=== PATIENT | female | born 1940 | race Caucasian/White ===

== ENCOUNTER 2017-07-01 11:27 | Inpatient (IN) | payer OTHER ==
[2017-07-01] VITALS (11 sets, daily range): BP systolic 76–108; BP diastolic 44–52; PULSE 82–155; RESP 16–18; TEMP 99.1; Ht 142.2 cm; Wt 43.2 kg
[~2017-07-01] VITALS: Ht 142.2 cm; Wt 43.2 kg
[2017-07-01 12:42] LABS: ABNORMAL IP MESSAGE 1; HEMATOCRIT 34.5 % (37.0-47.0); HEMOGLOBIN 12.3 g/dl (12.0-16.0); MEAN CORPUSCULAR HEMOGLOBIN 30.8 pg (29.0-33.0); MEAN CORPUSCULAR HGB CONC 35.7 g/dl (32.0-37.0); MEAN CORPUSCULAR VOLUME 86.5 fl (82.0-101.0); PLATELET COUNT 118 10^3/UL (140-415); RED BLOOD COUNT 3.99 10^6/ul (4.20-5.40); RED CELL DISTRIBUTION WIDTH 14.6 % (11.5-14.5); WHITE BLOOD COUNT 8.4 10^3/ul (4.8-10.8)
[2017-07-01 12:43] LABS: POSITIVE DIFF @See below
[2017-07-01] MEDS ORDERED: RANI150T9 PO (12:50)
[2017-07-01] MEDS ORDERED: CHOL400T10 PO (12:50)
[2017-07-01] MEDS ORDERED: ATOR40TA68 PO (12:51)
[2017-07-01] MEDS ORDERED: METO-448 PO (12:51)
[2017-07-01] MEDS ORDERED: SITA1TAB5 PO (12:51)
[2017-07-01 12:54] LABS: ADD UMIC YES; UR ASCORBIC ACID NEGATIVE (NEGATIVE); UR BACTERIA FEW /HPF (NONE SEEN); UR BILIRUBIN (Dip) NEGATIVE (NEGATIVE); UR BLOOD (Dip) 1+ mg/dL (NEGATIVE); UR CLARITY SLIGHTLY CLOUDY (CLEAR); UR COLOR YELLOW (YELLOW); UR GLUCOSE (Dip) NEGATIVE (NEGATIVE); UR KETONES (Dip) TRACE mg/dL (NEGATIVE); UR LEUKOCYTE ESTERASE (Dip) TRACE Leu/ul (NEGATIVE); UR NITRITE (Dip) NEGATIVE (NEGATIVE); UR RBC 2 /HPF (0-5); UR SPECIFIC GRAVITY (Dip) 1.016 (1.003-1.030); UR SQUAMOUS EPITHELIAL CELL MODERATE /HPF (FEW); UR TOTAL PROTEIN (Dip) 2+ mg/dl (NEGATIVE); UR UROBILINOGEN (Dip) 2+ mg/dL (NEGATIVE)
[2017-07-01 13:06] LABS: ALBUMIN 3.3 g/dl (3.3-4.9); ALBUMIN/GLOBULIN RATIO 0.66; BILIRUBIN,DIRECT 0.3 mg/dl (0.00-0.20); BILIRUBIN,INDIRECT 0.8 mg/dl (0-1.1); BILIRUBIN,TOTAL 1.1 mg/dl (0.2-1.3); CALCIUM 10.1 mg/dl (8.4-10.2); CREATININE 1.61 mg/dl (0.44-1.00); POTASSIUM 4.8 mmol/L (3.5-5.1); TOTAL PROTEIN 8.3 g/dl (6.1-8.1)
[2017-07-01 13:19] LABS: ANISOCYTOSIS 3+ (0-0); METAMYELOCYTES %M 1 % (0-0); MONOCYTES % (M) 1 % (0-11); PLATELET ESTIMATE DECREASED; POIKILOCYTOSIS 1+ (0-0); REACTIVE LYMPHOCYTES% (M) 2 % (0-0); TARGET CELLS 1+ (0-0); TOXIC GRANULATION 1+ (0-0)
[2017-07-01 13:26] LABS: TROPONIN-I 0.142 ng/ml (0.00-0.12)
[2017-07-01] MEDS ORDERED: CEPHALEXIN 500 MG CAP PO ONE (13:30)
[2017-07-01] MEDS ORDERED: ASPIRIN 81 MG TAB PO ONE (13:30)
[2017-07-01] MEDS ORDERED: SOD CHLORIDE 0.9% 500 ML IV ONE (13:30)
--- NOTE | 2017-07-01 13:36 | ERD ---
ER Documentation Chief Complaint Chief Complaint DIZZINESS AND ABDOMINAL PAIN, VOMITTING, DIARRHEA X 1 WEEK -HX OF DIABETES HPI 77-year-old woman for near syncopal episode occurring this morning, he states she felt very dizzy and almost fainted. Patient states she has not been eating or drinking much over the last few days because she lost her appetite and has had a few episodes of clear nonbloody nonbilious emesis and loose stools. She states she had some chest discomfort this morning as well but denies chest pain here in the emergency department. Patient denies fevers or chills, no dysuria, no blood per rectum or melena, no complaints of headache or blurry vision. ROS All systems reviewed and are negative except as per history of present illness. Medications Home Meds Reported Medications Atorvastatin* (Atorvastatin*) 40 Mg Tablet, 40 MG PO QHS, #30 TAB 07/01/17 Metoprolol Tartrate* (Lopressor*) 25 Mg Tab, 25 MG PO BID, #60 TAB 07/01/17 Sitagliptin Phos/Metformin HCl (Janumet 50-1,000 mg Tablet) 1 Each Tablet, 1 EACH PO BID, TAB 07/01/17 Ranitidine Hcl* (Zantac*) 150 Mg Tablet, 150 MG PO BID, #60 TAB 07/01/17 Cholecalciferol* (Vitamin D*) 400 Unit Tablet, 400 UNIT PO DAILY, TAB 07/01/17 Allergies Allergies: Coded Allergies: No Known Allergy (Unverified , 07/01/17) PMhx/Soc Hypertension, diabetes mellitus, gastritis, dyslipidemia FmHx Family History: No diabetes Physical Exam Vitals Vital Signs Date Time Temp Pulse Resp B/P Pulse Ox O2 Delivery O2 Flow Rate FiO2 07/01/17 11:29 96.0 83 19 136/63 100 Physical Exam GENERAL: Well-developed, well-nourished, appears dehydrated, afebrile HEENT: Dry mucous membranes, pink conjunctiva, no cervical spine tenderness or step-off deformities, no goiter, no jaundice or icterus, extraocular movements intact without pain. No submandibular induration, and no pharyngeal erythema NEURO: Alert and oriented 3, cranial nerves II through XII intact bilaterally, pupils equal round reactive to light, no focal deficits or facial asymmetry, sensation intact distally Strength 5/5 in upper and lower extremities bilaterally CARDIAC: Regular rate and rhythm, no murmurs rubs or gallops LUNGS: Clear bilaterally no wheezing crackles or stridor ABDOMEN: Soft nontender, no guarding, no rigidity, no rebound, no psoas sign no obturator sign. Normoactive bowel sounds SKIN: Warm and dry to touch, no abrasions, contusions, or hematomas, no lacerations, no ecchymosis, no target lesions, and without ulcers EXTREMITIES: No clubbing cyanosis or edema, calves are bilaterally symmetrical, no Homans sign, no popliteal cord sign. Distal pulses equal and bilateral PSYCH: Normal affect without agitation or irritability Result Diagram: 07/01/17 1225 07/01/17 1225 Results 24 hrs Laboratory Tests Test 07/01/17 12:25 White Blood Count 8.410^3/ul Red Blood Count 3.9910^6/ul Hemoglobin 12.3g/dl Hematocrit 34.5% Mean Corpuscular Volume 86.5fl Mean Corpuscular Hemoglobin 30.8pg Mean Corpuscular Hemoglobin Concent 35.7g/dl Red Cell Distribution Width 14.6% Platelet Count 08935^3/UL Mean Platelet Volume 11.0fl Neutrophils % % Segmented Neutrophils % (Manual) 57% Band Neutrophils % (Manual) 35% Lymphocytes % % Lymphocytes % (Manual) 4% Reactive Lymphocytes % (Manual) 2% Monocytes % % Monocytes % (Manual) 1% Eosinophils % % Basophils % % Metamyelocytes % (manual) 1% Nucleated Red Blood Cells % 0.0/100WBC Neutrophils # 10^3/ul Neutrophils # (Manual) 5.010^3/ul Band Neutrophils # 2.910^3/ul Absolute Lymphocytes (Manual) 0.310^3/ul Lymphocytes # 10^3/ul Reactive Lymphocytes # 0.110^3/ul Monocytes # 10^3/ul Absolute Monocytes (Manual) 0.010^3/ul Eosinophils # 10^3/ul Basophils # 10^3/ul Metamyelocytes # 0.010^3/ul Nucleated Red Blood Cells # 10^3/ul Toxic Granulation 1+ Platelet Estimate DECREASED Poikilocytosis 1+ Anisocytosis 3+ Macrocytosis 3+ Target Cells 1+ Urine Color YELLOW Urine Clarity SLIGHTLY CLOUDY Urine pH 6.0 Urine Specific [place] 1.016 Urine Ketones TRACEmg/dL Urine Nitrite NEGATIVEmg/dL Urine Bilirubin NEGATIVEmg/dL Urine Urobilinogen 2+mg/dL Urine Leukocyte Esterase TRACELeu/ul Urine Microscopic RBC 2/HPF Urine Microscopic WBC 5/HPF Urine Squamous Epithelial Cells MODERATE/HPF Urine Bacteria FEW/HPF Urine Hemoglobin 1+mg/dL Urine Glucose NEGATIVEmg/dL Urine Total Protein 2+mg/dl Sodium Level 132mmol/L Potassium Level 4.8mmol/L Chloride Level 94mmol/L Carbon Dioxide Level 25mmol/L Anion Gap 18 Blood Urea Nitrogen 65mg/dl Creatinine 1.61mg/dl Glucose Level 99mg/dl Hemoglobin A1c 6.7% Calcium Level 10.1mg/dl Total Bilirubin 1.1mg/dl Direct Bilirubin 0.30mg/dl Indirect Bilirubin 0.8mg/dl Aspartate Amino Transf (AST/SGOT) 244IU/L Alanine Aminotransferase (ALT/SGPT) 152IU/L Alkaline Phosphatase 472IU/L Troponin I 0.142ng/ml Total Protein 8.3g/dl Albumin 3.3g/dl Globulin 5.00g/dl Albumin/Globulin Ratio 0.66 Lipase 72U/L Alpha Fetoprotein 1.61IU/L Thyroid Stimulating Hormone (TSH) 2.370MIU/L Free Thyroxine 1.81ng/dl Current Medications Medications (Trade) Dose Ordered Sig/Martell Route PRN Reason Start Time Stop Time Status Last Admin Dose Admin Aspirin 324 mg 324 mg ONCE ONCE PO 07/01/17 13:30 07/01/17 13:32 DC 07/01/17 13:30 Sodium Chloride (NS) 500 ml @ 500 mls/hr Q1H ONCE IV 07/01/17 13:30 07/01/17 14:29 DC 07/01/17 13:30 Cephalexin (Keflex) 500 mg ONCE ONCE PO 07/01/17 13:30 07/01/17 13:32 DC 07/01/17 13:30 Procedures/MDM IV line was established patient was placed on hvac installer rhythm strip revealed a sinus rhythm at about 80 bpm with upright P and T waves. Patient was afebrile. I do not suspect sepsis. EKG performed, read by me: 75 bpm, normal sinus rhythm, normal axis, no acute ST segment changes, narrow QRS complex, with good R-wave progression in precordial leads. CT scan of the abdomen and pelvis was ordered given her recent history: IMPRESSION: 1. Large poorly defined infiltrative hypodense lesion within the anterior right lobe of the liver. Further evaluation with MRI with contrast is recommended for more complete assessment. 2. Subtle inflammatory bronchiolitis and/or respiratory bronchiolitis interstitial lung disease scattered throughout the lungs bilaterally. 3. Scattered tiny micronodules throughout the lungs, including a single calcified granuloma within the lungs, all of which is probably benign and inflammatory in nature. 4. Distended gallbladder with layering gallstones. 5. Scattered benign chronic senescent changes. I administered morphine 4 mg IV and Zofran 4 mg IV for her initial generalized abdominal pain, she also received 500 mg IV normal saline. Her urine analysis was equivocal and I treated her here with oral cephalexin 500 mg p.o., although I do not suspect sepsis CBC was unremarkable, electrolytes revealed dehydration with a BUN/creatinine of 65/1.6, liver function tests revealed mild transaminitis, troponin positive at 0.14 I administered aspirin 324 mg p.o. for cardioprotective measures. Patient will be admitted to telemetry setting for non-STEMI and near syncope. Further intervention, imaging deferred to admitting hospitalist team. Departure Diagnosis: Primary Impression: Non-STEMI (non-ST elevated myocardial infarction) Additional Impressions: Dehydration Transaminitis Vomiting and diarrhea Acute kidney injury Condition: MIGEL Louise MD Jul 01, 2017 13:36
--- NOTE | 2017-07-01 13:37 | RADRPT ---
PROCEDURE: CT Chest, Abdomen and Pelvis without contrast. CLINICAL INDICATION: Pain. Dizziness. Weight loss. TECHNIQUE: CT scan of the chest, abdomen, and pelvis without contrast was performed on a multi-det jaziel high-resolution CT scanner. The patient was scanned without intravenous contrast. Coronal an d sagittal reformatted images were obtained from the axial source images. DICOM images are available . CTDI equals 5.16 mGy, DLP equals 390.76 mGy-cm. One or more of the following dose reduction techniques were used: - Automated exposure control. - Adjustment of the mA and/or kV according to patient size. - Use of iterative reconstruction technique. COMPARISON: None available FINDINGS: CT CHEST: Lungs: Diffuse scattered subtle centrilobular ground-glass opacification throughout the lungs. Benig n inflammatory bronchiolitis or respiratory bronchiolitis interstitial lung disease (RBILD) could haley ve this appearance. Benign calcified granuloma in the posterior juxtapleural margin of the left uppe r lung. Additional smaller scattered noncalcified micronodules within the lungs, too small to charac terize. Airways: Normal. Pleura: Normal. Mediastinum: Normal. Cardiovascular: Abundant aortic and coronary artery atherosclerotic vascular calcifications are iden tified. Lymph nodes: No adenopathy. Musculoskeletal: Normal. Lower neck: Normal. CT ABDOMEN/PELVIS: Liver: A large poorly defined approximately 9.5 cm area of significant diminished density is seen wi thin the anterior right liver, of uncertain etiology. Confluent hepatic fibrosis, focal fatty infilt ration, or less likely a neoplastic process could have this appearance. Further evaluation is stephen alaniz. In addition, smaller cystic lesions are seen elsewhere scattered throughout the periphery of th e left and right lobes of the liver. Biliary: Distended gallbladder with small layering gallstones. No significant biliary dilatation. Pancreas: Significant atrophy of the body and tail of the pancreas. Spleen: Normal. Adrenal Glands: Mild asymmetric thickening and hyperplasia of the left adrenal gland. Genitourinary: Normal. Gastrointestinal: Small duodenal diverticulum adjacent to the head of the pancreas. Sigmoid divertic ulosis, without diverticulitis. No bowel distension or bowel obstruction. Lymph nodes: Normal. Vascular: Extensive atherosclerotic vascular calcifications Peritoneum/mesentery: Normal. No free fluid or free air. Reproductive organs: Normal. Musculoskeletal: Severe compression fracture of the T11 vertebral body, likely chronic. Diffuse dege nerative enthesopathy throughout the spine. Mild anterolisthesis of L5 on S1. IMPRESSION: 1. Large poorly defined infiltrative hypodense lesion within the anterior right lobe of the liver. Further evaluation with MRI with contrast is recommended for more complete assessment. 2. Subtle inflammatory bronchiolitis and/or respiratory bronchiolitis interstitial lung disease sca ttered throughout the lungs bilaterally. 3. Scattered tiny micronodules throughout the lungs, including a single calcified granuloma within the lungs, all of which is probably benign and inflammatory in nature. 4. Distended gallbladder with layering gallstones. 5. Scattered benign chronic senescent changes. RPTAT: HMJB .Jozef Wolf MD, MD Date Time Electronically viewed and signed by .Jozef Wolf MD, on 07/01/2017 13:37 .B/
[2017-07-01] MEDS ORDERED: ONDANSETRON 4 MG INJ IV STA (15:13)
[2017-07-01] MEDS ORDERED: morphine 4 MG/ML VIAL IV STA (15:13)
--- NOTE | 2017-07-01 15:18 | HP ---
Date/Time of Note Date/Time of Note DATE: 07/01/17 TIME: 15:16 Assessment/Plan VTE Prophylaxis VTE Prophylaxis Intervention: SCD's Lines/Catheters IV [facility]from [facility] Assessment/Plan Chief Complaint/Hosp Course 1. Sepsis. Meets SIRS criteria: temperature less than 96.8F, heart rate greater than 90, respiratory rate greater than 20 with suspected infection [ urinalysis not that impressive, CT scan showing subtle inflammatory bronchiolitis and/or respiratory bronchiolitis interstitial lung disease scattered throughout the lungs bilaterally (although the patient has underlying transaminitis, the patient's baseline LFTs are unknown at this time)]. The patient was started on empiric antibiotics. Pancultures will be obtained. Lactic acid levels will be obtained. The patient has no evidence of any underlying tic shock 2. NSTEMI. Probably a type II event in the setting of underlying sepsis and acute kidney injury. However, serial troponins will be obtained. A 2D echocardiogram will be obtained. A cardiology consult will be obtained. 3. Acute kidney injury. Unknown baseline creatinine. The patient will be adequately hydrated using IV fluids. Nephrotoxic drugs will be avoided. 4. Transaminitis with hyperbilirubinemia. Etiology unclear. Hepatotoxic drugs will be avoided. Hepatitis panel will be obtained. LFTs will be trended. Will obtain a gastroenterology consult. 5. Type 2 diabetes mellitus. The patient's Metformin will be held at this time because of worsening renal function. The patient will be started on sliding scale insulin along with basal insulin and pre-meal insulin. Hemoglobin A1c will be obtained to evaluate the blood glucose control over the past few weeks. 6. Dyslipidemia. Statins will be held because of underlying transaminitis. A fasting lipid panel will be obtained. 7. Large poorly defined infiltrative hypodense lesion within the anterior right lobe of the liver. Etiology unclear. Obtain gastroenterology evaluation. Obtain alpha-fetoprotein level. Plan: The patient will be admitted to inpatient telemetry floor. The patient will be started on a carbohydrate controlled diet. The patient will be started on DVT prophylaxis. The patient will remain a full code. Activities will be with assist. The rest of the patient's management will be based on the clinical course, inputs from consultants, and the results of diagnostic studies. Based on the patient's clinical presentation, she most probably requires at least 2 midnight's stay for further management and evaluation of her clinical presentation. The case and management of this patient was fully discussed with Dr. Smith. Problems: HPI/ROS Admit Date/Time Admit Date/Time Hx of Present Illness Reason for admission: Dizziness, abdominal pain, vomiting, diarrhea for 1 week. Consultants 1. Ken Dumont MD, Cardiology. 2. Shaka Metz MD, Gastroenterology. This is a 77-year-old female with past medical history essential hypertension, dyslipidemia, and type 2 diabetes mellitus who came to the emergency room with chief complaint of dizziness, abdominal pain, vomiting and diarrhea that has been going on for the past 1 week. The patient verbalized that this has been going on and off for the past 1 week. The patient denied eating anything unusual. She denied any recent travels outside the country. There was no reported chest pain. She did not report any headache, fevers, chills, or dysuria. In the emergency room, the patient was noticed to be in acute kidney injury with a BUN and creatinine of 65 and 1.61 respectively. The patient also had evidence of hyperbilirubinemia with transaminitis. The patient's troponins were 0.142. The patient was treated with a single dose of aspirin along with IV fluids and 1 dose of Keflex in the emergency room. ROS Constitutional: nausea, poor po Eyes: no complaints ENT: no complaints Respiratory: no complaints Cardiovascular: no complaints Gastrointestinal: diarrhea, pain Genitourinary: no complaints Musculoskeletal: no complaints Skin: no complaints Neurologic: dizziness Endocrine: no complaints Lymphatic: no complaints Psychological: no complaints Immunologic: no complaints PMH/Family/Social Past Medical History Medical History: diabetes, high cholesterol, hypertension Past Surgical History Past Surgical Hx: other (LEFT arm orthopedic surgery) Social History Alcohol Use: none Smoking Status: Never smoker Drug Use: none Exam/Review of Systems Vital Signs Vitals Vital Signs Date Time Temp Pulse Resp B/P Pulse Ox O2 Delivery O2 Flow Rate FiO2 07/01/17 11:29 96.0 83 19 136/63 100 Exam Exam General: Adequately build 77 year-old female lying in bed in no apparent distress. HEENT: Normocephalic, atraumatic. Eyes: icteric sclerae, conjunctivae clear. ENT : Nasal septum midline, oral mucosa moist. Neck supple, JVD noticed. Respiratory: Bilaterally diminished breath sounds. No use of accessory muscles of respiration. No adventitious breath sounds. Cardiovascular: S1, S2 heard. Regular rate and rhythm. Abdomen: Soft, nontender, and nondistended. Bowel sounds positive in all 4 quadrants. Genitourinary: No CVA tenderness. Extremities: No cyanosis, no clubbing, no edema. Peripheral pulses palpable. Neurologic: Cranial nerves II through XII grossly intact. The patient is awake, alert, and oriented. Skin: Normal skin turgor. No skin rashes. Labs Result Diagram: 07/01/17 1225 07/01/[address] Chest, Abdomen, & Pelvis IMPRESSION: 1. Large poorly defined infiltrative hypodense lesion within the anterior right lobe of the liver. Further evaluation with MRI with contrast is recommended for more complete assessment. 2. Subtle inflammatory bronchiolitis and/or respiratory bronchiolitis interstitial lung disease scattered throughout the lungs bilaterally. 3. Scattered tiny micronodules throughout the lungs, including a single calcified granuloma within the lungs, all of which is probably benign and inflammatory in nature. 4. Distended gallbladder with layering gallstones. 5. Scattered benign chronic senescent changes. MAK NOVAK NP Jul 01, 2017 15:18
[2017-07-01] MEDS ORDERED: DILTIAZEM 25 MG INJ IV ONE (15:30)
[2017-07-01] MEDS ORDERED: CEFTRIAXONE 1 GM/50 ML (PMX) 50 ML IVPB SCH (15:30)
[2017-07-01] MEDS ORDERED: NACL 0.9% 3 ML SYG IV SCH (15:30)
[2017-07-01] MEDS: INSULIN ASPART [NOVOLOG] 3 ML PEN SC SCH ×3 (17:28→22:47)
[2017-07-01] MEDS: SOD CHLORIDE 0.9% 1,000 ML IV SCH (17:38)
--- NOTE | 2017-07-01 18:06 | QN ---
Documentation Comment Emergency medicine consultation note: Patient was admitted for non-STEMI and syncope and while waiting in the emergency department she developed palpitations and tachycardia. EKG performed, read by me revealed an atrial fibrillation with rapid ventricular rate at 153 ms, normal axis, narrow QRS complex, no concerning ST elevations or depressions noted. I ordered diltiazem 20 mg IV to be given in about 10 minutes if her tachycardia continues, although symptoms resolved on monitoring manager and returned to normal with a rate controlled sinus rhythm. Therefore diltiazem was not administered. Please refer to my earlier dictation for full ER course and medical decision making. MIGEL DELGADO MD Jul 01, 2017 18:06
[2017-07-01 19:31] LABS: HAAIG REFLEX REFLEX FILED
[2017-07-01 20:10] LABS: CK-MB 1.75 ng/ml (0.0-2.4)
[2017-07-01 20:14] LABS: TROPONIN-I 0.166 ng/ml (0.00-0.12)
[2017-07-01 20:48] LABS: HEPATITIS B CORE ANTIBODY REACTIVE (NEGATIVE)
[2017-07-01] MEDS: METOPROLOL 25 MG TAB PO SCH (21:00)
--- NOTE | 2017-07-01 22:25 | RADRPT ---
PROCEDURE: XR Chest. CLINICAL INDICATION: Hypertension and shock. TECHNIQUE: Single frontal view of the chest. COMPARISON: None. FINDINGS: Cardiomegaly and atherosclerotic calcifications in the thoracic aorta. Mild atelectasis at the right lung base. Mild pulmonary vascular congestion. The lungs are otherwise clear. No signs of pleural f luid or pneumothorax are seen. The osseous structures and soft tissues are unremarkable. IMPRESSION: Mild failure. RPTAT: [facility] Physician Heaven Date Time Electronically viewed and signed by Physician Heaven on 07/01/2017 22:25 RS/
[2017-07-01] MEDS ORDERED: SOD CHLORIDE 0.9% 500 ML IV STA (22:40)
[2017-07-01] MEDS: INSULIN GLARGINE [LANtus] 3 ML PEN SC SCH (22:45)
[2017-07-01] MEDS ORDERED: GLUCOSE GEL 15 GRAM TUBE PO PRN ×2 (23:30)
[2017-07-01] MEDS ORDERED: GLUCOSE GEL 15 GRAM TUBE BUCCAL PRN (23:30)
[2017-07-01] MEDS ORDERED: GLUCAGON 1 MG INJ IM PRN (23:30)
[2017-07-01] MEDS ORDERED: DEXTROSE 50% 50 ML SYRINGE IV PRN ×2 (23:30)
[2017-07-02] VITALS (13 sets, daily range): BP systolic 98–140; BP diastolic 44–64; PULSE 48–91; RESP 16–20
[2017-07-02] MEDS ORDERED: metroNIDAZOLE 500 MG/NS (PMX) 100 ML IVPB ONE
[2017-07-02] MEDS ORDERED: LACTULOSE ENEMA 1,000 ML BTL PR SCH
[2017-07-02] MEDS ORDERED: ALBUMIN HUMAN 25% 100 ML IV ONE (01:00)
[2017-07-02] MEDS ORDERED: CIPROFLOXACIN 400MG/D5W 200 ML IVPB ONE (01:00)
[2017-07-02] MEDS: ACCU-CHEK XX SCH (02:00)
[2017-07-02 03:05] LABS: CK-MB 1.54 ng/ml (0.0-2.4); TROPONIN-I 0.117 ng/ml (0.00-0.12)
[2017-07-02 07:45] LABS: ABNORMAL IP MESSAGE 1; HEMATOCRIT 22.7 % (37.0-47.0); HEMOGLOBIN 8.5 g/dl (12.0-16.0); MEAN CORPUSCULAR HGB CONC 37.4 g/dl (32.0-37.0); MEAN CORPUSCULAR VOLUME 85.3 fl (82.0-101.0); MEAN PLATELET VOLUME 11.6 fl (7.4-10.4); RED BLOOD COUNT 2.66 10^6/ul (4.20-5.40); RED CELL DISTRIBUTION WIDTH 14.6 % (11.5-14.5); WHITE BLOOD COUNT 31.4 10^3/ul (4.8-10.8)
[2017-07-02 07:47] LABS: PLATELET COUNT 82 10^3/UL (140-415)
[2017-07-02 07:48] LABS: POSITIVE DIFF @See below
[2017-07-02 08:12] LABS: CHOL/HDL RATIO 8.6 RATIO; MAGNESIUM 1.6 mg/dl (1.7-2.5); PHOSPHORUS 4.3 mg/dl (2.5-4.9)
[2017-07-02 08:20] LABS: INR 1.16; PROTIME 14.9 Sec (12.2-14.2); PT RATIO 1.2
[2017-07-02 08:21] LABS: PARTIAL THROMBOPLASTIN TIME 31.9 Sec (25.0-35.0)
[2017-07-02 08:25] LABS: CK-MB 1.5 ng/ml (0.0-2.4); TROPONIN-I 0.09 ng/ml (0.00-0.12)
[2017-07-02] MEDS: METOPROLOL 25 MG TAB PO SCH ×2 (08:48→21:20)
[2017-07-02] MEDS: SOD CHLORIDE 0.9% 1,000 ML IV SCH ×3 (08:48→21:23)
[2017-07-02] MEDS: INSULIN ASPART [NOVOLOG] 3 ML PEN SC SCH ×7 (08:51→21:00)
[2017-07-02 09:00] LABS: ALBUMIN 2.6 g/dl (3.3-4.9); ALBUMIN/GLOBULIN RATIO 0.7; BILIRUBIN,INDIRECT 0.4 mg/dl (0-1.1); BILIRUBIN,TOTAL 0.4 mg/dl (0.2-1.3); CALCIUM 8.5 mg/dl (8.4-10.2); CREATININE 1.51 mg/dl (0.44-1.00); TOTAL PROTEIN 6.3 g/dl (6.1-8.1)
--- NOTE | 2017-07-02 09:21 | RADRPT ---
PROCEDURE: US Abdomen (right upper quadrant). CLINICAL INDICATION: Liver mass seen on prior CT scan. Elevated liver enzymes. TECHNIQUE: Multiple real-time longitudinal and transverse images of the right upper quadrant of e abdomen were acquired utilizing a curved array transducer. Images were reviewed on a high-resoluti on PACS workstation. COMPARISON: CT scan of the abdomen and pelvis dated 07/01/2017 which demonstrated a 9.5 cm mass in the anterior right liver. FINDINGS: The liver is normal in size. As seen on the CT scan, there is a heterogeneous hyperechoic mass in e anterior right liver measuring 10.1 x 6.1 x 7.4 cm. There is no other focal hepatic lesion. Color Doppler and pulsed Doppler sonography demonstrate normal antegrade flow in the portal vein. There is sludge in the gallbladder. There is no evidence of cholecystitis with no gallbladder wall t hickening or fluid around the gallbladder. There are no gallstones in the gallbladder. The bile ducts are normal with the common bile duct measuring 5.3 mm in diameter. The visualized portions of the pancreas are unremarkable with obscuration of the tail of the pancrea s. No free fluid is present. The right kidney measures 10.2 x 4.2 x 4.8 cm. There is normal echogenicity of the right kidney. There is no perinephric fluid collection. No hydronephrosis, mass, or calculus is seen. IMPRESSION: 1. Liver mass measuring 10.1 cm in maximal dimension consistent with neoplasm. 2. Sludge in the gallbladder. No gallstones or evidence of cholecystitis. 3. Otherwise unremarkable right upper quadrant abdomen ultrasound. RPTAT: QQ .Andrea Salmeron MD, Date Time Electronically viewed and signed by .Andrea Salmeron MD, on 07/02/2017 09:21 .R/
[2017-07-02 09:33] LABS: ANISOCYTOSIS 2+ (0-0); HYPOCHROMASIA 1+ (0-0); MONOCYTES % (M) 3 % (0-11); MYELOCYTES % (M) 1 % (0-0); PLATELET ESTIMATE DECREASED; POLYCHROMASIA 1+ (0-0)
--- NOTE | 2017-07-02 12:18 | PN ---
Date/Time of Note Date/Time of Note DATE: 07/02/17 TIME: 12:14 Assessment/Plan VTE Prophylaxis VTE Prophylaxis Intervention: SCD's Lines/Catheters IV Catheter Type (from [facility]): Peripheral IV Assessment/Plan Chief Complaint/Hosp Course Assessment and plan 1. Sepsis. Patient noted with worsening leukocytosis. Etiology unknown. Will get ID consult to follow. Follow-up cultures. 2. Possible non-ST elevated myocardial infarction. In the setting of sepsis and acute renal insufficiency. Track Moving Machine Operator following. Will follow up with recommendations. 3. Acute kidney injury. Will get foamite mixer to follow. Medications to be renally dosed. 4. Transaminitis. Patient did have positive hepatitis B panel. Follow-up with GI recommendations. 5. Type 2 diabetes. Continue insulin regimen. Adjust as needed for 6. Dyslipidemia. Will place on the fat low cholesterol diet. Statin medication on hold due to transaminitis. 7. Liver mass measuring 10.1 cm as seen by liver ultrasound. Suspect consistent with neoplasm. Will get surgical evaluation. Disposition and plan: Advertising Copy Writer to follow. Will also get ID consult. Will get surgeon to follow for liver mass. Continue in-house monitoring. follow up tumor markers Discussed plan of care with Dr. Sánchez Problems: Subjective 24 Hr Interval Summary Free Text/Dictation Patient resting in bed. Only reports some abdominal discomfort. Family at bedside. She did tell me during visit that she had a 15 pound weight loss in 2 weeks. Exam/Review of Systems Vital Signs Vitals Vital Signs Date Time Temp Pulse Resp B/P Pulse Ox O2 Delivery O2 Flow Rate FiO2 07/02/17 11:58 98.0 66 18 111/44 100 07/02/17 00:00 Nasal Cannula 2.0 Intake and Output 07/01/17 07/01/17 07/02/17 15:00 23:00 07:00 Intake Total 400 ml Balance 400 ml Exam Constitutional: alert, oriented Psych: nl mood/affect Head: normocephalic Eyes: nl conjunctiva Respiratory: clear to auscultation, normal air movement Cardiovascular: regular rate and rhythm Gastrointestinal: non-tender, soft Musculoskeletal: nl extremities to inspection Extremities: normal pulses Neurological: VARIETY SAW OPERATOR II-XII intact, nl mental status, nl speech Skin: nl turgor Results Result Diagram: 07/02/17 0704 07/02/17 0704 Results 24 hrs Laboratory Tests Test 07/01/17 12:25 07/01/17 17:22 07/01/17 19:13 07/01/17 20:31 White Blood Count 8.4 Red Blood Count 3.99 L Hemoglobin 12.3 Hematocrit 34.5 L Mean Corpuscular Volume 86.5 Mean Corpuscular Hemoglobin 30.8 Mean Corpuscular Hemoglobin Concent 35.7 Red Cell Distribution Width 14.6 H Platelet Count 118 L Mean Platelet Volume 11.0 H Neutrophils % Segmented Neutrophils % (Manual) 57 Band Neutrophils % (Manual) 35 H Lymphocytes % Lymphocytes % (Manual) 4 L Reactive Lymphocytes % (Manual) 2 H Monocytes % Monocytes % (Manual) 1 Eosinophils % Basophils % Metamyelocytes % (manual) 1 H Nucleated Red Blood Cells % 0.0 Neutrophils # Neutrophils # (Manual) 5.0 Band Neutrophils # 2.9 H Absolute Lymphocytes (Manual) 0.3 L Lymphocytes # Reactive Lymphocytes # 0.1 H Monocytes # Absolute Monocytes (Manual) 0.0 L Eosinophils # Basophils # Metamyelocytes # 0.0 Nucleated Red Blood Cells # Toxic Granulation 1+ Platelet Estimate DECREASED Poikilocytosis 1+ Anisocytosis 3+ Macrocytosis 3+ Target Cells 1+ Urine Color YELLOW Urine Clarity SLIGHTLY CLOUDY A Urine pH 6.0 Urine Specific [place] 1.016 Urine Ketones TRACE A Urine Nitrite NEGATIVE Urine Bilirubin NEGATIVE Urine Urobilinogen 2+ H Urine Leukocyte Esterase TRACE A Urine Microscopic RBC 2 Urine Microscopic WBC 5 Urine Squamous Epithelial Cells MODERATE Urine Bacteria FEW A Urine Hemoglobin 1+ H Urine Glucose NEGATIVE Urine Total Protein 2+ H Sodium Level 132 L Potassium Level 4.8 Chloride Level 94 L Carbon Dioxide Level 25 Anion Gap 18 H Blood Urea Nitrogen 65 H Creatinine 1.61 H Glucose Level 99 Hemoglobin A1c 6.7 H Calcium Level 10.1 Total Bilirubin 1.1 Direct Bilirubin 0.30 H Indirect Bilirubin 0.8 Aspartate Amino Transf (AST/SGOT) 244 H Alanine Aminotransferase (ALT/SGPT) 152 H Alkaline Phosphatase 472 H Troponin I 0.142 *H 0.166 *H Total Protein 8.3 H Albumin 3.3 Globulin 5.00 H Albumin/Globulin Ratio 0.66 Lipase 72 Alpha Fetoprotein 1.61 Thyroid Stimulating Hormone (TSH) 2.370 Free Thyroxine 1.81 Bedside Glucose 61 L 125 Lactic Acid Level 3.5 *H Creatine Kinase 21 L Creatine Kinase Index 8.3 Creatinine Kinase MB (Mass) 1.75 B-Type Natriuretic Peptide 18070 H Hepatitis B Surface Antigen NEGATIVE Hepatitis B Core Total Antibody REACTIVE H Hepatitis C Antibody NEGATIVE Test 07/01/17 22:18 07/01/17 22:59 07/02/17 02:07 07/02/17 07:03 Bedside Glucose 161 Lactic Acid Level 2.7 *H 2.0 2.3 *H Magnesium Level 1.6 L Creatine Kinase 28 Creatine Kinase Index 5.5 Creatinine Kinase MB (Mass) 1.54 Troponin I 0.117 Prothrombin Time 14.9 H Prothrombin Time Ratio 1.2 INR International Normalized Ratio 1.16 Activated Partial Thromboplast Time 31.9 Test 07/02/17 07:04 07/02/17 08:40 White Blood Count 31.4 #H Red Blood Count 2.66 #L Hemoglobin 8.5 #L Hematocrit 22.7 #L Mean Corpuscular Volume 85.3 Mean Corpuscular Hemoglobin 32.0 Mean Corpuscular Hemoglobin Concent 37.4 H Red Cell Distribution Width 14.6 H Platelet Count 82 #L Mean Platelet Volume 11.6 H Neutrophils % Segmented Neutrophils % (Manual) 67 Band Neutrophils % (Manual) 27 H Lymphocytes % Lymphocytes % (Manual) 2 L Monocytes % Monocytes % (Manual) 3 Eosinophils % Basophils % Myelocytes % (Manual) 1 H Nucleated Red Blood Cells % 0.0 Neutrophils # Neutrophils # (Manual) 23.7 H Band Neutrophils # 8.4 H Absolute Lymphocytes (Manual) 0.6 L Lymphocytes # Monocytes # Absolute Monocytes (Manual) 0.9 Eosinophils # Basophils # Myelocytes # 0.3 H Nucleated Red Blood Cells # Platelet Estimate DECREASED Polychromasia 1+ Hypochromasia 1+ Anisocytosis 2+ Macrocytosis 2+ Sodium Level 130 L Potassium Level 4.0 Chloride Level 99 Carbon Dioxide Level 21 Anion Gap 14 Blood Urea Nitrogen 63 H Creatinine 1.51 H Glucose Level 185 Calcium Level 8.5 Phosphorus Level 4.3 Magnesium Level 1.6 L Total Bilirubin 0.4 Direct Bilirubin 0.00 # Indirect Bilirubin 0.4 Aspartate Amino Transf (AST/SGOT) 161 H Alanine Aminotransferase (ALT/SGPT) 117 H Alkaline Phosphatase 245 H Creatine Kinase 21 L Creatine Kinase Index 7.1 Creatinine Kinase MB (Mass) 1.50 Troponin I 0.090 Total Protein 6.3 # Albumin 2.6 L Globulin 3.70 H Albumin/Globulin Ratio 0.70 Triglycerides Level 376 H Cholesterol Level 173 LDL Cholesterol, Calculated 78 HDL Cholesterol 20 L Cholesterol/HDL Ratio 8.6 Amylase Level 38 Lipase 46 Bedside Glucose 147 Medications Medications Current Medications Sodium Chloride (NS) 1,000 ml @ 100 mls/hr Q10H IV Last administered on 08:48; Admin Dose 100 MLS/HR; Start 07/01/17 at 15:04 Ondansetron HCl (Zofran Inj) 4 mg Q6H PRN IV NAUSEA AND/OR VOMITING; Start at 15:30 Morphine Sulfate (morphine) 2 mg Q4H PRN IV SEVERE PAIN LEVEL 7-10; Start at 15:30 Metoprolol Tartrate 25 mg 25 mg BID PO Last administered on 07/02/17 08:48; Admin Dose 25 MG; Start 07/01/17 at 21:00 Ceftriaxone Sodium (Rocephin) 50 ml @ 100 mls/hr Q24H IVPB Last administered on 07/01/17 16:20; Admin Dose 100 MLS/HR; Start 07/01/17 at 15:30 Diagnostic Test (Pha) (Accu-Chek) 1 ea 02 XX ; Start 07/02/17 at 02:00 Insulin Glargine (Lantus) 6 unit DAILY@20 SC Last administered on 07/01/17 22 :45; Admin Dose 6 UNIT; Start 07/01/17 at 20:00 Miscellaneous Information 1 ea NOTE XX ; Start 07/01/17 at 23:30 Glucose (Glutose) 15 gm Q15M PRN PO DECREASED GLUCOSE; Start 07/01/17 at 23:30 Glucose (Glutose) 22.5 gm Q15M PRN PO DECREASED GLUCOSE; Start 07/01/17 at 23: 30 Dextrose (D50w Syringe) 25 ml Q15M PRN IV DECREASED GLUCOSE; Start 07/01/17 at 23:30 Dextrose (D50w Syringe) 50 ml Q15M PRN IV DECREASED GLUCOSE; Start 07/01/17 at 23:30 Glucagon (Glucagen) 1 mg Q15M PRN IM DECREASED GLUCOSE; Start 07/01/17 at 23: 30 Glucose (Glutose) 15 gm Q15M PRN BUCCAL DECREASED GLUCOSE; Start 07/01/17 at 23:30 SYDNIE EMMANUEL Jul 02, 2017 12:18
[2017-07-02] MEDS: ASPIRIN 81 MG TAB PO SCH (12:30)
--- NOTE | 2017-07-02 12:32 | CONS ---
Date/Time of Note Date/Time of Note DATE: 07/02/17 TIME: 12:17 Assessment/Plan Assessment/Plan Chief Complaint/Hosp Course NSTEMI: Type II in setting of sepsis/ episodes of afib with RVR. Trops downtrended from 0.14. Will treat medically and obtain an echo. COuld consider stress testing once other active GI issues resolve Paroxysmal afib with RVR: Currently in sinus. CHADSVASC is 5 and would benefit from anticoagulation senior living but will defer for now as she is being evaluated for a liver mass. N/V/Abd pain: ?from passed gallstone +/- liver mass Liver mass: being evaluated Transaminitis: improving. Clinically possibly from passed stone but defer to GI ILD: seen on CT. Has crackles on exam but currently JVP is ok CKD vs acute: Cr slightly improved DM HTN -agree with metoprolol 25mg BID -ASA -hold statin with transaminitis -eventually consider for anticoagulation -echo -GI workup. If needs EGD or other procedures, ok from cardiac standpoint Problems: Consultation Date/Type/Reason Admit Date/Time Date of Consultation: Jul 02, 2017 Type of Consultation: Cardiology Reason for Consultation AFib with RVR, NSTEMI Referring Provider: MAK NOVAK NP Hx of Present Illness 77 yo F with a h/o DM, HTN, HL, ?CKD (unknown baseline) who presented due to N/V /abdominal pain for 1 week. Interpretation was used. The daughter notes that she has been having abdominal pain (epigastric radiating to back) for the past one week with nausea, vomiting, and inability to eat. Workup revealed mild trop elevation to 0.14 which has trended down. No chest pain currently or ever. No prior cardiac history or afib. While in ED and again on the floor, the pt had brief episodes of afib with RVR without symptoms which spontaneously converted back to sinus. SHe also had a CT which showed gallstones, dilated gallbladder, and a liver mass which was also confirmed by ultrasound. She had transaminitis which is improving. No further abdominal pain. per HPI Eyes: no complaints ENT: no complaints Respiratory: no complaints Cardiovascular: no complaints Gastrointestinal: diarrhea, pain Genitourinary: no complaints Musculoskeletal: no complaints Skin: no complaints Neurologic: dizziness Lymphatic: no complaints Psychological: no complaints Immunologic: no complaints Past Medical History per HPI Medical History: diabetes, high cholesterol, hypertension Past Surgical History Past Surgical Hx: other (LEFT arm orthopedic surgery) Social History Alcohol Use: none Smoking Status: Never smoker Drug Use: none Exam/Review of Systems Vital Signs Vitals Vital Signs Date Time Temp Pulse Resp B/P Pulse Ox O2 Delivery O2 Flow Rate FiO2 07/02/17 11:58 98.0 66 18 111/44 100 07/02/17 00:00 Nasal Cannula 2.0 Intake and Output 07/01/17 07/01/17 07/02/17 15:00 23:00 07:00 Intake Total 400 ml Balance 400 ml Exam Constitutional: alert, oriented Psych: nl mood/affect, no complaints Head: atraumatic, normocephalic Neck: jvd (8cm) Respiratory: crackles/rales, No clear to auscultation (crackles ) Cardiovascular: regular rate and rhythm, systolic murmur (2/6 DEEPIKA), No edema Gastrointestinal: non-tender, soft, No distended Neurological: nl mental status, nl speech Skin: No rash or lesions Results afib with RVR, no ST changes Result Diagram: 07/02/17 0704 07/02/17 0704 Results 24 hrs Laboratory Tests Test 07/01/17 12:25 07/01/17 17:22 07/01/17 19:13 07/01/17 20:31 White Blood Count 8.4 Red Blood Count 3.99 L Hemoglobin 12.3 Hematocrit 34.5 L Mean Corpuscular Volume 86.5 Mean Corpuscular Hemoglobin 30.8 Mean Corpuscular Hemoglobin Concent 35.7 Red Cell Distribution Width 14.6 H Platelet Count 118 L Mean Platelet Volume 11.0 H Neutrophils % Segmented Neutrophils % (Manual) 57 Band Neutrophils % (Manual) 35 H Lymphocytes % Lymphocytes % (Manual) 4 L Reactive Lymphocytes % (Manual) 2 H Monocytes % Monocytes % (Manual) 1 Eosinophils % Basophils % Metamyelocytes % (manual) 1 H Nucleated Red Blood Cells % 0.0 Neutrophils # Neutrophils # (Manual) 5.0 Band Neutrophils # 2.9 H Absolute Lymphocytes (Manual) 0.3 L Lymphocytes # Reactive Lymphocytes # 0.1 H Monocytes # Absolute Monocytes (Manual) 0.0 L Eosinophils # Basophils # Metamyelocytes # 0.0 Nucleated Red Blood Cells # Toxic Granulation 1+ Platelet Estimate DECREASED Poikilocytosis 1+ Anisocytosis 3+ Macrocytosis 3+ Target Cells 1+ Urine Color YELLOW Urine Clarity SLIGHTLY CLOUDY A Urine pH 6.0 Urine Specific [place] 1.016 Urine Ketones TRACE A Urine Nitrite NEGATIVE Urine Bilirubin NEGATIVE Urine Urobilinogen 2+ H Urine Leukocyte Esterase TRACE A Urine Microscopic RBC 2 Urine Microscopic WBC 5 Urine Squamous Epithelial Cells MODERATE Urine Bacteria FEW A Urine Hemoglobin 1+ H Urine Glucose NEGATIVE Urine Total Protein 2+ H Sodium Level 132 L Potassium Level 4.8 Chloride Level 94 L Carbon Dioxide Level 25 Anion Gap 18 H Blood Urea Nitrogen 65 H Creatinine 1.61 H Glucose Level 99 Hemoglobin A1c 6.7 H Calcium Level 10.1 Total Bilirubin 1.1 Direct Bilirubin 0.30 H Indirect Bilirubin 0.8 Aspartate Amino Transf (AST/SGOT) 244 H Alanine Aminotransferase (ALT/SGPT) 152 H Alkaline Phosphatase 472 H Troponin I 0.142 *H 0.166 *H Total Protein 8.3 H Albumin 3.3 Globulin 5.00 H Albumin/Globulin Ratio 0.66 Lipase 72 Alpha Fetoprotein 1.61 Thyroid Stimulating Hormone (TSH) 2.370 Free Thyroxine 1.81 Bedside Glucose 61 L 125 Lactic Acid Level 3.5 *H Creatine Kinase 21 L Creatine Kinase Index 8.3 Creatinine Kinase MB (Mass) 1.75 B-Type Natriuretic Peptide 38026 H Hepatitis B Surface Antigen NEGATIVE Hepatitis B Core Total Antibody REACTIVE H Hepatitis C Antibody NEGATIVE Test 07/01/17 22:18 07/01/17 22:59 07/02/17 02:07 07/02/17 07:03 Bedside Glucose 161 Lactic Acid Level 2.7 *H 2.0 2.3 *H Magnesium Level 1.6 L Creatine Kinase 28 Creatine Kinase Index 5.5 Creatinine Kinase MB (Mass) 1.54 Troponin I 0.117 Prothrombin Time 14.9 H Prothrombin Time Ratio 1.2 INR International Normalized Ratio 1.16 Activated Partial Thromboplast Time 31.9 Test 07/02/17 07:04 07/02/17 08:40 White Blood Count 31.4 #H Red Blood Count 2.66 #L Hemoglobin 8.5 #L Hematocrit 22.7 #L Mean Corpuscular Volume 85.3 Mean Corpuscular Hemoglobin 32.0 Mean Corpuscular Hemoglobin Concent 37.4 H Red Cell Distribution Width 14.6 H Platelet Count 82 #L Mean Platelet Volume 11.6 H Neutrophils % Segmented Neutrophils % (Manual) 67 Band Neutrophils % (Manual) 27 H Lymphocytes % Lymphocytes % (Manual) 2 L Monocytes % Monocytes % (Manual) 3 Eosinophils % Basophils % Myelocytes % (Manual) 1 H Nucleated Red Blood Cells % 0.0 Neutrophils # Neutrophils # (Manual) 23.7 H Band Neutrophils # 8.4 H Absolute Lymphocytes (Manual) 0.6 L Lymphocytes # Monocytes # Absolute Monocytes (Manual) 0.9 Eosinophils # Basophils # Myelocytes # 0.3 H Nucleated Red Blood Cells # Platelet Estimate DECREASED Polychromasia 1+ Hypochromasia 1+ Anisocytosis 2+ Macrocytosis 2+ Sodium Level 130 L Potassium Level 4.0 Chloride Level 99 Carbon Dioxide Level 21 Anion Gap 14 Blood Urea Nitrogen 63 H Creatinine 1.51 H Glucose Level 185 Calcium Level 8.5 Phosphorus Level 4.3 Magnesium Level 1.6 L Total Bilirubin 0.4 Direct Bilirubin 0.00 # Indirect Bilirubin 0.4 Aspartate Amino Transf (AST/SGOT) 161 H Alanine Aminotransferase (ALT/SGPT) 117 H Alkaline Phosphatase 245 H Creatine Kinase 21 L Creatine Kinase Index 7.1 Creatinine Kinase MB (Mass) 1.50 Troponin I 0.090 Total Protein 6.3 # Albumin 2.6 L Globulin 3.70 H Albumin/Globulin Ratio 0.70 Triglycerides Level 376 H Cholesterol Level 173 LDL Cholesterol, Calculated 78 HDL Cholesterol 20 L Cholesterol/HDL Ratio 8.6 Amylase Level 38 Lipase 46 Bedside Glucose 147 Medications Medications Current Medications Sodium Chloride (NS) 1,000 ml @ 100 mls/hr Q10H IV Last administered on 08:48; Admin Dose 100 MLS/HR; Start 07/01/17 at 15:04 Ondansetron HCl (Zofran Inj) 4 mg Q6H PRN IV NAUSEA AND/OR VOMITING; Start at 15:30 Morphine Sulfate (morphine) 2 mg Q4H PRN IV SEVERE PAIN LEVEL 7-10; Start at 15:30 Metoprolol Tartrate 25 mg 25 mg BID PO Last administered on 07/02/17 08:48; Admin Dose 25 MG; Start 07/01/17 at 21:00 Ceftriaxone Sodium (Rocephin) 50 ml @ 100 mls/hr Q24H IVPB Last administered on 07/01/17 16:20; Admin Dose 100 MLS/HR; Start 07/01/17 at 15:30 Diagnostic Test (Pha) (Accu-Chek) 1 ea 02 XX ; Start 07/02/17 at 02:00 Insulin Glargine (Lantus) 6 unit DAILY@20 SC Last administered on 07/01/17t 22 :45; Admin Dose 6 UNIT; Start 07/01/17 at 20:00 Miscellaneous Information 1 ea NOTE XX ; Start 07/01/17 at 23:30 Glucose (Glutose) 15 gm Q15M PRN PO DECREASED GLUCOSE; Start 07/01/17 at 23:30 Glucose (Glutose) 22.5 gm Q15M PRN PO DECREASED GLUCOSE; Start 07/01/17 at 23: 30 Dextrose (D50w Syringe) 25 ml Q15M PRN IV DECREASED GLUCOSE; Start 07/01/17 at 23:30 Dextrose (D50w Syringe) 50 ml Q15M PRN IV DECREASED GLUCOSE; Start 07/01/17 at 23:30 Glucagon (Glucagen) 1 mg Q15M PRN IM DECREASED GLUCOSE; Start 07/01/17 at 23: 30 Glucose (Glutose) 15 gm Q15M PRN BUCCAL DECREASED GLUCOSE; Start 07/01/17 at 23:30 TONIA CIFUENTES Jul 02, 2017 12:30
[2017-07-02 14:21] LABS: ABNORMAL IP MESSAGE 1; HEMATOCRIT 25.4 % (37.0-47.0); HEMOGLOBIN 9.4 g/dl (12.0-16.0); MEAN CORPUSCULAR HEMOGLOBIN 31.5 pg (29.0-33.0); MEAN CORPUSCULAR VOLUME 85.2 fl (82.0-101.0); MEAN PLATELET VOLUME 11.4 fl (7.4-10.4); PLATELET COUNT 81 10^3/UL (140-415); RED BLOOD COUNT 2.98 10^6/ul (4.20-5.40); RED CELL DISTRIBUTION WIDTH 14.8 % (11.5-14.5); WHITE BLOOD COUNT 31.7 10^3/ul (4.8-10.8)
--- NOTE | 2017-07-02 14:23 | RADRPT ---
Echocardiogram Report Patient Name: EL SUTTON Gender: Female Date: 1940 Study Date: 02-Jul-2017 Comb Winder: [facility] Location: 5559-A Ref. Physician: MAK NOVAK Quality: Adequate Procedures: Transthoracic echocardiogram with complete 2D, M-Mode, and doppler examination. Indications: Evaluate Left Ventricular function. 2D/M Mode Doppler Measurement Value Normal Ranges Measurement Value Normal Ranges LVIDd 2D 4.4 3.5 - 5.6 cm AV Peak Bret 1.2 m/sec LVIDs 2D 3.2 2.1 - 4.1 cm AV Peak PG 5.0 mmHg FS 2D 27.0 % LVOT Peak Bret 0.7 m/sec LVPWd 2D 1.1 0.6 - 1.1 cm LVOT Peak PG 2.0 mmHg IVSd 2D 1.1 0.6 - 1.1 cm MV E Peak Bret 0.8 m/sec IVS/LVPW 2D 1.0 MV A Peak Bret 0.8 m/sec AoR Diam 2D 2.4 2.0 - 3.7 cm MV E/A 1.0 LA/Ao 2D 2 0 - 1 MV Decel Time 201 msec EDV 2D 87.5 cm3 MV E/A 1.0 ESV 2D 34.0 cm3 MR Peak PG 100.0 mmHg LA Dimen 2D 3.6 2.3 - 4.0 cm MR Peak Bret 5.0 m/sec TR Peak Bret 3.5 m/sec TR Peak PG 49.0 mmHg RVSP 52.0 mmHg Findings Left Ventricle: Normal left ventricular systolic function. Normal left ventricular cavity size. Normal left ventricular wall thickness. Mild global left ventricular systolic dysfunction. Ejection fraction is visually estimated at 45 %. Tissue Doppler/Mitral Doppler indices are consistent with impaired relaxation (Stage I diastolic dysfunction). Hypokinesis of the distal septum and apex. Right Ventricle: Normal right ventricular size. Normal right ventricular systolic function. Left Atrium: There is mild enlargement of left atrium. Right Atrium: The right atrium is normal in size. Mitral Valve: Mild mitral leaflet calcification. Mild mitral annular calcification. Moderate mitral valve regurgitation. Aortic Valve: No significant aortic stenosis. Aortic cusps appear mildly calcified. Trace aortic valve regurgitation. Tricuspid Valve: Normal appearance of the tricuspid valve. Estimated peak PA systolic pressure 52 mmHg. There is mild tricuspid regurgitation. Pulmonic Valve: Pulmonic valve not well visualized. There is trace pulmonic regurgitation. Pericardium: Normal pericardium with no significant pericardial effusion. Aorta: Normal aortic root. IVC: Normal size and normal respiratory collapse consistent with normal right atrial pressure. Conclusions 1.Normal left ventricular systolic function. Normal left ventricular cavity size. Normal left ventricular wall thickness. Mild global left ventricular systolic dysfunction. Ejection fraction is visually estimated at 45 %. Tissue Doppler/Mitral Doppler indices are consistent with impaired relaxation (Stage I diastolic dysfunction). Hypokinesis of the distal septum and apex. 2.Moderate mitral valve regurgitation. 3.Estimated peak PA systolic pressure 52 mmHg based on RA pressure of 3 mmHg. Electronically Signed By: Ken Dumont 02-Jul-2017 14:23:11 -0800 Patient Name: EL USTTON Study Date: 02-Jul-2017 [id number]
[2017-07-02 14:27] LABS: POSITIVE DIFF @See below
[2017-07-02 15:15] LABS: CANCER ANTIGEN 125 37.4 U/ml (0.0-35.0); CARCINOEMBRYONIC ANTIGEN 1.1 ng/ml (0.0-5.0)
[2017-07-02 15:19] LABS: CANCER ANTIGEN 19-9 53.5 U/ml (0.0-37.0)
--- NOTE | 2017-07-02 15:37 | CONS ---
DATE OF ADMISSION: 07/01/2017 DATE OF CONSULTATION: REASON FOR CONSULTATION: Renal failure. HISTORY OF PRESENT ILLNESS: This 77-year-old female who is [place]ian speaking only was brought in to the emergency room yesterday by her family because of 1 week of nausea, vomiting, diarrhea and abdom inal pain. The patient, on admission, was found to have an elevated serum creatinine of 1.61 and a BUN of 65. The patient is with her family and she denies a prior history of kidney disease. The elkin arora is able to translate for me. The patient apparently does have diabetes mellitus for at least 2 6 years. MEDICATIONS: Her preadmission medication included: 1. Atorvastatin 40 mg a day. 2. Metoprolol 25 mg a day. 3. Ranitidine 150 mg a day. 4. Janumet one twice a day. PAST MEDICAL HISTORY: The patient does admit to a history of hypertension, although, on admission h ere, her blood pressure was low. The patient did have an episode of near syncope. The patient, acc ording to the family, was on blood pressure medicine before admission. PAST MEDICAL HISTORY: 1. Remarkable for diabetes mellitus type 2 for 26 years. 2. Hypertension. 3. Hyperlipidemia. In the emergency room. The patient apparently had some episode of atrial fibrillation. She is now in sinus rhythm. PHYSICAL EXAMINATION: GENERAL: At this time reveals a frail female in no apparent distress. At this time, she says she f eels well. She denies any pain. VITAL SIGNS: Blood pressure is 105/65, O2 saturation is 100 on room air, pulse is 52, although she had some episodes of higher heart rate. Temperature 98, pulse is 66, respirations 18, blood pressur e 111/44, O2 saturation is 100% on room air. HEAD: Normocephalic. EYES: Extraocular muscles intact. NOSE AND MOUTH: Normal. NECK: Supple. No neck vein distention. LUNGS: There were diminished breath sounds at both bases. HEART: Regular rhythm. No murmurs, gallops or rubs. ABDOMEN: Soft, nontender, no masses or megaly. EXTREMITIES: She has decreased pedal pulses and she has ulcers on both first toes of both feet. LABORATORY DATA: Laboratory tests done today show a hemoglobin of 8.5, hematocrit of 22.7, white bl ood count 31,400, platelet count is low at 82,000, 67% neutrophils, 27% bands. BUN is 63, creatinin e is 1.51, sodium is 130, potassium 4, chloride 99, CO2 21, AST 161, ALT 117, alkaline phosphatase 2 45, albumin 2.6. IMPRESSION: 1. Acute renal failure. This patient presents now with decreased renal function. She has no prior history of renal disease, although she does have a long history of type 2 diabetes mellitus and mendiola s have a history of some diabetic retinopathy. She could have underlying diabetic nephropathy. I s uspect some of her renal failure is now due to dehydration because of nausea, vomiting and diarrhea for a week. 2. Anemia. The patient's hemoglobin has gone from 12.3 yesterday to 8.5 today. She has no evidenc e of active GI bleeding at this time. The patient may well need a blood transfusion if this hemoglo bin and hematocrit is accurate. 3. Right liver mass suspicious for neoplasm. 4. Type 2 diabetes mellitus. 5. Generalized weakness. 6. Leukocytosis and suspected sepsis. PLAN: 1. Stat CBC and possible blood transfusion. 2. Continue IV fluids. 3. Check urine sodium, creatinine, urine protein/creatinine ratio and urine for eosinophils. 4. Iron studies pending. 5. I will follow the patient along with you medically. Dictated By: TOM STEVENS MD, ND/ALEC Conf#: [id number] DID#: [id number]
--- NOTE | 2017-07-02 19:35 | CONS ---
DATE OF ADMISSION: 07/01/2017 DATE OF CONSULTATION: 07/02/2017 TYPE OF CONSULTATION: Infectious Disease. REASON FOR CONSULTATION: Antibiotic management. HISTORY OF PRESENT ILLNESS: Betsy Paul is a 77-year-old female with a number of problems who comes in with sepsis and is being seen for antibiotic management. Her past problems include: 1. Essential hypertension. 2. Dyslipidemia. 3. Adult-onset diabetes mellitus. She came to the emergency room complaining of dizziness, abdominal pain, nausea, vomiting and diarrh ea for the past week. She has no chest pain, headaches, fever, chills or dysuria. BUN and creatini ne, however, was 65/1.61 and she was given a dose of aspirin as well as Keflex. On admission, her w jordon count was 8.4, H and H of 12.3 and 31.5, platelet count 118,000. BUN and creatinine 65/1.61, g lucose of 99. A CT scan of the chest, abdomen and pelvis showed large poorly differentiated infiltr ating hypodense lesion within the anterior right lobe of the liver. Further evaluation with MRI wit h contrast was recommended for more complete assessment. She has subtle inflammatory bronchiolitis and or respiratory bronchiolitis, interstitial lung disease, scattered throughout the lungs bilatera lly. She has scattered tiny micro nodules throughout the lungs, including a single calcified granul zeinab, all of which is probably benign and inflammatory nature, distended gallbladder with layering ga llstones scattered benign chronic senescent changes. HOSPITAL COURSE: Her liver ultrasound showed liver mass measuring 10.1 cm in maximal dimension, con sistent with neoplasm, sludge in the gallbladder, no gallstones or evidence of cholecystitis, otherw ise unremarkable right upper quadrant abdominal ultrasound. A chest x-ray shows mild failure. CT s can of the abdomen and pelvis is as previously outlined. A C. difficile assay was negative. The sayra jaramillo was seen by for a Non STEMI type 2 in the setting of sepsis with atrial fibrillation with rapid ventricular response. She has paroxysmal atrial fibrillation with rapid ventricular res ponse, nausea, vomiting, abdominal pain, possibly from passed gallstone. PAST MEDICAL HISTORY: Operations as outlined. FAMILY HISTORY: Noncontributory. SOCIAL HISTORY: She does not smoke, drink or abuse drugs. PAST SURGICAL HISTORY: She had orthopedic surgery to her left arm. ALLERGIES: NONE TO PENICILLIN, SULFA OR FOODS. MEDICATIONS: Per chart. REVIEW OF SYSTEMS: As per HPI. PHYSICAL EXAMINATION: GENERAL: The patient is a well-developed, well-nourished elderly-appearing female who is awake, res ponsive, in no acute distress. VITAL SIGNS: Stable. She is afebrile. SKIN: Without generalized rash. HEENT: Within normal limits. NECK: Supple. LYMPH NODES: None palpable. CHEST: Decreased breath sounds at the bases. HEART: Without murmur or gallop. She has an irregularly irregular heartbeat. She has a grade II/V I systolic ejection murmur as well. ABDOMEN: Soft, nontender, without organosplenomegaly or masses. RECTAL AND GENITAL: Deferred. NEUROLOGIC: No focal neurological abnormalities. Today, her white count is up to 31.4. BUN and cr eatinine 63/1.5. She was also seen by Dr. Campbell for acute renal failure. She also had hemoglo bin going from 12.3 to 8.5, without evidence of GI bleed. Her right liver mass was suspicious for n eoplasm as noted and leukocytosis and suspected sepsis. IMPRESSION AND PLAN: We have to be concerned about the possibility of cholecystitis. She to be see n by gastroenterology with a white count of 35,000. I do not think cefotaxime or ceftriaxone alone is adequate. Her blood cultures, fecal leukocytes and so on, are pending. I am going to place her on Primaxin 500 mg IV piggyback q.8h. I will dictate my findings to the hospitalist. Dictated By: DALILA MCMANUS MD, JD/ALEC Conf#: [id number] DID#: [id number] CC: DALILA MCMANUS MD;*EndCC*
[2017-07-02 20:18] LABS: ANISOCYTOSIS 1+ (0-0); BASOPHILS % (M) 1 % (0-2); MONOCYTES % (M) 3 % (0-11); PLATELET ESTIMATE DECREASED
[2017-07-02] MEDS: INSULIN GLARGINE [LANtus] 3 ML PEN SC SCH (21:22)
[2017-07-02] MEDS: MEROPENEM 500MG/50 ML (PMX) 50 ML IVPB SCH (22:20)
[2017-07-02] MEDS: morphine 2 MG INJ IV PRN (23:55)
[2017-07-03] VITALS (23 sets, daily range): BP systolic 125–158; BP diastolic 54–73; PULSE 56–74; RESP 11–69
[2017-07-03] MEDS: ACCU-CHEK XX SCH (02:00)
--- NOTE | 2017-07-03 07:45 | RADRPT ---
PROCEDURE: MR Abdomen. CLINICAL INDICATION: Liver lesions seen on CT TECHNIQUE: Multiplanar multi sequence imaging of the abdomen without contrast. COMPARISON: CT from 07/01 and ultrasound from 07/02 FINDINGS: MRI Abdomen: The study is significantly limited by patient breathing motion. There is a large lobulated mass in t he anterior liver which measures approximately 7.4 x 10.1 cm. There is restricted diffusion in the p eriphery of the lesion. The lesion is likely centrally necrotic. Evaluation is limited by lack of in travenous contrast (the patient has abnormal renal function. Although there are 1 or 2 probable hepa tic cysts, largest in the posterior segment of the right lobe measuring 1.2 cm, there are other prob able metastatic lesions seen throughout the liver. Most conspicuous of these is in the left lobe and measures 1.3 cm. The gallbladder is distended. Sludge and tiny stones are seen within the gallbladd er. No definite stones are seen in the cystic duct. No definite common bile duct stones. There is mo derate intrahepatic biliary ductal dilatation. The common bile duct is dilated, measuring up to 1.2 cm in diameter. There is abrupt cutoff of the common bile duct in the region of the head of the pancreas, concerning for underlying pancreatic mass. The distal common bile duct is not well seen. P robable left greater than right adrenal hypertrophy. No gross abnormality of the kidneys. There are enlarged aortocaval and periportal lymph nodes which are best appreciated on the diffusion sequence and measure up to 2 cm in diameter. Evaluation of the bowel is significantly limited. Small bilatera l pleural effusions are seen with bibasilar atelectasis. Edema of the subcutaneous soft tissues is s een. Degenerative change of the spine. IMPRESSION: Significantly limited study due to lack of intravenous contrast and breathing motion artifact. Proba ble hepatic metastatic disease. Adenopathy in the interaortocaval and periportal region with biliary ductal dilatation and abrupt cutoff of the common bile duct. The overall constellation of findings is highly suspicious for pancreatic carcinoma with hepatic metastatic disease and probable oli met astatic disease. Distended gallbladder with sludge and small stones.. Probable bilateral adrenal hy pertrophy. RPTAT: [facility] [place] Efraín, Physician Date Time Electronically viewed and signed by [place] Kenny, Physician on 07/03/2017 07:44 LE/
--- NOTE | 2017-07-03 08:46 | CONS ---
Date/Time of Note Date/Time of Note DATE: 07/03/17 TIME: 08:40 Assessment/Plan Assessment/Plan Chief Complaint/Hosp Course 1. Acute renal failure. This patient's renal function has improved significantly. Her serum creatinine is now in the normal range. She has responded very well to IV fluids. I suspect that most of her renal failure was due to dehydration. She does have some proteinuria and may have some underlying diabetic nephropathy; however, since her renal function is now normal I do not think there is any further workup that will be necessary. I am going to sign off at this point and see her again on request. 2. anemia labs are pending for this morning. 3. Liver mass, workup in progress 4. Diabetes mellitus Problems: Consultation Date/Type/Reason Admit Date/Time Jul 01, 2017 at 14:33 Initial Consult Date 07/02/17 Type of Consultation: Cardiology Referring Provider: MAK NOVAK NP 24 HR Interval Summary Free Text/Dictation she is awake and alert and feels well. She has no complaints. She has not been having any nausea or vomiting. Constitutional: improved, no complaints Exam/Review of Systems Vital Signs Vitals Vital Signs Date Time Temp Pulse Resp B/P Pulse Ox O2 Delivery O2 Flow Rate FiO2 07/03/17 08:20 65 07/03/17 07:38 98.1 17 141/61 99 07/02/17 20:00 Nasal Cannula 2.0 Intake and Output 07/02/17 07/02/17 07/03/17 14:59 22:59 06:59 Intake Total 300 ml 690 ml 1200 ml Balance 300 ml 690 ml 1200 ml Exam She has ulcers on both big toes. With diminished pedal pulses. Constitutional: alert, frail Respiratory: clear to auscultation Cardiovascular: regular rate and rhythm Gastrointestinal: non-tender, soft Results Result Diagram: 07/02/17 1346 07/02/17 0704 Results 24 hrs Laboratory Tests Test 07/02/17 12:38 07/02/17 13:40 07/02/17 13:41 07/02/17 13:46 Bedside Glucose 157 Ferritin 570.0 H Alpha Fetoprotein 1.25 Carcinoembryonic Antigen 1.1 CA 19-9 Antigen 53.5 H CA 125 Antigen 37.4 H Lactic Acid Level 1.7 White Blood Count 31.7 H Red Blood Count 2.98 L Hemoglobin 9.4 L Hematocrit 25.4 L Mean Corpuscular Volume 85.2 Mean Corpuscular Hemoglobin 31.5 Mean Corpuscular Hemoglobin Concent 37.0 Red Cell Distribution Width 14.8 H Platelet Count 81 L Mean Platelet Volume 11.4 H Neutrophils % Segmented Neutrophils % (Manual) 70 Band Neutrophils % (Manual) 25 H Lymphocytes % Lymphocytes % (Manual) 2 L Monocytes % Monocytes % (Manual) 3 Eosinophils % Basophils % Basophils % (Manual) 1 Nucleated Red Blood Cells % 0.0 Neutrophils # Neutrophils # (Manual) 24.7 H Band Neutrophils # 7.9 H Absolute Lymphocytes (Manual) 0.6 L Lymphocytes # Monocytes # Absolute Monocytes (Manual) 0.9 Eosinophils # Basophils # Basophils # (Manual) 0.3 H Nucleated Red Blood Cells # Platelet Estimate DECREASED Anisocytosis 1+ Macrocytosis 1+ Test 07/02/17 17:27 07/02/17 21:18 07/03/17 02:53 Bedside Glucose 144 141 98 Medications Medications Current Medications Sodium Chloride (NS) 1,000 ml @ 100 mls/hr Q10H IV Last administered on 21:23; Admin Dose 100 MLS/HR; Start 07/01/17 at 15:04 Ondansetron HCl (Zofran Inj) 4 mg Q6H PRN IV NAUSEA AND/OR VOMITING; Start at 15:30 Morphine Sulfate (morphine) 2 mg Q4H PRN IV SEVERE PAIN LEVEL 7-10 Last administered on 07/02/17 23:55; Admin Dose 2 MG; Start 07/01/17 at 15:30 Metoprolol Tartrate (Lopressor) 25 mg BID PO Last administered on 07/02/17 21 :20; Admin Dose 25 MG; Start 07/01/17 at 21:00 Diagnostic Test (Pha) (Accu-Chek) 1 ea 02 XX ; Start 07/02/17 at 02:00 Insulin Glargine (Lantus) 6 unit DAILY@20 SC Last administered on 07/02/17 21 :22; Admin Dose 6 UNIT; Start 07/01/17 at 20:00 Miscellaneous Information 1 ea NOTE XX ; Start 07/01/17 at 23:30 Glucose (Glutose) 15 gm Q15M PRN PO DECREASED GLUCOSE; Start 07/01/17 at 23:30 Glucose (Glutose) 22.5 gm Q15M PRN PO DECREASED GLUCOSE; Start 07/01/17 at 23: 30 Dextrose (D50w Syringe) 25 ml Q15M PRN IV DECREASED GLUCOSE; Start 07/01/17 at 23:30 Dextrose (D50w Syringe) 50 ml Q15M PRN IV DECREASED GLUCOSE; Start 07/01/17 at 23:30 Glucagon (Glucagen) 1 mg Q15M PRN IM DECREASED GLUCOSE; Start 07/01/17 at 23: 30 Glucose (Glutose) 15 gm Q15M PRN BUCCAL DECREASED GLUCOSE; Start 07/01/17 at 23:30 Aspirin 81 mg 81 mg DAILY PO ; Start 07/02/17 at 12:30 Meropenem/Sodium Chloride (Merrem 500mg/50 ml(Pmx)) 50 ml @ 100 mls/hr Q12 IVPB Last administered on 07/02/17t 22:20; Admin Dose 100 MLS/HR; Start 07/02 at 22:00 TOM STEVENS MD Jul 03, 2017 08:46
[2017-07-03] MEDS: ASPIRIN 81 MG TAB PO SCH (09:00)
[2017-07-03] MEDS: METOPROLOL 25 MG TAB PO SCH ×2 (09:00→21:00)
[2017-07-03] MEDS: INSULIN ASPART [NOVOLOG] 3 ML PEN SC SCH ×7 (09:04→21:00)
[2017-07-03] MEDS: MEROPENEM 500MG/50 ML (PMX) 50 ML IVPB SCH (09:05)
[2017-07-03] MEDS: SOD CHLORIDE 0.9% 1,000 ML IV SCH ×2 (09:08→17:04)
--- NOTE | 2017-07-03 09:26 | PN ---
Date/Time of Note Date/Time of Note DATE: 07/03/17 TIME: 09:21 Assessment/Plan VTE Prophylaxis VTE Prophylaxis Intervention: SCD's Lines/Catheters IV Catheter Type (from Nrs): Peripheral IV Assessment/Plan Chief Complaint/Hosp Course Assessment and plan 1. Sepsis. still with leukocytosis. labs pending this AM . Etiology unknown. ID consult following. continue on abx per ID 2. Possible non-ST elevated myocardial infarction. In the setting of sepsis and acute renal insufficiency. Business Continuity Analyst following. Will follow up with recommendations. 3. Acute kidney injury. medications to be renally dosed. renal panel pending this morning. will follow up with nephrology recs 4. Transaminitis. Patient did have positive hepatitis B panel. GI following. suspect possibly secondary to liver mass. surgeon to follow 5. Type 2 diabetes. Continue insulin regimen. Adjust as needed 6. Dyslipidemia. Will place on the fat low cholesterol diet. Statin medication on hold due to transaminitis. 7. Liver mass measuring 10.1 cm as seen by liver ultrasound. Suspect consistent with neoplasm. surgeon to follow Disposition and plan: CT-guided biopsy of the liver was ordered. Awaiting result. Surgeon to follow as well. Continue in-house monitoring Discussed plan of care with Dr. Sánchez Problems: Subjective 24 Hr Interval Summary Free Text/Dictation Still reports having some generalized pain in the abdomen. Exam/Review of Systems Vital Signs Vitals Vital Signs Date Time Temp Pulse Resp B/P Pulse Ox O2 Delivery O2 Flow Rate FiO2 07/03/17 08:20 65 07/03/17 07:38 98.1 17 141/61 99 07/02/17 20:00 Nasal Cannula 2.0 Intake and Output 07/02/17 07/02/17 07/03/17 15:00 23:00 07:00 Intake Total 300 ml 690 ml 1200 ml Balance 300 ml 690 ml 1200 ml Exam Constitutional: alert, oriented Head: normocephalic Eyes: icteric (Minimally) Neck: non-tender, supple Respiratory: clear to auscultation, normal air movement Cardiovascular: other (regular rate ) Gastrointestinal: distended (minimally) Musculoskeletal: No swelling Neurological: nl mental status, nl speech Skin: nl turgor Results Result Diagram: 07/02/17 1346 07/02/17 0704 Results 24 hrs Laboratory Tests Test 07/02/17 12:38 07/02/17 13:40 07/02/17 13:41 07/02/17 13:46 Bedside Glucose 157 Ferritin 570.0 H Alpha Fetoprotein 1.25 Carcinoembryonic Antigen 1.1 CA 19-9 Antigen 53.5 H CA 125 Antigen 37.4 H Lactic Acid Level 1.7 White Blood Count 31.7 H Red Blood Count 2.98 L Hemoglobin 9.4 L Hematocrit 25.4 L Mean Corpuscular Volume 85.2 Mean Corpuscular Hemoglobin 31.5 Mean Corpuscular Hemoglobin Concent 37.0 Red Cell Distribution Width 14.8 H Platelet Count 81 L Mean Platelet Volume 11.4 H Neutrophils % Segmented Neutrophils % (Manual) 70 Band Neutrophils % (Manual) 25 H Lymphocytes % Lymphocytes % (Manual) 2 L Monocytes % Monocytes % (Manual) 3 Eosinophils % Basophils % Basophils % (Manual) 1 Nucleated Red Blood Cells % 0.0 Neutrophils # Neutrophils # (Manual) 24.7 H Band Neutrophils # 7.9 H Absolute Lymphocytes (Manual) 0.6 L Lymphocytes # Monocytes # Absolute Monocytes (Manual) 0.9 Eosinophils # Basophils # Basophils # (Manual) 0.3 H Nucleated Red Blood Cells # Platelet Estimate DECREASED Anisocytosis 1+ Macrocytosis 1+ Test 07/02/17 17:27 07/02/17 21:18 07/03/17 02:53 07/03/17 08:16 Bedside Glucose 144 141 98 White Blood Count Pending Red Blood Count Pending Hemoglobin Pending Hematocrit Pending Mean Corpuscular Volume Pending Mean Corpuscular Hemoglobin Pending Mean Corpuscular Hemoglobin Concent Pending Red Cell Distribution Width Pending Platelet Count Pending Mean Platelet Volume Pending Test 07/03/17 09:03 Bedside Glucose 80 Medications Medications Current Medications Sodium Chloride (NS) 1,000 ml @ 100 mls/hr Q10H IV Last administered on 09:08; Admin Dose 100 MLS/HR; Start 07/01/17 at 15:04 Ondansetron HCl (Zofran Inj) 4 mg Q6H PRN IV NAUSEA AND/OR VOMITING; Start at 15:30 Morphine Sulfate (morphine) 2 mg Q4H PRN IV SEVERE PAIN LEVEL 7-10 Last administered on 07/02/17 23:55; Admin Dose 2 MG; Start 07/01/17 at 15:30 Metoprolol Tartrate (Lopressor) 25 mg BID PO Last administered on 07/02/17 21 :20; Admin Dose 25 MG; Start 07/01/17 at 21:00 Diagnostic Test (Pha) (Accu-Chek) 1 ea 02 XX ; Start 07/02/17 at 02:00 Insulin Glargine (Lantus) 6 unit DAILY@20 SC Last administered on 07/02/17 21 :22; Admin Dose 6 UNIT; Start 07/01/17 at 20:00 Miscellaneous Information 1 ea NOTE XX ; Start 07/01/17 at 23:30 Glucose (Glutose) 15 gm Q15M PRN PO DECREASED GLUCOSE; Start 07/01/17 at 23:30 Glucose (Glutose) 22.5 gm Q15M PRN PO DECREASED GLUCOSE; Start 07/01/17 at 23: 30 Dextrose (D50w Syringe) 25 ml Q15M PRN IV DECREASED GLUCOSE; Start 07/01/17 at 23:30 Dextrose (D50w Syringe) 50 ml Q15M PRN IV DECREASED GLUCOSE; Start 07/01/17 at 23:30 Glucagon (Glucagen) 1 mg Q15M PRN IM DECREASED GLUCOSE; Start 07/01/17 at 23: 30 Glucose (Glutose) 15 gm Q15M PRN BUCCAL DECREASED GLUCOSE; Start 07/01/17 at 23:30 Aspirin 81 mg 81 mg DAILY PO ; Start 07/02/17 at 12:30 Meropenem/Sodium Chloride (Merrem 500mg/50 ml(Pmx)) 50 ml @ 100 mls/hr Q12 IVPB Last administered on 07/03/17 09:05; Admin Dose 100 MLS/HR; Start 07/02 at 22:00 SYDNIE EMMANUEL Jul 03, 2017 09:26
[2017-07-03 09:33] LABS: ALBUMIN 2.3 g/dl (3.3-4.9); ALBUMIN/GLOBULIN RATIO 0.6; BILIRUBIN,INDIRECT 0.7 mg/dl (0-1.1); BILIRUBIN,TOTAL 0.7 mg/dl (0.2-1.3); CALCIUM 8.7 mg/dl (8.4-10.2); CREATININE 0.72 mg/dl (0.44-1.00); POTASSIUM 3.8 mmol/L (3.5-5.1); TOTAL PROTEIN 6.1 g/dl (6.1-8.1)
[2017-07-03 10:26] LABS: ABNORMAL IP MESSAGE 1; BASOPHIL # 0.1 10^3/ul (0.0-0.1); BASOPHILS % 0.3 % (0.0-2.0); EOSINOPHILS % 0.2 % (0.0-7.0); HEMATOCRIT 24.4 % (37.0-47.0); HEMOGLOBIN 8.9 g/dl (12.0-16.0); LYMPHOCYTES % 4.9 % (15.0-51.0); MEAN CORPUSCULAR HEMOGLOBIN 30.8 pg (29.0-33.0); MEAN CORPUSCULAR HGB CONC 36.5 g/dl (32.0-37.0); MEAN CORPUSCULAR VOLUME 84.4 fl (82.0-101.0); MEAN PLATELET VOLUME 12.2 fl (7.4-10.4); MONOCYTE # 1.2 10^3/ul (0.3-0.9); MONOCYTES % 6.4 % (0.0-11.0); NEUTROPHILS % 87.2 % (39.0-77.0); PLATELET COUNT 76 10^3/UL (140-415); RED BLOOD COUNT 2.89 10^6/ul (4.20-5.40); RED CELL DISTRIBUTION WIDTH 14.9 % (11.5-14.5); WHITE BLOOD COUNT 19.5 10^3/ul (4.8-10.8)
[2017-07-03] MEDS ORDERED: MIDAZOLAM 1 MG/ML 2 ML INJ ONE (12:17)
[2017-07-03] MEDS ORDERED: PROPOFOL 100 ML ONE (12:17)
[2017-07-03] MEDS ORDERED: KETAMINE 500 MG INJ ONE (12:18)
[2017-07-03] MEDS ORDERED: PHENYLephrine (100 MCG/ML) 5ML SYG ONE (12:18)
[2017-07-03 12:55] LABS: PROTEIN/CREAT RATIO 0.82 RATIO
[2017-07-03] MEDS ORDERED: MAGNESIUM SULFATE 2 GM/50 ML 50 ML IVPB ONE (13:00)
[2017-07-03] MEDS ORDERED: LIDOCAINE 1% (MDV) 20 ML INJ ONE (13:22)
--- NOTE | 2017-07-03 13:26 | CONS ---
Date/Time of Note Date/Time of Note DATE: 07/03/17 TIME: 13:21 Assessment/Plan Assessment/Plan Chief Complaint/Hosp Course NSTEMI: Type II in setting of sepsis/ episodes of afib with RVR. Trops downtrended from 0.14. EF 45% with WMA consistent with CAD. Will treat medically for now with active likely metastatic pancreatic cancer Paroxysmal afib with RVR: Currently in sinus. CHADSVASC is 5 and would benefit from anticoagulation [facility] but will defer for now as she is being evaluated for a liver/pancreatic mass. N/V/Abd pain: ?from passed gallstone +/- liver/pancreatic mass Liver/pancreatic mass: being evaluated Transaminitis: improving. Clinically possibly from passed stone but defer to GI ILD: seen on CT. Has crackles on exam but currently JVP is ok CKD vs acute: Cr slightly improved DM HTN -metoprolol 25mg BID -ASA -hold statin with transaminitis -eventually consider for anticoagulation Problems: Consultation Date/Type/Reason Admit Date/Time Jul 01, 2017 at 14:33 Initial Consult Date 07/02/17 Type of Consultation: Cardiology Referring Provider: MAK NOVAK MERCHANDISING INTERN 24 HR Interval Summary Free Text/Dictation No further afib. Exam/Review of Systems Vital Signs Vitals Vital Signs Date Time Temp Pulse Resp B/P Pulse Ox O2 Delivery O2 Flow Rate FiO2 07/03/17 13:20 74 07/03/17 12:22 97.9 18 134/61 98 07/03/17 08:45 Nasal Cannula 2.0 Intake and Output 07/02/17 07/02/17 07/03/17 15:00 23:00 07:00 Intake Total 300 ml 690 ml 1200 ml Balance 300 ml 690 ml 1200 ml Exam Constitutional: alert, oriented Psych: no complaints Neck: jvd (7-8cm) Respiratory: clear to auscultation, No crackles/rales Cardiovascular: regular rate and rhythm, No edema Gastrointestinal: soft, No non-tender Neurological: nl mental status, nl speech Results Result Diagram: 07/03/17 0816 07/03/17 0816 Results 24 hrs Laboratory Tests Test 07/02/17 13:40 07/02/17 13:41 07/02/17 13:46 07/02/17 17:27 Ferritin 570.0 H Alpha Fetoprotein 1.25 Carcinoembryonic Antigen 1.1 CA 19-9 Antigen 53.5 H CA 125 Antigen 37.4 H Lactic Acid Level 1.7 White Blood Count 31.7 H Red Blood Count 2.98 L Hemoglobin 9.4 L Hematocrit 25.4 L Mean Corpuscular Volume 85.2 Mean Corpuscular Hemoglobin 31.5 Mean Corpuscular Hemoglobin Concent 37.0 Red Cell Distribution Width 14.8 H Platelet Count 81 L Mean Platelet Volume 11.4 H Neutrophils % Segmented Neutrophils % (Manual) 70 Band Neutrophils % (Manual) 25 H Lymphocytes % Lymphocytes % (Manual) 2 L Monocytes % Monocytes % (Manual) 3 Eosinophils % Basophils % Basophils % (Manual) 1 Nucleated Red Blood Cells % 0.0 Neutrophils # Neutrophils # (Manual) 24.7 H Band Neutrophils # 7.9 H Absolute Lymphocytes (Manual) 0.6 L Lymphocytes # Monocytes # Absolute Monocytes (Manual) 0.9 Eosinophils # Basophils # Basophils # (Manual) 0.3 H Nucleated Red Blood Cells # Platelet Estimate DECREASED Anisocytosis 1+ Macrocytosis 1+ Bedside Glucose 144 Test 07/02/17 21:18 07/03/17 02:53 07/03/17 08:14 07/03/17 08:16 Bedside Glucose 141 98 Magnesium Level 1.6 L White Blood Count 19.5 #H Red Blood Count 2.89 L Hemoglobin 8.9 L Hematocrit 24.4 L Mean Corpuscular Volume 84.4 Mean Corpuscular Hemoglobin 30.8 Mean Corpuscular Hemoglobin Concent 36.5 Red Cell Distribution Width 14.9 H Platelet Count 76 L Mean Platelet Volume 12.2 H Neutrophils % 87.2 H Lymphocytes % 4.9 L Monocytes % 6.4 Eosinophils % 0.2 Basophils % 0.3 Nucleated Red Blood Cells % 0.0 Neutrophils # 17.0 H Lymphocytes # 1.0 Monocytes # 1.2 H Eosinophils # 0.0 Basophils # 0.1 Nucleated Red Blood Cells # 0.0 Sodium Level 136 Potassium Level 3.8 Chloride Level 108 Carbon Dioxide Level 21 Anion Gap 11 Blood Urea Nitrogen 40 #H Creatinine 0.72 Glucose Level 80 # Calcium Level 8.7 Total Bilirubin 0.7 Direct Bilirubin 0.00 Indirect Bilirubin 0.7 Aspartate Amino Transf (AST/SGOT) 100 H Alanine Aminotransferase (ALT/SGPT) 98 H Alkaline Phosphatase 215 H Total Protein 6.1 Albumin 2.3 L Globulin 3.80 H Albumin/Globulin Ratio 0.60 Test 07/03/17 09:03 07/03/17 09:50 Bedside Glucose 80 Urine Eosinophils % 0.0 Urine Random Creatinine 42.40 Urine Random Sodium 56 Urine Protein/Creatinine Ratio 0.82 Urine Total Protein 35.0 H Medications Medications Current Medications Sodium Chloride (NS) 1,000 ml @ 100 mls/hr Q10H IV Last administered on 09:08; Admin Dose 100 MLS/HR; Start 07/01/17 at 15:04 Ondansetron HCl (Zofran Inj) 4 mg Q6H PRN IV NAUSEA AND/OR VOMITING; Start at 15:30 Morphine Sulfate (morphine) 2 mg Q4H PRN IV SEVERE PAIN LEVEL 7-10 Last administered on 07/02/17 23:55; Admin Dose 2 MG; Start 07/01/17 at 15:30 Metoprolol Tartrate (Lopressor) 25 mg BID PO Last administered on 07/02/17 21 :20; Admin Dose 25 MG; Start 07/01/17 at 21:00 Diagnostic Test (Pha) (Accu-Chek) 1 ea 02 XX ; Start 07/02/17 at 02:00 Insulin Glargine (Lantus) 6 unit DAILY@20 SC Last administered on 07/02/17 21 :22; Admin Dose 6 UNIT; Start 07/01/17 at 20:00 Miscellaneous Information 1 ea NOTE XX ; Start 07/01/17 at 23:30 Glucose (Glutose) 15 gm Q15M PRN PO DECREASED GLUCOSE; Start 07/01/17 at 23:30 Glucose (Glutose) 22.5 gm Q15M PRN PO DECREASED GLUCOSE; Start 07/01/17 at 23: 30 Dextrose (D50w Syringe) 25 ml Q15M PRN IV DECREASED GLUCOSE; Start 07/01/17 at 23:30 Dextrose (D50w Syringe) 50 ml Q15M PRN IV DECREASED GLUCOSE; Start 07/01/17 at 23:30 Glucagon (Glucagen) 1 mg Q15M PRN IM DECREASED GLUCOSE; Start 07/01/17 at 23: 30 Glucose (Glutose) 15 gm Q15M PRN BUCCAL DECREASED GLUCOSE; Start 07/01/17 at 23:30 Aspirin 81 mg 81 mg DAILY PO ; Start 07/02/17 at 12:30 Meropenem/Sodium Chloride 50 ml @ 100 mls/hr Q12 IVPB ; Start 07/03/17 at 21: 00 Magnesium Sulfate (Magnesium Sulfate 2 Gm/50 ml) 50 ml @ 25 mls/hr ONCE ONCE IVPB ; Start 07/03/17 at 13:00; Stop 07/03/17 at 14:59 TONIA CIFUENTES Jul 03, 2017 13:26
[2017-07-03] MEDS ORDERED: FENTAnyl 50 MCG/ML VIAL ONE (13:40)
[2017-07-03] MEDS ORDERED: FENTAnyl 50 MCG/ML VIAL IV PRN (14:00)
[2017-07-03] MEDS ORDERED: LABETALOL HCL 20MG INJ IV PRN (14:00)
[2017-07-03] MEDS ORDERED: hydrALAzine 20 MG INJ IV PRN (14:00)
[2017-07-03] MEDS ORDERED: ONDANSETRON 4 MG INJ IV PRN (14:00)
--- NOTE | 2017-07-03 14:15 | CONS ---
Date/Time of Note Date/Time of Note DATE: 07/03/17 TIME: 14:15 Assessment/Plan Assessment/Plan Additional Assessment/Plan [facility] INPATIENT CONSULTATION NOTE DATE OF SERVICE: 07/03/2017 PLACE OF SERVICE: [facility], fifth floor telemetry [place] ASSESSMENT AND PLAN: A very-pleasant but unfortunate 77-year-old lady with multiple comorbidities presenting with a picture consistent with either primary liver malignancy (e.g. peripheral cholangiocarcinoma) versus metastatic disease from head of the pancreas. We are awaiting biopsy results as well as contrast studies to further delineate. Further treatment planning will depend on results of the above. Saw the patient in recovery and discussed with her family in her room separately. Answered all questions. Patient and family appear to understand and agreed with plans. With above assessment, I've recommended the followin. Continue current cares 2. Please include biopsy of the normal liver along with the mass 3. Triple phase liver dedicated CT scan of abdomen and pelvis 4. Keep in-house Thank you very much for having me involved in the care of this very pleasant patient and wonderful family. If you have any questions, please feel free to contact me at [phone]. Nature of presenting problem: High severity Please note that, given the extensive number of diagnoses or management options , the extensive amount and/or complexity of data needed to be reviewed, and high risk of complications and/or morbidity or mortality, this qualifies as high complexity type of decision-making. Disclaimers: 1. Inadvertent spelling and grammatical errors are likely due to electronic health record (EHR)/dictation software used and do not reflect on the quality of delivered patient care. 2. The electronic timestamp recorded on this note does not necessarily reflect the actual date and time of the visit or the service. 3. Portions of this note may have been created through electronic templates and computer algorithms that might bring in information either from the system or from other physicians and providers. Please note that such information may or may not contain errors, the occurrence of which are outside of my control. In general (but not always) this happens either in the beginning or at the end of the note. The portion of the note that I have created are generally done in 1 continuous block of text, flanked at the beginning and at the end by " ", and entered into one field in the EHR. 4. There may be other unanticipated errors in the note that are outside of my control. I can only attest to the portions of the note that I have created. Updated clinical summary: A very-pleasant but unfortunate 77-year-old lady with multiple comorbidities presenting with a picture consistent with either primary liver malignancy (e.g. peripheral cholangiocarcinoma) versus metastatic disease from head of the pancreas. Comorbidities: 1. Large poorly defined 9.5 cm infiltrative hypodense lesion within the anterior right lobe of the liver [facility] CT wo 07/01/17. Adenopathy in the interaortocaval and periportal region with biliary ductal dilatation and abrupt cutoff of the common bile duct MRCP 07/03/17. 2. Albumin 2.3 after hydration 3. Elevated CA-19-9 53.5 07/02/17 (alpha-fetoprotein 1.25 and CEA 1.1) 4. CA-19-9 37.411 22,017 5. Hemoglobin A1c 6.7 07/01/2017 6. Cardiomegaly and atherosclerotic calcifications in the thoracic aorta. Mild atelectasis at the right lung base. Mild pulmonary vascular congestion. [facility] CXR 07/01/17 7. Subtle inflammatory bronchiolitis and/or respiratory bronchiolitis interstitial lung disease scattered throughout the lungs bilaterally. [facility] CT abd /pelvis wo 07/01/17 8. Scattered tiny micronodules throughout the lungs, including a single calcified granuloma within the lungs, all of which is probably benign and inflammatory in nature. [facility] CT abd/pelvis wo 07/01/17 9. Distended gallbladder with layering gallstones (sludge noted on RUQ US). [facility] CT abd/pelvis wo 07/01/17 10. Smaller cystic lesions scattered throughout the periphery of the left and right lobes of the liver. [facility] CT abd/pelvis wo 07/01/17 11. Possible thrombocytopenia with admission platelets of 118 12. Diabetes mellitus type 2 13. Hypertension 14. Dyslipidemia next line 15. Left arm orthopedic surgery 15. Hepatitis C antibody negative. Hepatitis B surface antigen negative. Hepatitis B core total antibody reactive. Hepatitis B core IgM antibody pending CONSULTATION REQUESTED BY: Ulysses Tadeo NP and Kedar Mathews MD Dear [employer] KETTY Tadeo and Dr Mathews, Thank you very much for the opportunity to participate in the care of this very pleasant lady and her wonderful family. HISTORY OF PRESENT ILLNESS: The patient is a very pleasant 77-year-old lady with above-mentioned comorbidities whom we were kindly asked to consult regarding management of her newly discovered left-sided hepatic mass. Patient was initially brought in through the emergency department and was admitted to the [facility] with 1 week history of intermittent abdominal pain which was 5 out of 10 associated with dizziness, nausea, vomiting and diarrhea. Pain was epigastric with some radiation to the back. Diagnosis of SIRS was met with concerns for sepsis. Patient also had evidence for possible type II event NSTEMI. No recent travels outside of the country. No chest pain. No headaches, fevers, chills, or dysuria. Patient reported a 15 pound weight loss in the last 2 weeks. Laboratory values indicated leukocytosis after admission to up to 31.7 yesterday and 19.5 today. Platelets were 118 on admission and 76 2 days later. Alkaline phosphatase was elevated at 215. Bilirubin was normal. CO2 was 21. Workup in the ER also demonstrated renal insufficiency with a creatinine of 1.61. Hyperbilirubinemia with transaminitis was noted. Troponin was 0.142. She was found to be anemic. Patient reported feeling improved since admission. No other major complaints during my visit. ALLERGIES: NO KNOWN DRUG ALLERGIES MEDICATIONS Documented in the electronic records and reviewed by me. Please see the electronic records for details, as well as details for inpatient medications which were also reviewed by me. SOCIAL HISTORY: The patient lives with family. - Tob; - ETOH; - IVDU FAMILY HISTORY: There are no significant medical, surgical or oncologic issues in the family as reported by the patient or reflected in the chart. REVIEW OF SYSTEMS: Other than mentioned above, there were no other pertinent positives or pertinent negatives in an otherwise complete 14 point review of systems. PHYSICAL EXAMINATION GENERAL: The patient appears to be a very pleasant lady of descent lying in bed, appearing stated age, and otherwise in no acute distress. BMI: 21.4 VITAL SIGNS: AVSS (please also see auto important data if available as well as the electronic records) HEENT: Normocephalic and atraumatic. Extraocular muscles and hearing are grossly intact bilaterally and symmetrically. Sclerae are nonicteric. Oral cavity is clear; oral mucosa appear to be pink and moist. Dentition: fair to poor. Full dentures above. NECK: Supple. There is no lymphadenopathy or JVD. There is no submental, submandibular or supraclavicular lymphadenopathy. CHEST: Rises symmetrically with each breath; patient is breathing comfortably. There are no audible wheezes, rales or rhonchi on the gross exam. HEART: Pulse is regular and palpable on the right wrist. Capillary refill is normal. Carotid pulses are palpable bilaterally and symmetrically in the neck. EXTREMITIES: Lower extremities contain no pitting edema around the ankles bilaterally and symmetrically. ABDOMEN: Abdomen is soft, nontender and nondistended. No evidence of ascites, organomegaly, caput medusae, engorged subcutaneous veins, or other abnormalities. There are no peritoneal signs or guarding. SKIN: Appears to be pink and feels warm to touch. NEUROLOGIC: Awake, alert, and follows commands appropriately. LABORATORY DATA: See below IMAGING: See electronic chart. Please note that I've personally reviewed all pertinent available images and I agree in general with their overall reported findings. [facility] CT abd/pelvis wo 07/01/17: IMPRESSION: 1. Large poorly defined infiltrative hypodense lesion within the anterior right lobe of the liver. Further evaluation with MRI with contrast is recommended for more complete assessment. 2. Subtle inflammatory bronchiolitis and/or respiratory bronchiolitis interstitial lung disease scattered throughout the lungs bilaterally. 3. Scattered tiny micronodules throughout the lungs, including a single calcified granuloma within the lungs, all of which is probably benign and inflammatory in nature. 4. Distended gallbladder with layering gallstones. 5. Scattered benign chronic senescent changes. [facility] RUQ US 07/02/17: IMPRESSION: 1. Liver mass measuring 10.1 cm in maximal dimension consistent with neoplasm. 2. Sludge in the gallbladder. No gallstones or evidence of cholecystitis. 3. Otherwise unremarkable right upper quadrant abdomen ultrasound. [facility] MRCP 07/03/17: IMPRESSION: Significantly limited study due to lack of intravenous contrast and breathing motion artifact. Probable hepatic metastatic disease. Adenopathy in the interaortocaval and periportal region with biliary ductal dilatation and abrupt cutoff of the common bile duct. The overall constellation of findings is highly suspicious for pancreatic carcinoma with hepatic metastatic disease and probable oli metastatic disease. Distended gallbladder with sludge and small stones.. Probable bilateral adrenal hypertrophy. Consultation Date/Type/Reason Admit Date/Time Jul 01, 2017 at 14:33 Past Medical History Medical History: diabetes, high cholesterol, hypertension Past Surgical History Past Surgical Hx: other (LEFT arm orthopedic surgery) Social History Alcohol Use: none Smoking Status: Never smoker Drug Use: none Exam/Review of Systems Vital Signs Vitals Vital Signs Date Time Temp Pulse Resp B/P Pulse Ox O2 Delivery O2 Flow Rate FiO2 07/03/17 13:20 74 07/03/17 12:22 97.9 18 134/61 98 07/03/17 08:45 Nasal Cannula 2.0 Intake and Output 07/02/17 07/02/17 07/03/17 14:59 22:59 06:59 Intake Total 300 ml 690 ml 1200 ml Balance 300 ml 690 ml 1200 ml Results Result Diagram: 07/03/17 0816 07/03/17 0816 Results 24 hrs Laboratory Tests Test 07/02/17 17:27 07/02/17 21:18 07/03/17 02:53 07/03/17 08:14 Bedside Glucose 144 141 98 Magnesium Level 1.6 L Test 07/03/17 08:16 07/03/17 09:03 07/03/17 09:50 White Blood Count 19.5 #H Red Blood Count 2.89 L Hemoglobin 8.9 L Hematocrit 24.4 L Mean Corpuscular Volume 84.4 Mean Corpuscular Hemoglobin 30.8 Mean Corpuscular Hemoglobin Concent 36.5 Red Cell Distribution Width 14.9 H Platelet Count 76 L Mean Platelet Volume 12.2 H Neutrophils % 87.2 H Lymphocytes % 4.9 L Monocytes % 6.4 Eosinophils % 0.2 Basophils % 0.3 Nucleated Red Blood Cells % 0.0 Neutrophils # 17.0 H Lymphocytes # 1.0 Monocytes # 1.2 H Eosinophils # 0.0 Basophils # 0.1 Nucleated Red Blood Cells # 0.0 Sodium Level 136 Potassium Level 3.8 Chloride Level 108 Carbon Dioxide Level 21 Anion Gap 11 Blood Urea Nitrogen 40 #H Creatinine 0.72 Glucose Level 80 # Calcium Level 8.7 Total Bilirubin 0.7 Direct Bilirubin 0.00 Indirect Bilirubin 0.7 Aspartate Amino Transf (AST/SGOT) 100 H Alanine Aminotransferase (ALT/SGPT) 98 H Alkaline Phosphatase 215 H Total Protein 6.1 Albumin 2.3 L Globulin 3.80 H Albumin/Globulin Ratio 0.60 Bedside Glucose 80 Urine Eosinophils % 0.0 Urine Random Creatinine 42.40 Urine Random Sodium 56 Urine Protein/Creatinine Ratio 0.82 Urine Total Protein 35.0 H Medications Medications Current Medications Sodium Chloride (NS) 1,000 ml @ 100 mls/hr Q10H IV Last administered on 09:08; Admin Dose 100 MLS/HR; Start 07/01/17 at 15:04 Ondansetron HCl (Zofran Inj) 4 mg Q6H PRN IV NAUSEA AND/OR VOMITING; Start at 15:30 Morphine Sulfate (morphine) 2 mg Q4H PRN IV SEVERE PAIN LEVEL 7-10 Last administered on 07/02/17 23:55; Admin Dose 2 MG; Start 07/01/17 at 15:30 Metoprolol Tartrate (Lopressor) 25 mg BID PO Last administered on 07/02/17 21 :20; Admin Dose 25 MG; Start 07/01/17 at 21:00 Diagnostic Test (Pha) (Accu-Chek) 1 ea 02 XX ; Start 07/02/17 at 02:00 Insulin Glargine (Lantus) 6 unit DAILY@20 SC Last administered on 07/02/17 21 :22; Admin Dose 6 UNIT; Start 07/01/17 at 20:00 Miscellaneous Information 1 ea NOTE XX ; Start 07/01/17 at 23:30 Glucose (Glutose) 15 gm Q15M PRN PO DECREASED GLUCOSE; Start 07/01/17 at 23:30 Glucose (Glutose) 22.5 gm Q15M PRN PO DECREASED GLUCOSE; Start 07/01/17 at 23: 30 Dextrose (D50w Syringe) 25 ml Q15M PRN IV DECREASED GLUCOSE; Start 07/01/17 at 23:30 Dextrose (D50w Syringe) 50 ml Q15M PRN IV DECREASED GLUCOSE; Start 07/01/17 at 23:30 Glucagon (Glucagen) 1 mg Q15M PRN IM DECREASED GLUCOSE; Start 07/01/17 at 23: 30 Glucose (Glutose) 15 gm Q15M PRN BUCCAL DECREASED GLUCOSE; Start 07/01/17 at 23:30 Aspirin 81 mg 81 mg DAILY PO ; Start 07/02/17 at 12:30 Meropenem/Sodium Chloride 50 ml @ 100 mls/hr Q12 IVPB ; Start 07/03/17 at 21: 00 Magnesium Sulfate (Magnesium Sulfate 2 Gm/50 ml) 50 ml @ 25 mls/hr ONCE ONCE IVPB ; Start 07/03/17 at 13:00; Stop 07/03/17 at 14:59 RADHA DIGGS M.D. Jul 03, 2017 14:15
--- NOTE | 2017-07-03 14:28 | RADRPT ---
PROCEDURE: CT guided liver biopsy. CLINICAL INDICATION: Liver mass. TECHNIQUE: Informed consent was obtained. The procedure, risks, benefits, complications and alternatives were explained to the patient. Risks including bleeding and infection were explained. The patient unders tood and was willing to proceed. A procedural pause was performed. The patient's name, date of [facility], and procedure to be performed were verified. One or more of the following dose reduction techni ques were used: Automated exposure control, adjustment of the mA and/or kV according to patient size , use of iterative reconstruction technique. DICOM images are available. Using local anesthetic, sterile technique and CT guidance, a 20-gauge automated core biopsy needle w as used to biopsy the mass in the anterior liver. Multiple passes were made. Adequate tissue was o btained according to the pathologist present during the procedure. The needle was then advanced int o normal liver and additional biopsies were performed tomy The needle was removed. A postprocedural scan was performed. A dressing was applied. The patient tolerated procedure well. COMPARISON: None. FINDINGS: Initial images demonstrate the tip of the needle at the edge of the lesion in question. Subsequent i mages demonstrate the needle in normal liver tissue. Post biopsy images demonstrate no immediate complication. IMPRESSION: 1. Successful CT guided liver biopsy. RPTAT: QQ .Andrea Salmeron MD, MD Date Time Electronically viewed and signed by .Andrea Salmeron MD, on 07/03/2017 14:27 .R/
[2017-07-03] MEDS ORDERED: BARIUM SULF 2% 450 ML BTL (BERRY SMOOTHIE) PO ONE (15:00)
--- NOTE | 2017-07-03 15:25 | PN ---
DATE: 07/03/2017 `SUBJECTIVE: No acute changes. The patient is awake, looks comfortable, no fevers overnight. No n ausea, vomiting, diarrhea. LABORATORY DATA: WBC decreased to 19.5, platelets 76, neutrophils 87.2, BUN 40, creatinine 0.72. U rinalysis since admission was positive for trace leukocyte esterase, few bacteria. MICROBIOLOGY: Urine culture pending. Blood culture negative. Stool for C. diff came back negative . ANTIMICROBIALS: 1. Meropenem. 2. Status post Rocephin. DIAGNOSTICS: MRI of the abdomen revealed probable hepatic metastatic disease, adenopathy in the ___ __ and periportal region with biliary ductal dilatation and abrupt cut off of the common bile duct. The overall constellation of findings highly suspicious for pancreatic carcinoma with hepatic metas tatic disease and probable loi metastatic disease. Distended gallbladder with sludge and small st ones. PHYSICAL EXAMINATION: GENERAL: Well-developed, elderly woman who is in no distress. HEENT: Head atraumatic, normocephalic. Sclerae anicteric. Buccal mucosa pink. NECK: Supple. CHEST: Rise symmetrical. Breath sounds diminished to bases. HEART: S1, S2. ABDOMEN: Soft. Bowel tones present. ASSESSMENT: 1. Systemic inflammatory response syndrome with ongoing leukocytosis, likely multifactorial. 2. Positive urinalysis. 3. Evidence of liver metastases as per CT of the abdomen, possible pancreatic cancer. 4. Acute renal failure. 5. Diabetes. 6. Questionable cholecystitis. PLAN: Patient remained stable. She is on appropriate antibiotics. White blood cell count tracing down. She is being seen by multiple consultants, scheduled follow liver biopsy today. Dictated By: RUTHIE HUDSON THERAPIST PHYS for DALILA BURGER/ALEC Conf#: [id number] DID#: [id number]
--- NOTE | 2017-07-03 17:48 | CONS ---
Date/Time of Note Date/Time of Note DATE: 07/03/17 TIME: 17:41 Assessment/Plan Assessment/Plan Chief Complaint/Hosp Course Impression: Large liver mass/probably metastatic disease Abrupt cutoff of the common bile duct and MRI Rule out imminent biliary obstruction Rule out pancreatic CA Diabetes mellitus Hypertension Dyslipidemia Plan: MRCP to noninvasively assess biliary tree and rule out intermittent obstruction that would require ERCP plus stent If MRCP is abnormal the patient may be considered for ERCP possible stent Await pathology report Consider oncology consult . Problems: Consultation Date/Type/Reason Admit Date/Time Jul 01, 2017 at 14:33 Date of Consultation: Jul 03, 2017 Type of Consultation: GI Reason for Consultation Liver mass Hx of Present Illness 77-year-old female who speaks preferentially Lithuanian. Presented to the emergency room with upper abdominal pain, evaluation disclosed suspected mass in the liver. MRI is consistent with mass in the liver and possible abrupt cut off of the common bile duct. The patient underwent guided liver biopsy today. She continues to experience epigastric abdominal pain. She claims a 20 pound weight loss over the last 2 months. There is no jaundice. Liver function tests are abnormal. At this point patient will be evaluated with MRCP to attempt noninvasively to rule out imminent biliary obstruction that would require endoscopic intervention i.e. ERCP plus stent. Constitutional: improved, no complaints, other (Weight loss) Eyes: no complaints ENT: no complaints Respiratory: no complaints Cardiovascular: no complaints Gastrointestinal: other (See HPI) Genitourinary: no complaints Musculoskeletal: no complaints Skin: no complaints Neurologic: no complaints Endocrine: no complaints Lymphatic: no complaints Psychological: nl mood/affect, no complaints Immunologic: no complaints Past Medical History Medical History: diabetes, high cholesterol, hypertension Past Surgical History Past Surgical Hx: no surgical history, other (LEFT arm orthopedic surgery) Family History Significant Family History: no pertinent family hx Social History Alcohol Use: none Smoking Status: Never smoker Drug Use: none Exam/Review of Systems Vital Signs Vitals Vital Signs Date Time Temp Pulse Resp B/P Pulse Ox O2 Delivery O2 Flow Rate FiO2 07/03/17 16:34 70 07/03/17 16:15 98.0 18 133/71 99 07/03/17 15:24 Room Air 07/03/17 14:23 8.0 Intake and Output 11/20/17 11/20/17 11/21/17 14:59 22:59 06:59 Intake Total 300 ml 690 ml 1200 ml Balance 300 ml 690 ml 1200 ml Exam PHYSICAL EXAMINATION: GENERAL: Well developed, well nourished, alert & oriented x 3, in no acute distress SKIN: No lesions, no stigmata chronic liver disease, no evidence of bleeding diathesis LYMPHATIC: No palpable lymphadenopathy. HEAD: Normocephalic, atraumatic, no tenderness. EYES: Pupils equal reactive to light and accommodation, full extraocular movements, sclera clear, non-icteric, no discharge. EARS/NOSE AND THROAT: Ears normal, nose normal, oropharynx normal, oral membranes well hydrated without lesions. NECK: Supple, no masses, thyroid normal, JVP within normal limits, carotids normal without bruits. CHEST: Inspection within normal limits. CARDIOVASCULAR: Heart: Regular rate and rhythm, no murmurs, gallops or rubs. Peripheral pulses present within normal limits, no cyanosis, clubbing or edemas. No pulsatile abdominal mass RESPIRATORY: Lungs clear to auscultation and percussion, no wheezing, no rubs GASTROINTESTINAL AND LIVER: Abdomen: Soft, moderate epigastric tenderness, non- distended, no hernias, no masses, no organomegaly, no ascites, no guarding, no rebound tenderness, normoactive bowel sounds. Rectal: Deferred. GENITOURINARY: [Female genitalia within normal limits.] EXTREMITIES: No cyanosis, clubbing or edema. Results Result Diagram: 07/03/17 0816 07/03/17 0816 Results 24 hrs Laboratory Tests Test 07/02/17 21:18 07/03/17 02:53 07/03/17 08:14 07/03/17 08:16 Bedside Glucose 141 98 Magnesium Level 1.6 L White Blood Count 19.5 #H Red Blood Count 2.89 L Hemoglobin 8.9 L Hematocrit 24.4 L Mean Corpuscular Volume 84.4 Mean Corpuscular Hemoglobin 30.8 Mean Corpuscular Hemoglobin Concent 36.5 Red Cell Distribution Width 14.9 H Platelet Count 76 L Mean Platelet Volume 12.2 H Neutrophils % 87.2 H Lymphocytes % 4.9 L Monocytes % 6.4 Eosinophils % 0.2 Basophils % 0.3 Nucleated Red Blood Cells % 0.0 Neutrophils # 17.0 H Lymphocytes # 1.0 Monocytes # 1.2 H Eosinophils # 0.0 Basophils # 0.1 Nucleated Red Blood Cells # 0.0 Sodium Level 136 Potassium Level 3.8 Chloride Level 108 Carbon Dioxide Level 21 Anion Gap 11 Blood Urea Nitrogen 40 #H Creatinine 0.72 Glucose Level 80 # Calcium Level 8.7 Total Bilirubin 0.7 Direct Bilirubin 0.00 Indirect Bilirubin 0.7 Aspartate Amino Transf (AST/SGOT) 100 H Alanine Aminotransferase (ALT/SGPT) 98 H Alkaline Phosphatase 215 H Total Protein 6.1 Albumin 2.3 L Globulin 3.80 H Albumin/Globulin Ratio 0.60 Test 07/03/17 09:03 07/03/17 09:50 07/03/17 14:23 07/03/17 14:49 Bedside Glucose 80 69 L 66 L Urine Eosinophils % 0.0 Urine Random Creatinine 42.40 Urine Random Sodium 56 Urine Protein/Creatinine Ratio 0.82 Urine Total Protein 35.0 H Test 07/03/17 15:18 07/03/17 15:47 Bedside Glucose 89 121 Medications Medications Current Medications Sodium Chloride (NS) 1,000 ml @ 100 mls/hr Q10H IV Last administered on 09:08; Admin Dose 100 MLS/HR; Start 07/01/17 at 15:04 Ondansetron HCl (Zofran Inj) 4 mg Q6H PRN IV NAUSEA AND/OR VOMITING; Start at 15:30 Morphine Sulfate (morphine) 2 mg Q4H PRN IV SEVERE PAIN LEVEL 7-10 Last administered on 07/02/17 23:55; Admin Dose 2 MG; Start 07/01/17 at 15:30 Metoprolol Tartrate (Lopressor) 25 mg BID PO Last administered on 07/02/17 21 :20; Admin Dose 25 MG; Start 07/01/17 at 21:00 Diagnostic Test (Pha) (Accu-Chek) 1 ea 02 XX ; Start 07/02/17 at 02:00 Insulin Glargine (Lantus) 6 unit DAILY@20 SC Last administered on 07/02/17 21 :22; Admin Dose 6 UNIT; Start 07/01/17 at 20:00 Miscellaneous Information 1 ea NOTE XX ; Start 07/01/17 at 23:30 Glucose (Glutose) 15 gm Q15M PRN PO DECREASED GLUCOSE; Start 07/01/17 at 23:30 Glucose (Glutose) 22.5 gm Q15M PRN PO DECREASED GLUCOSE; Start 07/01/17 at 23: 30 Dextrose (D50w Syringe) 25 ml Q15M PRN IV DECREASED GLUCOSE; Start 07/01/17 at 23:30 Dextrose (D50w Syringe) 50 ml Q15M PRN IV DECREASED GLUCOSE; Start 07/01/17 at 23:30 Glucagon (Glucagen) 1 mg Q15M PRN IM DECREASED GLUCOSE; Start 07/01/17 at 23: 30 Glucose (Glutose) 15 gm Q15M PRN BUCCAL DECREASED GLUCOSE Last administered on 07/03/17t 14:52; Admin Dose 15 GM; Start 07/01/17 at 23:30 Aspirin 81 mg 81 mg DAILY PO ; Start 07/02/17 at 12:30 Meropenem/Sodium Chloride (Merrem 1 Gm/50 ml (Pmx)) 50 ml @ 100 mls/hr Q12 IVPB ; Start 07/03/17 at 21:00 KEVIN JONES MD Jul 03, 2017 17:48
[2017-07-03] MEDS ORDERED: INDOMETHACIN 50 MG SUPP PR SCH (18:00)
[2017-07-03] MEDS ORDERED: SOD CHLORIDE 0.9% 100 ML ONE (21:56)
[2017-07-03] MEDS ORDERED: IOHEXOL 300MG/ML 150 ML BTL ONE (21:56)
[2017-07-03] MEDS: MEROPENEM 1 GM/50ML(PMX) 50 ML IVPB SCH (22:38)
[2017-07-03] MEDS: INSULIN GLARGINE [LANtus] 3 ML PEN SC SCH (22:42)
[2017-07-04] VITALS (11 sets, daily range): BP systolic 131–157; BP diastolic 61–72; PULSE 54–68; RESP 17–20
[2017-07-04] MEDS: ACCU-CHEK XX SCH (02:00)
[2017-07-04] MEDS: SOD CHLORIDE 0.9% 1,000 ML IV SCH ×3 (05:04→23:04)
--- NOTE | 2017-07-04 07:13 | RADRPT ---
PROCEDURE: CT Abdomen and pelvis with and without contrast CLINICAL INDICATION: Hepatic metastatic disease TECHNIQUE: Spiral CT images through the abdomen and pelvis without administration of oral and befo re and after administration of 100 cc of Omnipaque-300 contrast material. Multiplanar reconstructio ns. The total exam CTDI equals 5.29 mGy and the total exam DLP equals 855.97 mGy-cm. One or more of the following dose reduction techniques were used: automated exposure control, adjustment of the mA and/or kV according to patient size, or use of iterative reconstruction technique. DICOM images are available. COMPARISON: Recent noncontrast CT and MRI studies FINDINGS: Lung bases: Right greater than left pleural effusions with associated bibasilar atelectasis. Aortic and coronary artery calcification.. Liver: Again seen is hepatomegaly with extensive hepatic metastatic disease. As described previously , the largest lesion is a lobulated peripherally enhancing and centrally necrotic mass in the medial segment of the left lobe of the liver (segment 4). This measures 11.2 x 7 cm. Multiple other rim en hancing lesions are seen, predominately in the left lobe of the liver. Nonenhancing probable hepatic cyst of the right lobe measuring 1.7 cm is again seen. Biliary: The gallbladder is again noted to be distended.. The cystic duct and the intra and extrahep atic biliary ducts are again noted to be dilated. There is abrupt cutoff of the common bile duct in its midportion as seen previously.. The distal - most common bile duct is visible. Spleen: The spleen is unremarkable in appearance Adrenal glands: Unremarkable in appearance. No focal nodule.. Genitourinary: No hydronephrosis or renal calculi.. The bladder is unremarkable in appearance.. Tiny cortical cysts. Pancreas: There are several low attenuation masses with rim enhancement in the periportal region and surrounding the pancreatic head and uncinate process of the pancreas. The largest of these is in or adjacent to the posterior pancreatic head and measures 1.6 x 3.2 cm. There is likely slight jori dorian of the infrahepatic inferior vena cava by 1 of the masses (rather than invasion or involvement of the IVC). There is narrowing at of the portal vein adjacent to the masses and invasion/involvemen t of the portal vein is possible. The portal vein and branches are patent beyond this, however. An a djacent duodenal diverticulum is seen. There is subtle nodularity about the celiac axis which may re present small nodes. The pancreatic body and tail are atrophic. No ductal dilatation. Gastrointestinal Tract: There is no evidence for bowel obstruction, free air, or abscess. The appen shirley is unremarkable in appearance. Diverticulosis without evidence of diverticulitis. There is no t a clearly visualized colonic mass. Lymph nodes: See pancreatic section above. Peritoneal cavity: Mild upper abdominal free fluid and mild to moderate pelvic free fluid.. Mild mes enteric haziness. Reproductive Organs: No definite mass of the uterus or adnexa.. Vascular structures: Atherosclerotic vascular calcification.. Musculoskeletal: There is mild degenerative change of the spine. Small fat-containing inguinal herni as. Diffuse edema of the subcutaneous soft tissues. Degenerative change of the hips. T11 compression fracture, age indeterminate. IMPRESSION: Multiple hepatic metastases with multiple low-density rim enhancing masses in the periportal region and surrounding and / or arising from the pancreas. Biliary ductal dilatation with cutoff of the com mon bile duct in the area of peripancreatic masses. Gallbladder distension. Pancreatic adenocarcinom a with hepatic metastatic disease and necrotic oli disease remains a likely consideration. The les ion does not have the typical appearance for hepatocellular carcinoma or cholangiocarcinoma although this and disease cannot be completely excluded. Metastatic colon cancer is less likely given lack o f definite colon mass. Colonoscopy may still be considered, however. Other neoplastic etiology is al so possible.. RPTAT: [facility]BE Physician Jimmie Date Time Electronically viewed and signed by Physician Jimmie on 07/04/2017 07:13 GIAN/
[2017-07-04] MEDS: METOPROLOL 25 MG TAB PO SCH ×2 (08:14→21:00)
[2017-07-04] MEDS: ASPIRIN 81 MG TAB PO SCH (08:15)
[2017-07-04] MEDS: MEROPENEM 1 GM/50ML(PMX) 50 ML IVPB SCH ×2 (08:18→20:39)
[2017-07-04] MEDS: INSULIN ASPART [NOVOLOG] 3 ML PEN SC SCH ×7 (08:19→20:36)
[2017-07-04 09:42] LABS: ABNORMAL IP MESSAGE 1; BASOPHILS % 0.2 % (0.0-2.0); EOSINOPHILS % 0.2 % (0.0-7.0); HEMATOCRIT 26.5 % (37.0-47.0); HEMOGLOBIN 9.3 g/dl (12.0-16.0); MEAN CORPUSCULAR HEMOGLOBIN 30.1 pg (29.0-33.0); MEAN CORPUSCULAR HGB CONC 35.1 g/dl (32.0-37.0); MEAN CORPUSCULAR VOLUME 85.8 fl (82.0-101.0); MEAN PLATELET VOLUME 11.8 fl (7.4-10.4); MONOCYTE # 0.9 10^3/ul (0.3-0.9); MONOCYTES % 6.8 % (0.0-11.0); NEUTROPHIL # 10.7 10^3/ul (1.6-7.5); NEUTROPHILS % 83.5 % (39.0-77.0); PLATELET COUNT 88 10^3/UL (140-415); RED BLOOD COUNT 3.09 10^6/ul (4.20-5.40); RED CELL DISTRIBUTION WIDTH 15.2 % (11.5-14.5); WHITE BLOOD COUNT 12.9 10^3/ul (4.8-10.8)
[2017-07-04 09:43] LABS: POSITIVE DIFF @See below
[2017-07-04 10:23] LABS: ALBUMIN 2.4 g/dl (3.3-4.9); ALBUMIN/GLOBULIN RATIO 0.58; BILIRUBIN,INDIRECT 1.2 mg/dl (0-1.1); BILIRUBIN,TOTAL 1.2 mg/dl (0.2-1.3); CALCIUM 8.9 mg/dl (8.4-10.2); CREATININE 0.69 mg/dl (0.44-1.00); TOTAL PROTEIN 6.5 g/dl (6.1-8.1)
--- NOTE | 2017-07-04 10:28 | PN ---
Date/Time of Note Date/Time of Note DATE: 07/04/17 TIME: : Assessment/Plan VTE Prophylaxis VTE Prophylaxis Intervention: SCD's Lines/Catheters IV [facility]atheter Type (from [facility]): Peripheral IV Urinary Cath still in place: No Assessment/Plan Chief Complaint/Hosp Course Assessment and plan 1. sirs. wbc downward trending. . ID consult following. continue on abx per ID 2. Possible non-ST elevated myocardial infarction. In the setting of sepsis and acute renal insufficiency. Maternal Child Nurse following. Will follow up with recommendations. 3. Acute kidney injury. improved. monitor renal panel 4. Transaminitis. Patient did have positive hepatitis B panel. GI following. suspect possibly secondary to liver mass. continue with surgeon recs 5. Type 2 diabetes. Continue insulin regimen. Adjust as needed 6. Dyslipidemia. Will place on the fat low cholesterol diet. Statin medication on hold due to transaminitis. 7. Liver mass measuring 10.1 cm as seen by liver ultrasound. CT of liver did show: Multiple hepatic metastases with multiple low-density rim enhancing masses in the periportal region and surrounding and / or arising from the pancreas. Biliary ductal dilatation with cutoff of the common bile duct in the area of peripancreatic masses. continue with surgeon recs. oncologist to follow Disposition and plan: follow up with liver biopsy result. follow up with surgeon recs. oncologist to follow Discussed plan of care with Dr. Sánchez Problems: Subjective 24 Hr Interval Summary Free Text/Dictation comfortable at present. family at bedside Exam/Review of Systems Vital Signs Vitals Vital Signs Date Time Temp Pulse Resp B/P Pulse Ox O2 Delivery O2 Flow Rate FiO2 07/04/17 08:25 97.9 68 17 140/69 99 07/04/17 07:40 Nasal Cannula 2.0 Intake and Output 07/03/17 07/03/17 07/04/17 14:59 22:59 06:59 Intake Total 1180 ml 700 ml Balance 1180 ml 700 ml Exam Constitutional: alert, oriented Head: normocephalic Eyes: icteric (Minimally) Neck: non-tender, supple Respiratory: clear to auscultation, normal air movement Cardiovascular: other (regular rate ) Gastrointestinal: distended (minimally) little tender Musculoskeletal: No swelling Neurological: nl mental status, nl speech Skin: nl turgor Results Result Diagram: 07/04/17 0850 07/03/17 0816 Results 24 hrs Laboratory Tests Test 07/03/17 14:23 07/03/17 14:49 07/03/17 15:18 07/03/17 15:47 Bedside Glucose 69 L 66 L 89 121 Test 07/03/17 17:25 07/03/17 22:37 07/04/17 08:13 07/04/17 08:50 Bedside Glucose 154 123 169 White Blood Count 12.9 #H Red Blood Count 3.09 L Hemoglobin 9.3 L Hematocrit 26.5 L Mean Corpuscular Volume 85.8 Mean Corpuscular Hemoglobin 30.1 Mean Corpuscular Hemoglobin Concent 35.1 Red Cell Distribution Width 15.2 H Platelet Count 88 L Mean Platelet Volume 11.8 H Neutrophils % 83.5 H Lymphocytes % 8.0 L Monocytes % 6.8 Eosinophils % 0.2 Basophils % 0.2 Nucleated Red Blood Cells % 0.0 Neutrophils # 10.7 H Lymphocytes # 1.0 Monocytes # 0.9 Eosinophils # 0.0 Basophils # 0.0 Nucleated Red Blood Cells # 0.0 Test 07/04/17 08:52 Lab Scanned Report REFERENCE LAB Medications Medications Current Medications Sodium Chloride (NS) 1,000 ml @ 100 mls/hr Q10H IV Last administered on 05:04; Admin Dose 100 MLS/HR; Start 07/01/17 at 15:04 Ondansetron HCl (Zofran Inj) 4 mg Q6H PRN IV NAUSEA AND/OR VOMITING; Start at 15:30 Morphine Sulfate (morphine) 2 mg Q4H PRN IV SEVERE PAIN LEVEL 7-10 Last administered on 07/02/17 23:55; Admin Dose 2 MG; Start 07/01/17 at 15:30 Metoprolol Tartrate (Lopressor) 25 mg BID PO Last administered on 07/04/17 08 :14; Admin Dose 25 MG; Start 07/01/17 at 21:00 Diagnostic Test (Pha) (Accu-Chek) 1 ea 02 XX ; Start 07/02/17 at 02:00 Insulin Glargine (Lantus) 6 unit DAILY@20 SC Last administered on 07/03/17 22 :42; Admin Dose 6 UNIT; Start 07/01/17 at 20:00 Miscellaneous Information 1 ea NOTE XX ; Start 07/01/17 at 23:30 Glucose (Glutose) 15 gm Q15M PRN PO DECREASED GLUCOSE; Start 07/01/17 at 23:30 Glucose (Glutose) 22.5 gm Q15M PRN PO DECREASED GLUCOSE; Start 07/01/17 at 23: 30 Dextrose (D50w Syringe) 25 ml Q15M PRN IV DECREASED GLUCOSE; Start 07/01/17 at 23:30 Dextrose (D50w Syringe) 50 ml Q15M PRN IV DECREASED GLUCOSE; Start 07/01/17 at 23:30 Glucagon (Glucagen) 1 mg Q15M PRN IM DECREASED GLUCOSE; Start 07/01/17 at 23: 30 Glucose (Glutose) 15 gm Q15M PRN BUCCAL DECREASED GLUCOSE Last administered on 07/03/17 14:52; Admin Dose 15 GM; Start 07/01/17 at 23:30 Aspirin 81 mg 81 mg DAILY PO ; Start 07/02/17 at 12:30 Meropenem/Sodium Chloride (Merrem 1 Gm/50 ml (Pmx)) 50 ml @ 100 mls/hr Q12 IVPB Last administered on 07/04/17 08:18; Admin Dose 100 MLS/HR; Start 07/03 at 21:00 Indomethacin (Indocin Supp) 100 mg ONCE [place] ; Start 07/03/17 at 18:00; Stop at 17:59 SYDNIE EMMANUEL Jul 04, 2017 10:28
[2017-07-04] MEDS ORDERED: FLUCONAZOLE 100 MG TAB PO ONE (11:00)
--- NOTE | 2017-07-04 14:18 | CONS ---
Date/Time of Note Date/Time of Note DATE: 07/04/17 TIME: 14:16 Assessment/Plan Assessment/Plan Chief Complaint/Hosp Course SUBJECTIVE: No acute changes. The patient is sleeping, looks comfortable, no fevers overnight. No nausea, vomiting, diarrhea. Family at bedside MICROBIOLOGY: Urine culture grew Maricruz albicans, blood culture negative. Stool for C. diff came back negative. ANTIMICROBIALS: 1. Meropenem. 2. Fluconazole. DIAGNOSTICS: MRI of the abdomen revealed probable hepatic metastatic disease, adenopathy in the and periportal region with biliary ductal dilatation and abrupt cut off of the common bile duct. The overall constellation of findings highly suspicious for pancreatic carcinoma with hepatic metastatic disease and probable oli metastatic disease. Distended gallbladder with sludge and small stones. PHYSICAL EXAMINATION: GENERAL: Well-developed, elderly woman who is in no distress. HEENT: Head atraumatic, normocephalic. Sclerae anicteric. Buccal mucosa pink. NECK: Supple. CHEST: Rise symmetrical. Breath sounds diminished to bases. HEART: S1, S2. ABDOMEN: Soft. Bowel tones present. ASSESSMENT: 1. Systemic inflammatory response syndrome with ongoing leukocytosis, multifactorial. 2. Urinary tract infection. 3. Evidence of liver metastases as per CT of the abdomen, possible pancreatic cancer. 4. Acute renal failure. 5. Diabetes. 6. Questionable cholecystitis. PLAN: Patient remained stable. WBC decreasing, continue present care, await for pathology report, follow recommendations of specialists Discussed with family at bedside Problems: Consultation Date/Type/Reason Admit Date/Time Jul 01, 2017 at 14:33 Initial Consult Date 07/03/17 Type of Consultation: ID Referring Provider: MAK NOVAK [employer] Exam/Review of Systems Vital Signs Vitals Vital Signs Date Time Temp Pulse Resp B/P Pulse Ox O2 Delivery O2 Flow Rate FiO2 07/04/17 12:36 54 07/04/17 12:06 98.8 18 131/63 99 07/04/17 07:40 Nasal Cannula 2.0 Intake and Output 07/03/17 07/03/17 07/04/17 15:00 23:00 07:00 Intake Total 1180 ml 700 ml Balance 1180 ml 700 ml Results Result Diagram: 07/04/17 0850 07/04/17 0858 Results 24 hrs Laboratory Tests Test 07/03/17 14:23 07/03/17 14:49 07/03/17 15:18 07/03/17 15:47 Bedside Glucose 69 L 66 L 89 121 Test 07/03/17 17:25 07/03/17 22:37 07/04/17 08:13 07/04/17 08:50 Bedside Glucose 154 123 169 White Blood Count 12.9 #H Red Blood Count 3.09 L Hemoglobin 9.3 L Hematocrit 26.5 L Mean Corpuscular Volume 85.8 Mean Corpuscular Hemoglobin 30.1 Mean Corpuscular Hemoglobin Concent 35.1 Red Cell Distribution Width 15.2 H Platelet Count 88 L Mean Platelet Volume 11.8 H Neutrophils % 83.5 H Lymphocytes % 8.0 L Monocytes % 6.8 Eosinophils % 0.2 Basophils % 0.2 Nucleated Red Blood Cells % 0.0 Neutrophils # 10.7 H Lymphocytes # 1.0 Monocytes # 0.9 Eosinophils # 0.0 Basophils # 0.0 Nucleated Red Blood Cells # 0.0 Test 07/04/17 08:52 07/04/17 08:58 07/04/17 12:13 Lab Scanned Report REFERENCE LAB Sodium Level 136 Potassium Level 4.0 Chloride Level 106 Carbon Dioxide Level 22 Anion Gap 12 Blood Urea Nitrogen 22 #H Creatinine 0.69 Glucose Level 157 Calcium Level 8.9 Total Bilirubin 1.2 Direct Bilirubin 0.00 Indirect Bilirubin 1.2 H Aspartate Amino Transf (AST/SGOT) 86 H Alanine Aminotransferase (ALT/SGPT) 91 H Alkaline Phosphatase 275 H Total Protein 6.5 Albumin 2.4 L Globulin 4.10 H Albumin/Globulin Ratio 0.58 Bedside Glucose 154 Medications Medications Current Medications Sodium Chloride (NS) 1,000 ml @ 100 mls/hr Q10H IV Last administered on 05:04; Admin Dose 100 MLS/HR; Start 07/01/17 at 15:04 Ondansetron HCl (Zofran Inj) 4 mg Q6H PRN IV NAUSEA AND/OR VOMITING; Start at 15:30 Morphine Sulfate (morphine) 2 mg Q4H PRN IV SEVERE PAIN LEVEL 7-10 Last administered on 07/02/17 23:55; Admin Dose 2 MG; Start 07/01/17 at 15:30 Metoprolol Tartrate (Lopressor) 25 mg BID PO Last administered on 07/04/17 08 :14; Admin Dose 25 MG; Start 07/01/17 at 21:00 Diagnostic Test (Pha) (Accu-Chek) 1 ea 02 XX ; Start 07/02/17 at 02:00 Insulin Glargine (Lantus) 6 unit DAILY@20 SC Last administered on 07/03/17 22 :42; Admin Dose 6 UNIT; Start 07/01/17 at 20:00 Miscellaneous Information 1 ea NOTE XX ; Start 07/01/17 at 23:30 Glucose (Glutose) 15 gm Q15M PRN PO DECREASED GLUCOSE; Start 07/01/17 at 23:30 Glucose (Glutose) 22.5 gm Q15M PRN PO DECREASED GLUCOSE; Start 07/01/17 at 23: 30 Dextrose (D50w Syringe) 25 ml Q15M PRN IV DECREASED GLUCOSE; Start 07/01/17 at 23:30 Dextrose (D50w Syringe) 50 ml Q15M PRN IV DECREASED GLUCOSE; Start 07/01/17 at 23:30 Glucagon (Glucagen) 1 mg Q15M PRN IM DECREASED GLUCOSE; Start 07/01/17 at 23: 30 Glucose (Glutose) 15 gm Q15M PRN BUCCAL DECREASED GLUCOSE Last administered on 07/03/17 14:52; Admin Dose 15 GM; Start 07/01/17 at 23:30 Aspirin 81 mg 81 mg DAILY PO ; Start 07/02/17 at 12:30 Meropenem/Sodium Chloride (Merrem 1 Gm/50 ml (Pmx)) 50 ml @ 100 mls/hr Q12 IVPB Last administered on 07/04/17 08:18; Admin Dose 100 MLS/HR; Start 07/03 at 21:00 Indomethacin (Indocin Supp) 100 mg ONCE [place] ; Start 07/03/17 at 18:00; Stop at 17:59 Fluconazole 100 mg 100 mg DAILY PO ; Start 07/05/17 at 09:00 Fluconazole/ Sodium Chloride (Diflucan 100 Mg/ NS (Pmx)) 50 ml @ 50 mls/hr Q24H IVPB ; Start 07/04/17 at 14:00 RUTHIE HUDSON NP Jul 04, 2017 14:18
[2017-07-04] MEDS: FLUCONAZOLE 100 MG/NS (PMX) 50 ML IVPB SCH (14:58)
--- NOTE | 2017-07-04 15:25 | CONS ---
Date/Time of Note Date/Time of Note DATE: 07/04/17 TIME: 15:23 Assessment/Plan Assessment/Plan Chief Complaint/Hosp Course NSTEMI: Type II in setting of sepsis/ episodes of afib with RVR. Trops downtrended from 0.14. EF 45% with WMA consistent with CAD. Will treat medically for now with active likely metastatic cancer Paroxysmal afib with RVR: Currently in sinus. CHADSVASC is 5 and would benefit from anticoagulation half-way but will defer for now as she is being evaluated for a liver/pancreatic mass. N/V/Abd pain: ?from passed gallstone +/- liver/pancreatic mass Liver/pancreatic mass: being evaluated Transaminitis: improved ILD: seen on CT. Has crackles on exam but currently JVP is ok Acute renal failure: resolved with IVF DM HTN -metoprolol 25mg BID -ASA -hold statin with transaminitis -mass workup/pending path Problems: Consultation Date/Type/Reason Admit Date/Time Jul 01, 2017 at 14:33 Initial Consult Date 07/02/17 Type of Consultation: Cardiology Referring Provider: MAK NOVAK [employer] ANAESTHETIST 24 HR Interval Summary Free Text/Dictation S/p liver biopsy. No further afib No chest pain or SOB Exam/Review of Systems Vital Signs Vitals Vital Signs Date Time Temp Pulse Resp B/P Pulse Ox O2 Delivery O2 Flow Rate FiO2 07/04/17 12:36 54 07/04/17 12:06 98.8 18 131/63 99 07/04/17 07:40 Nasal Cannula 2.0 Intake and Output 07/03/17 07/03/17 07/04/17 15:00 23:00 07:00 Intake Total 1180 ml 700 ml Balance 1180 ml 700 ml Exam Constitutional: alert, oriented Psych: nl mood/affect, no complaints Neck: No jvd Respiratory: clear to auscultation, No crackles/rales, No diminished breath sounds Cardiovascular: regular rate and rhythm, systolic murmur (2/6 HSM), No edema Gastrointestinal: non-tender, soft Neurological: nl mental status, nl speech Results Result Diagram: 07/04/17 0850 07/04/17 0858 Results 24 hrs Laboratory Tests Test 07/03/17 15:47 07/03/17 17:25 07/03/17 22:37 07/04/17 08:13 Bedside Glucose 121 154 123 169 Test 07/04/17 08:50 07/04/17 08:52 07/04/17 08:58 07/04/17 12:13 White Blood Count 12.9 #H Red Blood Count 3.09 L Hemoglobin 9.3 L Hematocrit 26.5 L Mean Corpuscular Volume 85.8 Mean Corpuscular Hemoglobin 30.1 Mean Corpuscular Hemoglobin Concent 35.1 Red Cell Distribution Width 15.2 H Platelet Count 88 L Mean Platelet Volume 11.8 H Neutrophils % 83.5 H Lymphocytes % 8.0 L Monocytes % 6.8 Eosinophils % 0.2 Basophils % 0.2 Nucleated Red Blood Cells % 0.0 Neutrophils # 10.7 H Lymphocytes # 1.0 Monocytes # 0.9 Eosinophils # 0.0 Basophils # 0.0 Nucleated Red Blood Cells # 0.0 Lab Scanned Report REFERENCE LAB Sodium Level 136 Potassium Level 4.0 Chloride Level 106 Carbon Dioxide Level 22 Anion Gap 12 Blood Urea Nitrogen 22 #H Creatinine 0.69 Glucose Level 157 Calcium Level 8.9 Total Bilirubin 1.2 Direct Bilirubin 0.00 Indirect Bilirubin 1.2 H Aspartate Amino Transf (AST/SGOT) 86 H Alanine Aminotransferase (ALT/SGPT) 91 H Alkaline Phosphatase 275 H Total Protein 6.5 Albumin 2.4 L Globulin 4.10 H Albumin/Globulin Ratio 0.58 Bedside Glucose 154 Medications Medications Current Medications Sodium Chloride (NS) 1,000 ml @ 100 mls/hr Q10H IV Last administered on 05:04; Admin Dose 100 MLS/HR; Start 07/01/17 at 15:04 Ondansetron HCl (Zofran Inj) 4 mg Q6H PRN IV NAUSEA AND/OR VOMITING; Start at 15:30 Morphine Sulfate (morphine) 2 mg Q4H PRN IV SEVERE PAIN LEVEL 7-10 Last administered on 07/02/17 23:55; Admin Dose 2 MG; Start 07/01/17 at 15:30 Metoprolol Tartrate (Lopressor) 25 mg BID PO Last administered on 07/04/17 08 :14; Admin Dose 25 MG; Start 07/01/17 at 21:00 Diagnostic Test (Pha) (Accu-Chek) 1 ea 02 XX ; Start 07/02/17 at 02:00 Insulin Glargine (Lantus) 6 unit DAILY@20 SC Last administered on 07/03/17 22 :42; Admin Dose 6 UNIT; Start 07/01/17 at 20:00 Miscellaneous Information 1 ea NOTE XX ; Start 07/01/17 at 23:30 Glucose (Glutose) 15 gm Q15M PRN PO DECREASED GLUCOSE; Start 07/01/17 at 23:30 Glucose (Glutose) 22.5 gm Q15M PRN PO DECREASED GLUCOSE; Start 07/01/17 at 23: 30 Dextrose (D50w Syringe) 25 ml Q15M PRN IV DECREASED GLUCOSE; Start 07/01/17 at 23:30 Dextrose (D50w Syringe) 50 ml Q15M PRN IV DECREASED GLUCOSE; Start 07/01/17 at 23:30 Glucagon (Glucagen) 1 mg Q15M PRN IM DECREASED GLUCOSE; Start 07/01/17 at 23: 30 Glucose (Glutose) 15 gm Q15M PRN BUCCAL DECREASED GLUCOSE Last administered on 07/03/17 14:52; Admin Dose 15 GM; Start 07/01/17 at 23:30 Aspirin 81 mg 81 mg DAILY PO ; Start 07/02/17 at 12:30 Meropenem/Sodium Chloride (Merrem 1 Gm/50 ml (Pmx)) 50 ml @ 100 mls/hr Q12 IVPB Last administered on 07/04/17 08:18; Admin Dose 100 MLS/HR; Start 07/03 at 21:00 Indomethacin (Indocin Supp) 100 mg ONCE [place] ; Start 07/03/17 at 18:00; Stop at 17:59 Fluconazole 100 mg 100 mg DAILY PO ; Start 07/05/17 at 09:00 Fluconazole/ Sodium Chloride (Diflucan 100 Mg/ NS (Pmx)) 50 ml @ 50 mls/hr Q24H IVPB Last administered on 07/04/17 14:58; Admin Dose 50 MLS/HR; Start at 14:00 TONIA CIFUENTES Jul 04, 2017 15:25
--- NOTE | 2017-07-04 17:20 | PN ---
Date/Time of Note Date/Time of Note DATE: 07/04/17 TIME: 17:07 Assessment/Plan VTE Prophylaxis VTE Prophylaxis Intervention: SCD's Lines/Catheters IV Catheter Type (from [facility]): Peripheral IV Urinary Cath still in place: No Assessment/Plan Chief Complaint/Hosp Course Impression: Large liver mass/probably metastatic disease Abrupt cutoff of the common bile duct and MRI Rule out imminent biliary obstruction Rule out pancreatic CA Diabetes mellitus Hypertension Dyslipidemia Plan: Waiting for MRCP to noninvasively assess biliary tree and rule out intermittent obstruction that would require ERCP plus stent If MRCP is abnormal the patient may be considered for ERCP possible stent Await pathology report Consider oncology consult Follow-up visit was done in collaboration with Dr. Metz Subjective: Course reviewed with nursing staff Patient interviewed and examined All labs, imaging and other results reviewed The patient denies any significant pain or discomfort. Sitting in a chair change the position. Exam: General: well developed, well nourished, alert and oriented x3 , in no acute distress Skin: No lesions, no stigmata chronic liver disease, no evidence of bleeding diathesis Lymphatic: No palpable lymphadenopathy HEENT: No lesions Cardiovascular: Heart: Regular rate and rhythm, no murmurs, gallops or rubs. Respiratory: Lungs clear to auscultation and percussion, no wheezing, no rubs Gastrointestinal and Liver: Abdomen: Soft, epigastric tenderness, not distended , no hernias, no masses, no organomegaly, no ascites, no guarding, no rebound tenderness, hypoactive bowel sounds. Extremities: No cyanosis, clubbing, or edema. Diagnostic Studies: Available data and images were reviewed personally. See reports. Significant results and findings are addressed here or in the assessment and plan. Problems: Exam/Review of Systems Vital Signs Vitals Vital Signs Date Time Temp Pulse Resp B/P Pulse Ox O2 Delivery O2 Flow Rate FiO2 07/04/17 16:23 66 07/04/17 16:07 98.2 17 157/69 98 07/04/17 07:40 Nasal Cannula 2.0 Intake and Output 07/03/17 07/03/17 07/04/17 14:59 22:59 06:59 Intake Total 1180 ml 700 ml Balance 1180 ml 700 ml Results Result Diagram: 07/04/17 0850 07/04/17 0858 Results 24 hrs Laboratory Tests Test 07/03/17 17:25 07/03/17 22:37 07/04/17 08:13 07/04/17 08:50 Bedside Glucose 154 123 169 White Blood Count 12.9 #H Red Blood Count 3.09 L Hemoglobin 9.3 L Hematocrit 26.5 L Mean Corpuscular Volume 85.8 Mean Corpuscular Hemoglobin 30.1 Mean Corpuscular Hemoglobin Concent 35.1 Red Cell Distribution Width 15.2 H Platelet Count 88 L Mean Platelet Volume 11.8 H Neutrophils % 83.5 H Lymphocytes % 8.0 L Monocytes % 6.8 Eosinophils % 0.2 Basophils % 0.2 Nucleated Red Blood Cells % 0.0 Neutrophils # 10.7 H Lymphocytes # 1.0 Monocytes # 0.9 Eosinophils # 0.0 Basophils # 0.0 Nucleated Red Blood Cells # 0.0 Test 07/04/17 08:52 07/04/17 08:58 07/04/17 12:13 Lab Scanned Report REFERENCE LAB Sodium Level 136 Potassium Level 4.0 Chloride Level 106 Carbon Dioxide Level 22 Anion Gap 12 Blood Urea Nitrogen 22 #H Creatinine 0.69 Glucose Level 157 Calcium Level 8.9 Total Bilirubin 1.2 Direct Bilirubin 0.00 Indirect Bilirubin 1.2 H Aspartate Amino Transf (AST/SGOT) 86 H Alanine Aminotransferase (ALT/SGPT) 91 H Alkaline Phosphatase 275 H Total Protein 6.5 Albumin 2.4 L Globulin 4.10 H Albumin/Globulin Ratio 0.58 Bedside Glucose 154 Medications Medications Current Medications Sodium Chloride (NS) 1,000 ml @ 100 mls/hr Q10H IV Last administered on 05:04; Admin Dose 100 MLS/HR; Start 07/01/17 at 15:04 Ondansetron HCl (Zofran Inj) 4 mg Q6H PRN IV NAUSEA AND/OR VOMITING; Start at 15:30 Morphine Sulfate (morphine) 2 mg Q4H PRN IV SEVERE PAIN LEVEL 7-10 Last administered on 07/02/17 23:55; Admin Dose 2 MG; Start 07/01/17 at 15:30 Metoprolol Tartrate (Lopressor) 25 mg BID PO Last administered on 07/04/17 08 :14; Admin Dose 25 MG; Start 07/01/17 at 21:00 Diagnostic Test (Pha) (Accu-Chek) 1 ea 02 XX ; Start 07/02/17 at 02:00 Insulin Glargine (Lantus) 6 unit DAILY@20 SC Last administered on 07/03/17 22 :42; Admin Dose 6 UNIT; Start 07/01/17 at 20:00 Miscellaneous Information 1 ea NOTE XX ; Start 07/01/17 at 23:30 Glucose (Glutose) 15 gm Q15M PRN PO DECREASED GLUCOSE; Start 07/01/17 at 23:30 Glucose (Glutose) 22.5 gm Q15M PRN PO DECREASED GLUCOSE; Start 07/01/17 at 23: 30 Dextrose (D50w Syringe) 25 ml Q15M PRN IV DECREASED GLUCOSE; Start 07/01/17 at 23:30 Dextrose (D50w Syringe) 50 ml Q15M PRN IV DECREASED GLUCOSE; Start 07/01/17 at 23:30 Glucagon (Glucagen) 1 mg Q15M PRN IM DECREASED GLUCOSE; Start 07/01/17 at 23: 30 Glucose (Glutose) 15 gm Q15M PRN BUCCAL DECREASED GLUCOSE Last administered on 07/03/17 14:52; Admin Dose 15 GM; Start 07/01/17 at 23:30 Aspirin 81 mg 81 mg DAILY PO ; Start 07/02/17 at 12:30 Meropenem/Sodium Chloride (Merrem 1 Gm/50 ml (Pmx)) 50 ml @ 100 mls/hr Q12 IVPB Last administered on 07/04/17 08:18; Admin Dose 100 MLS/HR; Start 07/03 at 21:00 Indomethacin (Indocin Supp) 100 mg ONCE [place] ; Start 07/03/17 at 18:00; Stop at 17:59 Fluconazole 100 mg 100 mg DAILY PO ; Start 07/05/17 at 09:00 Fluconazole/ Sodium Chloride (Diflucan 100 Mg/ NS (Pmx)) 50 ml @ 50 mls/hr Q24H IVPB Last administered on 07/04/17 14:58; Admin Dose 50 MLS/HR; Start at 14:00 Copies To: CC: KEVIN METZ MD, ANASTASIA NP Jul 04, 2017 17:17
[2017-07-04] MEDS ORDERED: IOHEXOL 300MG/ML 30 ML BTL ONE (17:26)
[2017-07-04 17:27] LABS: IRON 41 ug/dl (35-150)
[2017-07-04] MEDS: morphine 2 MG INJ IV PRN ×2 (17:30→18:26)
[2017-07-04 17:36] LABS: TOTAL IRON BINDING CAPACITY 250 ug/dl (241-421)
--- NOTE | 2017-07-04 17:48 | CONS ---
DATE OF ADMISSION: 07/01/2017 DATE OF CONSULTATION: 07/04/2017 MEDICAL ONCOLOGY CONSULTATION REQUESTING PHYSICIAN: Romain Tadeo NP. REASON FOR CONSULTATION: Hepatic mass. Dear Mr. Tadeo, thank you very much for asking me to see this very interesting and pleasant patien t in oncologic consultation. As you know, Ms. Paul is a 77-year-old female who was admitted to [facility] after presenting to the emergency room with approximately 1-week complaint s of abdominal and back pain. This was associated with some nausea and vomiting as well as diarrhea . The patient is Azeri speaking and her granddaughter who is at the bedside has provided translat ion. As noted, the patient has been experiencing symptom of abdominal and back pain as well as nausea, vo miting and diarrhea for approximately a week. The patient states there has been some weight loss, b ut she cannot provide the quantitation. She states that the abdominal pain is worsened by oral inta ke. The abdominal pain is somewhat generalized but seems to be more prominent in the right upper quadran t. She states that she has back pain, but that it does not appear that the abdominal pain is penetr ating. Symptoms have been accompanied by some weakness. She has not, however, had any shaking chills. She has not noted any fever. Upon presentation, the patient did have a chest x-ray which showed some evidence of cardiomegaly and atherosclerotic changes. A CT scan of the chest, abdomen and pelvis demonstrated a large poorly de fined infiltrative hypodense lesion within the anterior right lobe of the liver. The gallbladder wa s distended with layering gallstones. At the time of admission, the patient's sodium is 132, potass ium 4.8, BUN 65, creatinine 1.61, total bilirubin was 1.1 with a direct of 0.3, AST 244, ALT 152, al kaline phosphatase of 472. Troponin 0.142, total protein 8.3 and albumin of 3.3. Lactic acid on ad mission was 3.5. With hydration, the patient's creatinine has dropped to 0.69 and BUN to 22. Today , the patient's total bilirubin is 1.2, which is all indirect, AST is 86, ALT 91 and alkaline phosph atase 275. On admission, white count was 8400, hemoglobin was 12.3, hematocrit 34.5 and platelet co unt 118,000. The MPV was 11. On 07/02/2017 white count was 31,700 with 70% neutrophils, 25% bands, hemoglobin was 9.4, hematocrit 25.4, platelet count was 81,000, MPV of 11.4. Today, the white coun t is 12,900, hemoglobin 9.3, hematocrit 26.5 and platelet count 88,000, MPV 11.8. On admission, a p rotime was 14.9 seconds with an INR of 1.16 and PTT 31.9 seconds. Hepatitis serologies were negative except for hepatitis B core antibody. Hepatitis C antibody was n egative and hepatitis B antigen was negative. Further imaging has included an ultrasound of the liver which again showed this mass measuring 10.1 cm in dimension. An MRI of the abdomen showed the probable hepatic disease as noted. There was josue nopathy noted in the interaortocaval and periportal region with biliary duct dilatation and abrupt c utoff of the common bile duct. The patient did undergo a CT-guided needle biopsy on 07/03/2017, results are pending at this time. As noted, the patient states symptoms started only 1 week ago. She has not noticed any dark urine o r acholic-colored stools. The patient's past history includes a history of hypertension, as well as hyperlipidemia. She also has type 2 diabetes mellitus. The patient states that she has had no surgeries in the past except for an open reduction and video intern al fixation of a fractured left humerus. This was traumatic in nature. MEDICATIONS: At the time of admission include: 1. Atorvastatin 40 mg daily. 2. Metoprolol 25 mg twice a day. 3. Janumet 1 tablet b.i.d. 4. Ranitidine 150 mg b.i.d. 5. Vitamin D 400 units daily. ALLERGIES: NO KNOWN ALLERGIES. FAMILY HISTORY: Unremarkable. PHYSICAL EXAMINATION GENERAL: At this time reveals a well-developed, but somewhat frail-appearing female who is in no ac inupiat distress. VITAL SIGNS: Temperature 98.2, pulse 65, respirations 17, blood pressure 157/69 and pulse oximetry is 98% on room air. SKIN: Pale. No ecchymosis, no petechiae or rashes. No spider telangiectasias. HEENT: Normocephalic. No evidence of trauma. The pupils are equal, round, react to light and acco mmodation. Sclerae nonicteric. Oral mucosa is moist without lesions. Tongue is well papillated. No gingival hyperplasia. NECK: Supple, no jugular venous distention or thyroid enlargement. No carotid bruits. CHEST: Clear to auscultation and percussion. No rhonchi, wheezes, rales or rubs. HEART: Regular sinus rhythm, no S3, S4, murmurs. No rubs. ABDOMEN: Mildly distended but soft. Minimal tenderness on palpation of the right upper quadrant, b ut there is no rebound tenderness. I cannot palpate any organomegaly or other masses. Bowel sounds are active. EXTREMITIES: Good range of motion, no clubbing, edema or cyanosis. There are some ulcerations note d on the great toes of both feet. DISCUSSION: This patient is admitted with right upper quadrant pain with nausea and vomiting. Imag ing studies have demonstrated a mass in the liver and biopsy was performed on 07/03/2017. Results a re not yet available. The patient has a mild elevation of transaminases and today minimal elevation of indirect bilirubin. Alkaline phosphatase is mildly elevated as well. Imaging studies, however, do show some evidence of biliary dilatation as well as a "cut off" of the distal common bile duct. There is also note of lymphadenopathy in the anterior interaortocaval and periportal area. I feel it is likely that this patient does either have a primary pancreatic carcinoma or a cholangio carcinoma. The patient does have a CA 19-9 that is 53.5, CA-125 of 37.4. CEA is 1.1 and alpha feto protein only 1.25. It is likely that this patient will require placement of a biliary stent to prevent obstructive clifton dice which seems to be impending. The patient also has thrombocytopenia which has worsened during the hospitalization. The drop from 118 to 76 is likely related to rehydration. The patient's platelets, however, are enlarged suggesti ng some peripheral destruction. There is no splenomegaly noted on any of the imaging studies and therefore I do not feel that the th rombocytopenia is due to splenic sequestration. The thrombocytopenia was present at the time of admission and therefore cannot be attributed to medi cations introduced during hospitalization including meropenem or fluconazole. The patient is not re ceiving heparin. I feel there does not appear to be any evidence of a consumptive coagulopathy such as DIC, TTP or he molytic uremic syndrome. Therefore, the peripheral destruction may be considered to be on an autoim mune basis. We will obtain an KIRAN as well as antiplatelet antibody studies. Once again, thank you very much for the opportunity of participating in the medical care of this milana y interesting and pleasant patient. I will be happy to follow this patient with you and assist in h er oncologic evaluation and follow up as necessary. Dictated By: ELI BALES MD SR/NTS Conf#: [id number] DID#: [id number] CC: FLAKITO LOWE MD;*EndCC*
[2017-07-04] MEDS: INSULIN GLARGINE [LANtus] 3 ML PEN SC SCH (20:51)
[2017-07-05] VITALS (25 sets, daily range): BP systolic 119–165; BP diastolic 46–72; PULSE 54–84; RESP 14–19
[2017-07-05] MEDS: ACCU-CHEK XX SCH (02:00)
[2017-07-05] MEDS: hydrALAzine 20 MG INJ IV PRN (02:51)
[2017-07-05] MEDS ORDERED: CEFAZOLIN 1 GM INJ ONE (07:00)
[2017-07-05] MEDS: INSULIN ASPART [NOVOLOG] 3 ML PEN SC SCH ×7 (07:33→20:16)
[2017-07-05] MEDS ORDERED: IOHEXOL 300MG/ML 30 ML BTL ONE (07:34)
[2017-07-05] MEDS ORDERED: INDOMETHACIN 50 MG SUPP PR ONE (07:34)
[2017-07-05] MEDS ORDERED: INDOMETHACIN 50 MG SUPP PR SCH (08:00)
[2017-07-05 08:02] LABS: ABNORMAL IP MESSAGE 1; BASOPHILS % 0.2 % (0.0-2.0); EOSINOPHILS # 0.1 10^3/ul (0.0-0.5); EOSINOPHILS % 0.4 % (0.0-7.0); HEMATOCRIT 25.2 % (37.0-47.0); HEMOGLOBIN 9.1 g/dl (12.0-16.0); LYMPHOCYTES # 1.1 10^3/ul (0.8-2.9); LYMPHOCYTES % 9.3 % (15.0-51.0); MEAN CORPUSCULAR HEMOGLOBIN 30.8 pg (29.0-33.0); MEAN CORPUSCULAR HGB CONC 36.1 g/dl (32.0-37.0); MEAN CORPUSCULAR VOLUME 85.4 fl (82.0-101.0); MEAN PLATELET VOLUME 11.3 fl (7.4-10.4); MONOCYTE # 0.7 10^3/ul (0.3-0.9); MONOCYTES % 5.9 % (0.0-11.0); NEUTROPHILS % 82.8 % (39.0-77.0); PLATELET COUNT 99 10^3/UL (140-415); RED BLOOD COUNT 2.95 10^6/ul (4.20-5.40); RED CELL DISTRIBUTION WIDTH 15.4 % (11.5-14.5); WHITE BLOOD COUNT 12.1 10^3/ul (4.8-10.8)
[2017-07-05 08:05] LABS: POSITIVE DIFF @See below
[2017-07-05 08:39] LABS: ALBUMIN 2.3 g/dl (3.3-4.9); ALBUMIN/GLOBULIN RATIO 0.57; BILIRUBIN,INDIRECT 1.5 mg/dl (0-1.1); BILIRUBIN,TOTAL 1.5 mg/dl (0.2-1.3); CALCIUM 8.4 mg/dl (8.4-10.2); CREATININE 0.55 mg/dl (0.44-1.00); POTASSIUM 3.7 mmol/L (3.5-5.1); TOTAL PROTEIN 6.3 g/dl (6.1-8.1)
[2017-07-05] MEDS ORDERED: ROCURONIUM 50 MG INJ ONE (08:52)
[2017-07-05] MEDS ORDERED: METOCLOPRAMIDE 10 MG INJ ONE (08:52)
[2017-07-05] MEDS ORDERED: PROPOFOL 20 ML ONE (08:52)
[2017-07-05] MEDS ORDERED: SUGAMMADEX SODIUM 200 MG/2 ML VIAL IV ONE (08:52)
[2017-07-05] MEDS ORDERED: ONDANSETRON 4 MG INJ ONE (08:52)
[2017-07-05] MEDS ORDERED: DEXAMETHASONE 4 MG/ML 1 ML INJ ONE (08:52)
[2017-07-05] MEDS ORDERED: hydrALAzine 20 MG INJ IV PRN (09:00)
[2017-07-05] MEDS ORDERED: FENTAnyl 50 MCG/ML VIAL IV PRN ×3 (09:00)
[2017-07-05] MEDS ORDERED: DIPHENHYDRAMINE 50 MG INJ IV PRN (09:00)
[2017-07-05] MEDS ORDERED: LABETALOL HCL 20MG INJ IV PRN (09:00)
[2017-07-05] MEDS ORDERED: MEPERIDINE 25 MG INJ IV PRN (09:00)
[2017-07-05] MEDS ORDERED: ONDANSETRON 4 MG INJ IV PRN (09:00)
[2017-07-05] MEDS ORDERED: EPHEDrine SULFATE 50 MG/5 ML SYG IV PRN (09:00)
[2017-07-05] MEDS ORDERED: morphine (1 MG/ML) 10ML SYRINGE IV PRN ×2 (09:00)
--- NOTE | 2017-07-05 09:00 | OPPN ---
Date/Time of Note Date/Time of Note DATE: 07/05/17 TIME: 08:55 Proc Note GI Procedure Date 07/05/17 Indication: other (Biliary obstruction) Pre-procedure Diagnosis Biliary obstruction Post-procedure Diagnosis Impression: Normal pancreatogram High-grade narrowing 3 cm segment approximately 2 cm from ampulla, smooth most consistent with extrinsic compression i.e. pancreatic mass Post brush cytology of the biliary tree area of narrowing Post standard sphincterotomy Post fully covered 10 x 80 mm Wallstent placement Plan: Review cytology Clear liquid diet advance as tolerated . Procedure Performed: ERCP (Plus sphincterotomy plus cytology brushing plus metal stent placement) Surgeon KEVIN JONES MD See signature line Machine Maintenance Repairer none Anesthesia Type: general Anesthesiologist: GEOVANNY LARSEN MD Tourniquet Time none EBL none Transfusion required none Biopsy 1: Cytology brushings common bile duct Grafts/Implants 10 x 80 mm fully covered Wallstent Tubes/Drains none Complication(s) none Disposition: PACU Procedure Description After informed consent, with the patient/relatives understanding the procedure, its indications, potential risks and complications, including but not limited to : allergic reaction, bleeding, perforation or infection, and after all pertinent questions were answered to the patients satisfaction, the patient/ relatives signed witnessed informed consent. Following this, premedication was administered slowly IV push under careful cardiovascular and respiratory monitoring with pulse oximetry, automatic blood pressure, and monitor and storage bin tender. Once the sedative effect was achieved the patient was place in the prone position in the radiology special procedures suite; the side viewing panendoscope was introduced and advanced under visual control. Careful examination of the upper gastrointestinal tract, both on insertion as well as withdrawal of the instrument disclosed the following findings: Esophagus: The mucosa of the entire appears within normal limits. There is no evidence of esophagitis, varices, neoplasm or stricture. No Hiatal Hernia identified. Stomach: Upon entrance to the stomach air was insufflated, the gastric fernandez distended normally, the mucosa of the fundus, body and antrum of the stomach was carefully examined both head-on and on retroflexion, and shows no abnormalities. There is no evidence of gastritis, ulcers, or neoplasm. Pylorus: The pylorus appears patent and within normal limits, with no evidence of gastric outlet obstruction. Duodenum: The duodenal mucosa was carefully examined in the duodenal bulb as well as the second portion of the duodenum and appears unremarkable with no evidence of duodenitis, ulcer or neoplasm. Ampulla of vater: The ampulla of Vater was identified and carefully examined appearing within normal limits. Cannulation: At this point cannulation was accomplished with the following fluoroscopic findings: Pancreatogram: Unexpectedly normal pancreatogram Cholangiogram: There is a 2 cm area of smooth narrowing in the mid common bile duct, it is more consistent with extrinsic compression as opposed to primary biliary based tumor. The area received cytology brushing. A standard sphincterotomy was then performed and a 10 x 80 mm covered Wallstent was inserted without difficulty and deployed. Adequate drainage is present. The instrument was then withdrawn the patient tolerated the procedure well and was transfer out of the endoscopy suite awake, and in good condition to continue to recover under observation. Copies To: CC: KEVIN JONES MD, MORDO MD Jul 05, 2017 09:00
--- NOTE | 2017-07-05 09:01 | HPN ---
Date/Time of Note Date/Time of Note DATE: 07/05/17 TIME: 08:01 Interval H&P Admission Note Pt. seen H&P reviewed: No system changes KEVIN JONES MD Jul 05, 2017 09:01
[2017-07-05] MEDS ORDERED: PHENYLephrine (100 MCG/ML) 5ML SYG ONE (09:09)
[2017-07-05 10:03] LABS: D-DIMER > 10000.00 ng/ml (<460)
--- NOTE | 2017-07-05 10:05 | RADRPT ---
PROCEDURE: Intraoperative imaging for ERCP with fluoroscopy. CLINICAL INDICATION: Biliary obstruction. Intraoperative. TECHNIQUE: 8 images of the right upper quadrant of the abdomen were obtained in the operating room with an image intensifier. No radiologist was in attendance. Fluoroscopy time is 3.3 minutes. COMPARISON: CT scan of the abdomen and pelvis dated 07/03/2017. FINDINGS: Images demonstrate the endoscope in position and contrast injected into the pancreatic duct and comm on bile duct. A severe stricture is noted in the mid to distal common bile duct. A metallic stent wa s placed across the common bile duct. IMPRESSION: 1. ERCP as described above. RPTAT: QQ .Andrea Salmeron MD, MD Date Time Electronically viewed and signed by .Andrea Salmeron MD, MD on 07/05/2017 10:04 .R/
[2017-07-05] MEDS: MEROPENEM 1 GM/50ML(PMX) 50 ML IVPB SCH (10:18)
[2017-07-05] MEDS: ASPIRIN 81 MG TAB PO SCH (10:18)
[2017-07-05] MEDS: FLUCONAZOLE 100 MG TAB PO SCH (10:19)
[2017-07-05] MEDS: METOPROLOL 25 MG TAB PO SCH ×2 (10:21→20:15)
--- NOTE | 2017-07-05 12:49 | CONS ---
Date/Time of Note Date/Time of Note DATE: 07/05/17 TIME: 12:48 Assessment/Plan Assessment/Plan Chief Complaint/Hosp Course NSTEMI: Type II in setting of sepsis/ episodes of afib with RVR. Trops downtrended from 0.14. EF 45% with WMA consistent with CAD. Will treat medically for now with active likely metastatic cancer Paroxysmal afib with RVR: Currently in sinus. CHADSVASC is 5 and would benefit from anticoagulation alf but will defer for now as she is being evaluated for a liver/pancreatic mass. Liver/pancreatic mass: being evaluated Transaminitis: improved. s/p biliary stent ILD: seen on CT Acute renal failure: resolved with IVF DM HTN -metoprolol 25mg BID -ASA -hold statin with transaminitis -mass workup/pending path Problems: Consultation Date/Type/Reason Admit Date/Time Jul 01, 2017 at 14:33 Initial Consult Date 07/02/17 Type of Consultation: Cardiology Referring Provider: MAK NOVAK CHIROPRACTIC ASSISTANT 24 HR Interval Summary Free Text/Dictation s/p biliary stent yesterday. Remains in sinus Exam/Review of Systems Vital Signs Vitals Vital Signs Date Time Temp Pulse Resp B/P Pulse Ox O2 Delivery O2 Flow Rate FiO2 07/05/17 12:17 58 07/05/17 12:00 16 140/59 96 Room Air 07/05/17 11:26 98.4 07/04/17 07:40 2.0 Intake and Output 07/04/17 07/04/17 07/05/17 15:00 23:00 07:00 Intake Total 50 ml 1100 ml 200 ml Balance 50 ml 1100 ml 200 ml Exam Constitutional: alert Psych: nl mood/affect, no complaints Head: atraumatic, normocephalic Neck: supple, No jvd Respiratory: clear to auscultation, No crackles/rales Cardiovascular: regular rate and rhythm, No edema Gastrointestinal: non-tender, soft Results Result Diagram: 07/05/17 0738 07/05/1738 Results 24 hrs Laboratory Tests Test 07/04/17 17:20 07/04/17 20:32 07/05/17 07:31 07/05/17 07:38 Bedside Glucose 109 103 102 White Blood Count 12.1 H Red Blood Count 2.95 L Hemoglobin 9.1 L Hematocrit 25.2 L Mean Corpuscular Volume 85.4 Mean Corpuscular Hemoglobin 30.8 Mean Corpuscular Hemoglobin Concent 36.1 Red Cell Distribution Width 15.4 H Platelet Count 99 L Mean Platelet Volume 11.3 H Neutrophils % 82.8 H Lymphocytes % 9.3 L Monocytes % 5.9 Eosinophils % 0.4 Basophils % 0.2 Nucleated Red Blood Cells % 0.0 Neutrophils # 10.0 H Lymphocytes # 1.1 Monocytes # 0.7 Eosinophils # 0.1 Basophils # 0.0 Nucleated Red Blood Cells # 0.0 Fibrinogen 544.0 H D-Dimer > 78965.00 H Sodium Level 138 Potassium Level 3.7 Chloride Level 109 Carbon Dioxide Level 21 Anion Gap 12 Blood Urea Nitrogen 15 Creatinine 0.55 Glucose Level 82 # Calcium Level 8.4 Total Bilirubin 1.5 H Direct Bilirubin 0.00 Indirect Bilirubin 1.5 H Aspartate Amino Transf (AST/SGOT) 94 H Alanine Aminotransferase (ALT/SGPT) 91 H Alkaline Phosphatase 373 H Total Protein 6.3 Albumin 2.3 L Globulin 4.00 H Albumin/Globulin Ratio 0.57 Test 07/05/17 09:01 07/05/17 11:45 Bedside Glucose 113 174 Medications Medications Current Medications Ondansetron HCl (Zofran Inj) 4 mg Q6H PRN IV NAUSEA AND/OR VOMITING; Start at 15:30 Morphine Sulfate (morphine) 2 mg Q4H PRN IV SEVERE PAIN LEVEL 7-10 Last administered on 07/04/17 17:30; Admin Dose 2 MG; Start 07/01/17 at 15:30 Metoprolol Tartrate (Lopressor) 25 mg BID PO Last administered on 07/05/17 10 :21; Admin Dose 25 MG; Start 07/01/17 at 21:00 Diagnostic Test (Pha) (Accu-Chek) 1 ea 02 XX ; Start 07/02/17 at 02:00 Insulin Glargine (Lantus) 6 unit DAILY@20 SC Last administered on 07/04/17 20 :51; Admin Dose 6 UNIT; Start 07/01/17 at 20:00 Miscellaneous Information 1 ea NOTE XX ; Start 07/01/17 at 23:30 Glucose (Glutose) 15 gm Q15M PRN PO DECREASED GLUCOSE; Start 07/01/17 at 23:30 Glucose (Glutose) 22.5 gm Q15M PRN PO DECREASED GLUCOSE; Start 07/01/17 at 23: 30 Dextrose (D50w Syringe) 25 ml Q15M PRN IV DECREASED GLUCOSE; Start 07/01/17 at 23:30 Dextrose (D50w Syringe) 50 ml Q15M PRN IV DECREASED GLUCOSE; Start 07/01/17 at 23:30 Glucagon (Glucagen) 1 mg Q15M PRN IM DECREASED GLUCOSE; Start 07/01/17 at 23: 30 Glucose (Glutose) 15 gm Q15M PRN BUCCAL DECREASED GLUCOSE Last administered on 07/03/17 14:52; Admin Dose 15 GM; Start 07/01/17 at 23:30 Aspirin 81 mg 81 mg DAILY PO Last administered on 07/05/17 10:18; Admin Dose 81 MG; Start 07/02/17 at 12:30 Meropenem/Sodium Chloride (Merrem 1 Gm/50 ml (Pmx)) 50 ml @ 100 mls/hr Q12 IVPB Last administered on 07/05/17 10:18; Admin Dose 100 MLS/HR; Start 07/03 at 21:00 Fluconazole 100 mg 100 mg DAILY PO Last administered on 07/05/17 10:19; Admin Dose 100 MG; Start 07/05/17 at 09:00 Fluconazole/ Sodium Chloride (Diflucan 100 Mg/ NS (Pmx)) 50 ml @ 50 mls/hr Q24H IVPB Last administered on 07/04/17 14:58; Admin Dose 50 MLS/HR; Start at 14:00 Hydralazine HCl (Apresoline) 10 mg Q4H PRN IV ELEVATED BLOOD PRESSURE Last administered on 07/05/17 02:51; Admin Dose 10 MG; Start 07/05/17 at 01:00 Indomethacin (Indocin Supp) 100 mg ONCE [place] ; Start 07/05/17 at 08:00; Stop at 13:00 Enoxaparin Sodium (Lovenox) 40 mg DAILY [place] ; Start 07/06/17 at 09:00 TONIA CIFUENTES Jul 05, 2017 12:49
--- NOTE | 2017-07-05 12:54 | CONS ---
Date/Time of Note Date/Time of Note DATE: 07/05/17 TIME: 12:52 Assessment/Plan Assessment/Plan Chief Complaint/Hosp Course SUBJECTIVE: No acute changes. The patient is sleeping, looks comfortable, no fevers. Family at bedside MICROBIOLOGY: Urine culture grew Maricruz albicans, blood culture negative. Stool for C. diff came back negative. ANTIMICROBIALS: 1. Meropenem. 2. Fluconazole. DIAGNOSTICS: MRI of the abdomen revealed probable hepatic metastatic disease, adenopathy in the and periportal region with biliary ductal dilatation and abrupt cut off of the common bile duct. The overall constellation of findings highly suspicious for pancreatic carcinoma with hepatic metastatic disease and probable oli metastatic disease. Distended gallbladder with sludge and small stones. PHYSICAL EXAMINATION: GENERAL: Well-developed, elderly woman who is in no distress. HEENT: Head atraumatic, normocephalic. Sclerae anicteric. Buccal mucosa pink. NECK: Supple. CHEST: Rise symmetrical. Breath sounds diminished to bases. HEART: S1, S2. ABDOMEN: Soft. Bowel tones present. ASSESSMENT: 1. Systemic inflammatory response syndrome with leukocytosis, multifactorial. 2. Urinary tract infection. 3. Evidence of liver metastases as per CT of the abdomen, possible pancreatic cancer, s/p liver biopsy. 4. Acute renal failure. 5. Diabetes. 6. Questionable cholecystitis. PLAN: Patient remained stable. Continue fluconazole, discontinue meropenem, await for pathology report, GI/oncology rec-s Discussed with family at bedside Problems: Consultation Date/Type/Reason Admit Date/Time Jul 01, 2017 at 14:33 Initial Consult Date 07/03/17 Type of Consultation: ID Referring Provider: MAK NOVAK TEST TECH Exam/Review of Systems Vital Signs Vitals Vital Signs Date Time Temp Pulse Resp B/P Pulse Ox O2 Delivery O2 Flow Rate FiO2 07/05/17 12:17 58 07/05/17 12:00 16 140/59 96 Room Air 07/05/17 11:26 98.4 07/04/17 07:40 2.0 Intake and Output 07/04/17 07/04/17 07/05/17 15:00 23:00 07:00 Intake Total 50 ml 1100 ml 200 ml Balance 50 ml 1100 ml 200 ml Results Result Diagram: 07/05/17 0738 07/05/17 0738 Results 24 hrs Laboratory Tests Test 07/04/17 17:20 11/22/17 20:32 07/05/17 07:31 07/05/17 07:38 Bedside Glucose 109 103 102 White Blood Count 12.1 H Red Blood Count 2.95 L Hemoglobin 9.1 L Hematocrit 25.2 L Mean Corpuscular Volume 85.4 Mean Corpuscular Hemoglobin 30.8 Mean Corpuscular Hemoglobin Concent 36.1 Red Cell Distribution Width 15.4 H Platelet Count 99 L Mean Platelet Volume 11.3 H Neutrophils % 82.8 H Lymphocytes % 9.3 L Monocytes % 5.9 Eosinophils % 0.4 Basophils % 0.2 Nucleated Red Blood Cells % 0.0 Neutrophils # 10.0 H Lymphocytes # 1.1 Monocytes # 0.7 Eosinophils # 0.1 Basophils # 0.0 Nucleated Red Blood Cells # 0.0 Fibrinogen 544.0 H D-Dimer > 10812.00 H Sodium Level 138 Potassium Level 3.7 Chloride Level 109 Carbon Dioxide Level 21 Anion Gap 12 Blood Urea Nitrogen 15 Creatinine 0.55 Glucose Level 82 # Calcium Level 8.4 Total Bilirubin 1.5 H Direct Bilirubin 0.00 Indirect Bilirubin 1.5 H Aspartate Amino Transf (AST/SGOT) 94 H Alanine Aminotransferase (ALT/SGPT) 91 H Alkaline Phosphatase 373 H Total Protein 6.3 Albumin 2.3 L Globulin 4.00 H Albumin/Globulin Ratio 0.57 Test 07/05/17 09:01 07/05/17 11:45 Bedside Glucose 113 174 Medications Medications Current Medications Ondansetron HCl (Zofran Inj) 4 mg Q6H PRN IV NAUSEA AND/OR VOMITING; Start at 15:30 Morphine Sulfate (morphine) 2 mg Q4H PRN IV SEVERE PAIN LEVEL 7-10 Last administered on 07/04/17 17:30; Admin Dose 2 MG; Start 07/01/17 at 15:30 Metoprolol Tartrate (Lopressor) 25 mg BID PO Last administered on 07/05/17 10 :21; Admin Dose 25 MG; Start 07/01/17 at 21:00 Diagnostic Test (Pha) (Accu-Chek) 1 ea 02 XX ; Start 07/02/17 at 02:00 Insulin Glargine (Lantus) 6 unit DAILY@20 SC Last administered on 07/04/17 20 :51; Admin Dose 6 UNIT; Start 07/01/17 at 20:00 Miscellaneous Information 1 ea NOTE XX ; Start 07/01/17 at 23:30 Glucose (Glutose) 15 gm Q15M PRN PO DECREASED GLUCOSE; Start 07/01/17 at 23:30 Glucose (Glutose) 22.5 gm Q15M PRN PO DECREASED GLUCOSE; Start 07/01/17 at 23: 30 Dextrose (D50w Syringe) 25 ml Q15M PRN IV DECREASED GLUCOSE; Start 07/01/17 at 23:30 Dextrose (D50w Syringe) 50 ml Q15M PRN IV DECREASED GLUCOSE; Start 07/01/17 at 23:30 Glucagon (Glucagen) 1 mg Q15M PRN IM DECREASED GLUCOSE; Start 07/01/17 at 23: 30 Glucose (Glutose) 15 gm Q15M PRN BUCCAL DECREASED GLUCOSE Last administered on 07/03/17 14:52; Admin Dose 15 GM; Start 07/01/17 at 23:30 Aspirin 81 mg 81 mg DAILY PO Last administered on 07/05/17 10:18; Admin Dose 81 MG; Start 07/02/17 at 12:30 Meropenem/Sodium Chloride (Merrem 1 Gm/50 ml (Pmx)) 50 ml @ 100 mls/hr Q12 IVPB Last administered on 07/05/17 10:18; Admin Dose 100 MLS/HR; Start 07/03 at 21:00 Fluconazole 100 mg 100 mg DAILY PO Last administered on 07/05/17 10:19; Admin Dose 100 MG; Start 07/05/17 at 09:00 Fluconazole/ Sodium Chloride (Diflucan 100 Mg/ NS (Pmx)) 50 ml @ 50 mls/hr Q24H IVPB Last administered on 07/04/17 14:58; Admin Dose 50 MLS/HR; Start at 14:00 Hydralazine HCl (Apresoline) 10 mg Q4H PRN IV ELEVATED BLOOD PRESSURE Last administered on 07/05/17 02:51; Admin Dose 10 MG; Start 07/05/17 at 01:00 Indomethacin (Indocin Supp) 100 mg ONCE UT ; Start 07/05/17 at 08:00; Stop at 13:00 Enoxaparin Sodium (Lovenox) 40 mg DAILY SC ; Start 07/06/17 at 09:00 RUTHIE HUDSON NP Jul 05, 2017 12:54
[2017-07-05] MEDS: FLUCONAZOLE 100 MG/NS (PMX) 50 ML IVPB SCH (13:25)
--- NOTE | 2017-07-05 14:29 | PN ---
Date/Time of Note Date/Time of Note DATE: 07/05/17 TIME: 14:21 Assessment/Plan VTE Prophylaxis VTE Prophylaxis Intervention: SCD's Lines/Catheters IV C[facility] Type [facility]from [facility] Peripheral IV Urinary Cath still in place: No Assessment/Plan Chief Complaint/Hosp Course Assessment and plan 1. sirs. wbc downward trending. . ID consult following. continue on abx per ID 2. Possible non-ST elevated myocardial infarction. In the setting of sepsis and acute renal insufficiency. [employer] following. Will follow up with recommendations. 3. Acute kidney injury. improved. monitor renal panel 4. Transaminitis. Patient did have positive hepatitis B panel. GI following. suspect possibly secondary to liver mass. continue with surgeon recs 5. Type 2 diabetes. Continue insulin regimen. Adjust as needed 6. Dyslipidemia. Will place on the fat low cholesterol diet. Statin medication on hold due to transaminitis. 7. Liver mass measuring 10.1 cm as seen by liver ultrasound. CT of liver did show: Multiple hepatic metastases with multiple low-density rim enhancing masses in the periportal region and surrounding and / or arising from the pancreas. Biliary ductal dilatation with cutoff of the common bile duct in the area of peripancreatic masses. continue with surgeon recs. oncologist to follow 8. Elevated D-dimer/fibrinogen. f/u hematology recs Disposition and plan: follow up with liver biopsy result. continue supportive management and analgesics as needed Discussed plan of care with Dr. Sánchez Problems: Subjective 24 Hr Interval Summary Free Text/Dictation no s/s of distress Exam/Review of Systems Vital Signs Vitals Vital Signs Date Time Temp Pulse Resp B/P Pulse Ox O2 Delivery O2 Flow Rate FiO2 07/05/17 12:17 58 07/05/17 12:00 16 140/59 96 Room Air 07/05/17 11:26 98.4 07/04/17 07:40 2.0 Intake and Output 07/04/17 07/04/17 07/05/17 15:00 23:00 07:00 Intake Total 50 ml 1100 ml 200 ml Balance 50 ml 1100 ml 200 ml Exam Constitutional: alert, oriented Psych: nl mood/affect Head: normocephalic Eyes: nl conjunctiva Neck: non-tender, supple Respiratory: normal air movement Cardiovascular: regular rate and rhythm Gastrointestinal: non-tender, other (minimally distended), soft Musculoskeletal: nl extremities to inspection Neurological: [employer] II-XII intact, nl mental status, nl speech Skin: nl turgor Results Result Diagram: 07/05/17 0738 07/05/17 0738 Results 24 hrs Laboratory Tests Test 07/04/17 17:20 07/04/17 20:32 07/05/17 07:31 07/05/17 07:38 Bedside Glucose 109 103 102 White Blood Count 12.1 H Red Blood Count 2.95 L Hemoglobin 9.1 L Hematocrit 25.2 L Mean Corpuscular Volume 85.4 Mean Corpuscular Hemoglobin 30.8 Mean Corpuscular Hemoglobin Concent 36.1 Red Cell Distribution Width 15.4 H Platelet Count 99 L Mean Platelet Volume 11.3 H Neutrophils % 82.8 H Lymphocytes % 9.3 L Monocytes % 5.9 Eosinophils % 0.4 Basophils % 0.2 Nucleated Red Blood Cells % 0.0 Neutrophils # 10.0 H Lymphocytes # 1.1 Monocytes # 0.7 Eosinophils # 0.1 Basophils # 0.0 Nucleated Red Blood Cells # 0.0 Fibrinogen 544.0 H D-Dimer > 66197.00 H Sodium Level 138 Potassium Level 3.7 Chloride Level 109 Carbon Dioxide Level 21 Anion Gap 12 Blood Urea Nitrogen 15 Creatinine 0.55 Glucose Level 82 # Calcium Level 8.4 Total Bilirubin 1.5 H Direct Bilirubin 0.00 Indirect Bilirubin 1.5 H Aspartate Amino Transf (AST/SGOT) 94 H Alanine Aminotransferase (ALT/SGPT) 91 H Alkaline Phosphatase 373 H Total Protein 6.3 Albumin 2.3 L Globulin 4.00 H Albumin/Globulin Ratio 0.57 Test 07/05/17 09:01 07/05/17 11:45 Bedside Glucose 113 174 Medications Medications Current Medications Ondansetron HCl (Zofran Inj) 4 mg Q6H PRN IV NAUSEA AND/OR VOMITING; Start at 15:30 Morphine Sulfate (morphine) 2 mg Q4H PRN IV SEVERE PAIN LEVEL 7-10 Last administered on 07/04/17 17:30; Admin Dose 2 MG; Start 07/01/17 at 15:30 Metoprolol Tartrate (Lopressor) 25 mg BID PO Last administered on 07/05/17 10 :21; Admin Dose 25 MG; Start 07/01/17 at 21:00 Diagnostic Test (Pha) (Accu-Chek) 1 ea 02 XX ; Start 07/02/17 at 02:00 Insulin Glargine (Lantus) 6 unit DAILY@20 SC Last administered on 07/04/17 20 :51; Admin Dose 6 UNIT; Start 07/01/17 at 20:00 Miscellaneous Information 1 ea NOTE XX ; Start 07/01/17 at 23:30 Glucose (Glutose) 15 gm Q15M PRN PO DECREASED GLUCOSE; Start 07/01/17 at 23:30 Glucose (Glutose) 22.5 gm Q15M PRN PO DECREASED GLUCOSE; Start 07/01/17 at 23: 30 Dextrose (D50w Syringe) 25 ml Q15M PRN IV DECREASED GLUCOSE; Start 07/01/17 at 23:30 Dextrose (D50w Syringe) 50 ml Q15M PRN IV DECREASED GLUCOSE; Start 07/01/17 at 23:30 Glucagon (Glucagen) 1 mg Q15M PRN IM DECREASED GLUCOSE; Start 07/01/17 at 23: 30 Glucose (Glutose) 15 gm Q15M PRN BUCCAL DECREASED GLUCOSE Last administered on 07/03/17 14:52; Admin Dose 15 GM; Start 07/01/17 at 23:30 Aspirin (Aspirin) 81 mg DAILY PO Last administered on 07/05/17 10:18; Admin Dose 81 MG; Start 07/02/17 at 12:30 Fluconazole 100 mg 100 mg DAILY PO Last administered on 07/05/17 10:19; Admin Dose 100 MG; Start 07/05/17 at 09:00 Fluconazole/ Sodium Chloride (Diflucan 100 Mg/ NS (Pmx)) 50 ml @ 50 mls/hr Q24H IVPB Last administered on 07/05/17 13:25; Admin Dose 50 MLS/HR; Start at 14:00 Hydralazine HCl (Apresoline) 10 mg Q4H PRN IV ELEVATED BLOOD PRESSURE Last administered on 07/05/17 02:51; Admin Dose 10 MG; Start 07/05/17 at 01:00 Enoxaparin Sodium (Lovenox) 40 mg DAILY SC ; Start 07/06/17 at 09:00 SYDNIE EMMANUEL Jul 05, 2017 14:29
[2017-07-05] MEDS: morphine 2 MG INJ IV PRN (20:05)
[2017-07-05] MEDS: INSULIN GLARGINE [LANtus] 3 ML PEN SC SCH (20:17)
--- NOTE | 2017-07-05 21:27 | RADRPT ---
PROCEDURE: US bilateral lower extremity venous CLINICAL INDICATION: Bilateral lower extremity pain and swelling TECHNIQUE: Multiple longitudinal and transverse images of the bilateral lower extremity veins were obtained with young scale and color Doppler imaging. 2D grayscale measurements with compression, col or Doppler flow, and augmentation was performed. The calf veins were interrogated as well. COMPARISON: None available FINDINGS: The bilateral common femoral, femoral, and popliteal veins are patent and without evidence of fillin g defects. All these veins have normal spectral wave forms, fill with color signal, are compressibl e, and have augmentation of blood flow with compression. The visualized upper posterior tibial and peroneal veins are patent and without evidence of filling defects; these veins fill with color signal and are compressible. Left popliteal abnormality measuring 3.0 x 0.6 x 1.4 cm most likely is a popliteal cyst. IMPRESSION: 1. No evidence of deep vein thrombosis involving either lower extremity 2. Left popliteal small cyst, as detailed above RPTAT: TT Physician Cj Date Time Electronically viewed and signed by Physician Cj on 07/05/2017 21:26 CHARLEE/
[2017-07-06] VITALS (11 sets, daily range): BP systolic 137–160; BP diastolic 59–72; PULSE 52–63; RESP 17–19
[2017-07-06] MEDS: ACCU-CHEK XX SCH (02:00)
[2017-07-06 07:31] LABS: BASOPHILS % 0.2 % (0.0-2.0); EOSINOPHILS % 0.1 % (0.0-7.0); HEMATOCRIT 25.6 % (37.0-47.0); HEMOGLOBIN 9.2 g/dl (12.0-16.0); LYMPHOCYTES # 1.3 10^3/ul (0.8-2.9); LYMPHOCYTES % 6.2 % (15.0-51.0); MEAN CORPUSCULAR HEMOGLOBIN 31.1 pg (29.0-33.0); MEAN CORPUSCULAR HGB CONC 35.9 g/dl (32.0-37.0); MEAN CORPUSCULAR VOLUME 86.5 fl (82.0-101.0); MEAN PLATELET VOLUME 11.5 fl (7.4-10.4); MONOCYTE # 0.9 10^3/ul (0.3-0.9); MONOCYTES % 4.1 % (0.0-11.0); NEUTROPHIL # 18.9 10^3/ul (1.6-7.5); NEUTROPHILS % 87.9 % (39.0-77.0); RED BLOOD COUNT 2.96 10^6/ul (4.20-5.40); RED CELL DISTRIBUTION WIDTH 15.3 % (11.5-14.5); WHITE BLOOD COUNT 21.5 10^3/ul (4.8-10.8)
[2017-07-06 07:48] LABS: ALBUMIN 2.3 g/dl (3.3-4.9); ALBUMIN/GLOBULIN RATIO 0.57; BILIRUBIN,INDIRECT 1.5 mg/dl (0-1.1); BILIRUBIN,TOTAL 1.5 mg/dl (0.2-1.3); CALCIUM 8.6 mg/dl (8.4-10.2); CREATININE 0.64 mg/dl (0.44-1.00); POTASSIUM 4.4 mmol/L (3.5-5.1); TOTAL PROTEIN 6.3 g/dl (6.1-8.1)
[2017-07-06 07:52] LABS: PLATELET COUNT 140 10^3/UL (140-415)
[2017-07-06 07:53] LABS: POSITIVE DIFF @See below
--- NOTE | 2017-07-06 08:11 | CONS ---
Date/Time of Note Date/Time of Note DATE: 07/06/17 TIME: 08:01 Consult Date/Type/Reason Admit Date/Time Jul 01, 2017 at 14:33 Initial Consult Date 07/03/17 Type of Consultation: ID Ordering Provider: MAK NOVAK STAFFING COORDINATOR Subjective Pt is s/p ERCP yesterday and placement of CBD stent. Pt has some left upper quadrant pain. Denies nausea. Has an appetite. LE u/s of the legs negative for blood clot. Objective Vital Signs Date Time Temp Pulse Resp B/P Pulse Ox O2 Delivery O2 Flow Rate FiO2 07/06/17 07:55 98.4 55 19 150/60 99 07/05/17 12:00 Room Air 07/04/17 07:40 2.0 Intake and Output 07/05/17 07/05/17 07/06/17 15:00 23:00 07:00 Intake Total 100 ml 250 ml 500 ml Balance 100 ml 250 ml 500 ml Exam NAD/A&Ox3 Faroese speaking Frail appearing OP dry Anicteric RRR no m/g/r CTA anteriorly No LAD palpable in the neck or axilla Mild LUQ TTP; no rebound or guarding, no palpable mass or organomegaly No c/c/e Results/Medications Result Diagram: 07/06/17 0646 07/06/17 0646 Results 24 hrs Laboratory Tests Test 07/05/17 09:01 07/05/17 11:45 07/05/17 17:18 07/05/17 20:08 Bedside Glucose 113 174 144 197 Test 07/06/17 02:16 07/06/17 06:46 Bedside Glucose 170 White Blood Count 21.5 #H Red Blood Count 2.96 L Hemoglobin 9.2 L Hematocrit 25.6 L Mean Corpuscular Volume 86.5 Mean Corpuscular Hemoglobin 31.1 Mean Corpuscular Hemoglobin Concent 35.9 Red Cell Distribution Width 15.3 H Platelet Count 140 # Mean Platelet Volume 11.5 H Neutrophils % 87.9 H Lymphocytes % 6.2 L Monocytes % 4.1 Eosinophils % 0.1 Basophils % 0.2 Nucleated Red Blood Cells % 0.0 Neutrophils # 18.9 H Lymphocytes # 1.3 Monocytes # 0.9 Eosinophils # 0.0 Basophils # 0.0 Nucleated Red Blood Cells # 0.0 Sodium Level 137 Potassium Level 4.4 Chloride Level 108 Carbon Dioxide Level 22 Anion Gap 11 Blood Urea Nitrogen 21 H Creatinine 0.64 Glucose Level 144 # Calcium Level 8.6 Total Bilirubin 1.5 H Direct Bilirubin 0.00 Indirect Bilirubin 1.5 H Aspartate Amino Transf (AST/SGOT) 49 H Alanine Aminotransferase (ALT/SGPT) 70 H Alkaline Phosphatase 318 H Total Protein 6.3 Albumin 2.3 L Globulin 4.00 H Albumin/Globulin Ratio 0.57 Medications Current Medications Ondansetron HCl (Zofran Inj) 4 mg Q6H PRN IV NAUSEA AND/OR VOMITING; Start at 15:30 Morphine Sulfate (morphine) 2 mg Q4H PRN IV SEVERE PAIN LEVEL 7-10 Last administered on 07/05/17 20:05; Admin Dose 2 MG; Start 07/01/17 at 15:30 Metoprolol Tartrate (Lopressor) 25 mg BID PO Last administered on 07/05/17 20 :15; Admin Dose 25 MG; Start 07/01/17 at 21:00 Diagnostic Test (Pha) (Accu-Chek) 1 ea 02 XX ; Start 07/02/17 at 02:00 Insulin Glargine (Lantus) 6 unit DAILY@20 SC Last administered on 07/05/17 20 :17; Admin Dose 6 UNIT; Start 07/01/17 at 20:00 Miscellaneous Information 1 ea NOTE XX ; Start 07/01/17 at 23:30 Glucose (Glutose) 15 gm Q15M PRN PO DECREASED GLUCOSE; Start 07/01/17 at 23:30 Glucose (Glutose) 22.5 gm Q15M PRN PO DECREASED GLUCOSE; Start 07/01/17 at 23: 30 Dextrose (D50w Syringe) 25 ml Q15M PRN IV DECREASED GLUCOSE; Start 07/01/17 at 23:30 Dextrose (D50w Syringe) 50 ml Q15M PRN IV DECREASED GLUCOSE; Start 07/01/17 at 23:30 Glucagon (Glucagen) 1 mg Q15M PRN IM DECREASED GLUCOSE; Start 07/01/17 at 23: 30 Glucose (Glutose) 15 gm Q15M PRN BUCCAL DECREASED GLUCOSE Last administered on 07/03/17 14:52; Admin Dose 15 GM; Start 07/01/17 at 23:30 Aspirin (Aspirin) 81 mg DAILY PO Last administered on 07/05/17 10:18; Admin Dose 81 MG; Start 07/02/17 at 12:30 Fluconazole (Diflucan) 100 mg DAILY PO Last administered on 07/05/17 10:19; Admin Dose 100 MG; Start 07/05/17 at 09:00 Hydralazine HCl (Apresoline) 10 mg Q4H PRN IV ELEVATED BLOOD PRESSURE Last administered on 07/05/17 02:51; Admin Dose 10 MG; Start 07/05/17 at 01:00 Enoxaparin Sodium (Lovenox) 40 mg DAILY SC ; Start 07/06/17 at 09:00 Assessment/Plan Chief Complaint/Hosp Course Pt is a 77yo female who presents with abdominal pain and findings of several hypodense lesions to the liver and a mass along the head of the pancreas. CA 19-9 is actually quite low (53) for this to suggest metastatic adenocarcinoma of the pancreas. CEA and CA 125 low as well. AFP normal. Pt is s/p ERCP with CBD stent and brush biopsy performed on 07/05. It is quite possible that the brush biopsy will not be satisfactory to obtain a tissue biopsy. I would recommend at this time for the pt to undergo a percutaneous biopsy of the liver biopsy to obtain further tissue to make a definitive biopsy and offer the pt appropriate treatment. I am concerned this pt may have a neuroendocrine tumor since the above tumor markers are not suggestive of another malignancy. -Cont Lovenox for dvt ppx -Cont current Abx for UTI. Less likely to have cholangitis. -Strongly recommend CT guided biopsy of liver mass -Will f/u with you. Ezequiel Mendez MD Hematology/Medical Oncology Problems: EZEQUIEL MENDEZ Jul 06, 2017 08:11
[2017-07-06] MEDS: INSULIN ASPART [NOVOLOG] 3 ML PEN SC SCH ×7 (08:53→21:00)
[2017-07-06] MEDS: ASPIRIN 81 MG TAB PO SCH (09:39)
[2017-07-06] MEDS: FLUCONAZOLE 100 MG TAB PO SCH (09:40)
[2017-07-06] MEDS: METOPROLOL 25 MG TAB PO SCH ×2 (09:40→21:13)
[2017-07-06] MEDS: ENOXAPARIN 40 MG/0.4 ML SYG SC SCH (09:43)
--- NOTE | 2017-07-06 12:10 | CONS ---
Date/Time of Note Date/Time of Note DATE: 07/06/17 TIME: 12:10 Assessment/Plan Assessment/Plan Chief Complaint/Hosp Course NSTEMI: Type II in setting of sepsis/ episodes of afib with RVR. Trops downtrended from 0.14. EF 45% with WMA consistent with CAD. Will treat medically for now with active likely metastatic cancer Paroxysmal afib with RVR: Currently in sinus. CHADSVASC is 5 and would benefit from anticoagulation senior living but will defer for now as she is being evaluated for a liver/pancreatic mass. Liver/pancreatic mass: being evaluated Transaminitis: improved. s/p biliary stent ILD: seen on CT Acute renal failure: resolved with IVF DM HTN -metoprolol 25mg BID -ASA -hold statin with transaminitis -mass workup/pending path Problems: Consultation Date/Type/Reason Admit Date/Time Jul 01, 2017 at 14:33 Initial Consult Date 07/02/17 Type of Consultation: Cardiology Referring Provider: MAK NOVAK [employer] SCI[employer]ORATORY TECHNICIAN 24 HR Interval Summary Free Text/Dictation Remains in sinus. Left lower quadrant pain. Exam/Review of Systems Vital Signs Vitals Vital Signs Date Time Temp Pulse Resp B/P Pulse Ox O2 Delivery O2 Flow Rate FiO2 07/06/17 11:53 98.1 57 19 154/59 98 07/05/17 12:00 Room Air 07/04/17 07:40 2.0 Intake and Output 07/05/17 07/05/17 07/06/17 14:59 22:59 06:59 Intake Total 100 ml 250 ml Balance 100 ml 250 ml Exam Constitutional: alert, oriented Psych: nl mood/affect, no complaints Head: atraumatic, normocephalic Neck: No jvd Respiratory: clear to auscultation, No crackles/rales Cardiovascular: regular rate and rhythm, No edema Gastrointestinal: soft, No non-tender (mild LLQ) Neurological: nl mental status, nl speech Results Result Diagram: 07/06/17 0646 07/06/17 0646 Results 24 hrs Laboratory Tests Test 07/05/17 17:18 07/05/17 20:08 07/06/17 02:16 07/06/17 06:46 Bedside Glucose 144 197 170 White Blood Count 21.5 #H Red Blood Count 2.96 L Hemoglobin 9.2 L Hematocrit 25.6 L Mean Corpuscular Volume 86.5 Mean Corpuscular Hemoglobin 31.1 Mean Corpuscular Hemoglobin Concent 35.9 Red Cell Distribution Width 15.3 H Platelet Count 140 # Mean Platelet Volume 11.5 H Neutrophils % 87.9 H Lymphocytes % 6.2 L Monocytes % 4.1 Eosinophils % 0.1 Basophils % 0.2 Nucleated Red Blood Cells % 0.0 Neutrophils # 18.9 H Lymphocytes # 1.3 Monocytes # 0.9 Eosinophils # 0.0 Basophils # 0.0 Nucleated Red Blood Cells # 0.0 Sodium Level 137 Potassium Level 4.4 Chloride Level 108 Carbon Dioxide Level 22 Anion Gap 11 Blood Urea Nitrogen 21 H Creatinine 0.64 Glucose Level 144 # Calcium Level 8.6 Total Bilirubin 1.5 H Direct Bilirubin 0.00 Indirect Bilirubin 1.5 H Aspartate Amino Transf (AST/SGOT) 49 H Alanine Aminotransferase (ALT/SGPT) 70 H Alkaline Phosphatase 318 H Total Protein 6.3 Albumin 2.3 L Globulin 4.00 H Albumin/Globulin Ratio 0.57 Test 07/06/17 08:26 Bedside Glucose 159 Medications Medications Current Medications Ondansetron HCl (Zofran Inj) 4 mg Q6H PRN IV NAUSEA AND/OR VOMITING; Start at 15:30 Morphine Sulfate (morphine) 2 mg Q4H PRN IV SEVERE PAIN LEVEL 7-10 Last administered on 07/05/17 20:05; Admin Dose 2 MG; Start 07/01/17 at 15:30 Metoprolol Tartrate (Lopressor) 25 mg BID PO Last administered on 07/06/17 09 :40; Admin Dose 25 MG; Start 07/01/17 at 21:00 Diagnostic Test (Pha) (Accu-Chek) 1 ea 02 XX ; Start 07/02/17 at 02:00 Insulin Glargine (Lantus) 6 unit DAILY@20 SC Last administered on 07/05/17 20 :17; Admin Dose 6 UNIT; Start 07/01/17 at 20:00 Miscellaneous Information 1 ea NOTE XX ; Start 07/01/17 at 23:30 Glucose (Glutose) 15 gm Q15M PRN PO DECREASED GLUCOSE; Start 07/01/17 at 23:30 Glucose (Glutose) 22.5 gm Q15M PRN PO DECREASED GLUCOSE; Start 07/01/17 at 23: 30 Dextrose (D50w Syringe) 25 ml Q15M PRN IV DECREASED GLUCOSE; Start 07/01/17 at 23:30 Dextrose (D50w Syringe) 50 ml Q15M PRN IV DECREASED GLUCOSE; Start 07/01/17 at 23:30 Glucagon (Glucagen) 1 mg Q15M PRN IM DECREASED GLUCOSE; Start 07/01/17 at 23: 30 Glucose (Glutose) 15 gm Q15M PRN BUCCAL DECREASED GLUCOSE Last administered on 07/03/17 14:52; Admin Dose 15 GM; Start 07/01/17 at 23:30 Aspirin (Aspirin) 81 mg DAILY PO Last administered on 07/06/17 09:39; Admin Dose 81 MG; Start 07/02/17 at 12:30 Fluconazole (Diflucan) 100 mg DAILY PO Last administered on 07/06/17 09:40; Admin Dose 100 MG; Start 07/05/17 at 09:00 Hydralazine HCl (Apresoline) 10 mg Q4H PRN IV ELEVATED BLOOD PRESSURE Last administered on 07/05/17 02:51; Admin Dose 10 MG; Start 07/05/17 at 01:00 Enoxaparin Sodium (Lovenox) 40 mg DAILY SC Last administered on 07/06/17 09: 43; Admin Dose 40 MG; Start 07/06/17 at 09:00 TONIA CIFUENTES Jul 06, 2017 12:10
[2017-07-06] MEDS ORDERED: POLYETHYLENE GLYCOL 17 GM PACKET PO PRN (12:30)
--- NOTE | 2017-07-06 12:32 | PN ---
Date/Time of Note Date/Time of Note DATE: 07/06/17 TIME: 12:16 Assessment/Plan VTE Prophylaxis VTE Prophylaxis Intervention: SCD's Lines/Catheters IV [facility] Saline Lock Urinary Cath still in place: No Assessment/Plan Chief Complaint/Hosp Course Impression: Large liver mass/probably metastatic disease Abrupt cutoff of the common bile duct and MRI Rule out imminent biliary obstruction ERCP 07/05/17 Impression: Normal pancreatogram High-grade narrowing 3 cm segment approximately 2 cm from ampulla, smooth most consistent with extrinsic compression i.e. pancreatic mass Post brush cytology of the biliary tree area of narrowing Post standard sphincterotomy Post fully covered 10 x 80 mm Wallstent placement Rule out pancreatic CA Diabetes mellitus Hypertension Dyslipidemia Plan: Review cytology when available Advance as tolerated Pt c/o constipation- will start MiraLax BID PRN Will start simethicone PRN Follow-up visit was done in collaboration with Dr. Metz Subjective: Course reviewed with nursing staff Patient interviewed and examined All labs, imaging and other results reviewed The patient resting in bed c/o LLQ pain, no BM since Sunday will start MiraLax, patient states she feels like she is not passing gas, BS normoactive, will start simethicone PRN. Will continue to monitor, cytology pending. Exam: General: well developed, well nourished, alert and oriented x3 , in no acute distress Skin: No lesions, no stigmata chronic liver disease, no evidence of bleeding diathesis Lymphatic: No palpable lymphadenopathy HEENT: No lesions Cardiovascular: Heart: Regular rate and rhythm, no murmurs, gallops or rubs. Respiratory: Lungs clear to auscultation and percussion, no wheezing, no rubs Gastrointestinal and Liver: Abdomen: Soft, epigastric tenderness, not distended , no hernias, no masses, no organomegaly, no ascites, no guarding, no rebound tenderness, hypoactive bowel sounds. Extremities: No cyanosis, clubbing, or edema. Problems: Exam/Review of Systems Vital Signs Vitals Vital Signs Date Time Temp Pulse Resp B/P Pulse Ox O2 Delivery O2 Flow Rate FiO2 07/06/17 11:53 98.1 57 19 154/59 98 07/05/17 12:00 Room Air 07/04/17 07:40 2.0 Intake and Output 1107/05/17 07/06/17 15:00 23:00 07:00 Intake Total 100 ml 250 ml 500 ml Balance 100 ml 250 ml 500 ml Results Result Diagram: 07/06/17 0646 07/06/17 0646 Results 24 hrs Laboratory Tests Test 07/05/17 17:18 07/05/17 20:08 07/06/17 02:16 07/06/17 06:46 Bedside Glucose 144 197 170 White Blood Count 21.5 #H Red Blood Count 2.96 L Hemoglobin 9.2 L Hematocrit 25.6 L Mean Corpuscular Volume 86.5 Mean Corpuscular Hemoglobin 31.1 Mean Corpuscular Hemoglobin Concent 35.9 Red Cell Distribution Width 15.3 H Platelet Count 140 # Mean Platelet Volume 11.5 H Neutrophils % 87.9 H Lymphocytes % 6.2 L Monocytes % 4.1 Eosinophils % 0.1 Basophils % 0.2 Nucleated Red Blood Cells % 0.0 Neutrophils # 18.9 H Lymphocytes # 1.3 Monocytes # 0.9 Eosinophils # 0.0 Basophils # 0.0 Nucleated Red Blood Cells # 0.0 Sodium Level 137 Potassium Level 4.4 Chloride Level 108 Carbon Dioxide Level 22 Anion Gap 11 Blood Urea Nitrogen 21 H Creatinine 0.64 Glucose Level 144 # Calcium Level 8.6 Total Bilirubin 1.5 H Direct Bilirubin 0.00 Indirect Bilirubin 1.5 H Aspartate Amino Transf (AST/SGOT) 49 H Alanine Aminotransferase (ALT/SGPT) 70 H Alkaline Phosphatase 318 H Total Protein 6.3 Albumin 2.3 L Globulin 4.00 H Albumin/Globulin Ratio 0.57 Test 07/06/17 08:26 Bedside Glucose 159 Medications Medications Current Medications Ondansetron HCl (Zofran Inj) 4 mg Q6H PRN IV NAUSEA AND/OR VOMITING; Start at 15:30 Morphine Sulfate (morphine) 2 mg Q4H PRN IV SEVERE PAIN LEVEL 7-10 Last administered on 07/05/17 20:05; Admin Dose 2 MG; Start 07/01/17 at 15:30 Metoprolol Tartrate (Lopressor) 25 mg BID PO Last administered on 07/06/17 09 :40; Admin Dose 25 MG; Start 07/01/17 at 21:00 Diagnostic Test (Pha) (Accu-Chek) 1 02 XX ; Start 07/02/17 at 02:00 Insulin Glargine (Lantus) 6 unit DAILY@20 SC Last administered on 07/05/17 20 :17; Admin Dose 6 UNIT; Start 07/01/17 at 20:00 Miscellaneous Information 1 ea NOTE XX ; Start 07/01/17 at 23:30 Glucose (Glutose) 15 gm Q15M PRN PO DECREASED GLUCOSE; Start 07/01/17 at 23:30 Glucose (Glutose) 22.5 gm Q15M PRN PO DECREASED GLUCOSE; Start 07/01/17 at 23: 30 Dextrose (D50w Syringe) 25 ml Q15M PRN IV DECREASED GLUCOSE; Start 07/01/17 at 23:30 Dextrose (D50w Syringe) 50 ml Q15M PRN IV DECREASED GLUCOSE; Start 07/01/17 at 23:30 Glucagon (Glucagen) 1 mg Q15M PRN IM DECREASED GLUCOSE; Start 07/01/17 at 23: 30 Glucose (Glutose) 15 gm Q15M PRN BUCCAL DECREASED GLUCOSE Last administered on 07/03/17 14:52; Admin Dose 15 GM; Start 07/01/17 at 23:30 Aspirin (Aspirin) 81 mg DAILY PO Last administered on 07/06/17 09:39; Admin Dose 81 MG; Start 07/02/17 at 12:30 Fluconazole (Diflucan) 100 mg DAILY PO Last administered on 07/06/17 09:40; Admin Dose 100 MG; Start 07/05/17 at 09:00 Hydralazine HCl (Apresoline) 10 mg Q4H PRN IV ELEVATED BLOOD PRESSURE Last administered on 07/05/17 02:51; Admin Dose 10 MG; Start 07/05/17 at 01:00 Enoxaparin Sodium (Lovenox) 40 mg DAILY SC Last administered on 07/06/17 09: 43; Admin Dose 40 MG; Start 07/06/17 at 09:00 CHALO PEREZ Jul 06, 2017 12:26
--- NOTE | 2017-07-06 13:46 | PN ---
Date/Time of Note Date/Time of Note DATE: 07/06/17 TIME: 12:48 Assessment/Plan VTE Prophylaxis VTE Prophylaxis Intervention: SCD's Lines/Catheters [facility] Saline Lock Urinary Cath still in place: No Assessment/Plan Chief Complaint/Hosp Course Assessment and plan 1. sirs. . . ID consult following. continue on abx per ID 2. Possible non-ST elevated myocardial infarction. In the setting of sepsis and acute renal insufficiency. Employee Service Officer following. Will follow up with recommendations. 3. Acute kidney injury. improved. monitor renal panel 4. Transaminitis. Patient did have positive hepatitis B panel. GI following. suspect possibly secondary to liver mass. continue with surgeon recs 5. Type 2 diabetes. Continue insulin regimen. Adjust as needed 6. Dyslipidemia. Will place on the fat low cholesterol diet. Statin medication on hold due to transaminitis. 7. Liver mass measuring 10.1 cm as seen by liver ultrasound. CT of liver did show: Multiple hepatic metastases with multiple low-density rim enhancing masses in the periportal region and surrounding and / or arising from the pancreas. Biliary ductal dilatation with cutoff of the common bile duct in the area of peripancreatic masses. continue with surgeon recs. oncologist to follow 8. Elevated D-dimer/fibrinogen. f/u hematology recs Disposition and plan: follow up with liver biopsy result. will get pain management physician to follow. continue in house monitoring Discussed plan of care with Dr. Sánchez Problems: Subjective 24 Hr Interval Summary Free Text/Dictation no s/s of distress. resting at this time Exam/Review of Systems Vital Signs Vitals Vital Signs Date Time Temp Pulse Resp B/P Pulse Ox O2 Delivery O2 Flow Rate FiO2 07/06/17 12:39 59 07/06/17 11:53 98.1 19 154/59 98 07/05/17 12:00 Room Air 07/04/17 07:40 2.0 Intake and Output 07/05/17 07/05/17 07/06/17 15:00 23:00 07:00 Intake Total 100 ml 250 ml 500 ml Balance 100 ml 250 ml 500 ml Exam Constitutional: alert, oriented Psych: nl mood/affect Head: normocephalic Eyes: nl conjunctiva Neck: non-tender, supple Respiratory: normal air movement Cardiovascular: regular rate and rhythm Gastrointestinal: non-tender, other (minimally distended), soft Musculoskeletal: nl extremities to inspection Neurological: CUSTOM MOTORCYCLE PAINTER II-XII intact, nl mental status, nl speech Skin: nl turgor Results Result Diagram: 07/06/17 0646 07/06/17 0646 Results 24 hrs Laboratory Tests Test 07/05/17 17:18 07/05/17 20:08 07/06/17 02:16 07/06/17 06:46 Bedside Glucose 144 197 170 White Blood Count 21.5 #H Red Blood Count 2.96 L Hemoglobin 9.2 L Hematocrit 25.6 L Mean Corpuscular Volume 86.5 Mean Corpuscular Hemoglobin 31.1 Mean Corpuscular Hemoglobin Concent 35.9 Red Cell Distribution Width 15.3 H Platelet Count 140 # Mean Platelet Volume 11.5 H Neutrophils % 87.9 H Lymphocytes % 6.2 L Monocytes % 4.1 Eosinophils % 0.1 Basophils % 0.2 Nucleated Red Blood Cells % 0.0 Neutrophils # 18.9 H Lymphocytes # 1.3 Monocytes # 0.9 Eosinophils # 0.0 Basophils # 0.0 Nucleated Red Blood Cells # 0.0 Sodium Level 137 Potassium Level 4.4 Chloride Level 108 Carbon Dioxide Level 22 Anion Gap 11 Blood Urea Nitrogen 21 H Creatinine 0.64 Glucose Level 144 # Calcium Level 8.6 Total Bilirubin 1.5 H Direct Bilirubin 0.00 Indirect Bilirubin 1.5 H Aspartate Amino Transf (AST/SGOT) 49 H Alanine Aminotransferase (ALT/SGPT) 70 H Alkaline Phosphatase 318 H Total Protein 6.3 Albumin 2.3 L Globulin 4.00 H Albumin/Globulin Ratio 0.57 Test 07/06/17 08:26 07/06/17 12:13 Bedside Glucose 159 208 Medications Medications Current Medications Ondansetron HCl (Zofran Inj) 4 mg Q6H PRN IV NAUSEA AND/OR VOMITING; Start at 15:30 Morphine Sulfate (morphine) 2 mg Q4H PRN IV SEVERE PAIN LEVEL 7-10 Last administered on 07/05/17 20:05; Admin Dose 2 MG; Start 07/01/17 at 15:30 Metoprolol Tartrate (Lopressor) 25 mg BID PO Last administered on 07/06/17 09 :40; Admin Dose 25 MG; Start 07/01/17 at 21:00 Diagnostic Test (Pha) (Accu-Chek) 1 ea 02 XX ; Start 07/02/17 at 02:00 Insulin Glargine (Lantus) 6 unit DAILY@20 SC Last administered on 07/05/17 20 :17; Admin Dose 6 UNIT; Start 07/01/17 at 20:00 Miscellaneous Information 1 ea NOTE XX ; Start 07/01/17 at 23:30 Glucose (Glutose) 15 gm Q15M PRN PO DECREASED GLUCOSE; Start 07/01/17 at 23:30 Glucose (Glutose) 22.5 gm Q15M PRN PO DECREASED GLUCOSE; Start 07/01/17 at 23: 30 Dextrose (D50w Syringe) 25 ml Q15M PRN IV DECREASED GLUCOSE; Start 07/01/17 at 23:30 Dextrose (D50w Syringe) 50 ml Q15M PRN IV DECREASED GLUCOSE; Start 07/01/17 at 23:30 Glucagon (Glucagen) 1 mg Q15M PRN IM DECREASED GLUCOSE; Start 07/01/17 at 23: 30 Glucose (Glutose) 15 gm Q15M PRN BUCCAL DECREASED GLUCOSE Last administered on 07/03/17 14:52; Admin Dose 15 GM; Start 07/01/17 at 23:30 Aspirin (Aspirin) 81 mg DAILY PO Last administered on 07/06/17 09:39; Admin Dose 81 MG; Start 07/02/17 at 12:30 Fluconazole (Diflucan) 100 mg DAILY PO Last administered on 07/06/17 09:40; Admin Dose 100 MG; Start 07/05/17 at 09:00 Hydralazine HCl (Apresoline) 10 mg Q4H PRN IV ELEVATED BLOOD PRESSURE Last administered on 07/05/17 02:51; Admin Dose 10 MG; Start 07/05/17 at 01:00 Enoxaparin Sodium (Lovenox) 40 mg DAILY SC Last administered on 07/06/17 09: 43; Admin Dose 40 MG; Start 07/06/17 at 09:00 Simethicone (Mylicon) 80 mg TID PRN GTB DISTENSION/GAS/BLOATING; Start at 12:30 Polyethylene Glycol (Miralax) 17 gm BID PRN PO constipation; Start 07/06/17 at 12:30 SYDNIE EMMANUEL Jul 06, 2017 12:58
[2017-07-06] MEDS: ONDANSETRON 4 MG INJ IV PRN (18:14)
--- NOTE | 2017-07-06 19:35 | CONS ---
Date/Time of Note Date/Time of Note DATE: 07/06/17 TIME: 19:25 Assessment/Plan Assessment/Plan Chief Complaint/Hosp Course ID PROGRESS NOTE CURRENT ABX: =>Diflucan PO s/p Merrem -> DC'd 07/05/17 24H INTERVAL SUMMARY * NO fevers, WBC rising today, VSS PHYSICAL EXAMINATION: GENERAL: VSS, afebrile, NAD HEENT: Unremarkable NECK: Supple, trach midline CHEST: Equal chest rise bilaterally, without dyspnea on observation HEART: RRR ABDOMEN: Soft, NT, ND EXT: Warm, no edema SKIN: No rash, no diaphoresis ID ASSESSMENT: 77 yo F admit VPH: 1. Systemic inflammatory response syndrome with leukocytosis, multifactorial. * BCx (-) 2. Urinary tract infection. 3. Hepatocellular carcinoma or cholangiocarcinoma w/ Liver mass measuring 10.1 cm as seen by liver ultrasound. * CT of liver did show:Multiple hepatic metastases with multiple low-density rim enhancing masses in the periportal region and surrounding and / or arising from the pancreas. Biliary ductal dilatation with cutoff of the common bile duct in the area of peripancreatic masses. * Elevated CA-19 & CA 125 4. Transaminitis -> s/p ERCP w/stent placement for biliary stricture 5. Hx of Hepatitis B per (+)[facility] 6. Diabetes. 7. Acute renal failure. ABX ALLERGIES: NKDA INVASIVES: PIV CURRENT ABX: =>Diflucan PO s/p Merrem -> DC'd 07/05/17 ID RECOMMENDATIONS/PLAN: 1. ABX have been de-escalated 2. Await liver Bx . Problems: Consultation Date/Type/Reason Admit Date/Time Jul 01, 2017 at 14:33 Initial Consult Date 07/03/17 Type of Consultation: ID Referring Provider: MAK NOVAK CONNIE SCRATCHER Exam/Review of Systems Vital Signs Vitals Vital Signs Date Time Temp Pulse Resp B/P Pulse Ox O2 Delivery O2 Flow Rate FiO2 07/06/17 16:53 59 07/06/17 16:16 98.3 19 148/67 99 07/05/17 12:00 Room Air 07/04/17 07:40 2.0 Intake and Output 07/05/17 07/05/17 07/06/17 15:00 23:00 07:00 Intake Total 100 ml 250 ml 500 ml Balance 100 ml 250 ml 500 ml Results Result Diagram: 07/06/17 0646 07/06/17 0646 Results 24 hrs Laboratory Tests Test 07/05/17 20:08 07/06/17 02:16 07/06/17 06:46 07/06/17 08:26 Bedside Glucose 197 170 159 White Blood Count 21.5 #H Red Blood Count 2.96 L Hemoglobin 9.2 L Hematocrit 25.6 L Mean Corpuscular Volume 86.5 Mean Corpuscular Hemoglobin 31.1 Mean Corpuscular Hemoglobin Concent 35.9 Red Cell Distribution Width 15.3 H Platelet Count 140 # Mean Platelet Volume 11.5 H Neutrophils % 87.9 H Lymphocytes % 6.2 L Monocytes % 4.1 Eosinophils % 0.1 Basophils % 0.2 Nucleated Red Blood Cells % 0.0 Neutrophils # 18.9 H Lymphocytes # 1.3 Monocytes # 0.9 Eosinophils # 0.0 Basophils # 0.0 Nucleated Red Blood Cells # 0.0 Sodium Level 137 Potassium Level 4.4 Chloride Level 108 Carbon Dioxide Level 22 Anion Gap 11 Blood Urea Nitrogen 21 H Creatinine 0.64 Glucose Level 144 # Calcium Level 8.6 Total Bilirubin 1.5 H Direct Bilirubin 0.00 Indirect Bilirubin 1.5 H Aspartate Amino Transf (AST/SGOT) 49 H Alanine Aminotransferase (ALT/SGPT) 70 H Alkaline Phosphatase 318 H Total Protein 6.3 Albumin 2.3 L Globulin 4.00 H Albumin/Globulin Ratio 0.57 Test 07/06/17 12:13 07/06/17 17:40 Bedside Glucose 208 226 H Medications Medications Current Medications Ondansetron HCl (Zofran Inj) 4 mg Q6H PRN IV NAUSEA AND/OR VOMITING Last administered on 07/06/17 18:14; Admin Dose 4 MG; Start 07/01/17 at 15:30 Morphine Sulfate (morphine) 2 mg Q4H PRN IV SEVERE PAIN LEVEL 7-10 Last administered on 07/05/17 20:05; Admin Dose 2 MG; Start 07/01/17 at 15:30 Metoprolol Tartrate (Lopressor) 25 mg BID PO Last administered on 07/06/17 09 :40; Admin Dose 25 MG; Start 07/01/17 at 21:00 Diagnostic Test (Pha) (Accu-Chek) 1 ea 02 XX ; Start 07/02/17 at 02:00 Insulin Glargine (Lantus) 6 unit DAILY@20 SC Last administered on 07/05/17 20 :17; Admin Dose 6 UNIT; Start 07/01/17 at 20:00 Miscellaneous Information 1 ea NOTE XX ; Start 07/01/17 at 23:30 Glucose (Glutose) 15 gm Q15M PRN PO DECREASED GLUCOSE; Start 07/01/17 at 23:30 Glucose (Glutose) 22.5 gm Q15M PRN PO DECREASED GLUCOSE; Start 07/01/17 at 23: 30 Dextrose (D50w Syringe) 25 ml Q15M PRN IV DECREASED GLUCOSE; Start 07/01/17 at 23:30 Dextrose (D50w Syringe) 50 ml Q15M PRN IV DECREASED GLUCOSE; Start 07/01/17 at 23:30 Glucagon (Glucagen) 1 mg Q15M PRN IM DECREASED GLUCOSE; Start 07/01/17 at 23: 30 Glucose (Glutose) 15 gm Q15M PRN BUCCAL DECREASED GLUCOSE Last administered on 07/03/17 14:52; Admin Dose 15 GM; Start 07/01/17 at 23:30 Aspirin (Aspirin) 81 mg DAILY PO Last administered on 07/06/17 09:39; Admin Dose 81 MG; Start 07/02/17 at 12:30 Fluconazole (Diflucan) 100 mg DAILY PO Last administered on 07/06/17 09:40; Admin Dose 100 MG; Start 07/05/17 at 09:00 Hydralazine HCl (Apresoline) 10 mg Q4H PRN IV ELEVATED BLOOD PRESSURE Last administered on 07/05/17 02:51; Admin Dose 10 MG; Start 07/05/17 at 01:00 Enoxaparin Sodium (Lovenox) 40 mg DAILY SC Last administered on 07/06/17 09: 43; Admin Dose 40 MG; Start 07/06/17 at 09:00 Simethicone (Mylicon) 80 mg TID PRN GTB DISTENSION/GAS/BLOATING Last administered on 07/06/17 17:50; Admin Dose 80 MG; Start 07/06/17 at 12:30 Polyethylene Glycol (Miralax) 17 gm BID PRN PO constipation; Start 07/06/17 at 12:30 ARIELLE CORNELL NP Jul 06, 2017 19:35
[2017-07-06 19:51] LABS: ANA SCREEN POSITIVE (NEGATIVE)
[2017-07-06] MEDS: INSULIN GLARGINE [LANtus] 3 ML PEN SC SCH (21:21)
[2017-07-07] VITALS (12 sets, daily range): BP systolic 128–164; BP diastolic 62–74; PULSE 55–69; RESP 17–20
[2017-07-07] MEDS: ACCU-CHEK XX SCH (02:00)
--- NOTE | 2017-07-07 07:46 | CONS ---
Date/Time of Note Date/Time of Note DATE: 07/07/17 TIME: 07:42 Consult Date/Type/Reason Admit Date/Time Jul 01, 2017 at 14:33 Initial Consult Date 07/03/17 Type of Consultation: ID Ordering Provider: MAK NOVAK LITIGATION SUPPORT ANALYST Subjective No overnight events. Eating small amounts. No nausea reported. No fever or chills. Objective Vital Signs Date Time Temp Pulse Resp B/P Pulse Ox O2 Delivery O2 Flow Rate FiO2 07/07/17 04:46 61 07/07/17 04:00 98.7 20 143/65 100 07/05/17 12:00 Room Air 07/04/17 07:40 2.0 Intake and Output 07/06/17 07/06/17 07/07/17 14:59 22:59 06:59 Intake Total 500 ml 500 ml Balance 500 ml 500 ml Exam Lying in bed, A&Ox 4 OP dry Anicteric CTA B RRR no m/g/r No lymphadenopathy Slight TTP over epigastrum but no organomegaly or mass No c/c/e Results/Medications Result Diagram: 07/06/17 0646 07/06/17 0646 Results 24 hrs Laboratory Tests Test 07/06/17 08:26 07/06/17 12:13 07/06/17 17:40 07/06/17 21:09 Bedside Glucose 159 208 226 H 149 Medications Current Medications Ondansetron HCl (Zofran Inj) 4 mg Q6H PRN IV NAUSEA AND/OR VOMITING Last administered on 07/06/17 18:14; Admin Dose 4 MG; Start 07/01/17 at 15:30 Morphine Sulfate (morphine) 2 mg Q4H PRN IV SEVERE PAIN LEVEL 7-10 Last administered on 07/05/17 20:05; Admin Dose 2 MG; Start 07/01/17 at 15:30 Metoprolol Tartrate (Lopressor) 25 mg BID PO Last administered on 07/06/17 21 :13; Admin Dose 25 MG; Start 07/01/17 at 21:00 Diagnostic Test (Pha) (Accu-Chek) 1 ea 02 XX ; Start 07/02/17 at 02:00 Insulin Glargine (Lantus) 6 unit DAILY@20 SC Last administered on 07/06/17 21 :21; Admin Dose 6 UNIT; Start 07/01/17 at 20:00 Miscellaneous Information 1 ea NOTE XX ; Start 07/01/17 at 23:30 Glucose (Glutose) 15 gm Q15M PRN PO DECREASED GLUCOSE; Start 07/01/17 at 23:30 Glucose (Glutose) 22.5 gm Q15M PRN PO DECREASED GLUCOSE; Start 07/01/17 at 23: 30 Dextrose (D50w Syringe) 25 ml Q15M PRN IV DECREASED GLUCOSE; Start 07/01/17 at 23:30 Dextrose (D50w Syringe) 50 ml Q15M PRN IV DECREASED GLUCOSE; Start 07/01/17 at 23:30 Glucagon (Glucagen) 1 mg Q15M PRN IM DECREASED GLUCOSE; Start 07/01/17 at 23: 30 Glucose (Glutose) 15 gm Q15M PRN BUCCAL DECREASED GLUCOSE Last administered on 07/03/17 14:52; Admin Dose 15 GM; Start 07/01/17 at 23:30 Aspirin (Aspirin) 81 mg DAILY PO Last administered on 07/06/17 09:39; Admin Dose 81 MG; Start 07/02/17 at 12:30 Fluconazole (Diflucan) 100 mg DAILY PO Last administered on 07/06/17 09:40; Admin Dose 100 MG; Start 07/05/17 at 09:00 Hydralazine HCl (Apresoline) 10 mg Q4H PRN IV ELEVATED BLOOD PRESSURE Last administered on 07/05/17 02:51; Admin Dose 10 MG; Start 07/05/17 at 01:00 Enoxaparin Sodium (Lovenox) 40 mg DAILY SC Last administered on 07/06/17 09: 43; Admin Dose 40 MG; Start 07/06/17 at 09:00 Simethicone (Mylicon) 80 mg TID PRN GTB DISTENSION/GAS/BLOATING Last administered on 07/06/17 17:50; Admin Dose 80 MG; Start 07/06/17 at 12:30 Polyethylene Glycol (Miralax) 17 gm BID PRN PO constipation; Start 07/06/17 at 12:30 Assessment/Plan Chief Complaint/Hosp Course Pt is a 77yo female who presents with abdominal pain and findings of several hypodense lesions to the liver and a mass along the head of the pancreas. CA 19-9 is actually quite low (53) for this to suggest metastatic adenocarcinoma of the pancreas. CEA and CA 125 low as well. AFP normal. Pt is s/p ERCP with CBD stent and brush biopsy performed on 07/05. It is quite possible that the brush biopsy will not be satisfactory to obtain a tissue biopsy. I would recommend at this time for the pt to undergo a percutaneous biopsy of the liver biopsy to obtain further tissue to make a definitive biopsy and offer the pt appropriate treatment. I am concerned this pt may have a neuroendocrine tumor since the above tumor markers are not suggestive of another malignancy. -Cont Lovenox for dvt ppx -Cont current Abx for UTI. Less likely to have cholangitis. -Strongly recommend CT guided biopsy of liver mass (already done on 07/03: awaiting Bx results IHC not back). Treatment recommendations to be based on final pathology. -Monitor for infection as WBC rising. No fever. -Will f/u with you. Ezequiel Mendez MD Hematology/Medical Oncology Problems: EZEQUIEL MENDEZ Jul 07, 2017 07:46
[2017-07-07] MEDS: INSULIN ASPART [NOVOLOG] 3 ML PEN SC SCH ×7 (08:00→21:00)
[2017-07-07] MEDS: morphine 2 MG INJ IV PRN ×2 (08:02→19:41)
[2017-07-07 09:16] LABS: BASOPHILS % 0.2 % (0.0-2.0); EOSINOPHILS # 0.1 10^3/ul (0.0-0.5); EOSINOPHILS % 0.3 % (0.0-7.0); HEMATOCRIT 22.9 % (37.0-47.0); HEMOGLOBIN 8.1 g/dl (12.0-16.0); LYMPHOCYTES # 1.2 10^3/ul (0.8-2.9); LYMPHOCYTES % 6.2 % (15.0-51.0); MEAN CORPUSCULAR HEMOGLOBIN 30.6 pg (29.0-33.0); MEAN CORPUSCULAR HGB CONC 35.4 g/dl (32.0-37.0); MEAN CORPUSCULAR VOLUME 86.4 fl (82.0-101.0); MONOCYTE # 0.5 10^3/ul (0.3-0.9); MONOCYTES % 2.6 % (0.0-11.0); NEUTROPHIL # 16.7 10^3/ul (1.6-7.5); NEUTROPHILS % 89.3 % (39.0-77.0); PLATELET COUNT 174 10^3/UL (140-415); RED BLOOD COUNT 2.65 10^6/ul (4.20-5.40); RED CELL DISTRIBUTION WIDTH 15.3 % (11.5-14.5); WHITE BLOOD COUNT 18.6 10^3/ul (4.8-10.8)
[2017-07-07] MEDS: ASPIRIN 81 MG TAB PO SCH (09:21)
[2017-07-07] MEDS: FLUCONAZOLE 100 MG TAB PO SCH (09:21)
[2017-07-07] MEDS: METOPROLOL 25 MG TAB PO SCH ×2 (09:22→22:00)
[2017-07-07] MEDS: ENOXAPARIN 40 MG/0.4 ML SYG SC SCH (09:25)
--- NOTE | 2017-07-07 09:36 | PN ---
Date/Time of Note Date/Time of Note DATE: 07/07/17 TIME: 09:27 Assessment/Plan VTE Prophylaxis VTE Prophylaxis Intervention: SCD's Lines/Catheters IV [facility]ter Type (from [facility] Saline Lock Urinary Cath still in place: No Assessment/Plan Chief Complaint/Hosp Course Assessment and plan 1. SIRS, uti ID consult following. abx per ID recs 2. Possible non-ST elevated myocardial infarction (type 2). In the setting of sepsis and acute renal insufficiency. Product Safety And Standards Engineer following. continue with recs. appears stable 3. Acute kidney injury. improved. monitor renal panel 4. Transaminitis. Patient did have positive hepatitis B panel. GI following. suspect possibly secondary to liver mass. continue with surgeon recs 5. Type 2 diabetes. Continue insulin regimen. Adjust as needed. stable 6. Dyslipidemia. Will place on the fat low cholesterol diet. Statin medication on hold due to transaminitis. 7. 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 Follow-up with oncologist recommendations 8. Elevated D-dimer/fibrinogen. f/u hematology recs disposition and plan: Preliminary biopsy did show findings consistent with malignancy. Follow-up with oncologist.Palliative care physician to follow. Discussed plan of care with Dr. Sánchez Problems: Subjective 24 Hr Interval Summary Free Text/Dictation still reports having some abd pain Exam/Review of Systems Vital Signs Vitals Vital Signs Date Time Temp Pulse Resp B/P Pulse Ox O2 Delivery O2 Flow Rate FiO2 07/07/17 08:00 69 07/07/17 07:45 98.8 18 164/68 97 07/05/17 12:00 Room Air 07/04/17 07:40 2.0 Intake and Output 07/06/17 07/06/17 07/07/17 15:00 23:00 07:00 Intake Total 500 ml Balance 500 ml Exam Constitutional: alert, oriented Psych: nl mood/affect Head: normocephalic Eyes: slightly icteric Neck: non-tender, supple Respiratory: normal air movement Cardiovascular: regular rate and rhythm Gastrointestinal: tender today Musculoskeletal: nl extremities to inspection Neurological: DATA QUALITY CONSULTANT II-XII intact, nl mental status, nl speech Skin: nl turgor Results Result Diagram: 07/07/17 0808 07/06/17 0646 Results 24 hrs Laboratory Tests Test 07/06/17 12:13 07/06/17 17:40 07/06/17 21:09 07/07/17 08:08 Bedside Glucose 208 226 H 149 White Blood Count 18.6 H Red Blood Count 2.65 L Hemoglobin 8.1 L Hematocrit 22.9 L Mean Corpuscular Volume 86.4 Mean Corpuscular Hemoglobin 30.6 Mean Corpuscular Hemoglobin Concent 35.4 Red Cell Distribution Width 15.3 H Platelet Count 174 # Mean Platelet Volume 11.0 H Neutrophils % 89.3 H Lymphocytes % 6.2 L Monocytes % 2.6 Eosinophils % 0.3 Basophils % 0.2 Nucleated Red Blood Cells % 0.0 Neutrophils # 16.7 H Lymphocytes # 1.2 Monocytes # 0.5 Eosinophils # 0.1 Basophils # 0.0 Nucleated Red Blood Cells # 0.0 Medications Medications Current Medications Ondansetron HCl (Zofran Inj) 4 mg Q6H PRN IV NAUSEA AND/OR VOMITING Last administered on 07/06/17 18:14; Admin Dose 4 MG; Start 07/01/17 at 15:30 Morphine Sulfate (morphine) 2 mg Q4H PRN IV SEVERE PAIN LEVEL 7-10 Last administered on 07/07/17 08:02; Admin Dose 2 MG; Start 07/01/17 at 15:30 Metoprolol Tartrate (Lopressor) 25 mg BID PO Last administered on 07/07/17 09 :22; Admin Dose 25 MG; Start 07/01/17 at 21:00 Diagnostic Test (Pha) (Accu-Chek) 1 ea 02 XX ; Start 07/02/17 at 02:00 Insulin Glargine (Lantus) 6 unit DAILY@20 SC Last administered on 07/06/17 21 :21; Admin Dose 6 UNIT; Start 07/01/17 at 20:00 Miscellaneous Information 1 ea NOTE XX ; Start 07/01/17 at 23:30 Glucose (Glutose) 15 gm Q15M PRN PO DECREASED GLUCOSE; Start 07/01/17 at 23:30 Glucose (Glutose) 22.5 gm Q15M PRN PO DECREASED GLUCOSE; Start 07/01/17 at 23: 30 Dextrose (D50w Syringe) 25 ml Q15M PRN IV DECREASED GLUCOSE; Start 07/01/17 at 23:30 Dextrose (D50w Syringe) 50 ml Q15M PRN IV DECREASED GLUCOSE; Start 07/01/17 at 23:30 Glucagon (Glucagen) 1 mg Q15M PRN IM DECREASED GLUCOSE; Start 07/01/17 at 23: 30 Glucose (Glutose) 15 gm Q15M PRN BUCCAL DECREASED GLUCOSE Last administered on 07/03/17 14:52; Admin Dose 15 GM; Start 07/01/17 at 23:30 Aspirin (Aspirin) 81 mg DAILY PO Last administered on 07/07/17 09:21; Admin Dose 81 MG; Start 07/02/17 at 12:30 Fluconazole (Diflucan) 100 mg DAILY PO Last administered on 07/07/17 09:21; Admin Dose 100 MG; Start 07/05/17 at 09:00 Hydralazine HCl (Apresoline) 10 mg Q4H PRN IV ELEVATED BLOOD PRESSURE Last administered on 07/05/17 02:51; Admin Dose 10 MG; Start 07/05/17 at 01:00 Enoxaparin Sodium (Lovenox) 40 mg DAILY SC Last administered on 07/07/17 09: 25; Admin Dose 40 MG; Start 07/06/17 at 09:00 Simethicone (Mylicon) 80 mg TID PRN GTB DISTENSION/GAS/BLOATING Last administered on 07/06/17 17:50; Admin Dose 80 MG; Start 07/06/17 at 12:30 Polyethylene Glycol (Miralax) 17 gm BID PRN PO constipation; Start 07/06/17 at 12:30 SYDNIE EMMANUEL Jul 07, 2017 09:36
[2017-07-07 09:40] LABS: ALBUMIN 2.2 g/dl (3.3-4.9); ALBUMIN/GLOBULIN RATIO 0.57; BILIRUBIN,INDIRECT 1.5 mg/dl (0-1.1); BILIRUBIN,TOTAL 1.5 mg/dl (0.2-1.3); CALCIUM 8.5 mg/dl (8.4-10.2); CREATININE 0.52 mg/dl (0.44-1.00); POTASSIUM 3.4 mmol/L (3.5-5.1)
--- NOTE | 2017-07-07 13:47 | PN ---
Date/Time of Note Date/Time of Note DATE: 07/07/17 TIME: 13:43 Assessment/Plan VTE Prophylaxis VTE Prophylaxis Intervention: SCD's Lines/Catheters IV C[facility]ter Type (from [facility] Saline Lock Urinary Cath still in place: No Assessment/Plan Chief Complaint/Hosp Course Impression: Large liver mass/probably metastatic disease Abrupt cutoff of the common bile duct and MRI Rule out imminent biliary obstruction ERCP 07/05/17 Impression: Normal pancreatogram High-grade narrowing 3 cm segment approximately 2 cm from ampulla, smooth most consistent with extrinsic compression i.e. pancreatic mass Post brush cytology of the biliary tree area of narrowing Post standard sphincterotomy Post fully covered 10 x 80 mm Wallstent placement Rule out pancreatic CA Diabetes mellitus Hypertension Dyslipidemia Plan: Review cytology when available Advance as tolerated Continue MiraLax BID PRN Liver bx reviewed and copied below A-Liver mass, core needle biopsies: -- Poorly differentiated carcinoma with focal acinar formation. -- Uninvolved liver shows moderate sinusoidal dilation and mild portal chronic inflammation and fibrosis. B-Liver core needle biopsies: -- Malignant epithelioid neoplasm, poorly differentiated. -- Uninvolved liver shows mild portal fibrosis, mild chronic inflammation and moderate sinusoidal dilation. Onc and palliative care to consult Follow-up visit was done in collaboration with Dr. Metz Subjective: Course reviewed with nursing staff Patient interviewed and examined All labs, imaging and other results reviewed The patient Hep C core IgM not available will order additional work-up. Patient currently denying nausea, vomiting, or abd pain Exam: General: well developed, well nourished, alert and oriented x3 , in no acute distress Skin: No lesions, no stigmata chronic liver disease, no evidence of bleeding diathesis, jaundice Lymphatic: No palpable lymphadenopathy HEENT: No lesions Cardiovascular: Heart: Regular rate and rhythm, no murmurs, gallops or rubs. Respiratory: Lungs clear to auscultation and percussion, no wheezing, no rubs Gastrointestinal and Liver: Abdomen: Soft, epigastric tenderness, not distended , no hernias, no masses, no organomegaly, no ascites, no guarding, no rebound tenderness, hypoactive bowel sounds. Extremities: No cyanosis, clubbing, or edema. Problems: Exam/Review of Systems Vital Signs Vitals Vital Signs Date Time Temp Pulse Resp B/P Pulse Ox O2 Delivery O2 Flow Rate FiO2 07/07/17 12:00 65 07/07/17 11:50 97.2 17 128/68 98 07/05/17 12:00 Room Air 07/04/17 07:40 2.0 Intake and Output 07/06/17 07/06/17 07/07/17 15:00 23:00 07:00 Intake Total 500 ml Balance 500 ml Results Result Diagram: 07/07/17 0808 07/07/17 0808 Results 24 hrs Laboratory Tests Test 07/06/17 17:40 07/06/17 21:09 07/07/17 08:08 07/07/17 09:44 Bedside Glucose 226 H 149 78 White Blood Count 18.6 H Red Blood Count 2.65 L Hemoglobin 8.1 L Hematocrit 22.9 L Mean Corpuscular Volume 86.4 Mean Corpuscular Hemoglobin 30.6 Mean Corpuscular Hemoglobin Concent 35.4 Red Cell Distribution Width 15.3 H Platelet Count 174 # Mean Platelet Volume 11.0 H Neutrophils % 89.3 H Lymphocytes % 6.2 L Monocytes % 2.6 Eosinophils % 0.3 Basophils % 0.2 Nucleated Red Blood Cells % 0.0 Neutrophils # 16.7 H Lymphocytes # 1.2 Monocytes # 0.5 Eosinophils # 0.1 Basophils # 0.0 Nucleated Red Blood Cells # 0.0 Sodium Level 135 Potassium Level 3.4 L Chloride Level 106 Carbon Dioxide Level 23 Anion Gap 9 Blood Urea Nitrogen 17 Creatinine 0.52 Glucose Level 77 # Calcium Level 8.5 Total Bilirubin 1.5 H Direct Bilirubin 0.00 Indirect Bilirubin 1.5 H Aspartate Amino Transf (AST/SGOT) 46 Alanine Aminotransferase (ALT/SGPT) 60 Alkaline Phosphatase 274 H Total Protein 6.0 L Albumin 2.2 L Globulin 3.80 H Albumin/Globulin Ratio 0.57 Test 07/07/17 12:53 Bedside Glucose 90 Medications Medications Current Medications Ondansetron HCl (Zofran Inj) 4 mg Q6H PRN IV NAUSEA AND/OR VOMITING Last administered on 07/06/17 18:14; Admin Dose 4 MG; Start 07/01/17 at 15:30 Morphine Sulfate (morphine) 2 mg Q4H PRN IV SEVERE PAIN LEVEL 7-10 Last administered on 07/07/17 08:02; Admin Dose 2 MG; Start 07/01/17 at 15:30 Metoprolol Tartrate (Lopressor) 25 mg BID PO Last administered on 07/07/17 09 :22; Admin Dose 25 MG; Start 07/01/17 at 21:00 Diagnostic Test (Pha) (Accu-Chek) 1 ea 02 XX ; Start 07/02/17 at 02:00 Insulin Glargine (Lantus) 6 unit DAILY@20 SC Last administered on 07/06/17 21 :21; Admin Dose 6 UNIT; Start 07/01/17 at 20:00 Miscellaneous Information 1 ea NOTE XX ; Start 07/01/17 at 23:30 Glucose (Glutose) 15 gm Q15M PRN PO DECREASED GLUCOSE; Start 07/01/17 at 23:30 Glucose (Glutose) 22.5 gm Q15M PRN PO DECREASED GLUCOSE; Start 07/01/17 at 23: 30 Dextrose (D50w Syringe) 25 ml Q15M PRN IV DECREASED GLUCOSE; Start 07/01/17 at 23:30 Dextrose (D50w Syringe) 50 ml Q15M PRN IV DECREASED GLUCOSE; Start 07/01/17 at 23:30 Glucagon (Glucagen) 1 mg Q15M PRN IM DECREASED GLUCOSE; Start 07/01/17 at 23: 30 Glucose (Glutose) 15 gm Q15M PRN BUCCAL DECREASED GLUCOSE Last administered on 07/03/17 14:52; Admin Dose 15 GM; Start 07/01/17 at 23:30 Aspirin (Aspirin) 81 mg DAILY PO Last administered on 07/07/17 09:21; Admin Dose 81 MG; Start 07/02/17 at 12:30 Fluconazole (Diflucan) 100 mg DAILY PO Last administered on 07/07/17 09:21; Admin Dose 100 MG; Start 07/05/17 at 09:00 Hydralazine HCl (Apresoline) 10 mg Q4H PRN IV ELEVATED BLOOD PRESSURE Last administered on 07/05/17 02:51; Admin Dose 10 MG; Start 07/05/17 at 01:00 Enoxaparin Sodium (Lovenox) 40 mg DAILY SC Last administered on 07/07/17 09: 25; Admin Dose 40 MG; Start 07/06/17 at 09:00 Simethicone (Mylicon) 80 mg TID PRN GTB DISTENSION/GAS/BLOATING Last administered on 07/06/17 17:50; Admin Dose 80 MG; Start 07/06/17 at 12:30 Polyethylene Glycol (Miralax) 17 gm BID PRN PO constipation; Start 07/06/17 at 12:30 CHALO PEREZ Jul 07, 2017 13:47
--- NOTE | 2017-07-07 20:59 | CONS ---
Date/Time of Note Date/Time of Note DATE: 07/07/17 TIME: 20:57 Assessment/Plan Assessment/Plan Chief Complaint/Hosp Course ID PROGRESS NOTE CURRENT ABX: =>Diflucan PO s/p Merrem -> DC'd 07/05/17 24H INTERVAL SUMMARY * Sleeping, sitter present, NO fevers, WBC down today to 18.6, VSS PHYSICAL EXAMINATION: GENERAL: VSS, afebrile, NAD HEENT: Unremarkable NECK: Supple, trach midline CHEST: Equal chest rise bilaterally, without dyspnea on observation HEART: RRR ABDOMEN: Soft, NT, ND EXT: Warm, no edema SKIN: No rash, no diaphoresis ID ASSESSMENT: 77 yo F admit VPH: 1. Systemic inflammatory response syndrome with leukocytosis, multifactorial. * BCx (-) * Leukocytosis = UTI + reactive inflammatory 2. Urinary tract infection. 3. Hepatocellular carcinoma or cholangiocarcinoma w/ Liver mass measuring 10.1 cm as seen by liver ultrasound. * CT of liver did show:Multiple hepatic metastases with multiple low-density rim enhancing masses in the periportal region and surrounding and / or arising from the pancreas. Biliary ductal dilatation with cutoff of the common bile duct in the area of peripancreatic masses. * Elevated CA-19 & CA 125 4. Transaminitis -> s/p ERCP w/stent placement for biliary stricture 5. Hx of Hepatitis B per (+)HBC[facility]AB 6. Diabetes. 7. Acute renal failure. ABX ALLERGIES: NKDA INVASIVES: PIV CURRENT ABX: =>Diflucan PO s/p Merrem -> DC'd 07/05/17 ID RECOMMENDATIONS/PLAN: 1. ABX have been de-escalated 2. Await liver Bx . Problems: Consultation Date/Type/Reason Admit Date/Time Jul 01, 2017 at 14:33 Initial Consult Date 07/03/17 Type of Consultation: ID Referring Provider: MAK NOVAK COIN TELLER Exam/Review of Systems Vital Signs Vitals Vital Signs Date Time Temp Pulse Resp B/P Pulse Ox O2 Delivery O2 Flow Rate FiO2 07/07/17 20:30 64 07/07/17 20:00 98.2 19 149/65 97 07/05/17 12:00 Room Air 07/04/17 07:40 2.0 Intake and Output 07/06/17 07/06/17 07/07/17 15:00 23:00 07:00 Intake Total 500 ml Balance 500 ml Results Result Diagram: 07/07/17 0808 07/07/17 0808 Results 24 hrs Laboratory Tests Test 07/06/17 21:09 07/07/17 08:08 07/07/17 09:44 07/07/17 12:53 Bedside Glucose 149 78 90 White Blood Count 18.6 H Red Blood Count 2.65 L Hemoglobin 8.1 L Hematocrit 22.9 L Mean Corpuscular Volume 86.4 Mean Corpuscular Hemoglobin 30.6 Mean Corpuscular Hemoglobin Concent 35.4 Red Cell Distribution Width 15.3 H Platelet Count 174 # Mean Platelet Volume 11.0 H Neutrophils % 89.3 H Lymphocytes % 6.2 L Monocytes % 2.6 Eosinophils % 0.3 Basophils % 0.2 Nucleated Red Blood Cells % 0.0 Neutrophils # 16.7 H Lymphocytes # 1.2 Monocytes # 0.5 Eosinophils # 0.1 Basophils # 0.0 Nucleated Red Blood Cells # 0.0 Sodium Level 135 Potassium Level 3.4 L Chloride Level 106 Carbon Dioxide Level 23 Anion Gap 9 Blood Urea Nitrogen 17 Creatinine 0.52 Glucose Level 77 # Calcium Level 8.5 Total Bilirubin 1.5 H Direct Bilirubin 0.00 Indirect Bilirubin 1.5 H Aspartate Amino Transf (AST/SGOT) 46 Alanine Aminotransferase (ALT/SGPT) 60 Alkaline Phosphatase 274 H Total Protein 6.0 L Albumin 2.2 L Globulin 3.80 H Albumin/Globulin Ratio 0.57 Test 07/07/17 17:34 Bedside Glucose 101 Medications Medications Current Medications Ondansetron HCl (Zofran Inj) 4 mg Q6H PRN IV NAUSEA AND/OR VOMITING Last administered on 07/06/17 18:14; Admin Dose 4 MG; Start 07/01/17 at 15:30 Morphine Sulfate (morphine) 2 mg Q4H PRN IV SEVERE PAIN LEVEL 7-10 Last administered on 07/07/17 19:41; Admin Dose 2 MG; Start 07/01/17 at 15:30 Metoprolol Tartrate (Lopressor) 25 mg BID PO Last administered on 07/07/17 09 :22; Admin Dose 25 MG; Start 07/01/17 at 21:00 Diagnostic Test (Pha) (Accu-Chek) 1 ea 02 XX ; Start 07/02/17 at 02:00 Insulin Glargine (Lantus) 6 unit DAILY@20 SC Last administered on 07/06/17 21 :21; Admin Dose 6 UNIT; Start 07/01/17 at 20:00 Miscellaneous Information 1 ea NOTE XX ; Start 07/01/17 at 23:30 Glucose (Glutose) 15 gm Q15M PRN PO DECREASED GLUCOSE; Start 07/01/17 at 23:30 Glucose (Glutose) 22.5 gm Q15M PRN PO DECREASED GLUCOSE; Start 07/01/17 at 23: 30 Dextrose (D50w Syringe) 25 ml Q15M PRN IV DECREASED GLUCOSE; Start 07/01/17 at 23:30 Dextrose (D50w Syringe) 50 ml Q15M PRN IV DECREASED GLUCOSE; Start 07/01/17 at 23:30 Glucagon (Glucagen) 1 mg Q15M PRN IM DECREASED GLUCOSE; Start 07/01/17 at 23: 30 Glucose (Glutose) 15 gm Q15M PRN BUCCAL DECREASED GLUCOSE Last administered on 07/03/17 14:52; Admin Dose 15 GM; Start 07/01/17 at 23:30 Aspirin (Aspirin) 81 mg DAILY PO Last administered on 07/07/17 09:21; Admin Dose 81 MG; Start 07/02/17 at 12:30 Fluconazole (Diflucan) 100 mg DAILY PO Last administered on 07/07/17 09:21; Admin Dose 100 MG; Start 07/05/17 at 09:00 Hydralazine HCl (Apresoline) 10 mg Q4H PRN IV ELEVATED BLOOD PRESSURE Last administered on 07/05/17 02:51; Admin Dose 10 MG; Start 07/05/17 at 01:00 Enoxaparin Sodium (Lovenox) 40 mg DAILY SC Last administered on 07/07/17 09: 25; Admin Dose 40 MG; Start 07/06/17 at 09:00 Simethicone (Mylicon) 80 mg TID PRN GTB DISTENSION/GAS/BLOATING Last administered on 07/06/17 17:50; Admin Dose 80 MG; Start 07/06/17 at 12:30 Polyethylene Glycol (Miralax) 17 gm BID PRN PO constipation; Start 07/06/17 at 12:30 ARIELLE CORNELL NP Jul 07, 2017 20:59
[2017-07-07] MEDS: INSULIN GLARGINE [LANtus] 3 ML PEN SC SCH (22:04)
[2017-07-08] VITALS (12 sets, daily range): BP systolic 120–163; BP diastolic 53–67; PULSE 55–65; RESP 17–20
[2017-07-08] MEDS: ACCU-CHEK XX SCH (02:00)
[2017-07-08] MEDS: hydrALAzine 20 MG INJ IV PRN (03:41)
--- NOTE | 2017-07-08 07:23 | CONS ---
Date/Time of Note Date/Time of Note DATE: 07/08/17 TIME: 07:21 Assessment/Plan Assessment/Plan Additional Assessment/Plan Family conference to address ongoing goals of care and level of care after patient evaluated by oncology consultation. Consultation Date/Type/Reason Admit Date/Time Jul 01, 2017 at 14:33 Type of Consultation: Palliative care Reason for Consultation Chart reviewed 77-year-old female with a history of finding of liver mass measuring 10 cm biopsy-proven poorly differentiated carcinoma. This is a preliminary note postdated for July 07... I reviewed patient's chart I will ask social work service to schedule family conference. Past Medical History Medical History: diabetes, high cholesterol, hypertension Past Surgical History Past Surgical Hx: no surgical history, other (LEFT arm orthopedic surgery) Social History Alcohol Use: none Smoking Status: Never smoker Drug Use: none Exam/Review of Systems Vital Signs Vitals Vital Signs Date Time Temp Pulse Resp B/P Pulse Ox O2 Delivery O2 Flow Rate FiO2 07/08/17 04:36 57 07/08/17 03:59 98.2 19 145/66 96 07/05/17 12:00 Room Air 07/04/17 07:40 2.0 Intake and Output 07/07/17 07/07/17 07/08/17 14:59 22:59 06:59 Intake Total 245 ml 950 ml 450 ml Balance 245 ml 950 ml 450 ml Results Result Diagram: 07/07/17 0808 07/07/17 0808 Results 24 hrs Laboratory Tests Test 07/07/17 08:08 07/07/17 09:44 07/07/17 12:53 07/07/17 17:34 White Blood Count 18.6 H Red Blood Count 2.65 L Hemoglobin 8.1 L Hematocrit 22.9 L Mean Corpuscular Volume 86.4 Mean Corpuscular Hemoglobin 30.6 Mean Corpuscular Hemoglobin Concent 35.4 Red Cell Distribution Width 15.3 H Platelet Count 174 # Mean Platelet Volume 11.0 H Neutrophils % 89.3 H Lymphocytes % 6.2 L Monocytes % 2.6 Eosinophils % 0.3 Basophils % 0.2 Nucleated Red Blood Cells % 0.0 Neutrophils # 16.7 H Lymphocytes # 1.2 Monocytes # 0.5 Eosinophils # 0.1 Basophils # 0.0 Nucleated Red Blood Cells # 0.0 Sodium Level 135 Potassium Level 3.4 L Chloride Level 106 Carbon Dioxide Level 23 Anion Gap 9 Blood Urea Nitrogen 17 Creatinine 0.52 Glucose Level 77 # Calcium Level 8.5 Total Bilirubin 1.5 H Direct Bilirubin 0.00 Indirect Bilirubin 1.5 H Aspartate Amino Transf (AST/SGOT) 46 Alanine Aminotransferase (ALT/SGPT) 60 Alkaline Phosphatase 274 H Total Protein 6.0 L Albumin 2.2 L Globulin 3.80 H Albumin/Globulin Ratio 0.57 Bedside Glucose 78 90 101 Test 07/07/17 21:53 Bedside Glucose 99 Medications Medications Current Medications Ondansetron HCl (Zofran Inj) 4 mg Q6H PRN IV NAUSEA AND/OR VOMITING Last administered on 07/06/17 18:14; Admin Dose 4 MG; Start 07/01/17 at 15:30 Morphine Sulfate (morphine) 2 mg Q4H PRN IV SEVERE PAIN LEVEL 7-10 Last administered on 07/07/17 19:41; Admin Dose 2 MG; Start 07/01/17 at 15:30 Metoprolol Tartrate (Lopressor) 25 mg BID PO Last administered on 07/07/17 22 :00; Admin Dose 25 MG; Start 07/01/17 at 21:00 Diagnostic Test (Pha) (Accu-Chek) 1 ea 02 XX ; Start 07/02/17 at 02:00 Insulin Glargine (Lantus) 6 unit DAILY@20 SC Last administered on 07/07/17 22 :04; Admin Dose 6 UNIT; Start 07/01/17 at 20:00 Miscellaneous Information 1 ea NOTE XX ; Start 07/01/17 at 23:30 Glucose (Glutose) 15 gm Q15M PRN PO DECREASED GLUCOSE; Start 07/01/17 at 23:30 Glucose (Glutose) 22.5 gm Q15M PRN PO DECREASED GLUCOSE; Start 07/01/17 at 23: 30 Dextrose (D50w Syringe) 25 ml Q15M PRN IV DECREASED GLUCOSE; Start 07/01/17 at 23:30 Dextrose (D50w Syringe) 50 ml Q15M PRN IV DECREASED GLUCOSE; Start 07/01/17 at 23:30 Glucagon (Glucagen) 1 mg Q15M PRN IM DECREASED GLUCOSE; Start 07/01/17 at 23: 30 Glucose (Glutose) 15 gm Q15M PRN BUCCAL DECREASED GLUCOSE Last administered on 07/03/17 14:52; Admin Dose 15 GM; Start 07/01/17 at 23:30 Aspirin (Aspirin) 81 mg DAILY PO Last administered on 07/07/17 09:21; Admin Dose 81 MG; Start 07/02/17 at 12:30 Fluconazole (Diflucan) 100 mg DAILY PO Last administered on 07/07/17 09:21; Admin Dose 100 MG; Start 07/05/17 at 09:00 Hydralazine HCl (Apresoline) 10 mg Q4H PRN IV ELEVATED BLOOD PRESSURE Last administered on 07/08/17 03:41; Admin Dose 10 MG; Start 07/05/17 at 01:00 Enoxaparin Sodium (Lovenox) 40 mg DAILY SC Last administered on 07/07/17 09: 25; Admin Dose 40 MG; Start 07/06/17 at 09:00 Simethicone (Mylicon) 80 mg TID PRN GTB DISTENSION/GAS/BLOATING Last administered on 07/06/17 17:50; Admin Dose 80 MG; Start 07/06/17 at 12:30 Polyethylene Glycol (Miralax) 17 gm BID PRN PO constipation; Start 07/06/17 at 12:30 RON BANGURA Jul 08, 2017 07:23
[2017-07-08] MEDS: INSULIN ASPART [NOVOLOG] 3 ML PEN SC SCH ×7 (08:00→20:46)
--- NOTE | 2017-07-08 08:08 | CONS ---
Date/Time of Note Date/Time of Note DATE: 07/08/17 TIME: 08:05 Consult Date/Type/Reason Admit Date/Time Jul 01, 2017 at 14:33 Initial Consult Date 07/03/17 Type of Consultation: Palliative care Ordering Provider: MAK NOVAK TECHNOLOGY ASSISTANT Subjective No overnight events. Eating more. Denies abdominal pain. No itching. No leg pain. Walking with family. No fevers or chills. Objective Vital Signs Date Time Temp Pulse Resp B/P Pulse Ox O2 Delivery O2 Flow Rate FiO2 07/08/17 07:42 98.3 66 17 122/59 98 07/05/17 12:00 Room Air 07/04/17 07:40 2.0 Intake and Output 07/07/17 07/07/17 07/08/17 14:59 22:59 06:59 Intake Total 245 ml 950 ml 450 ml Balance 245 ml 950 ml 450 ml Exam NAD/A&Ox4 OP clear but with white plaque on tongue Anicteric Thin RRR no m/g/r CTA B Distended slightly, no mass or organomegaly No c/c/e Results/Medications Result Diagram: 07/07/17 0808 07/07/17 0808 Results 24 hrs Laboratory Tests Test 07/07/17 08:08 07/07/17 09:44 07/07/17 12:53 07/07/17 17:34 White Blood Count 18.6 H Red Blood Count 2.65 L Hemoglobin 8.1 L Hematocrit 22.9 L Mean Corpuscular Volume 86.4 Mean Corpuscular Hemoglobin 30.6 Mean Corpuscular Hemoglobin Concent 35.4 Red Cell Distribution Width 15.3 H Platelet Count 174 # Mean Platelet Volume 11.0 H Neutrophils % 89.3 H Lymphocytes % 6.2 L Monocytes % 2.6 Eosinophils % 0.3 Basophils % 0.2 Nucleated Red Blood Cells % 0.0 Neutrophils # 16.7 H Lymphocytes # 1.2 Monocytes # 0.5 Eosinophils # 0.1 Basophils # 0.0 Nucleated Red Blood Cells # 0.0 Sodium Level 135 Potassium Level 3.4 L Chloride Level 106 Carbon Dioxide Level 23 Anion Gap 9 Blood Urea Nitrogen 17 Creatinine 0.52 Glucose Level 77 # Calcium Level 8.5 Total Bilirubin 1.5 H Direct Bilirubin 0.00 Indirect Bilirubin 1.5 H Aspartate Amino Transf (AST/SGOT) 46 Alanine Aminotransferase (ALT/SGPT) 60 Alkaline Phosphatase 274 H Total Protein 6.0 L Albumin 2.2 L Globulin 3.80 H Albumin/Globulin Ratio 0.57 Bedside Glucose 78 90 101 Test 07/07/17 21:53 Bedside Glucose 99 Medications Current Medications Ondansetron HCl (Zofran Inj) 4 mg Q6H PRN IV NAUSEA AND/OR VOMITING Last administered on 07/06/17 18:14; Admin Dose 4 MG; Start 07/01/17 at 15:30 Morphine Sulfate (morphine) 2 mg Q4H PRN IV SEVERE PAIN LEVEL 7-10 Last administered on 07/07/17 19:41; Admin Dose 2 MG; Start 07/01/17 at 15:30 Metoprolol Tartrate (Lopressor) 25 mg BID PO Last administered on 07/07/17 22 :00; Admin Dose 25 MG; Start 07/01/17 at 21:00 Diagnostic Test (Pha) (Accu-Chek) 1 ea 02 XX ; Start 07/02/17 at 02:00 Insulin Glargine (Lantus) 6 unit DAILY@20 SC Last administered on 07/07/17 22 :04; Admin Dose 6 UNIT; Start 07/01/17 at 20:00 Miscellaneous Information 1 ea NOTE XX ; Start 07/01/17 at 23:30 Glucose (Glutose) 15 gm Q15M PRN PO DECREASED GLUCOSE; Start 07/01/17 at 23:30 Glucose (Glutose) 22.5 gm Q15M PRN PO DECREASED GLUCOSE; Start 07/01/17 at 23: 30 Dextrose (D50w Syringe) 25 ml Q15M PRN IV DECREASED GLUCOSE; Start 07/01/17 at 23:30 Dextrose (D50w Syringe) 50 ml Q15M PRN IV DECREASED GLUCOSE; Start 07/01/17 at 23:30 Glucagon (Glucagen) 1 mg Q15M PRN IM DECREASED GLUCOSE; Start 07/01/17 at 23: 30 Glucose (Glutose) 15 gm Q15M PRN BUCCAL DECREASED GLUCOSE Last administered on 07/03/17 14:52; Admin Dose 15 GM; Start 07/01/17 at 23:30 Aspirin (Aspirin) 81 mg DAILY PO Last administered on 07/07/17 09:21; Admin Dose 81 MG; Start 07/02/17 at 12:30 Fluconazole (Diflucan) 100 mg DAILY PO Last administered on 07/07/17 09:21; Admin Dose 100 MG; Start 07/05/17 at 09:00 Hydralazine HCl (Apresoline) 10 mg Q4H PRN IV ELEVATED BLOOD PRESSURE Last administered on 07/08/17 03:41; Admin Dose 10 MG; Start 07/05/17 at 01:00 Enoxaparin Sodium (Lovenox) 40 mg DAILY SC Last administered on 07/07/17 09: 25; Admin Dose 40 MG; Start 07/06/17 at 09:00 Simethicone (Mylicon) 80 mg TID PRN GTB DISTENSION/GAS/BLOATING Last administered on 07/06/17 17:50; Admin Dose 80 MG; Start 07/06/17 at 12:30 Polyethylene Glycol (Miralax) 17 gm BID PRN PO constipation; Start 07/06/17 at 12:30 Assessment/Plan Chief Complaint/Hosp Course Pt is a 77yo female who presents with abdominal pain and findings of several hypodense lesions to the liver and a mass along the head of the pancreas. CA 19-9 is actually quite low (53) for this to suggest metastatic adenocarcinoma of the pancreas. CEA and CA 125 low as well. AFP normal. Pt is s/p ERCP with CBD stent and brush biopsy performed on 07/05. It is quite possible that the brush biopsy will not be satisfactory to obtain a tissue biopsy. I would recommend at this time for the pt to undergo a percutaneous biopsy of the liver biopsy to obtain further tissue to make a definitive biopsy and offer the pt appropriate treatment. I am concerned this pt may have a neuroendocrine tumor since the above tumor markers are not suggestive of another malignancy. -Cont Lovenox for dvt ppx -Off of Abx. -Strongly recommend CT guided biopsy of liver mass (already done on 07/03: awaiting Bx results IHC not back). Treatment recommendations to be based on final pathology. -Monitor for infection as WBC rising. No fever. -Family conference scheduled but would wait on this until after pathology confirmed hopefully by tomorrow. -Will order labs today -Dr. Sheehan or Trini will f/u in am. Ezequiel Mendez MD Hematology/Medical Oncology Problems: EZEQUIEL MENDEZ Jul 08, 2017 08:07
[2017-07-08 08:22] LABS: BASOPHILS % 0.1 % (0.0-2.0); EOSINOPHILS % 0.1 % (0.0-7.0); HEMATOCRIT 23.2 % (37.0-47.0); HEMOGLOBIN 8.2 g/dl (12.0-16.0); LYMPHOCYTES # 0.8 10^3/ul (0.8-2.9); LYMPHOCYTES % 4.1 % (15.0-51.0); MEAN CORPUSCULAR HEMOGLOBIN 31.1 pg (29.0-33.0); MEAN CORPUSCULAR HGB CONC 35.3 g/dl (32.0-37.0); MEAN CORPUSCULAR VOLUME 87.9 fl (82.0-101.0); MONOCYTE # 0.4 10^3/ul (0.3-0.9); MONOCYTES % 2.2 % (0.0-11.0); NEUTROPHILS % 92.7 % (39.0-77.0); PLATELET COUNT 230 10^3/UL (140-415); RED BLOOD COUNT 2.64 10^6/ul (4.20-5.40); RED CELL DISTRIBUTION WIDTH 15.3 % (11.5-14.5); WHITE BLOOD COUNT 19.4 10^3/ul (4.8-10.8)
[2017-07-08 08:34] LABS: ALBUMIN 2.2 g/dl (3.3-4.9); ALBUMIN/GLOBULIN RATIO 0.55; BILIRUBIN,INDIRECT 1.3 mg/dl (0-1.1); BILIRUBIN,TOTAL 1.3 mg/dl (0.2-1.3); CALCIUM 8.4 mg/dl (8.4-10.2); CREATININE 0.5 mg/dl (0.44-1.00); POTASSIUM 3.8 mmol/L (3.5-5.1); TOTAL PROTEIN 6.2 g/dl (6.1-8.1)
[2017-07-08] MEDS: FLUCONAZOLE 100 MG TAB PO SCH (09:12)
[2017-07-08] MEDS: METOPROLOL 25 MG TAB PO SCH ×2 (09:12→20:46)
[2017-07-08] MEDS: ASPIRIN 81 MG TAB PO SCH (09:12)
[2017-07-08] MEDS: ENOXAPARIN 40 MG/0.4 ML SYG SC SCH (09:14)
--- NOTE | 2017-07-08 10:01 | PN ---
Date/Time of Note Date/Time of Note DATE: 07/08/17 TIME: 09:59 Assessment/Plan VTE Prophylaxis VTE Prophylaxis Intervention: SCD's Lines/Catheters IV [facility] Saline Lock Urinary Cath still in place: No Assessment/Plan Chief Complaint/Hosp Course Impression: Large liver mass/probably metastatic disease Abrupt cutoff of the common bile duct and MRI Rule out imminent biliary obstruction ERCP 07/05/17 Impression: Normal pancreatogram High-grade narrowing 3 cm segment approximately 2 cm from ampulla, smooth most consistent with extrinsic compression i.e. pancreatic mass Post brush cytology of the biliary tree area of narrowing Post standard sphincterotomy Post fully covered 10 x 80 mm Wallstent placement Rule out pancreatic CA Diabetes mellitus Hypertension Dyslipidemia Plan: Review cytology when available Advance as tolerated Continue MiraLax BID PRN Onc and palliative care to consult Plan to have family meeting today or tomorrow Follow-up visit was done in collaboration with Dr. Metz Subjective: Course reviewed with nursing staff Patient interviewed and examined All labs, imaging and other results reviewed Plan to have a family meeting today or tomorrow to discuss further plan of care. Additional labs still pending. will continue to monitor. Miralax prn for constipation. Exam: General: well developed, well nourished, alert and oriented x3 , in no acute distress Skin: No lesions, no stigmata chronic liver disease, no evidence of bleeding diathesis, jaundice Lymphatic: No palpable lymphadenopathy HEENT: No lesions Cardiovascular: Heart: Regular rate and rhythm, no murmurs, gallops or rubs. Respiratory: Lungs clear to auscultation and percussion, no wheezing, no rubs Gastrointestinal and Liver: Abdomen: Soft, epigastric tenderness, not distended , no hernias, no masses, no organomegaly, no ascites, no guarding, no rebound tenderness, hypoactive bowel sounds. Extremities: No cyanosis, clubbing, or edema. Problems: Exam/Review of Systems Vital Signs Vitals Vital Signs Date Time Temp Pulse Resp B/P Pulse Ox O2 Delivery O2 Flow Rate FiO2 07/08/17 08:00 64 07/08/17 07:42 98.3 17 122/59 98 07/05/17 12:00 Room Air 07/04/17 07:40 2.0 Intake and Output 07/07/17 07/07/17 07/08/17 14:59 22:59 06:59 Intake Total 245 ml 950 ml 450 ml Balance 245 ml 950 ml 450 ml Results Result Diagram: 07/08/17 0644 07/08/17 0644 Results 24 hrs Laboratory Tests Test 07/07/17 12:53 07/07/17 17:34 07/07/17 21:53 07/08/17 06:44 Bedside Glucose 90 101 99 White Blood Count 19.4 H Red Blood Count 2.64 L Hemoglobin 8.2 L Hematocrit 23.2 L Mean Corpuscular Volume 87.9 Mean Corpuscular Hemoglobin 31.1 Mean Corpuscular Hemoglobin Concent 35.3 Red Cell Distribution Width 15.3 H Platelet Count 230 # Mean Platelet Volume 11.0 H Neutrophils % 92.7 H Lymphocytes % 4.1 L Monocytes % 2.2 Eosinophils % 0.1 Basophils % 0.1 Nucleated Red Blood Cells % 0.0 Neutrophils # 18.0 H Lymphocytes # 0.8 Monocytes # 0.4 Eosinophils # 0.0 Basophils # 0.0 Nucleated Red Blood Cells # 0.0 Sodium Level 132 L Potassium Level 3.8 Chloride Level 104 Carbon Dioxide Level 22 Anion Gap 10 Blood Urea Nitrogen 16 Creatinine 0.50 Glucose Level 92 Calcium Level 8.4 Total Bilirubin 1.3 Direct Bilirubin 0.00 Indirect Bilirubin 1.3 H Aspartate Amino Transf (AST/SGOT) 47 H Alanine Aminotransferase (ALT/SGPT) 55 Alkaline Phosphatase 263 H Total Protein 6.2 Albumin 2.2 L Globulin 4.00 H Albumin/Globulin Ratio 0.55 Test 07/08/17 08:01 Bedside Glucose 101 Medications Medications Current Medications Ondansetron HCl (Zofran Inj) 4 mg Q6H PRN IV NAUSEA AND/OR VOMITING Last administered on 07/06/17 18:14; Admin Dose 4 MG; Start 07/01/17 at 15:30 Morphine Sulfate (morphine) 2 mg Q4H PRN IV SEVERE PAIN LEVEL 7-10 Last administered on 07/07/17 19:41; Admin Dose 2 MG; Start 07/01/17 at 15:30 Metoprolol Tartrate (Lopressor) 25 mg BID PO Last administered on 07/08/17 09 :12; Admin Dose 25 MG; Start 07/01/17 at 21:00 Diagnostic Test (Pha) (Accu-Chek) 1 ea 02 XX ; Start 07/02/17 at 02:00 Insulin Glargine (Lantus) 6 unit DAILY@20 SC Last administered on 07/07/17 22 :04; Admin Dose 6 UNIT; Start 07/01/17 at 20:00 Miscellaneous Information 1 ea NOTE XX ; Start 07/01/17 at 23:30 Glucose (Glutose) 15 gm Q15M PRN PO DECREASED GLUCOSE; Start 07/01/17 at 23:30 Glucose (Glutose) 22.5 gm Q15M PRN PO DECREASED GLUCOSE; Start 07/01/17 at 23: 30 Dextrose (D50w Syringe) 25 ml Q15M PRN IV DECREASED GLUCOSE; Start 07/01/17 at 23:30 Dextrose (D50w Syringe) 50 ml Q15M PRN IV DECREASED GLUCOSE; Start 07/01/17 at 23:30 Glucagon (Glucagen) 1 mg Q15M PRN IM DECREASED GLUCOSE; Start 07/01/17 at 23: 30 Glucose (Glutose) 15 gm Q15M PRN BUCCAL DECREASED GLUCOSE Last administered on 07/03/17 14:52; Admin Dose 15 GM; Start 07/01/17 at 23:30 Aspirin (Aspirin) 81 mg DAILY PO Last administered on 07/08/17 09:12; Admin Dose 81 MG; Start 07/02/17 at 12:30 Fluconazole (Diflucan) 100 mg DAILY PO Last administered on 07/08/17 09:12; Admin Dose 100 MG; Start 07/05/17 at 09:00 Hydralazine HCl (Apresoline) 10 mg Q4H PRN IV ELEVATED BLOOD PRESSURE Last administered on 07/08/17 03:41; Admin Dose 10 MG; Start 07/05/17 at 01:00 Enoxaparin Sodium (Lovenox) 40 mg DAILY SC Last administered on 07/08/17 09: 14; Admin Dose 40 MG; Start 07/06/17 at 09:00 Simethicone (Mylicon) 80 mg TID PRN GTB DISTENSION/GAS/BLOATING Last administered on 07/06/17 17:50; Admin Dose 80 MG; Start 07/06/17 at 12:30 Polyethylene Glycol (Miralax) 17 gm BID PRN PO constipation; Start 07/06/17 at 12:30 CHALO PEREZ Jul 08, 2017 10:01
--- NOTE | 2017-07-08 10:36 | PN ---
Date/Time of Note Date/Time of Note DATE: 07/08/17 TIME: 10:35 Assessment/Plan VTE Prophylaxis VTE Prophylaxis Intervention: LMWH Lines/Catheters [facility] Saline Lock Urinary Cath still in place: No Assessment/Plan Chief Complaint/Hosp Course Assessment and plan 1. SIRS, uti ID consult following. abx per ID recs 2. Possible non-ST elevated myocardial infarction (type 2). In the setting of sepsis and acute renal insufficiency. Can Conveyor Feeder following. continue with recs. appears stable 3. Acute kidney injury. improved. monitor renal panel 4. Transaminitis. Patient did have positive hepatitis B panel. GI following. suspect possibly secondary to liver mass. continue with surgeon recs 5. Type 2 diabetes. Continue insulin regimen. Adjust as needed. stable 6. Dyslipidemia. Will place on the fat low cholesterol diet. Statin medication on hold due to transaminitis. 7. 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 Follow-up with oncologist recommendations 8. Elevated D-dimer/fibrinogen. f/u hematology recs disposition and plan: Follow up with oncologist recommendations. awaiting final biopsy pathology. Continue with pain management. Tentative plan for family meeting. Discussed plan of care with Dr. Sánchez Problems: Subjective 24 Hr Interval Summary Free Text/Dictation Less abdominal discomfort reported today. Family remains at bedside. No other specific complaints. Exam/Review of Systems Vital Signs Vitals Vital Signs Date Time Temp Pulse Resp B/P Pulse Ox O2 Delivery O2 Flow Rate FiO2 07/08/17 08:00 64 07/08/17 07:42 98.3 17 122/59 98 07/05/17 12:00 Room Air 07/04/17 07:40 2.0 Intake and Output 07/07/17 07/07/17 07/08/17 15:00 23:00 07:00 Intake Total 245 ml 950 ml 450 ml Balance 245 ml 950 ml 450 ml Exam Constitutional: alert, oriented Psych: nl mood/affect Head: normocephalic Eyes: slightly icteric Neck: non-tender, supple Respiratory: normal air movement Cardiovascular: regular rate and rhythm Gastrointestinal: tender today Musculoskeletal: nl extremities to inspection Neurological: CIRCULATION ANALYST II-XII intact, nl mental status, nl speech Skin: nl turgor Results Result Diagram: 07/08/17 0644 07/08/17 0644 Results 24 hrs Laboratory Tests Test 07/07/17 12:53 07/07/17 17:34 07/07/17 21:53 07/08/17 06:44 Bedside Glucose 90 101 99 White Blood Count 19.4 H Red Blood Count 2.64 L Hemoglobin 8.2 L Hematocrit 23.2 L Mean Corpuscular Volume 87.9 Mean Corpuscular Hemoglobin 31.1 Mean Corpuscular Hemoglobin Concent 35.3 Red Cell Distribution Width 15.3 H Platelet Count 230 # Mean Platelet Volume 11.0 H Neutrophils % 92.7 H Lymphocytes % 4.1 L Monocytes % 2.2 Eosinophils % 0.1 Basophils % 0.1 Nucleated Red Blood Cells % 0.0 Neutrophils # 18.0 H Lymphocytes # 0.8 Monocytes # 0.4 Eosinophils # 0.0 Basophils # 0.0 Nucleated Red Blood Cells # 0.0 Sodium Level 132 L Potassium Level 3.8 Chloride Level 104 Carbon Dioxide Level 22 Anion Gap 10 Blood Urea Nitrogen 16 Creatinine 0.50 Glucose Level 92 Calcium Level 8.4 Total Bilirubin 1.3 Direct Bilirubin 0.00 Indirect Bilirubin 1.3 H Aspartate Amino Transf (AST/SGOT) 47 H Alanine Aminotransferase (ALT/SGPT) 55 Alkaline Phosphatase 263 H Total Protein 6.2 Albumin 2.2 L Globulin 4.00 H Albumin/Globulin Ratio 0.55 Test 07/08/17 08:01 Bedside Glucose 101 Medications Medications Current Medications Ondansetron HCl (Zofran Inj) 4 mg Q6H PRN IV NAUSEA AND/OR VOMITING Last administered on 07/06/17 18:14; Admin Dose 4 MG; Start 07/01/17 at 15:30 Morphine Sulfate (morphine) 2 mg Q4H PRN IV SEVERE PAIN LEVEL 7-10 Last administered on 07/07/17 19:41; Admin Dose 2 MG; Start 07/01/17 at 15:30 Metoprolol Tartrate (Lopressor) 25 mg BID PO Last administered on 07/08/17 09 :12; Admin Dose 25 MG; Start 07/01/17 at 21:00 Diagnostic Test (Pha) (Accu-Chek) 1 ea 02 XX ; Start 07/02/17 at 02:00 Insulin Glargine (Lantus) 6 unit DAILY@20 SC Last administered on 07/07/17 22 :04; Admin Dose 6 UNIT; Start 07/01/17 at 20:00 Miscellaneous Information 1 ea NOTE XX ; Start 07/01/17 at 23:30 Glucose (Glutose) 15 gm Q15M PRN PO DECREASED GLUCOSE; Start 07/01/17 at 23:30 Glucose (Glutose) 22.5 gm Q15M PRN PO DECREASED GLUCOSE; Start 07/01/17 at 23: 30 Dextrose (D50w Syringe) 25 ml Q15M PRN IV DECREASED GLUCOSE; Start 07/01/17 at 23:30 Dextrose (D50w Syringe) 50 ml Q15M PRN IV DECREASED GLUCOSE; Start 07/01/17 at 23:30 Glucagon (Glucagen) 1 mg Q15M PRN IM DECREASED GLUCOSE; Start 07/01/17 at 23: 30 Glucose (Glutose) 15 gm Q15M PRN BUCCAL DECREASED GLUCOSE Last administered on 07/03/17 14:52; Admin Dose 15 GM; Start 07/01/17 at 23:30 Aspirin (Aspirin) 81 mg DAILY PO Last administered on 07/08/17 09:12; Admin Dose 81 MG; Start 07/02/17 at 12:30 Fluconazole (Diflucan) 100 mg DAILY PO Last administered on 07/08/17 09:12; Admin Dose 100 MG; Start 07/05/17 at 09:00 Hydralazine HCl (Apresoline) 10 mg Q4H PRN IV ELEVATED BLOOD PRESSURE Last administered on 07/08/17 03:41; Admin Dose 10 MG; Start 07/05/17 at 01:00 Enoxaparin Sodium (Lovenox) 40 mg DAILY SC Last administered on 07/08/17 09: 14; Admin Dose 40 MG; Start 07/06/17 at 09:00 Simethicone (Mylicon) 80 mg TID PRN GTB DISTENSION/GAS/BLOATING Last administered on 07/06/17 17:50; Admin Dose 80 MG; Start 07/06/17 at 12:30 Polyethylene Glycol (Miralax) 17 gm BID PRN PO constipation; Start 07/06/17 at 12:30 SYDNIE EMMANUEL Jul 08, 2017 10:36
--- NOTE | 2017-07-08 17:05 | CONS ---
Date/Time of Note Date/Time of Note DATE: 07/08/17 TIME: 17:02 Assessment/Plan Assessment/Plan Chief Complaint/Hosp Course ID PROGRESS NOTE CURRENT ABX: =>Diflucan PO s/p Merrem -> DC'd 07/05/17 24H INTERVAL SUMMARY * No new issues, ABD pain ongoing -- lethargic, sitter present, NO fevers, WBC remains elevated, no fevers, VSS PHYSICAL EXAMINATION: GENERAL: VSS, afebrile, NAD HEENT: Unremarkable NECK: Supple, trach midline CHEST: Equal chest rise bilaterally, without dyspnea on observation HEART: RRR ABDOMEN: Soft, NT, ND EXT: Warm, no edema SKIN: No rash, no diaphoresis ID ASSESSMENT: 77 yo F admit VPH: 1. Systemic inflammatory response syndrome with leukocytosis, multifactorial. * BCx (-) * Leukocytosis = UTI + reactive inflammatory 2. Urinary tract infection. 3. Pancreatic vs hepatocellular carcinoma or cholangiocarcinoma w/ Liver mass measuring 10.1 cm as seen by liver ultrasound. * CT of liver did show:Multiple hepatic metastases with multiple low-density rim enhancing masses in the periportal region and surrounding and / or arising from the pancreas. Biliary ductal dilatation with cutoff of the common bile duct in the area of peripancreatic masses. * Elevated CA-19 & CA 125 * ERCP 07/05/17 Impression: Normal pancreatogram High-grade narrowing 3 cm segment approximately 2 cm from ampulla, smooth most consistent with extrinsic compression i.e. pancreatic mass Post brush cytology of the biliary tree area of narrowing Post standard sphincterotomy Post fully covered 10 x 80 mm Wallstent placement 4. Transaminitis -> s/p ERCP w/stent placement for biliary stricture 5. Hx of Hepatitis B per (+)HBCoreAB 6. Diabetes. 7. Acute renal failure. ABX ALLERGIES: NKDA INVASIVES: PIV CURRENT ABX: =>Diflucan PO s/p Merrem -> DC'd 07/05/17 ID RECOMMENDATIONS/PLAN: 1. ABX have been de-escalated 2. Await liver Bx . Problems: Consultation Date/Type/Reason Admit Date/Time Jul 01, 2017 at 14:33 Initial Consult Date 07/03/17 Type of Consultation: ID Referring Provider: MAK NOVAK CONTACT CLERK Exam/Review of Systems Vital Signs Vitals Vital Signs Date Time Temp Pulse Resp B/P Pulse Ox O2 Delivery O2 Flow Rate FiO2 07/08/17 15:50 98.3 63 17 120/67 98 07/05/17 12:00 Room Air 07/04/17 07:40 2.0 Intake and Output 07/07/17 07/07/17 07/08/17 15:00 23:00 07:00 Intake Total 245 ml 950 ml 450 ml Balance 245 ml 950 ml 450 ml Results Result Diagram: 07/08/17 0644 07/08/17 0644 Results 24 hrs Laboratory Tests Test 07/07/17 17:34 07/07/17 21:53 07/08/17 06:44 07/08/17 08:01 Bedside Glucose 101 99 101 White Blood Count 19.4 H Red Blood Count 2.64 L Hemoglobin 8.2 L Hematocrit 23.2 L Mean Corpuscular Volume 87.9 Mean Corpuscular Hemoglobin 31.1 Mean Corpuscular Hemoglobin Concent 35.3 Red Cell Distribution Width 15.3 H Platelet Count 230 # Mean Platelet Volume 11.0 H Neutrophils % 92.7 H Lymphocytes % 4.1 L Monocytes % 2.2 Eosinophils % 0.1 Basophils % 0.1 Nucleated Red Blood Cells % 0.0 Neutrophils # 18.0 H Lymphocytes # 0.8 Monocytes # 0.4 Eosinophils # 0.0 Basophils # 0.0 Nucleated Red Blood Cells # 0.0 Sodium Level 132 L Potassium Level 3.8 Chloride Level 104 Carbon Dioxide Level 22 Anion Gap 10 Blood Urea Nitrogen 16 Creatinine 0.50 Glucose Level 92 Calcium Level 8.4 Total Bilirubin 1.3 Direct Bilirubin 0.00 Indirect Bilirubin 1.3 H Aspartate Amino Transf (AST/SGOT) 47 H Alanine Aminotransferase (ALT/SGPT) 55 Alkaline Phosphatase 263 H Total Protein 6.2 Albumin 2.2 L Globulin 4.00 H Albumin/Globulin Ratio 0.55 Hepatitis B Surface Antibody INDETERMINATE Test 07/08/17 12:51 Bedside Glucose 138 Medications Medications Current Medications Ondansetron HCl (Zofran Inj) 4 mg Q6H PRN IV NAUSEA AND/OR VOMITING Last administered on 07/06/17 18:14; Admin Dose 4 MG; Start 07/01/17 at 15:30 Morphine Sulfate (morphine) 2 mg Q4H PRN IV SEVERE PAIN LEVEL 7-10 Last administered on 07/07/17 19:41; Admin Dose 2 MG; Start 07/01/17 at 15:30 Metoprolol Tartrate (Lopressor) 25 mg BID PO Last administered on 07/08/17 09 :12; Admin Dose 25 MG; Start 07/01/17 at 21:00 Diagnostic Test (Pha) (Accu-Chek) 1 ea 02 XX ; Start 07/02/17 at 02:00 Insulin Glargine (Lantus) 6 unit DAILY@20 SC Last administered on 07/07/17 22 :04; Admin Dose 6 UNIT; Start 07/01/17 at 20:00 Miscellaneous Information 1 ea NOTE XX ; Start 07/01/17 at 23:30 Glucose (Glutose) 15 gm Q15M PRN PO DECREASED GLUCOSE; Start 07/01/17 at 23:30 Glucose (Glutose) 22.5 gm Q15M PRN PO DECREASED GLUCOSE; Start 07/01/17 at 23: 30 Dextrose (D50w Syringe) 25 ml Q15M PRN IV DECREASED GLUCOSE; Start 07/01/17 at 23:30 Dextrose (D50w Syringe) 50 ml Q15M PRN IV DECREASED GLUCOSE; Start 07/01/17 at 23:30 Glucagon (Glucagen) 1 mg Q15M PRN IM DECREASED GLUCOSE; Start 07/01/17 at 23: 30 Glucose (Glutose) 15 gm Q15M PRN BUCCAL DECREASED GLUCOSE Last administered on 07/03/17 14:52; Admin Dose 15 GM; Start 07/01/17 at 23:30 Aspirin (Aspirin) 81 mg DAILY PO Last administered on 07/08/17 09:12; Admin Dose 81 MG; Start 07/02/17 at 12:30 Fluconazole (Diflucan) 100 mg DAILY PO Last administered on 07/08/17 09:12; Admin Dose 100 MG; Start 07/05/17 at 09:00 Hydralazine HCl (Apresoline) 10 mg Q4H PRN IV ELEVATED BLOOD PRESSURE Last administered on 07/08/17 03:41; Admin Dose 10 MG; Start 07/05/17 at 01:00 Enoxaparin Sodium (Lovenox) 40 mg DAILY SC Last administered on 07/08/17 09: 14; Admin Dose 40 MG; Start 07/06/17 at 09:00 Simethicone (Mylicon) 80 mg TID PRN GTB DISTENSION/GAS/BLOATING Last administered on 07/06/17t 17:50; Admin Dose 80 MG; Start 07/06/17 at 12:30 Polyethylene Glycol (Miralax) 17 gm BID PRN PO constipation; Start 07/06/17 at 12:30 ARIELLE CORNELL NP Jul 08, 2017 17:04
[2017-07-08] MEDS: INSULIN GLARGINE [LANtus] 3 ML PEN SC SCH (20:44)
[2017-07-08] MEDS: ONDANSETRON 4 MG INJ IV PRN (23:44)
[2017-07-09] VITALS (13 sets, daily range): BP systolic 131–163; BP diastolic 54–91; PULSE 57–67; RESP 16–20
[2017-07-09] MEDS: ACCU-CHEK XX SCH (02:00)
[2017-07-09] MEDS: INSULIN ASPART [NOVOLOG] 3 ML PEN SC SCH ×7 (08:00→20:06)
[2017-07-09 08:22] LABS: BASOPHILS % 0.2 % (0.0-2.0); EOSINOPHILS % 0.2 % (0.0-7.0); HEMATOCRIT 21.5 % (37.0-47.0); HEMOGLOBIN 7.7 g/dl (12.0-16.0); LYMPHOCYTES % 5.6 % (15.0-51.0); MEAN CORPUSCULAR HEMOGLOBIN 30.9 pg (29.0-33.0); MEAN CORPUSCULAR HGB CONC 35.8 g/dl (32.0-37.0); MEAN CORPUSCULAR VOLUME 86.3 fl (82.0-101.0); MONOCYTE # 0.6 10^3/ul (0.3-0.9); MONOCYTES % 3.3 % (0.0-11.0); NEUTROPHIL # 16.1 10^3/ul (1.6-7.5); NEUTROPHILS % 89.9 % (39.0-77.0); PLATELET COUNT 289 10^3/UL (140-415); RED BLOOD COUNT 2.49 10^6/ul (4.20-5.40); RED CELL DISTRIBUTION WIDTH 15.2 % (11.5-14.5); WHITE BLOOD COUNT 17.9 10^3/ul (4.8-10.8)
[2017-07-09 09:04] LABS: ALBUMIN 2.2 g/dl (3.3-4.9); ALBUMIN/GLOBULIN RATIO 0.59; BILIRUBIN,INDIRECT 0.9 mg/dl (0-1.1); BILIRUBIN,TOTAL 0.9 mg/dl (0.2-1.3); CALCIUM 8.1 mg/dl (8.4-10.2); CREATININE 0.48 mg/dl (0.44-1.00); TOTAL PROTEIN 5.9 g/dl (6.1-8.1)
[2017-07-09] MEDS: ENOXAPARIN 40 MG/0.4 ML SYG SC SCH (09:04)
[2017-07-09] MEDS: ASPIRIN 81 MG TAB PO SCH (09:04)
[2017-07-09] MEDS: METOPROLOL 25 MG TAB PO SCH ×2 (09:05→20:11)
[2017-07-09] MEDS: FLUCONAZOLE 100 MG TAB PO SCH (09:05)
--- NOTE | 2017-07-09 13:08 | CONS ---
Date/Time of Note Date/Time of Note DATE: 07/09/17 TIME: 13:06 Assessment/Plan Assessment/Plan Chief Complaint/Hosp Course SUBJECTIVE: No acute changes. The patient is alert, looks comfortable, no fevers. Family at bedside MICROBIOLOGY: Urine culture grew Maricruz albicans, blood culture negative. Stool for C. diff came back negative. ANTIMICROBIALS: Fluconazole. PHYSICAL EXAMINATION: GENERAL: Well-developed, elderly woman who is in no distress. HEENT: Head atraumatic, normocephalic. Sclerae anicteric. Buccal mucosa pink. NECK: Supple. CHEST: Rise symmetrical. Breath sounds diminished to bases. HEART: S1, S2. ABDOMEN: Soft. Bowel tones present. ASSESSMENT: 1. Systemic inflammatory response syndrome with leukocytosis likely secondary to underlying malignancy. 2. Maricruz albicans urinary tract infection. 3. Evidence of liver metastases as per CT of the abdomen, possible pancreatic cancer, s/p liver biopsy. 4. Acute renal failure. 5. Diabetes. 6. Questionable cholecystitis. PLAN: Patient remained stable. Continue fluconazole for a couple more days, pathology report noted, will follow oncology rec-s Discussed staff Problems: Consultation Date/Type/Reason Admit Date/Time Jul 01, 2017 at 14:33 Initial Consult Date 07/03/17 Type of Consultation: ID Referring Provider: MAK NOVAK BEHAVIOR ANALYST Exam/Review of Systems Vital Signs Vitals Vital Signs Date Time Temp Pulse Resp B/P Pulse Ox O2 Delivery O2 Flow Rate FiO2 07/09/17 12:23 59 07/09/17 11:52 98.9 17 138/59 98 07/05/17 12:00 Room Air Intake and Output 07/08/17 07/08/17 07/09/17 15:00 23:00 07:00 Intake Total 700 ml 500 ml Balance 700 ml 500 ml Results Result Diagram: 07/09/17 0708 07/09/17 0708 Results 24 hrs Laboratory Tests Test 07/08/17 17:29 07/08/17 20:15 07/09/17 07:08 07/09/17 08:23 Bedside Glucose 154 160 124 White Blood Count 17.9 H Red Blood Count 2.49 L Hemoglobin 7.7 L Hematocrit 21.5 L Mean Corpuscular Volume 86.3 Mean Corpuscular Hemoglobin 30.9 Mean Corpuscular Hemoglobin Concent 35.8 Red Cell Distribution Width 15.2 H Platelet Count 289 # Mean Platelet Volume 11.0 H Neutrophils % 89.9 H Lymphocytes % 5.6 L Monocytes % 3.3 Eosinophils % 0.2 Basophils % 0.2 Nucleated Red Blood Cells % 0.0 Neutrophils # 16.1 H Lymphocytes # 1.0 Monocytes # 0.6 Eosinophils # 0.0 Basophils # 0.0 Nucleated Red Blood Cells # 0.0 Sodium Level 130 L Potassium Level 4.0 Chloride Level 101 Carbon Dioxide Level 22 Anion Gap 11 Blood Urea Nitrogen 11 Creatinine 0.48 Glucose Level 102 Calcium Level 8.1 L Total Bilirubin 0.9 Direct Bilirubin 0.00 Indirect Bilirubin 0.9 Aspartate Amino Transf (AST/SGOT) 43 Alanine Aminotransferase (ALT/SGPT) 51 Alkaline Phosphatase 274 H Total Protein 5.9 L Albumin 2.2 L Globulin 3.70 H Albumin/Globulin Ratio 0.59 Medications Medications Current Medications Ondansetron HCl (Zofran Inj) 4 mg Q6H PRN IV NAUSEA AND/OR VOMITING Last administered on 07/08/17 23:44; Admin Dose 4 MG; Start 07/01/17 at 15:30 Morphine Sulfate (morphine) 2 mg Q4H PRN IV SEVERE PAIN LEVEL 7-10 Last administered on 07/07/17 19:41; Admin Dose 2 MG; Start 07/01/17 at 15:30 Metoprolol Tartrate (Lopressor) 25 mg BID PO Last administered on 07/09/17 09 :05; Admin Dose 25 MG; Start 07/01/17 at 21:00 Diagnostic Test (Pha) (Accu-Chek) 1 ea 02 XX ; Start 07/02/17 at 02:00 Insulin Glargine (Lantus) 6 unit DAILY@20 SC Last administered on 07/08/17 20 :44; Admin Dose 6 UNIT; Start 07/01/17 at 20:00 Miscellaneous Information 1 ea NOTE XX ; Start 07/01/17 at 23:30 Glucose (Glutose) 15 gm Q15M PRN PO DECREASED GLUCOSE; Start 07/01/17 at 23:30 Glucose (Glutose) 22.5 gm Q15M PRN PO DECREASED GLUCOSE; Start 07/01/17 at 23: 30 Dextrose (D50w Syringe) 25 ml Q15M PRN IV DECREASED GLUCOSE; Start 07/01/17 at 23:30 Dextrose (D50w Syringe) 50 ml Q15M PRN IV DECREASED GLUCOSE; Start 07/01/17 at 23:30 Glucagon (Glucagen) 1 mg Q15M PRN IM DECREASED GLUCOSE; Start 07/01/17 at 23: 30 Glucose (Glutose) 15 gm Q15M PRN BUCCAL DECREASED GLUCOSE Last administered on 07/03/17 14:52; Admin Dose 15 GM; Start 07/01/17 at 23:30 Aspirin (Aspirin) 81 mg DAILY PO Last administered on 07/09/17 09:04; Admin Dose 81 MG; Start 07/02/17 at 12:30 Fluconazole (Diflucan) 100 mg DAILY PO Last administered on 07/09/17 09:05; Admin Dose 100 MG; Start 07/05/17 at 09:00 Hydralazine HCl (Apresoline) 10 mg Q4H PRN IV ELEVATED BLOOD PRESSURE Last administered on 07/08/17 03:41; Admin Dose 10 MG; Start 07/05/17 at 01:00 Enoxaparin Sodium (Lovenox) 40 mg DAILY SC Last administered on 07/09/17 09: 04; Admin Dose 40 MG; Start 07/06/17 at 09:00 Simethicone (Mylicon) 80 mg TID PRN GTB DISTENSION/GAS/BLOATING Last administered on 07/06/17 17:50; Admin Dose 80 MG; Start 07/06/17 at 12:30 Polyethylene Glycol (Miralax) 17 gm BID PRN PO constipation Last administered on 07/08/17 18:39; Admin Dose 17 GM; Start 07/06/17 at 12:30 RUTHIE HUDSON NP Jul 09, 2017 13:08
--- NOTE | 2017-07-09 15:49 | PN ---
Date/Time of Note Date/Time of Note DATE: 07/09/17 TIME: 15:46 Assessment/Plan VTE Prophylaxis VTE Prophylaxis Intervention: LMWH Lines/Catheters IV C[facility]ter Type (from [facility] Urinary Cath still in place: No Assessment/Plan Chief Complaint/Hosp Course 1. S/P sepsis. Met SIRS criteria on admission: temperature less than 96.8F, heart rate greater than 90, respiratory rate greater than 20 with suspected infection. Pancultures negative so far except for Maricruz albicans in urine. On antimicrobials as per infectious diseases. 2. NSTEMI. A type II event in the setting of underlying sepsis and acute kidney injury. Status post evaluation by cardiology. 3. Atrial fibrillation with rapid ventricular response. Currently in sinus rhythm. Patient needs systemic anticoagulation. However, the patient is not an ideal candidate because of underlying anemia as well as the patient is being worked up for her underlying malignancy. 4. Cardiomyopathy. Ejection fraction of 45%. Continue beta-blockers. No evidence of any CHF exacerbation. 5. Acute kidney injury. Unknown baseline creatinine. Resolved with IV hydration. 6. Several hypodense lesions to the liver and a mass along the head of the pancreas. Status post CT-guided liver biopsy on 07/03/2017. Pathology showing poorly differentiated carcinoma with focal acinar formation and evidence of malignant epithelioid neoplasm. 7. Transaminitis with hyperbilirubinemia. Status post ERCP on 07/05/2017 that showed high-grade narrowing 3 cm segment approximately 2 cm from ampulla, small most consistent with extrinsic compression that is, pancreatic mass. Status post standard sphincterotomy and 1080 mm wall stent placement. 8. Type 2 diabetes mellitus. Hemoglobin A1c 6.7. Continue sliding scale insulin along with basal insulin and pre-meal insulin. 9. Dyslipidemia. Statins will be held because of underlying transaminitis. 10. Fluids, electrolytes, and nutrition. Clear liquids. Advance diet as per gastroenterology. 11. Hyponatremia. Monitor. 12. DVT prophylaxis with subcutaneous Lovenox. 13. Plan. Continue antimicrobials as per infectious diseases. Await further recommendations from oncology. Case discussed with Dr. Butler. Problems: Subjective 24 Hr Interval Summary Free Text/Dictation Denies any abdominal pain. Remains afebrile. Exam/Review of Systems Vital Signs Vitals Vital Signs Date Time Temp Pulse Resp B/P Pulse Ox O2 Delivery O2 Flow Rate FiO2 07/09/17 12:23 59 07/09/17 11:52 98.9 17 138/59 98 07/05/17 12:00 Room Air Intake and Output 07/08/17 07/08/17 07/09/17 14:59 22:59 06:59 Intake Total 700 ml 500 ml Balance 700 ml 500 ml Exam General: Adequately build 77 year-old female lying in bed in no apparent distress. HEENT: Normocephalic, atraumatic. Eyes: icteric sclerae, conjunctivae clear. ENT : Nasal septum midline, oral mucosa moist. Neck supple, JVD noticed. Respiratory: Bilaterally diminished breath sounds. No use of accessory muscles of respiration. No adventitious breath sounds. Cardiovascular: S1, S2 heard. Regular rate and rhythm. Abdomen: Soft, nontender, and nondistended. Bowel sounds positive in all 4 quadrants. Genitourinary: No CVA tenderness. Extremities: No cyanosis, no clubbing, no edema. Peripheral pulses palpable. Neurologic: Cranial nerves II through XII grossly intact. The patient is awake, alert, and oriented. Skin: Normal skin turgor. No skin rashes. Results Result Diagram: 07/09/17 0708 07/09/17 0708 Results 24 hrs Laboratory Tests Test 07/08/17 17:29 07/08/17 20:15 07/09/17 07:08 07/09/17 08:23 Bedside Glucose 154 160 124 White Blood Count 17.9 H Red Blood Count 2.49 L Hemoglobin 7.7 L Hematocrit 21.5 L Mean Corpuscular Volume 86.3 Mean Corpuscular Hemoglobin 30.9 Mean Corpuscular Hemoglobin Concent 35.8 Red Cell Distribution Width 15.2 H Platelet Count 289 # Mean Platelet Volume 11.0 H Neutrophils % 89.9 H Lymphocytes % 5.6 L Monocytes % 3.3 Eosinophils % 0.2 Basophils % 0.2 Nucleated Red Blood Cells % 0.0 Neutrophils # 16.1 H Lymphocytes # 1.0 Monocytes # 0.6 Eosinophils # 0.0 Basophils # 0.0 Nucleated Red Blood Cells # 0.0 Sodium Level 130 L Potassium Level 4.0 Chloride Level 101 Carbon Dioxide Level 22 Anion Gap 11 Blood Urea Nitrogen 11 Creatinine 0.48 Glucose Level 102 Calcium Level 8.1 L Total Bilirubin 0.9 Direct Bilirubin 0.00 Indirect Bilirubin 0.9 Aspartate Amino Transf (AST/SGOT) 43 Alanine Aminotransferase (ALT/SGPT) 51 Alkaline Phosphatase 274 H Total Protein 5.9 L Albumin 2.2 L Globulin 3.70 H Albumin/Globulin Ratio 0.59 Test 07/09/17 13:19 Bedside Glucose 146 Medications Medications Current Medications Ondansetron HCl (Zofran Inj) 4 mg Q6H PRN IV NAUSEA AND/OR VOMITING Last administered on 07/08/17 23:44; Admin Dose 4 MG; Start 07/01/17 at 15:30 Morphine Sulfate (morphine) 2 mg Q4H PRN IV SEVERE PAIN LEVEL 7-10 Last administered on 07/07/17 19:41; Admin Dose 2 MG; Start 07/01/17 at 15:30 Metoprolol Tartrate (Lopressor) 25 mg BID PO Last administered on 07/09/17 09 :05; Admin Dose 25 MG; Start 07/01/17 at 21:00 Diagnostic Test (Pha) (Accu-Chek) 1 ea 02 XX ; Start 07/02/17 at 02:00 Insulin Glargine (Lantus) 6 unit DAILY@20 SC Last administered on 07/08/17 20 :44; Admin Dose 6 UNIT; Start 07/01/17 at 20:00 Miscellaneous Information 1 ea NOTE XX ; Start 07/01/17 at 23:30 Glucose (Glutose) 15 gm Q15M PRN PO DECREASED GLUCOSE; Start 07/01/17 at 23:30 Glucose (Glutose) 22.5 gm Q15M PRN PO DECREASED GLUCOSE; Start 07/01/17 at 23: 30 Dextrose (D50w Syringe) 25 ml Q15M PRN IV DECREASED GLUCOSE; Start 07/01/17 at 23:30 Dextrose (D50w Syringe) 50 ml Q15M PRN IV DECREASED GLUCOSE; Start 07/01/17 at 23:30 Glucagon (Glucagen) 1 mg Q15M PRN IM DECREASED GLUCOSE; Start 07/01/17 at 23: 30 Glucose (Glutose) 15 gm Q15M PRN BUCCAL DECREASED GLUCOSE Last administered on 07/03/17 14:52; Admin Dose 15 GM; Start 07/01/17 at 23:30 Aspirin (Aspirin) 81 mg DAILY PO Last administered on 07/09/17 09:04; Admin Dose 81 MG; Start 07/02/17 at 12:30 Fluconazole (Diflucan) 100 mg DAILY PO Last administered on 07/09/17 09:05; Admin Dose 100 MG; Start 07/05/17 at 09:00 Hydralazine HCl (Apresoline) 10 mg Q4H PRN IV ELEVATED BLOOD PRESSURE Last administered on 07/08/17 03:41; Admin Dose 10 MG; Start 07/05/17 at 01:00 Enoxaparin Sodium (Lovenox) 40 mg DAILY SC Last administered on 07/09/17 09: 04; Admin Dose 40 MG; Start 07/06/17 at 09:00 Simethicone (Mylicon) 80 mg TID PRN GTB DISTENSION/GAS/BLOATING Last administered on 07/06/17 17:50; Admin Dose 80 MG; Start 07/06/17 at 12:30 Polyethylene Glycol (Miralax) 17 gm BID PRN PO constipation Last administered on 07/08/17 18:39; Admin Dose 17 GM; Start 07/06/17 at 12:30 MAK NOVAK EQUINE BREEDER Jul 09, 2017 15:48
--- NOTE | 2017-07-09 16:54 | CONS ---
Date/Time of Note Date/Time of Note DATE: 07/09/17 TIME: 16:53 Assessment/Plan Assessment/Plan Chief Complaint/Hosp Course NSTEMI: Type II in setting of sepsis/ episodes of afib with RVR. Trops downtrended from 0.14. EF 45% with WMA consistent with CAD. Will treat medically for now with active likely metastatic cancer Paroxysmal afib with RVR: Currently in sinus. CHADSVASC is 5 and would benefit from anticoagulation chcf but will defer for now as she is being evaluated for a liver/pancreatic mass. Liver/pancreatic mass: path confirmed malignancy Transaminitis: resolved. s/p biliary stent ILD: seen on CT Acute renal failure: resolved with IVF DM HTN -metoprolol 25mg BID -ASA -hold statin with transaminitis -further management per primary/onc/GI Problems: Consultation Date/Type/Reason Admit Date/Time Jul 01, 2017 at 14:33 Initial Consult Date 07/02/17 Type of Consultation: Cardiology Referring Provider: MAK NOVAK DISASTER RECOVERY MANAGER 24 HR Interval Summary Free Text/Dictation No o/n events. Remains in sinus. Still with abd pain. No chest pain or SOB, Exam/Review of Systems Vital Signs Vitals Vital Signs Date Time Temp Pulse Resp B/P Pulse Ox O2 Delivery O2 Flow Rate FiO2 07/09/17 16:24 57 07/09/17 15:51 98.2 16 144/65 99 07/05/17 12:00 Room Air Intake and Output 07/08/17 07/08/17 07/09/17 15:00 23:00 07:00 Intake Total 700 ml 500 ml Balance 700 ml 500 ml Exam Constitutional: alert Psych: nl mood/affect, no complaints Head: atraumatic, normocephalic Neck: No jvd Respiratory: clear to auscultation, No crackles/rales Cardiovascular: regular rate and rhythm, No edema, No systolic murmur Gastrointestinal: soft, No non-tender (mild diffuse) Neurological: nl mental status, nl speech Results Result Diagram: 07/09/17 0708 07/09/17 0708 Results 24 hrs Laboratory Tests Test 07/08/17 17:29 07/08/17 20:15 07/09/17 07:08 07/09/17 08:23 Bedside Glucose 154 160 124 White Blood Count 17.9 H Red Blood Count 2.49 L Hemoglobin 7.7 L Hematocrit 21.5 L Mean Corpuscular Volume 86.3 Mean Corpuscular Hemoglobin 30.9 Mean Corpuscular Hemoglobin Concent 35.8 Red Cell Distribution Width 15.2 H Platelet Count 289 # Mean Platelet Volume 11.0 H Neutrophils % 89.9 H Lymphocytes % 5.6 L Monocytes % 3.3 Eosinophils % 0.2 Basophils % 0.2 Nucleated Red Blood Cells % 0.0 Neutrophils # 16.1 H Lymphocytes # 1.0 Monocytes # 0.6 Eosinophils # 0.0 Basophils # 0.0 Nucleated Red Blood Cells # 0.0 Sodium Level 130 L Potassium Level 4.0 Chloride Level 101 Carbon Dioxide Level 22 Anion Gap 11 Blood Urea Nitrogen 11 Creatinine 0.48 Glucose Level 102 Calcium Level 8.1 L Total Bilirubin 0.9 Direct Bilirubin 0.00 Indirect Bilirubin 0.9 Aspartate Amino Transf (AST/SGOT) 43 Alanine Aminotransferase (ALT/SGPT) 51 Alkaline Phosphatase 274 H Total Protein 5.9 L Albumin 2.2 L Globulin 3.70 H Albumin/Globulin Ratio 0.59 Test 07/09/17 13:19 Bedside Glucose 146 Medications Medications Current Medications Ondansetron HCl (Zofran Inj) 4 mg Q6H PRN IV NAUSEA AND/OR VOMITING Last administered on 07/08/17 23:44; Admin Dose 4 MG; Start 07/01/17 at 15:30 Morphine Sulfate (morphine) 2 mg Q4H PRN IV SEVERE PAIN LEVEL 7-10 Last administered on 07/07/17 19:41; Admin Dose 2 MG; Start 07/01/17 at 15:30 Metoprolol Tartrate (Lopressor) 25 mg BID PO Last administered on 07/09/17 09 :05; Admin Dose 25 MG; Start 07/01/17 at 21:00 Diagnostic Test (Pha) (Accu-Chek) 1 ea 02 XX ; Start 07/02/17 at 02:00 Insulin Glargine (Lantus) 6 unit DAILY@20 SC Last administered on 07/08/17 20 :44; Admin Dose 6 UNIT; Start 07/01/17 at 20:00 Miscellaneous Information 1 ea NOTE XX ; Start 07/01/17 at 23:30 Glucose (Glutose) 15 gm Q15M PRN PO DECREASED GLUCOSE; Start 07/01/17 at 23:30 Glucose (Glutose) 22.5 gm Q15M PRN PO DECREASED GLUCOSE; Start 07/01/17 at 23: 30 Dextrose (D50w Syringe) 25 ml Q15M PRN IV DECREASED GLUCOSE; Start 07/01/17 at 23:30 Dextrose (D50w Syringe) 50 ml Q15M PRN IV DECREASED GLUCOSE; Start 07/01/17 at 23:30 Glucagon (Glucagen) 1 mg Q15M PRN IM DECREASED GLUCOSE; Start 07/01/17 at 23: 30 Glucose (Glutose) 15 gm Q15M PRN BUCCAL DECREASED GLUCOSE Last administered on 07/03/17 14:52; Admin Dose 15 GM; Start 07/01/17 at 23:30 Aspirin (Aspirin) 81 mg DAILY PO Last administered on 07/09/17 09:04; Admin Dose 81 MG; Start 07/02/17 at 12:30 Fluconazole (Diflucan) 100 mg DAILY PO Last administered on 07/09/17 09:05; Admin Dose 100 MG; Start 07/05/17 at 09:00 Hydralazine HCl (Apresoline) 10 mg Q4H PRN IV ELEVATED BLOOD PRESSURE Last administered on 07/08/17 03:41; Admin Dose 10 MG; Start 07/05/17 at 01:00 Enoxaparin Sodium (Lovenox) 40 mg DAILY SC Last administered on 07/09/17 09: 04; Admin Dose 40 MG; Start 07/06/17 at 09:00 Simethicone (Mylicon) 80 mg TID PRN GTB DISTENSION/GAS/BLOATING Last administered on 07/06/17 17:50; Admin Dose 80 MG; Start 07/06/17 at 12:30 Polyethylene Glycol (Miralax) 17 gm BID PRN PO constipation Last administered on 07/08/17 18:39; Admin Dose 17 GM; Start 07/06/17 at 12:30 TONIA CIFUENTES Jul 09, 2017 16:54
--- NOTE | 2017-07-09 17:08 | PN ---
Date/Time of Note Date/Time of Note DATE: 07/09/17 TIME: 16:59 Assessment/Plan VTE Prophylaxis VTE Prophylaxis Intervention: ambulation Lines/Catheters IV Catheter Type (from [facility]): [facility] Urinary Cath still in place: No Assessment/Plan Chief Complaint/Hosp Course Impression: Large liver mass/probably metastatic disease Abrupt cutoff of the common bile duct and MRI Rule out imminent biliary obstruction ERCP 07/05/17 Impression: Normal pancreatogram High-grade narrowing 3 cm segment approximately 2 cm from ampulla, smooth most consistent with extrinsic compression i.e. pancreatic mass Post brush cytology of the biliary tree area of narrowing Post standard sphincterotomy Post fully covered 10 x 80 mm Wallstent placement Ascites Rule out pancreatic CA Diabetes mellitus Hypertension Dyslipidemia Plan: Monitor Weight and I&O's Review cytology when available Continue MiraLax BID PRN Onc and palliative care to consult Follow-up visit was done in collaboration with Dr. Metz Subjective: Course reviewed with nursing staff Patient interviewed and examined All labs, imaging and other results reviewed Plan to continue monitoring I&O's. Additional labs still pending. Miralax prn for constipation. Exam: General: well developed, well nourished, alert and oriented x3 , in no acute distress Skin: No lesions, no stigmata chronic liver disease, no evidence of bleeding diathesis, jaundice Lymphatic: No palpable lymphadenopathy HEENT: No lesions Cardiovascular: Heart: Regular rate and rhythm, no murmurs, gallops or rubs. Respiratory: Lungs clear to auscultation and percussion, no wheezing, no rubs Gastrointestinal and Liver: Abdomen: Soft, epigastric tenderness, not distended , no hernias, no masses, no organomegaly, no ascites, no guarding, no rebound tenderness, hypoactive bowel sounds. Extremities: No cyanosis, clubbing, or edema. Problems: Exam/Review of Systems Vital Signs Vitals Vital Signs Date Time Temp Pulse Resp B/P Pulse Ox O2 Delivery O2 Flow Rate FiO2 07/09/17 16:24 57 07/09/17 15:51 98.2 16 144/65 99 07/05/17 12:00 Room Air Intake and Output 07/08/17 07/08/17 07/09/17 15:00 23:00 07:00 Intake Total 700 ml 500 ml Balance 700 ml 500 ml Results Result Diagram: 07/09/17 0708 07/09/17 0708 Results 24 hrs Laboratory Tests Test 07/08/17 17:29 07/08/17 20:15 07/09/17 07:08 07/09/17 08:23 Bedside Glucose 154 160 124 White Blood Count 17.9 H Red Blood Count 2.49 L Hemoglobin 7.7 L Hematocrit 21.5 L Mean Corpuscular Volume 86.3 Mean Corpuscular Hemoglobin 30.9 Mean Corpuscular Hemoglobin Concent 35.8 Red Cell Distribution Width 15.2 H Platelet Count 289 # Mean Platelet Volume 11.0 H Neutrophils % 89.9 H Lymphocytes % 5.6 L Monocytes % 3.3 Eosinophils % 0.2 Basophils % 0.2 Nucleated Red Blood Cells % 0.0 Neutrophils # 16.1 H Lymphocytes # 1.0 Monocytes # 0.6 Eosinophils # 0.0 Basophils # 0.0 Nucleated Red Blood Cells # 0.0 Sodium Level 130 L Potassium Level 4.0 Chloride Level 101 Carbon Dioxide Level 22 Anion Gap 11 Blood Urea Nitrogen 11 Creatinine 0.48 Glucose Level 102 Calcium Level 8.1 L Total Bilirubin 0.9 Direct Bilirubin 0.00 Indirect Bilirubin 0.9 Aspartate Amino Transf (AST/SGOT) 43 Alanine Aminotransferase (ALT/SGPT) 51 Alkaline Phosphatase 274 H Total Protein 5.9 L Albumin 2.2 L Globulin 3.70 H Albumin/Globulin Ratio 0.59 Test 07/09/17 13:19 Bedside Glucose 146 Medications Medications Current Medications Ondansetron HCl (Zofran Inj) 4 mg Q6H PRN IV NAUSEA AND/OR VOMITING Last administered on 07/08/17 23:44; Admin Dose 4 MG; Start 07/01/17 at 15:30 Morphine Sulfate (morphine) 2 mg Q4H PRN IV SEVERE PAIN LEVEL 7-10 Last administered on 07/07/17 19:41; Admin Dose 2 MG; Start 07/01/17 at 15:30 Metoprolol Tartrate (Lopressor) 25 mg BID PO Last administered on 07/09/17 09 :05; Admin Dose 25 MG; Start 07/01/17 at 21:00 Diagnostic Test (Pha) (Accu-Chek) 1 ea 02 XX ; Start 07/02/17 at 02:00 Insulin Glargine (Lantus) 6 unit DAILY@20 SC Last administered on 07/08/17 20 :44; Admin Dose 6 UNIT; Start 07/01/17 at 20:00 Miscellaneous Information 1 ea NOTE XX ; Start 07/01/17 at 23:30 Glucose (Glutose) 15 gm Q15M PRN PO DECREASED GLUCOSE; Start 07/01/17 at 23:30 Glucose (Glutose) 22.5 gm Q15M PRN PO DECREASED GLUCOSE; Start 07/01/17 at 23: 30 Dextrose (D50w Syringe) 25 ml Q15M PRN IV DECREASED GLUCOSE; Start 07/01/17 at 23:30 Dextrose (D50w Syringe) 50 ml Q15M PRN IV DECREASED GLUCOSE; Start 07/01/17 at 23:30 Glucagon (Glucagen) 1 mg Q15M PRN IM DECREASED GLUCOSE; Start 07/01/17 at 23: 30 Glucose (Glutose) 15 gm Q15M PRN BUCCAL DECREASED GLUCOSE Last administered on 07/03/17 14:52; Admin Dose 15 GM; Start 07/01/17 at 23:30 Aspirin (Aspirin) 81 mg DAILY PO Last administered on 07/09/17 09:04; Admin Dose 81 MG; Start 07/02/17 at 12:30 Fluconazole (Diflucan) 100 mg DAILY PO Last administered on 07/09/17 09:05; Admin Dose 100 MG; Start 07/05/17 at 09:00 Hydralazine HCl (Apresoline) 10 mg Q4H PRN IV ELEVATED BLOOD PRESSURE Last administered on 07/08/17 03:41; Admin Dose 10 MG; Start 07/05/17 at 01:00 Enoxaparin Sodium (Lovenox) 40 mg DAILY SC Last administered on 07/09/17 09: 04; Admin Dose 40 MG; Start 07/06/17 at 09:00 Simethicone (Mylicon) 80 mg TID PRN GTB DISTENSION/GAS/BLOATING Last administered on 07/06/17 17:50; Admin Dose 80 MG; Start 07/06/17 at 12:30 Polyethylene Glycol (Miralax) 17 gm BID PRN PO constipation Last administered on 07/08/17 18:39; Admin Dose 17 GM; Start 07/06/17 at 12:30 ROMA HICKS NP Jul 09, 2017 17:08
[2017-07-09] MEDS: ONDANSETRON 4 MG INJ IV PRN (18:04)
--- NOTE | 2017-07-09 18:30 | PN ---
DATE: 07/09/2017 SUBJECTIVE: The patient is experiencing some abdominal pain. No nausea or vomiting. No fevers or chills. No night sweats. OBJECTIVE: GENERAL: The patient is a well-developed, well-nourished, frail-appearing female who is in no acute distress. VITAL SIGNS: Temperature 98.2, pulse 60 per minute and regular, respirations 16, blood pressure 144 /65 and pulse oximetry is 99% on room air. SKIN: No ecchymosis, no petechiae or rashes but pale. HEENT: No mucosal lesions. No scleral icterus. NECK: Supple, no jugular venous distention or thyroid enlargement. CHEST: Clear to auscultation and percussion. No rhonchi, wheezes, rales or rubs. HEART: Regular sinus rhythm, no S3, S4 or murmurs. No rubs. ABDOMEN: Mildly distended but soft. There is some mild right-sided tenderness. There are no palpa ble masses or organomegaly. Bowel sounds are active. EXTREMITIES: Good range of motion. No clubbing, no edema or cyanosis. Ulcerations are noted on th e great toes bilaterally. NEUROLOGIC: Normal. LABORATORY: White count is 17,900, hemoglobin 7.7, hematocrit 21.5 and platelet count 289,000. Sod ium is 130, potassium 4, creatinine 0.48, BUN 11. Alkaline phosphatase 274, total bilirubin 0.9, T 43, ALT 41. ASSESSMENT: Hepatic mass, primary source unknown. DISCUSSION PLAN: I have discussed the findings with Dr. Hart in pathology. 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 Initially, it has been felt that this would be a primary cholangiocarcinoma or possibly a pancreatic lesion. When the patient did have a wall stent placed, the pancreatogram was negative. The narrowing of the common duct apparently was being caused by external compression. Immunohistochemical studies have been performed and, in fact, it is felt that this lesion has immuno histochemical findings which are not consistent with hepatobiliary or pancreatic lesions but rather most consistent with a malignancy of the lower GI tract. Possibilities include an appendiceal lesio n versus a colonic carcinoma. Have discussed this finding with Murali Hdz. I feel that a colonoscopy would be the next appropr iate procedure. Dictated By: ELI BALES MD SR/NTS Conf#: [id number] DID#: [id number] CC: FLAKITO LOWE MD;*End*
[2017-07-09] MEDS: INSULIN GLARGINE [LANtus] 3 ML PEN SC SCH (20:13)
[2017-07-09 23:11] LABS: PLATELET ANTIBODY - IGA POSITIVE (NEGATIVE); PLATELET ANTIBODY - IGG NEGATIVE (NEGATIVE); PLATELET ANTIBODY - IGM NEGATIVE (NEGATIVE)
[2017-07-10] VITALS (11 sets, daily range): BP systolic 130–153; BP diastolic 50–80; PULSE 56–63; RESP 16–60
[2017-07-10] MEDS: ACCU-CHEK XX SCH (01:02)
[2017-07-10 07:14] LABS: BASOPHILS % 0.2 % (0.0-2.0); EOSINOPHILS % 0.2 % (0.0-7.0); HEMOGLOBIN 7.5 g/dl (12.0-16.0); LYMPHOCYTES % 5.8 % (15.0-51.0); MEAN CORPUSCULAR HGB CONC 35.7 g/dl (32.0-37.0); MEAN CORPUSCULAR VOLUME 86.8 fl (82.0-101.0); MEAN PLATELET VOLUME 10.7 fl (7.4-10.4); MONOCYTE # 0.7 10^3/ul (0.3-0.9); MONOCYTES % 3.8 % (0.0-11.0); NEUTROPHIL # 15.6 10^3/ul (1.6-7.5); NEUTROPHILS % 89.5 % (39.0-77.0); PLATELET COUNT 332 10^3/UL (140-415); RED BLOOD COUNT 2.42 10^6/ul (4.20-5.40); WHITE BLOOD COUNT 17.5 10^3/ul (4.8-10.8)
[2017-07-10 07:35] LABS: MAGNESIUM 1.6 mg/dl (1.7-2.5); PHOSPHORUS 2.9 mg/dl (2.5-4.9)
[2017-07-10 07:46] LABS: ALBUMIN/GLOBULIN RATIO 0.58; BILIRUBIN,INDIRECT 0.6 mg/dl (0-1.1); BILIRUBIN,TOTAL 0.6 mg/dl (0.2-1.3); CALCIUM 8.1 mg/dl (8.4-10.2); CREATININE 0.47 mg/dl (0.44-1.00); POTASSIUM 3.8 mmol/L (3.5-5.1); TOTAL PROTEIN 5.4 g/dl (6.1-8.1)
--- NOTE | 2017-07-10 07:57 | PN ---
Date/Time of Note Date/Time of Note DATE: 07/10/17 TIME: 07:57 Assessment/Plan VTE Prophylaxis VTE Prophylaxis Intervention: LMWH Lines/Catheters IV Catheter Type (from [facility]): [facility] Urinary Cath still in place: No Assessment/Plan Chief Complaint/Hosp Course 1. S/P sepsis. Met SIRS criteria on admission: temperature less than 96.8F, heart rate greater than 90, respiratory rate greater than 20 with suspected infection. Pancultures negative so far except for Maricruz albicans in urine. On antimicrobials as per infectious diseases. 2. NSTEMI. A type II event in the setting of underlying sepsis and acute kidney injury. Status post evaluation by cardiology. 3. Atrial fibrillation with rapid ventricular response. Currently in sinus rhythm. Patient needs systemic anticoagulation. However, the patient is not an ideal candidate because of underlying anemia as well as the patient is being worked up for her underlying malignancy. 4. Cardiomyopathy. Ejection fraction of 45%. Continue beta-blockers. No evidence of any CHF exacerbation. 5. Acute kidney injury. Unknown baseline creatinine. Resolved with IV hydration. 6. Several hypodense lesions to the liver and a mass along the head of the pancreas. Status post CT-guided liver biopsy on 07/03/2017. Pathology showing poorly differentiated carcinoma with focal acinar formation and evidence of malignant epithelioid neoplasm. 7. Transaminitis with hyperbilirubinemia. Status post ERCP on 07/05/2017 that showed high-grade narrowing 3 cm segment approximately 2 cm from ampulla, small to most consistent with extrinsic compression that is, pancreatic mass. Status post standard sphincterotomy and 1080 mm wall stent placement. 8. Type 2 diabetes mellitus. Hemoglobin A1c 6.7. Continue sliding scale insulin along with basal insulin and pre-meal insulin. 9. Dyslipidemia. Statins will be held because of underlying transaminitis. 10. Fluids, electrolytes, and nutrition. Full liquids. Advance diet as per gastroenterology. 11. Hyponatremia. Monitor. 12. DVT prophylaxis with subcutaneous Lovenox. 13. Plan. Continue antimicrobials as per infectious diseases. Had a conversation with the the patient's oncologist on 07/09/2017. As per the oncologist, the patient probably has a primary neoplasm in the lower GI tract. The oncologist is recommending a colonoscopy. This was conveyed to the bunker worker who is already in the patient's case. Replete magnesium. Case discussed with Dr. Butler. Problems: Subjective 24 Hr Interval Summary Free Text/Dictation Denies any abdominal pain. Tolerating oral intake. Exam/Review of Systems Vital Signs Vitals Vital Signs Date Time Temp Pulse Resp B/P Pulse Ox O2 Delivery O2 Flow Rate FiO2 07/10/17 07:50 98.3 59 17 153/64 99 Intake and Output 07/09/17 07/09/17 07/10/17 14:59 22:59 06:59 Intake Total 700 ml 700 ml Balance 700 ml 700 ml Exam General: Adequately build 77 year-old female lying in bed in no apparent distress. HEENT: Normocephalic, atraumatic. Eyes: icteric sclerae, conjunctivae clear. ENT : Nasal septum midline, oral mucosa moist. Neck supple, JVD noticed. Respiratory: Bilaterally diminished breath sounds. No use of accessory muscles of respiration. No adventitious breath sounds. Cardiovascular: S1, S2 heard. Regular rate and rhythm. Abdomen: Soft, nontender, and nondistended. Bowel sounds positive in all 4 quadrants. Genitourinary: No CVA tenderness. Extremities: No cyanosis, no clubbing, no edema. Peripheral pulses palpable. Neurologic: Cranial nerves II through XII grossly intact. The patient is awake, alert, and oriented. Skin: Normal skin turgor. No skin rashes. Results Result Diagram: 07/10/17 0630 07/10/17 0630 Results 24 hrs Laboratory Tests Test 07/09/17 08:23 07/09/17 13:19 07/09/17 17:51 07/09/17 20:03 Bedside Glucose 124 146 158 146 Test 07/10/17 06:30 White Blood Count 17.5 H Red Blood Count 2.42 L Hemoglobin 7.5 L Hematocrit 21.0 L Mean Corpuscular Volume 86.8 Mean Corpuscular Hemoglobin 31.0 Mean Corpuscular Hemoglobin Concent 35.7 Red Cell Distribution Width 15.0 H Platelet Count 332 Mean Platelet Volume 10.7 H Neutrophils % 89.5 H Lymphocytes % 5.8 L Monocytes % 3.8 Eosinophils % 0.2 Basophils % 0.2 Nucleated Red Blood Cells % 0.0 Neutrophils # 15.6 H Lymphocytes # 1.0 Monocytes # 0.7 Eosinophils # 0.0 Basophils # 0.0 Nucleated Red Blood Cells # 0.0 Sodium Level 130 L Potassium Level 3.8 Chloride Level 101 Carbon Dioxide Level 23 Anion Gap 10 Blood Urea Nitrogen 9 Creatinine 0.47 Glucose Level 72 Calcium Level 8.1 L Phosphorus Level 2.9 Magnesium Level 1.6 L Total Bilirubin 0.6 Direct Bilirubin 0.00 Indirect Bilirubin 0.6 Aspartate Amino Transf (AST/SGOT) 37 Alanine Aminotransferase (ALT/SGPT) 51 Alkaline Phosphatase 254 H Total Protein 5.4 L Albumin 2.0 L Globulin 3.40 H Albumin/Globulin Ratio 0.58 Medications Medications Current Medications Ondansetron HCl (Zofran Inj) 4 mg Q6H PRN IV NAUSEA AND/OR VOMITING Last administered on 07/09/17 18:04; Admin Dose 4 MG; Start 07/01/17 at 15:30 Morphine Sulfate (morphine) 2 mg Q4H PRN IV SEVERE PAIN LEVEL 7-10 Last administered on 07/07/17 19:41; Admin Dose 2 MG; Start 07/01/17 at 15:30 Metoprolol Tartrate (Lopressor) 25 mg BID PO Last administered on 07/09/17 20 :11; Admin Dose 25 MG; Start 07/01/17 at 21:00 Diagnostic Test (Pha) (Accu-Chek) 1 ea 02 XX ; Start 07/02/17 at 02:00 Insulin Glargine (Lantus) 6 unit DAILY@20 SC Last administered on 07/09/17 20 :13; Admin Dose 6 UNIT; Start 07/01/17 at 20:00 Miscellaneous Information 1 ea NOTE XX ; Start 07/01/17 at 23:30 Glucose (Glutose) 15 gm Q15M PRN PO DECREASED GLUCOSE; Start 07/01/17 at 23:30 Glucose (Glutose) 22.5 gm Q15M PRN PO DECREASED GLUCOSE; Start 07/01/17 at 23: 30 Dextrose (D50w Syringe) 25 ml Q15M PRN IV DECREASED GLUCOSE; Start 07/01/17 at 23:30 Dextrose (D50w Syringe) 50 ml Q15M PRN IV DECREASED GLUCOSE; Start 07/01/17 at 23:30 Glucagon (Glucagen) 1 mg Q15M PRN IM DECREASED GLUCOSE; Start 07/01/17 at 23: 30 Glucose (Glutose) 15 gm Q15M PRN BUCCAL DECREASED GLUCOSE Last administered on 07/03/17 14:52; Admin Dose 15 GM; Start 07/01/17 at 23:30 Aspirin (Aspirin) 81 mg DAILY PO Last administered on 07/09/17 09:04; Admin Dose 81 MG; Start 07/02/17 at 12:30 Fluconazole (Diflucan) 100 mg DAILY PO Last administered on 07/09/17 09:05; Admin Dose 100 MG; Start 07/05/17 at 09:00 Hydralazine HCl (Apresoline) 10 mg Q4H PRN IV ELEVATED BLOOD PRESSURE Last administered on 07/08/17 03:41; Admin Dose 10 MG; Start 07/05/17 at 01:00 Enoxaparin Sodium (Lovenox) 40 mg DAILY SC Last administered on 07/09/17 09: 04; Admin Dose 40 MG; Start 07/06/17 at 09:00 Simethicone (Mylicon) 80 mg TID PRN GTB DISTENSION/GAS/BLOATING Last administered on 07/10/17 03:11; Admin Dose 80 MG; Start 07/06/17 at 12:30 Polyethylene Glycol (Miralax) 17 gm BID PRN PO constipation Last administered on 07/08/17 18:39; Admin Dose 17 GM; Start 07/06/17 at 12:30 MAK NOVAK NP Jul 10, 2017 07:57
[2017-07-10] MEDS ORDERED: MAGNESIUM SULFATE 2 GM/50 ML 50 ML IVPB ONE (08:00)
[2017-07-10] MEDS: INSULIN ASPART [NOVOLOG] 3 ML PEN SC SCH ×7 (08:00→21:00)
[2017-07-10] MEDS: FLUCONAZOLE 100 MG TAB PO SCH (08:55)
[2017-07-10] MEDS: ASPIRIN 81 MG TAB PO SCH (08:57)
[2017-07-10] MEDS: METOPROLOL 25 MG TAB PO SCH ×2 (08:57→21:00)
[2017-07-10] MEDS: ENOXAPARIN 40 MG/0.4 ML SYG SC SCH (09:00)
--- NOTE | 2017-07-10 14:51 | CONS ---
Date/Time of Note Date/Time of Note DATE: 07/10/17 TIME: 14:49 Assessment/Plan Assessment/Plan Chief Complaint/Hosp Course SUBJECTIVE: No acute changes. The patient is sleeping, looks comfortable, no fevers. MICROBIOLOGY: Urine culture grew Maricruz albicans, blood culture negative. Stool for C. diff came back negative. ANTIMICROBIALS: Fluconazole. PHYSICAL EXAMINATION: GENERAL: Well-developed, elderly woman who is in no distress. HEENT: Head atraumatic, normocephalic. Sclerae anicteric. Buccal mucosa pink. NECK: Supple. CHEST: Rise symmetrical. Breath sounds diminished to bases. HEART: S1, S2. ABDOMEN: Soft. Bowel tones present. ASSESSMENT: 1. Systemic inflammatory response syndrome with leukocytosis likely secondary to underlying malignancy. 2. Maricruz albicans urinary tract infection. 3. Evidence of liver metastases as per CT of the abdomen, liver biopsy demonstrated poorly differentiated carcinoma. 4. Acute renal failure. 5. Diabetes. PLAN: Patient remained stable. Continue present care, follow oncology rec-s, will require colonoscopy. CRISTÓBAL barcenas [email or web address] Discussed staff Problems: Consultation Date/Type/Reason Admit Date/Time Jul 01, 2017 at 14:33 Initial Consult Date 07/03/17 Type of Consultation: id Referring Provider: MAK NOVAK SENIOR SPEECH PATHOLOGIST Exam/Review of Systems Vital Signs Vitals Vital Signs Date Time Temp Pulse Resp B/P Pulse Ox O2 Delivery O2 Flow Rate FiO2 07/10/17 12:06 56 07/10/17 11:53 97.3 16 142/50 100 Intake and Output 07/09/17 07/09/17 07/10/17 15:00 23:00 07:00 Intake Total 700 ml 700 ml Balance 700 ml 700 ml Results Result Diagram: 07/10/17 0630 07/10/17 0630 Results 24 hrs Laboratory Tests Test 07/09/17 17:51 07/09/17 20:03 07/10/17 06:30 07/10/17 08:18 Bedside Glucose 158 146 102 White Blood Count 17.5 H Red Blood Count 2.42 L Hemoglobin 7.5 L Hematocrit 21.0 L Mean Corpuscular Volume 86.8 Mean Corpuscular Hemoglobin 31.0 Mean Corpuscular Hemoglobin Concent 35.7 Red Cell Distribution Width 15.0 H Platelet Count 332 Mean Platelet Volume 10.7 H Neutrophils % 89.5 H Lymphocytes % 5.8 L Monocytes % 3.8 Eosinophils % 0.2 Basophils % 0.2 Nucleated Red Blood Cells % 0.0 Neutrophils # 15.6 H Lymphocytes # 1.0 Monocytes # 0.7 Eosinophils # 0.0 Basophils # 0.0 Nucleated Red Blood Cells # 0.0 Sodium Level 130 L Potassium Level 3.8 Chloride Level 101 Carbon Dioxide Level 23 Anion Gap 10 Blood Urea Nitrogen 9 Creatinine 0.47 Glucose Level 72 Calcium Level 8.1 L Phosphorus Level 2.9 Magnesium Level 1.6 L Total Bilirubin 0.6 Direct Bilirubin 0.00 Indirect Bilirubin 0.6 Aspartate Amino Transf (AST/SGOT) 37 Alanine Aminotransferase (ALT/SGPT) 51 Alkaline Phosphatase 254 H Total Protein 5.4 L Albumin 2.0 L Globulin 3.40 H Albumin/Globulin Ratio 0.58 Test 07/10/17 12:06 Bedside Glucose 93 Medications Medications Current Medications Ondansetron HCl (Zofran Inj) 4 mg Q6H PRN IV NAUSEA AND/OR VOMITING Last administered on 07/09/17 18:04; Admin Dose 4 MG; Start 07/01/17 at 15:30 Morphine Sulfate (morphine) 2 mg Q4H PRN IV SEVERE PAIN LEVEL 7-10 Last administered on 07/07/17 19:41; Admin Dose 2 MG; Start 07/01/17 at 15:30 Metoprolol Tartrate (Lopressor) 25 mg BID PO Last administered on 07/10/17 08 :57; Admin Dose 25 MG; Start 07/01/17 at 21:00 Diagnostic Test (Pha) (Accu-Chek) 1 ea 02 XX ; Start 07/02/17 at 02:00 Insulin Glargine (Lantus) 6 unit DAILY@20 SC Last administered on 07/09/17 20 :13; Admin Dose 6 UNIT; Start 07/01/17 at 20:00 Miscellaneous Information 1 ea NOTE XX ; Start 07/01/17 at 23:30 Glucose (Glutose) 15 gm Q15M PRN PO DECREASED GLUCOSE; Start 07/01/17 at 23:30 Glucose (Glutose) 22.5 gm Q15M PRN PO DECREASED GLUCOSE; Start 07/01/17 at 23: 30 Dextrose (D50w Syringe) 25 ml Q15M PRN IV DECREASED GLUCOSE; Start 07/01/17 at 23:30 Dextrose (D50w Syringe) 50 ml Q15M PRN IV DECREASED GLUCOSE; Start 07/01/17 at 23:30 Glucagon (Glucagen) 1 mg Q15M PRN IM DECREASED GLUCOSE; Start 07/01/17 at 23: 30 Glucose (Glutose) 15 gm Q15M PRN BUCCAL DECREASED GLUCOSE Last administered on 07/03/17 14:52; Admin Dose 15 GM; Start 07/01/17 at 23:30 Aspirin (Aspirin) 81 mg DAILY PO Last administered on 07/10/17 08:57; Admin Dose 81 MG; Start 07/02/17 at 12:30 Fluconazole (Diflucan) 100 mg DAILY PO Last administered on 07/10/17 08:55; Admin Dose 100 MG; Start 07/05/17 at 09:00 Hydralazine HCl (Apresoline) 10 mg Q4H PRN IV ELEVATED BLOOD PRESSURE Last administered on 07/08/17 03:41; Admin Dose 10 MG; Start 07/05/17 at 01:00 Enoxaparin Sodium (Lovenox) 40 mg DAILY SC Last administered on 07/10/17 09: 00; Admin Dose 40 MG; Start 07/06/17 at 09:00 Simethicone (Mylicon) 80 mg TID PRN GTB DISTENSION/GAS/BLOATING Last administered on 07/10/17 08:55; Admin Dose 80 MG; Start 07/06/17 at 12:30 Polyethylene Glycol (Miralax) 17 gm BID PRN PO constipation Last administered on 07/08/17 18:39; Admin Dose 17 GM; Start 07/06/17 at 12:30 RUTHIE HUDSON NP Jul 10, 2017 14:50
--- NOTE | 2017-07-10 16:35 | CONS ---
Date/Time of Note Date/Time of Note DATE: 07/10/17 TIME: 16:33 Assessment/Plan Assessment/Plan Chief Complaint/Hosp Course NSTEMI: Type II in setting of sepsis/ episodes of afib with RVR. Trops downtrended from 0.14. EF 45% with WMA consistent with CAD. Will treat medically for now with active likely metastatic cancer Paroxysmal afib with RVR: Currently in sinus. CHADSVASC is 5 and would benefit from anticoagulation prison but will defer for now as she is being evaluated for a liver/pancreatic mass. Liver/pancreatic mass: path confirmed malignancy. Colonoscopy planned to eval for primary tumor Transaminitis: resolved. s/p biliary stent ILD: seen on CT Acute renal failure: resolved with IVF DM HTN -metoprolol 25mg BID -ASA -hold statin for now -ok to proceed with colonoscopy Problems: Consultation Date/Type/Reason Admit Date/Time Jul 01, 2017 at 14:33 Initial Consult Date 07/02/17 Type of Consultation: Cardiology Referring Provider: MAK NOVAK NP 24 HR Interval Summary Free Text/Dictation No o/n events. Plan for colonoscopy for evaluation of possible primary tumor Exam/Review of Systems Vital Signs Vitals Vital Signs Date Time Temp Pulse Resp B/P Pulse Ox O2 Delivery O2 Flow Rate FiO2 07/10/17 15:47 98.5 56 17 145/54 100 Intake and Output 07/09/17 07/09/17 07/10/17 15:00 23:00 07:00 Intake Total 700 ml 700 ml Balance 700 ml 700 ml Exam Constitutional: alert, oriented Psych: nl mood/affect, no complaints Head: atraumatic, normocephalic Eyes: nl conjunctiva Neck: No jvd Respiratory: clear to auscultation, No crackles/rales Cardiovascular: regular rate and rhythm, No edema, No systolic murmur Gastrointestinal: non-tender, soft, No distended Neurological: nl mental status, nl speech Results Result Diagram: 07/10/17 0630 07/10/17 0630 Results 24 hrs Laboratory Tests Test 07/09/17 17:51 07/09/17 20:03 07/10/17 06:30 07/10/17 08:18 Bedside Glucose 158 146 102 White Blood Count 17.5 H Red Blood Count 2.42 L Hemoglobin 7.5 L Hematocrit 21.0 L Mean Corpuscular Volume 86.8 Mean Corpuscular Hemoglobin 31.0 Mean Corpuscular Hemoglobin Concent 35.7 Red Cell Distribution Width 15.0 H Platelet Count 332 Mean Platelet Volume 10.7 H Neutrophils % 89.5 H Lymphocytes % 5.8 L Monocytes % 3.8 Eosinophils % 0.2 Basophils % 0.2 Nucleated Red Blood Cells % 0.0 Neutrophils # 15.6 H Lymphocytes # 1.0 Monocytes # 0.7 Eosinophils # 0.0 Basophils # 0.0 Nucleated Red Blood Cells # 0.0 Sodium Level 130 L Potassium Level 3.8 Chloride Level 101 Carbon Dioxide Level 23 Anion Gap 10 Blood Urea Nitrogen 9 Creatinine 0.47 Glucose Level 72 Calcium Level 8.1 L Phosphorus Level 2.9 Magnesium Level 1.6 L Total Bilirubin 0.6 Direct Bilirubin 0.00 Indirect Bilirubin 0.6 Aspartate Amino Transf (AST/SGOT) 37 Alanine Aminotransferase (ALT/SGPT) 51 Alkaline Phosphatase 254 H Total Protein 5.4 L Albumin 2.0 L Globulin 3.40 H Albumin/Globulin Ratio 0.58 Test 07/10/17 12:06 Bedside Glucose 93 Medications Medications Current Medications Ondansetron HCl (Zofran Inj) 4 mg Q6H PRN IV NAUSEA AND/OR VOMITING Last administered on 07/09/17 18:04; Admin Dose 4 MG; Start 07/01/17 at 15:30 Morphine Sulfate (morphine) 2 mg Q4H PRN IV SEVERE PAIN LEVEL 7-10 Last administered on 07/07/17 19:41; Admin Dose 2 MG; Start 07/01/17 at 15:30 Metoprolol Tartrate (Lopressor) 25 mg BID PO Last administered on 07/10/17 08 :57; Admin Dose 25 MG; Start 07/01/17 at 21:00 Diagnostic Test (Pha) (Accu-Chek) 1 ea 02 XX ; Start 07/02/17 at 02:00 Insulin Glargine (Lantus) 6 unit DAILY@20 SC Last administered on 07/09/17 20 :13; Admin Dose 6 UNIT; Start 07/01/17 at 20:00 Miscellaneous Information 1 ea NOTE XX ; Start 07/01/17 at 23:30 Glucose (Glutose) 15 gm Q15M PRN PO DECREASED GLUCOSE; Start 07/01/17 at 23:30 Glucose (Glutose) 22.5 gm Q15M PRN PO DECREASED GLUCOSE; Start 07/01/17 at 23: 30 Dextrose (D50w Syringe) 25 ml Q15M PRN IV DECREASED GLUCOSE; Start 07/01/17 at 23:30 Dextrose (D50w Syringe) 50 ml Q15M PRN IV DECREASED GLUCOSE; Start 07/01/17 at 23:30 Glucagon (Glucagen) 1 mg Q15M PRN IM DECREASED GLUCOSE; Start 07/01/17 at 23: 30 Glucose (Glutose) 15 gm Q15M PRN BUCCAL DECREASED GLUCOSE Last administered on 07/03/17 14:52; Admin Dose 15 GM; Start 07/01/17 at 23:30 Aspirin (Aspirin) 81 mg DAILY PO Last administered on 07/10/17 08:57; Admin Dose 81 MG; Start 07/02/17 at 12:30 Fluconazole (Diflucan) 100 mg DAILY PO Last administered on 07/10/17 08:55; Admin Dose 100 MG; Start 07/05/17 at 09:00 Hydralazine HCl (Apresoline) 10 mg Q4H PRN IV ELEVATED BLOOD PRESSURE Last administered on 07/08/17 03:41; Admin Dose 10 MG; Start 07/05/17 at 01:00 Enoxaparin Sodium (Lovenox) 40 mg DAILY SC Last administered on 07/10/17 09: 00; Admin Dose 40 MG; Start 07/06/17 at 09:00 Simethicone (Mylicon) 80 mg TID PRN GTB DISTENSION/GAS/BLOATING Last administered on 07/10/17 08:55; Admin Dose 80 MG; Start 07/06/17 at 12:30 Polyethylene Glycol (Miralax) 17 gm BID PRN PO constipation Last administered on 07/08/17 18:39; Admin Dose 17 GM; Start 07/06/17 at 12:30 TONIA CIFUENTES Jul 10, 2017 16:35
--- NOTE | 2017-07-10 17:10 | PN ---
Date/Time of Note Date/Time of Note DATE: 07/10/17 TIME: 17:02 Assessment/Plan VTE Prophylaxis VTE Prophylaxis Intervention: SCD's Lines/Catheters IV [facility] Saline Lock Urinary Cath still in place: No Assessment/Plan Chief Complaint/Hosp Course Assessment: Rule out colon cancer Anemia Large liver mass/probably metastatic disease Abrupt cutoff of the common bile duct and MRI Rule out imminent biliary obstruction ERCP 07/05/17 Impression: Normal pancreatogram High-grade narrowing 3 cm segment approximately 2 cm from ampulla, smooth most consistent with extrinsic compression i.e. pancreatic mass Post brush cytology of the biliary tree area of narrowing Post standard sphincterotomy Post fully covered 10 x 80 mm Wallstent placement Ascites Rule out pancreatic CA Diabetes mellitus Hypertension Dyslipidemia Plan: Transfuse 1 unit of PRBCs Colonoscopy tomorrow afternoon Initiate bowel prep Subjective: Course reviewed with nursing staff Patient interviewed and examined All labs, imaging and other results reviewed Plan to do colonoscopy tomorrow afternoon. Transfuse 1 unit of PRBCs. Recheck H&H in the morning. Initiate bowel prep. Exam performed in collaboration with Dr. Metz Exam: General: well developed, well nourished, alert and oriented x3 , in no acute distress Skin: No lesions, no stigmata chronic liver disease, no evidence of bleeding diathesis, jaundice Lymphatic: No palpable lymphadenopathy HEENT: No lesions Cardiovascular: Heart: Regular rate and rhythm, no murmurs, gallops or rubs. Respiratory: Lungs clear to auscultation and percussion, no wheezing, no rubs Gastrointestinal and Liver: Abdomen: Soft, epigastric tenderness, not distended , no hernias, no masses, no organomegaly, no ascites, no guarding, no rebound tenderness, hypoactive bowel sounds. Extremities: No cyanosis, clubbing, or edema. Problems: Exam/Review of Systems Vital Signs Vitals Vital Signs Date Time Temp Pulse Resp B/P Pulse Ox O2 Delivery O2 Flow Rate FiO2 07/10/17 15:47 98.5 56 17 145/54 100 Intake and Output 07/09/17 07/09/17 07/10/17 15:00 23:00 07:00 Intake Total 700 ml 700 ml Balance 700 ml 700 ml Results Result Diagram: 07/10/17 0630 07/10/17 0630 Results 24 hrs Laboratory Tests Test 07/09/17 17:51 07/09/17 20:03 07/10/17 06:30 07/10/17 08:18 Bedside Glucose 158 146 102 White Blood Count 17.5 H Red Blood Count 2.42 L Hemoglobin 7.5 L Hematocrit 21.0 L Mean Corpuscular Volume 86.8 Mean Corpuscular Hemoglobin 31.0 Mean Corpuscular Hemoglobin Concent 35.7 Red Cell Distribution Width 15.0 H Platelet Count 332 Mean Platelet Volume 10.7 H Neutrophils % 89.5 H Lymphocytes % 5.8 L Monocytes % 3.8 Eosinophils % 0.2 Basophils % 0.2 Nucleated Red Blood Cells % 0.0 Neutrophils # 15.6 H Lymphocytes # 1.0 Monocytes # 0.7 Eosinophils # 0.0 Basophils # 0.0 Nucleated Red Blood Cells # 0.0 Sodium Level 130 L Potassium Level 3.8 Chloride Level 101 Carbon Dioxide Level 23 Anion Gap 10 Blood Urea Nitrogen 9 Creatinine 0.47 Glucose Level 72 Calcium Level 8.1 L Phosphorus Level 2.9 Magnesium Level 1.6 L Total Bilirubin 0.6 Direct Bilirubin 0.00 Indirect Bilirubin 0.6 Aspartate Amino Transf (AST/SGOT) 37 Alanine Aminotransferase (ALT/SGPT) 51 Alkaline Phosphatase 254 H Total Protein 5.4 L Albumin 2.0 L Globulin 3.40 H Albumin/Globulin Ratio 0.58 Test 07/10/17 12:06 Bedside Glucose 93 Medications Medications Current Medications Ondansetron HCl (Zofran Inj) 4 mg Q6H PRN IV NAUSEA AND/OR VOMITING Last administered on 07/09/17 18:04; Admin Dose 4 MG; Start 07/01/17 at 15:30 Morphine Sulfate (morphine) 2 mg Q4H PRN IV SEVERE PAIN LEVEL 7-10 Last administered on 07/07/17 19:41; Admin Dose 2 MG; Start 07/01/17 at 15:30 Metoprolol Tartrate (Lopressor) 25 mg BID PO Last administered on 07/10/17 08 :57; Admin Dose 25 MG; Start 07/01/17 at 21:00 Diagnostic Test (Pha) (Accu-Chek) 1 ea 02 XX ; Start 07/02/17 at 02:00 Insulin Glargine (Lantus) 6 unit DAILY@20 SC Last administered on 07/09/17 20 :13; Admin Dose 6 UNIT; Start 07/01/17 at 20:00 Miscellaneous Information 1 ea NOTE XX ; Start 07/01/17 at 23:30 Glucose (Glutose) 15 gm Q15M PRN PO DECREASED GLUCOSE; Start 07/01/17 at 23:30 Glucose (Glutose) 22.5 gm Q15M PRN PO DECREASED GLUCOSE; Start 07/01/17 at 23: 30 Dextrose (D50w Syringe) 25 ml Q15M PRN IV DECREASED GLUCOSE; Start 07/01/17 at 23:30 Dextrose (D50w Syringe) 50 ml Q15M PRN IV DECREASED GLUCOSE; Start 07/01/17 at 23:30 Glucagon (Glucagen) 1 mg Q15M PRN IM DECREASED GLUCOSE; Start 07/01/17 at 23: 30 Glucose (Glutose) 15 gm Q15M PRN BUCCAL DECREASED GLUCOSE Last administered on 07/03/17 14:52; Admin Dose 15 GM; Start 07/01/17 at 23:30 Aspirin (Aspirin) 81 mg DAILY PO Last administered on 07/10/17 08:57; Admin Dose 81 MG; Start 07/02/17 at 12:30 Fluconazole (Diflucan) 100 mg DAILY PO Last administered on 07/10/17 08:55; Admin Dose 100 MG; Start 07/05/17 at 09:00 Hydralazine HCl (Apresoline) 10 mg Q4H PRN IV ELEVATED BLOOD PRESSURE Last administered on 07/08/17 03:41; Admin Dose 10 MG; Start 07/05/17 at 01:00 Enoxaparin Sodium (Lovenox) 40 mg DAILY SC Last administered on 07/10/17 09: 00; Admin Dose 40 MG; Start 07/06/17 at 09:00 Simethicone (Mylicon) 80 mg TID PRN GTB DISTENSION/GAS/BLOATING Last administered on 07/10/17 08:55; Admin Dose 80 MG; Start 07/06/17 at 12:30 Polyethylene Glycol (Miralax) 17 gm BID PRN PO constipation Last administered on 07/08/17 18:39; Admin Dose 17 GM; Start 07/06/17 at 12:30 ROMA HICKS NP Jul 10, 2017 17:10
[2017-07-10] MEDS ORDERED: BISACODYL (EC) 5 MG TAB PO ONE (17:30)
[2017-07-10] MEDS ORDERED: MAGNESIUM CITRATE 300 ML BTL PO ONE (17:30)
[2017-07-10] MEDS ORDERED: POLYETHYLENE GLYCOL 3350 119 GM POWDER PO ONE (18:30)
[2017-07-10] MEDS: INSULIN GLARGINE [LANtus] 3 ML PEN SC SCH (20:00)
--- NOTE | 2017-07-10 20:32 | PN ---
DATE: 07/10/2017 SUBJECTIVE: The patient has no new complaints. She is not complaining of abdominal pain. Does not have nausea or vomiting. OBJECTIVE: GENERAL: The patient is a well-developed, frail-appearing female who is resting quietly in bed. VITAL SIGNS: Temperature 98.5, pulse 58 per minute and regular, blood pressure 145/54, pulse oximet ry 100% on room air. SKIN: Pale. No ecchymosis, no petechiae or rashes. HEENT: Normocephalic. No evidence of trauma. Pupils equal, round and reactive to light and accomm odation. Sclerae are nonicteric. Oral mucosa is pale, but there are no mucosal lesions. NECK: Supple, no jugular venous distention or thyroid enlargement. No carotid bruits. CHEST: Clear to auscultation and percussion. No rhonchi, wheezes, rales or rubs. No pain on percu ssion of the spine, sternum, clavicles or ribs. HEART: Regular sinus rhythm, no S3, S4 or murmurs. No rubs. ABDOMEN: Some mild right-sided tenderness, but no masses or organomegaly noted. EXTREMITIES: No clubbing. No edema or cyanosis. There are the ulcerations noted bilaterally on th e great toes. NEUROLOGIC: No focal neurologic abnormalities. LABORATORY: White count 17,500 with an absolute neutrophil count of 15,600, hemoglobin of 7.5, mauri tocrit 21, MCV is 86.8, MCH 31, MCHC 33.7 and platelet count is 332,000. Sodium 130, potassium 3.8, BUN is 9, creatinine 0.7. ASSESSMENT: 1. Hepatic mass, primary source unknown. 2. Anemia, possibly due to gastrointestinal blood loss. DISCUSSION: As noted previously, the final path report does not confirm the suspicion of a pancreat icobiliary lesion but rather suggests that the lesion is from the lower GI tract including appendix or colonic. The patient did have some symptoms initially of diarrhea, pointing perhaps for a colonic lesion. vashti does not have overt iron deficiency, but hemoglobin has dropped almost 2 grams in the past 4 days, suggesting GI blood loss. Unfortunately, there are no stools for occult blood recorded. I do feel that the patient will require a colonoscopic examination in order to determine if there is a lesion either in the appendix or the colon. Will also request stools for occult blood. Dictated By: ELI BALES MD SR/NTS Conf#: [id number] DID#: [id number] CC: FLAKITO LOWE MD;*End*
[2017-07-11] VITALS (19 sets, daily range): BP systolic 128–179; BP diastolic 60–88; PULSE 54–72; RESP 10–20
[2017-07-11] MEDS: hydrALAzine 20 MG INJ IV PRN (01:36)
[2017-07-11] MEDS: ACCU-CHEK XX SCH (02:00)
[2017-07-11] MEDS ORDERED: POLYETHYLENE GLYCOL 3350 119 GM POWDER PO ONE (06:00)
[2017-07-11] MEDS ORDERED: BISACODYL (EC) 5 MG TAB PO ONE (08:00)
[2017-07-11] MEDS: METOPROLOL 25 MG TAB PO SCH ×2 (09:00→21:01)
[2017-07-11] MEDS: ASPIRIN 81 MG TAB PO SCH (09:00)
[2017-07-11] MEDS: ENOXAPARIN 40 MG/0.4 ML SYG SC SCH (09:00)
[2017-07-11] MEDS: FLUCONAZOLE 100 MG TAB PO SCH (09:00)
[2017-07-11] MEDS: INSULIN ASPART [NOVOLOG] 3 ML PEN SC SCH ×7 (09:17→20:45)
[2017-07-11 12:11] LABS: BASOPHILS % 0.3 % (0.0-2.0); EOSINOPHILS % 0.1 % (0.0-7.0); HEMATOCRIT 28.7 % (37.0-47.0); HEMOGLOBIN 10.1 g/dl (12.0-16.0); LYMPHOCYTES # 0.9 10^3/ul (0.8-2.9); LYMPHOCYTES % 6.5 % (15.0-51.0); MEAN CORPUSCULAR HEMOGLOBIN 30.9 pg (29.0-33.0); MEAN CORPUSCULAR HGB CONC 35.2 g/dl (32.0-37.0); MEAN CORPUSCULAR VOLUME 87.8 fl (82.0-101.0); MEAN PLATELET VOLUME 10.4 fl (7.4-10.4); MONOCYTE # 0.8 10^3/ul (0.3-0.9); MONOCYTES % 5.4 % (0.0-11.0); NEUTROPHIL # 12.2 10^3/ul (1.6-7.5); PLATELET COUNT 377 10^3/UL (140-415); RED BLOOD COUNT 3.27 10^6/ul (4.20-5.40)
[2017-07-11 12:33] LABS: PHOSPHORUS 3.2 mg/dl (2.5-4.9)
[2017-07-11 12:34] LABS: ALBUMIN 2.6 g/dl (3.3-4.9); ALBUMIN/GLOBULIN RATIO 0.65; BILIRUBIN,INDIRECT 1.9 mg/dl (0-1.1); BILIRUBIN,TOTAL 1.9 mg/dl (0.2-1.3); CALCIUM 8.2 mg/dl (8.4-10.2); CREATININE 0.48 mg/dl (0.44-1.00); POTASSIUM 4.3 mmol/L (3.5-5.1); TOTAL PROTEIN 6.6 g/dl (6.1-8.1)
[2017-07-11] MEDS ORDERED: SOD CHLORIDE 0.9% 1,000 ML IV SCH (13:30)
--- NOTE | 2017-07-11 14:24 | PN ---
Date/Time of Note Date/Time of Note DATE: 07/11/17 TIME: 14:20 Assessment/Plan VTE Prophylaxis VTE Prophylaxis Intervention: LMWH Lines/Catheters IV [facility] Type (from [facility]): Saline Lock Urinary Cath still in place: No Assessment/Plan Chief Complaint/Hosp Course 1. S/P sepsis. Met SIRS criteria on admission: temperature less than 96.8F, heart rate greater than 90, respiratory rate greater than 20 with suspected infection. Pancultures negative so far except for Maricruz albicans in urine. On antimicrobials as per infectious diseases. 2. NSTEMI. A type II event in the setting of underlying sepsis and acute kidney injury. Status post evaluation by cardiology. 3. Atrial fibrillation with rapid ventricular response. Currently in sinus rhythm. Patient needs systemic anticoagulation. However, the patient is not an ideal candidate because of underlying anemia as well as the patient is being worked up for her underlying malignancy. 4. Cardiomyopathy. Ejection fraction of 45%. Continue beta-blockers. No evidence of any CHF exacerbation. 5. Acute kidney injury. Unknown baseline creatinine. Resolved with IV hydration. 6. Several hypodense lesions to the liver and a mass along the head of the pancreas. Status post CT-guided liver biopsy on 07/03/2017. Pathology showing poorly differentiated carcinoma with focal acinar formation and evidence of malignant epithelioid neoplasm. 7. Transaminitis with hyperbilirubinemia. Status post ERCP on 07/05/2017 that showed high-grade narrowing 3 cm segment approximately 2 cm from ampulla, small to most consistent with extrinsic compression that is, pancreatic mass. Status post standard sphincterotomy and 1080 mm wall stent placement. 8. Type 2 diabetes mellitus. Hemoglobin A1c 6.7. Continue sliding scale insulin along with basal insulin and pre-meal insulin. 9. Dyslipidemia. Statins will be held because of underlying transaminitis. 10. Fluids, electrolytes, and nutrition. Full liquids. Advance diet as per gastroenterology. 11. Hyponatremia. Worsening. Will have nephrology evaluate the patient. 12. DVT prophylaxis with subcutaneous Lovenox. 13. Plan. Continue antimicrobials as per infectious diseases. Had a conversation with the the patient's oncologist on 07/09/2017. As per the oncologist, the patient probably has a primary neoplasm in the lower GI tract. The oncologist is recommending a colonoscopy. This was conveyed to the egg buyer who is already in the patient's case. The patient is scheduled for a colonoscopy today. Case discussed with Dr. Butler. Problems: Subjective 24 Hr Interval Summary Free Text/Dictation The patient awaiting colonoscopy. Exam/Review of Systems Vital Signs Vitals Vital Signs Date Time Temp Pulse Resp B/P Pulse Ox O2 Delivery O2 Flow Rate FiO2 07/11/17 12:21 56 07/11/17 11:36 98.1 18 160/68 99 Intake and Output 07/10/17 07/10/17 07/11/17 15:00 23:00 07:00 Intake Total 1300 ml 300 ml Balance 1300 ml 300 ml Exam General: Adequately build 77 year-old female lying in bed in no apparent distress. HEENT: Normocephalic, atraumatic. Eyes: icteric sclerae, conjunctivae clear. ENT : Nasal septum midline, oral mucosa moist. Neck supple, JVD noticed. Respiratory: Bilaterally diminished breath sounds. No use of accessory muscles of respiration. No adventitious breath sounds. Cardiovascular: S1, S2 heard. Regular rate and rhythm. Abdomen: Soft, nontender, and nondistended. Bowel sounds positive in all 4 quadrants. Genitourinary: No CVA tenderness. Extremities: No cyanosis, no clubbing, no edema. Peripheral pulses palpable. Neurologic: Cranial nerves II through XII grossly intact. The patient is awake, alert, and oriented. Skin: Normal skin turgor. No skin rashes. Results Result Diagram: 07/11/17 1130 07/11/17 1130 Results 24 hrs Laboratory Tests Test 07/10/17 17:25 07/10/17 21:23 07/11/17 08:10 07/11/17 11:30 Bedside Glucose 101 87 147 White Blood Count 14.0 H Red Blood Count 3.27 #L Hemoglobin 10.1 #L Hematocrit 28.7 #L Mean Corpuscular Volume 87.8 Mean Corpuscular Hemoglobin 30.9 Mean Corpuscular Hemoglobin Concent 35.2 Red Cell Distribution Width 15.0 H Platelet Count 377 Mean Platelet Volume 10.4 Neutrophils % 87.0 H Lymphocytes % 6.5 L Monocytes % 5.4 Eosinophils % 0.1 Basophils % 0.3 Nucleated Red Blood Cells % 0.0 Neutrophils # 12.2 H Lymphocytes # 0.9 Monocytes # 0.8 Eosinophils # 0.0 Basophils # 0.0 Nucleated Red Blood Cells # 0.0 Sodium Level 129 L Potassium Level 4.3 Chloride Level 98 Carbon Dioxide Level 24 Anion Gap 11 Blood Urea Nitrogen 10 Creatinine 0.48 Glucose Level 86 Calcium Level 8.2 L Phosphorus Level 3.2 Magnesium Level 2.0 Total Bilirubin 1.9 H Direct Bilirubin 0.00 Indirect Bilirubin 1.9 H Aspartate Amino Transf (AST/SGOT) 70 H Alanine Aminotransferase (ALT/SGPT) 53 Alkaline Phosphatase 274 H Total Protein 6.6 # Albumin 2.6 L Globulin 4.00 H Albumin/Globulin Ratio 0.65 Test 07/11/17 12:14 Bedside Glucose 112 Medications Medications Current Medications Ondansetron HCl (Zofran Inj) 4 mg Q6H PRN IV NAUSEA AND/OR VOMITING Last administered on 07/09/17 18:04; Admin Dose 4 MG; Start 07/01/17 at 15:30 Morphine Sulfate (morphine) 2 mg Q4H PRN IV SEVERE PAIN LEVEL 7-10 Last administered on 07/07/17 19:41; Admin Dose 2 MG; Start 07/01/17 at 15:30 Metoprolol Tartrate (Lopressor) 25 mg BID PO Last administered on 07/10/17 08 :57; Admin Dose 25 MG; Start 07/01/17 at 21:00 Diagnostic Test (Pha) (Accu-Chek) 1 ea 02 XX ; Start 07/02/17 at 02:00 Insulin Glargine (Lantus) 6 unit DAILY@20 SC Last administered on 07/09/17 20 :13; Admin Dose 6 UNIT; Start 07/01/17 at 20:00 Miscellaneous Information 1 ea NOTE XX ; Start 07/01/17 at 23:30 Glucose (Glutose) 15 gm Q15M PRN PO DECREASED GLUCOSE; Start 07/01/17 at 23:30 Glucose (Glutose) 22.5 gm Q15M PRN PO DECREASED GLUCOSE; Start 07/01/17 at 23: 30 Dextrose (D50w Syringe) 25 ml Q15M PRN IV DECREASED GLUCOSE; Start 07/01/17 at 23:30 Dextrose (D50w Syringe) 50 ml Q15M PRN IV DECREASED GLUCOSE; Start 07/01/17 at 23:30 Glucagon (Glucagen) 1 mg Q15M PRN IM DECREASED GLUCOSE; Start 07/01/17 at 23: 30 Glucose (Glutose) 15 gm Q15M PRN BUCCAL DECREASED GLUCOSE Last administered on 07/03/17 14:52; Admin Dose 15 GM; Start 07/01/17 at 23:30 Aspirin (Aspirin) 81 mg DAILY PO Last administered on 07/10/17 08:57; Admin Dose 81 MG; Start 07/02/17 at 12:30 Hydralazine HCl (Apresoline) 10 mg Q4H PRN IV ELEVATED BLOOD PRESSURE Last administered on 07/11/17 01:36; Admin Dose 10 MG; Start 07/05/17 at 01:00 Enoxaparin Sodium (Lovenox) 40 mg DAILY SC Last administered on 07/10/17 09: 00; Admin Dose 40 MG; Start 07/06/17 at 09:00 Simethicone (Mylicon) 80 mg TID PRN GTB DISTENSION/GAS/BLOATING Last administered on 07/10/17 08:55; Admin Dose 80 MG; Start 07/06/17 at 12:30 Polyethylene Glycol 17 gm 17 gm BID PRN PO constipation Last administered on 18:39; Admin Dose 17 GM; Start 07/06/17 at 12:30 Sodium Chloride (NS) 1,000 ml @ 40 mls/hr Q24H IV Last administered on 13:08; Admin Dose 40 MLS/HR; Start 07/11/17 at 13:30; Stop 07/12/17 at 14 :29 MAK NOVAK NP Jul 11, 2017 14:24
--- NOTE | 2017-07-11 14:35 | CONS ---
Date/Time of Note Date/Time of Note DATE: 07/11/17 TIME: 14:32 Assessment/Plan Assessment/Plan Additional Assessment/Plan 1. 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 S/p Acute kidney injury 3. SIRS due to UTI 4. UTI with south 5. Metastatic Liver CA- unknown primary at this point, Bx showed poorly different carcinoma 6. HTN 6. H/o DM II with diabetic Foot neuropathy Plan : continue NS at 40 cc/hr x 1 liter I will order Urine Na, urine osmolarity, Serum Osmolariryt, Urine Uric acid and Uric acid level No evidence of IZZY at this point, no need for renal US Work up of Metastatic liver CA as per oncology IV abx as per ID, pt is on Fluconazole for fungal UTI BP stable Continue current care Thanks for ocnsultation, we will continue to follow up on patient Consultation Date/Type/Reason Admit Date/Time Jul 01, 2017 at 14:33 Date of Consultation: Jul 11, 2017 Type of Consultation: NEPHROLOGY Reason for Consultation Hyponatremia, Referring Provider: MAK NOVAK [employer]ER Hx of Present Illness 77-year-old female with past medical history essential hypertension, dyslipidemia, and type 2 diabetes mellitus who came to the emergency room with chief complaint of dizziness, abdominal pain, vomiting and diarrhea that has been going on for the past 1 week. pt was admitted for sepsis, NSTEMI, also has acute kidney injury with Cr bumped to 1.6 on admission which is now improved to normal, pt had a very highly elevated D dimer . pt is noted to have Liver US now s/p CT guided bx of mass. His Na on admission 132-130 which improved to 138 but again it dropped down to 129 and persistently remained low with pt c/o dizziness, Renal has been consulted for Hyponatremia.pt has KIRAN positive with speckled pattern. Constitutional: other (dizziness ), requiring O2 ENT: no complaints Respiratory: other, pleuritic pain, shortness of breath Cardiovascular: no complaints Gastrointestinal: no complaints Genitourinary: no complaints Musculoskeletal: no complaints Skin: no complaints Neurologic: no complaints Endocrine: no complaints Lymphatic: no complaints Psychological: no complaints Immunologic: no complaints Past Medical History Medical History: diabetes, high cholesterol, hypertension Past Surgical History Past Surgical Hx: no surgical history, other (LEFT arm orthopedic surgery) Family History Significant Family History: no pertinent family hx Social History Alcohol Use: none Smoking Status: Never smoker Drug Use: none Exam/Review of Systems Vital Signs Vitals Vital Signs Date Time Temp Pulse Resp B/P Pulse Ox O2 Delivery O2 Flow Rate FiO2 07/11/17 12:21 56 07/11/17 11:36 98.1 18 160/68 99 Intake and Output 07/10/17 07/10/17 07/11/17 15:00 23:00 07:00 Intake Total 1300 ml 300 ml Balance 1300 ml 300 ml Exam Constitutional: alert Psych: no complaints ENMT: nl external ears & nose Neck: non-tender, supple Respiratory: clear to auscultation, crackles/rales, diminished breath sounds, wheezing Cardiovascular: nl pulses, regular rate and rhythm Gastrointestinal: non-tender, soft Musculoskeletal: nl extremities to inspection Extremities: normal pulses Neurological: MANDOLIN REPAIR PERSON II-XII intact, nl mental status, nl speech, nl strength Results Result Diagram: 07/11/17 1130 07/11/17 1130 Results 24 hrs Laboratory Tests Test 07/10/17 17:25 07/10/17 21:23 07/11/17 08:10 07/11/17 11:30 Bedside Glucose 101 87 147 White Blood Count 14.0 H Red Blood Count 3.27 #L Hemoglobin 10.1 #L Hematocrit 28.7 #L Mean Corpuscular Volume 87.8 Mean Corpuscular Hemoglobin 30.9 Mean Corpuscular Hemoglobin Concent 35.2 Red Cell Distribution Width 15.0 H Platelet Count 377 Mean Platelet Volume 10.4 Neutrophils % 87.0 H Lymphocytes % 6.5 L Monocytes % 5.4 Eosinophils % 0.1 Basophils % 0.3 Nucleated Red Blood Cells % 0.0 Neutrophils # 12.2 H Lymphocytes # 0.9 Monocytes # 0.8 Eosinophils # 0.0 Basophils # 0.0 Nucleated Red Blood Cells # 0.0 Sodium Level 129 L Potassium Level 4.3 Chloride Level 98 Carbon Dioxide Level 24 Anion Gap 11 Blood Urea Nitrogen 10 Creatinine 0.48 Glucose Level 86 Calcium Level 8.2 L Phosphorus Level 3.2 Magnesium Level 2.0 Total Bilirubin 1.9 H Direct Bilirubin 0.00 Indirect Bilirubin 1.9 H Aspartate Amino Transf (AST/SGOT) 70 H Alanine Aminotransferase (ALT/SGPT) 53 Alkaline Phosphatase 274 H Total Protein 6.6 # Albumin 2.6 L Globulin 4.00 H Albumin/Globulin Ratio 0.65 Test 07/11/17 12:14 Bedside Glucose 112 Medications Medications Current Medications Ondansetron HCl (Zofran Inj) 4 mg Q6H PRN IV NAUSEA AND/OR VOMITING Last administered on 07/09/17 18:04; Admin Dose 4 MG; Start 07/01/17 at 15:30 Morphine Sulfate (morphine) 2 mg Q4H PRN IV SEVERE PAIN LEVEL 7-10 Last administered on 07/07/17 19:41; Admin Dose 2 MG; Start 07/01/17 at 15:30 Metoprolol Tartrate (Lopressor) 25 mg BID PO Last administered on 07/10/17 08 :57; Admin Dose 25 MG; Start 07/01/17 at 21:00 Diagnostic Test (Pha) (Accu-Chek) 1 ea 02 XX ; Start 07/02/17 at 02:00 Insulin Glargine (Lantus) 6 unit DAILY@20 SC Last administered on 07/09/17 20 :13; Admin Dose 6 UNIT; Start 07/01/17 at 20:00 Miscellaneous Information 1 ea NOTE XX ; Start 07/01/17 at 23:30 Glucose (Glutose) 15 gm Q15M PRN PO DECREASED GLUCOSE; Start 07/01/17 at 23:30 Glucose (Glutose) 22.5 gm Q15M PRN PO DECREASED GLUCOSE; Start 07/01/17 at 23: 30 Dextrose (D50w Syringe) 25 ml Q15M PRN IV DECREASED GLUCOSE; Start 07/01/17 at 23:30 Dextrose (D50w Syringe) 50 ml Q15M PRN IV DECREASED GLUCOSE; Start 07/01/17 at 23:30 Glucagon (Glucagen) 1 mg Q15M PRN IM DECREASED GLUCOSE; Start 07/01/17 at 23: 30 Glucose (Glutose) 15 gm Q15M PRN BUCCAL DECREASED GLUCOSE Last administered on 07/03/17 14:52; Admin Dose 15 GM; Start 07/01/17 at 23:30 Aspirin (Aspirin) 81 mg DAILY PO Last administered on 07/10/17 08:57; Admin Dose 81 MG; Start 07/02/17 at 12:30 Hydralazine HCl (Apresoline) 10 mg Q4H PRN IV ELEVATED BLOOD PRESSURE Last administered on 07/11/17 01:36; Admin Dose 10 MG; Start 07/05/17 at 01:00 Enoxaparin Sodium (Lovenox) 40 mg DAILY SC Last administered on 07/10/17 09: 00; Admin Dose 40 MG; Start 07/06/17 at 09:00 Simethicone (Mylicon) 80 mg TID PRN GTB DISTENSION/GAS/BLOATING Last administered on 07/10/17 08:55; Admin Dose 80 MG; Start 07/06/17 at 12:30 Polyethylene Glycol 17 gm 17 gm BID PRN PO constipation Last administered on 18:39; Admin Dose 17 GM; Start 07/06/17 at 12:30 Sodium Chloride (NS) 1,000 ml @ 40 mls/hr Q24H IV Last administered on 13:08; Admin Dose 40 MLS/HR; Start 07/11/17 at 13:30; Stop 07/12/17 at 14 :29 LUANA GODFREY MD Jul 11, 2017 14:35
--- NOTE | 2017-07-11 15:05 | CONS ---
Date/Time of Note Date/Time of Note DATE: 07/11/17 TIME: 15:04 Assessment/Plan Assessment/Plan Chief Complaint/Hosp Course SUBJECTIVE: No acute changes. The patient is awake, looks comfortable, no fevers. MICROBIOLOGY: Urine culture grew Maricruz albicans, blood culture negative. Stool for C. diff came back negative. PHYSICAL EXAMINATION: GENERAL: Well-developed, elderly woman who is in no distress. HEENT: Head atraumatic, normocephalic. Sclerae anicteric. Buccal mucosa pink. NECK: Supple. CHEST: Rise symmetrical. Breath sounds diminished to bases. HEART: S1, S2. ABDOMEN: Soft. Bowel tones present. ASSESSMENT: 1. Systemic inflammatory response syndrome with ongoing leukocytosis likely secondary to underlying malignancy. 2. Maricruz albicans urinary tract infection==> treated. 3. Evidence of liver metastases as per CT of the abdomen, liver biopsy demonstrated poorly differentiated carcinoma. 4. Acute renal failure. 5. Diabetes. PLAN: Patient remained stable. Continue present care, follow oncology rec-s, pending colonoscopy. Discussed staff/family at bedside Problems: Consultation Date/Type/Reason Admit Date/Time Jul 01, 2017 at 14:33 Initial Consult Date 07/03/17 Type of Consultation: id Referring Provider: MAK NOVAK DRY PLASTERER Exam/Review of Systems Vital Signs Vitals Vital Signs Date Time Temp Pulse Resp B/P Pulse Ox O2 Delivery O2 Flow Rate FiO2 07/11/17 12:21 56 07/11/17 11:36 98.1 18 160/68 99 Intake and Output 07/10/17 07/10/17 07/11/17 15:00 23:00 07:00 Intake Total 1300 ml 300 ml Balance 1300 ml 300 ml Results Result Diagram: 07/11/17 1130 07/11/17 1130 Results 24 hrs Laboratory Tests Test 07/10/17 17:25 07/10/17 21:23 07/11/17 08:10 07/11/17 11:30 Bedside Glucose 101 87 147 White Blood Count 14.0 H Red Blood Count 3.27 #L Hemoglobin 10.1 #L Hematocrit 28.7 #L Mean Corpuscular Volume 87.8 Mean Corpuscular Hemoglobin 30.9 Mean Corpuscular Hemoglobin Concent 35.2 Red Cell Distribution Width 15.0 H Platelet Count 377 Mean Platelet Volume 10.4 Neutrophils % 87.0 H Lymphocytes % 6.5 L Monocytes % 5.4 Eosinophils % 0.1 Basophils % 0.3 Nucleated Red Blood Cells % 0.0 Neutrophils # 12.2 H Lymphocytes # 0.9 Monocytes # 0.8 Eosinophils # 0.0 Basophils # 0.0 Nucleated Red Blood Cells # 0.0 Sodium Level 129 L Potassium Level 4.3 Chloride Level 98 Carbon Dioxide Level 24 Anion Gap 11 Blood Urea Nitrogen 10 Creatinine 0.48 Glucose Level 86 Calcium Level 8.2 L Phosphorus Level 3.2 Magnesium Level 2.0 Total Bilirubin 1.9 H Direct Bilirubin 0.00 Indirect Bilirubin 1.9 H Aspartate Amino Transf (AST/SGOT) 70 H Alanine Aminotransferase (ALT/SGPT) 53 Alkaline Phosphatase 274 H Total Protein 6.6 # Albumin 2.6 L Globulin 4.00 H Albumin/Globulin Ratio 0.65 Test 07/11/17 12:14 Bedside Glucose 112 Medications Medications Current Medications Ondansetron HCl (Zofran Inj) 4 mg Q6H PRN IV NAUSEA AND/OR VOMITING Last administered on 07/09/17 18:04; Admin Dose 4 MG; Start 07/01/17 at 15:30 Morphine Sulfate (morphine) 2 mg Q4H PRN IV SEVERE PAIN LEVEL 7-10 Last administered on 07/07/17 19:41; Admin Dose 2 MG; Start 07/01/17 at 15:30 Metoprolol Tartrate (Lopressor) 25 mg BID PO Last administered on 07/10/17 08 :57; Admin Dose 25 MG; Start 07/01/17 at 21:00 Diagnostic Test (Pha) (Accu-Chek) 1 ea 02 XX ; Start 07/02/17 at 02:00 Insulin Glargine (Lantus) 6 unit DAILY@20 SC Last administered on 07/09/17 20 :13; Admin Dose 6 UNIT; Start 07/01/17 at 20:00 Miscellaneous Information 1 ea NOTE XX ; Start 07/01/17 at 23:30 Glucose (Glutose) 15 gm Q15M PRN PO DECREASED GLUCOSE; Start 07/01/17 at 23:30 Glucose (Glutose) 22.5 gm Q15M PRN PO DECREASED GLUCOSE; Start 07/01/17 at 23: 30 Dextrose (D50w Syringe) 25 ml Q15M PRN IV DECREASED GLUCOSE; Start 07/01/17 at 23:30 Dextrose (D50w Syringe) 50 ml Q15M PRN IV DECREASED GLUCOSE; Start 07/01/17 at 23:30 Glucagon (Glucagen) 1 mg Q15M PRN IM DECREASED GLUCOSE; Start 07/01/17 at 23: 30 Glucose (Glutose) 15 gm Q15M PRN BUCCAL DECREASED GLUCOSE Last administered on 07/03/17 14:52; Admin Dose 15 GM; Start 07/01/17 at 23:30 Aspirin (Aspirin) 81 mg DAILY PO Last administered on 07/10/17 08:57; Admin Dose 81 MG; Start 07/02/17 at 12:30 Hydralazine HCl (Apresoline) 10 mg Q4H PRN IV ELEVATED BLOOD PRESSURE Last administered on 07/11/17 01:36; Admin Dose 10 MG; Start 07/05/17 at 01:00 Enoxaparin Sodium (Lovenox) 40 mg DAILY SC Last administered on 07/10/17 09: 00; Admin Dose 40 MG; Start 07/06/17 at 09:00 Simethicone (Mylicon) 80 mg TID PRN GTB DISTENSION/GAS/BLOATING Last administered on 07/10/17 08:55; Admin Dose 80 MG; Start 07/06/17 at 12:30 Polyethylene Glycol 17 gm 17 gm BID PRN PO constipation Last administered on 18:39; Admin Dose 17 GM; Start 07/06/17 at 12:30 Sodium Chloride (NS) 1,000 ml @ 40 mls/hr Q24H IV Last administered on 13:08; Admin Dose 40 MLS/HR; Start 07/11/17 at 13:30; Stop 07/12/17 at 14 :29 RUTHIE HUDSON NP Jul 11, 2017 15:05
[2017-07-11] MEDS ORDERED: LIDOCAINE 2% (SDV) 5 ML INJ ONE (18:37)
[2017-07-11] MEDS ORDERED: PROPOFOL 40 ML ONE (18:37)
--- NOTE | 2017-07-11 19:38 | OPPN ---
Date/Time of Note Date/Time of Note DATE: 07/11/17 TIME: 19:34 Proc Note GI Procedure Date 07/11/17 Indication: other (Rule out colon cancer) Pre-procedure Diagnosis Rule out colon cancer Post-procedure Diagnosis Impression: 1 cm pedunculated polyp rectosigmoid area. Snared and retrieved (fragments) Severe diverticulosis with angulation in the sigmoid colon Required use of upper endoscope to negotiate Small internal hemorrhoids Otherwise normal colonoscopy to cecum No evidence of colon cancer Plan: Continue present regimen Review pathology although irrelevant to the patient's main problem Oncology management . Procedure Performed: Colonoscopy (With snare polypectomy) Surgeon KEVIN JONES MD See signature line Alumni Coordinator none Anesthesia Type: general, MAC Anesthesiologist: KATHLEEN AVENDAÑO MD Tourniquet Time none EBL none Transfusion required none Biopsy 1: None Polyp 1: Sigmoid polyp Grafts/Implants none Tubes/Drains none Complication(s) none Disposition: PACU Procedure Description After informed consent, with the patient/relatives understanding the procedure, its indications and potential risks and complications, including but not limited to: Allergic reaction, bleeding, perforation, infection, and after all pertinent questions were answered to the patient's satisfaction, the patient/ relatives signed the witnessed informed consent. Following this, premedication was administered slowly IV push under careful cardiovascular and respiratory monitoring with pulse OXIMETRY, automatic blood pressure, and insole lip turner. Once the sedative effect was achieved, the patient was placed in the left lateral decubitus position, digital rectal examination was performed. The colonoscope was then introduced and advanced under visual control throughout all segments of the colon including: the rectum, sigmoid, descending colon, splenic flexure, transverse colon, hepatic flexure, ascending colon and finally reaching the cecum which was clearly identified by transillumination, finger indentation and the ileocecal valve. Careful examination of the mucosa of the lower gastrointestinal tract both on insertion as well as withdrawal of the instrument disclosed the following findings: PREPARATION QUALITY: , [fair, procedure completed] RECTAL EXAM: The anorectal area was visualized examined and digital rectal examination performed with the following findings: No evidence of perirectal disease, no masses. COLONIC MUCOSA: The mucosa of all segments of the colon was carefully examined and showed the following findings: There is a 1 cm pedunculated polyp in the rectosigmoid area. It was snared and retrieved. There is severe diverticulosis with angulation and tortuosity of the sigmoid colon which precluded advancement of the pediatric colonoscope. We had to resort to a upper endoscope to negotiate this area locally were able to reach the cecum. Otherwise the examined mucosa appears within normal limits. There is no evidence of inflammatory changes, polyps or neoplasms, vascular malformation, or any other abnormality. The instrument was then withdrawn, the patient tolerated the procedure well and was transferred out of the Endoscopy Suite awake and in good condition to continue recovery under observation. Copies To: CC: KEVIN JONES MD, MORDO MD Jul 11, 2017 19:38
[2017-07-11] MEDS: INSULIN GLARGINE [LANtus] 3 ML PEN SC SCH (21:04)
[2017-07-12] VITALS (9 sets, daily range): BP systolic 135–156; BP diastolic 58–65; PULSE 49–67; RESP 16–18
[2017-07-12] MEDS: ACCU-CHEK XX SCH (02:00)
[2017-07-12] MEDS: INSULIN ASPART [NOVOLOG] 3 ML PEN SC SCH ×6 (08:00→17:18)
[2017-07-12 08:29] LABS: BASOPHILS % 0.3 % (0.0-2.0); EOSINOPHILS % 0.3 % (0.0-7.0); HEMATOCRIT 26.4 % (37.0-47.0); HEMOGLOBIN 9.2 g/dl (12.0-16.0); LYMPHOCYTES # 0.9 10^3/ul (0.8-2.9); LYMPHOCYTES % 7.7 % (15.0-51.0); MEAN CORPUSCULAR HEMOGLOBIN 30.4 pg (29.0-33.0); MEAN CORPUSCULAR HGB CONC 34.8 g/dl (32.0-37.0); MEAN CORPUSCULAR VOLUME 87.1 fl (82.0-101.0); MEAN PLATELET VOLUME 10.5 fl (7.4-10.4); MONOCYTE # 0.7 10^3/ul (0.3-0.9); MONOCYTES % 6.4 % (0.0-11.0); NEUTROPHIL # 9.8 10^3/ul (1.6-7.5); NEUTROPHILS % 84.9 % (39.0-77.0); PLATELET COUNT 387 10^3/UL (140-415); RED BLOOD COUNT 3.03 10^6/ul (4.20-5.40); WHITE BLOOD COUNT 11.5 10^3/ul (4.8-10.8)
[2017-07-12 08:53] LABS: MAGNESIUM 1.7 mg/dl (1.7-2.5); PHOSPHORUS 3.6 mg/dl (2.5-4.9)
[2017-07-12] MEDS: ASPIRIN 81 MG TAB PO SCH (08:56)
[2017-07-12] MEDS: METOPROLOL 25 MG TAB PO SCH (08:57)
[2017-07-12 08:58] LABS: ALBUMIN 2.3 g/dl (3.3-4.9); ALBUMIN/GLOBULIN RATIO 0.62; BILIRUBIN,INDIRECT 0.8 mg/dl (0-1.1); BILIRUBIN,TOTAL 0.8 mg/dl (0.2-1.3); CALCIUM 8.2 mg/dl (8.4-10.2); CREATININE 0.49 mg/dl (0.44-1.00); POTASSIUM 3.7 mmol/L (3.5-5.1)
[2017-07-12] MEDS: ENOXAPARIN 40 MG/0.4 ML SYG SC SCH (08:59)
--- NOTE | 2017-07-12 09:34 | PN ---
Date/Time of Note Date/Time of Note DATE: 07/12/17 TIME: 09:31 Assessment/Plan VTE Prophylaxis VTE Prophylaxis Intervention: SCD's Lines/Catheters IV [facility] [place] Urinary Cath still in place: No Assessment/Plan Chief Complaint/Hosp Course Impression: Large liver mass/probably metastatic disease Abrupt cutoff of the common bile duct and MRI Rule out imminent biliary obstruction ERCP 07/05/17 Impression: Normal pancreatogram High-grade narrowing 3 cm segment approximately 2 cm from ampulla, smooth most consistent with extrinsic compression i.e. pancreatic mass Post brush cytology of the biliary tree area of narrowing Negative for malignant cells. The specimen is limited due to marked hypocellularity. Post standard sphincterotomy Post fully covered 10 x 80 mm Wallstent placement Rule out Colon CA Colonoscopy 07/11/17 Impression: 1 cm pedunculated polyp rectosigmoid area. Snared and retrieved (fragments) Severe diverticulosis with angulation in the sigmoid colon Required use of upper endoscope to negotiate Small internal hemorrhoids Otherwise normal colonoscopy to cecum No evidence of colon cancer Rule out pancreatic CA S/P sepsis NSTEMI Atrial fibrillation with RVR Diabetes mellitus Hypertension Dyslipidemia Plan: Continue present regimen Review pathology although irrelevant to the patient's main problem Oncology management Liver Bx: Metastatic poorly-differentiated adenocarcinoma. Patient seen in collaboration with Dr. Metz Subjective: Course reviewed with nursing staff Patient interviewed and examined All labs, imaging and other results reviewed The patient is currently feels well, discussed results of colonoscopy with patient and family. polyp removed- results pending. Currently denies n/v or abd pain. Hgb stable will continue monitor. Exam: General: well developed, well nourished, alert and oriented x3 , in no acute distress Skin: No lesions, no stigmata chronic liver disease, no evidence of bleeding diathesis, jaundice Lymphatic: No palpable lymphadenopathy HEENT: No lesions Cardiovascular: Heart: Regular rate and rhythm, no murmurs, gallops or rubs. Respiratory: Lungs clear to auscultation and percussion, no wheezing, no rubs Gastrointestinal and Liver: Abdomen: Soft, epigastric tenderness, not distended , no hernias, no masses, no organomegaly, no ascites, no guarding, no rebound tenderness, hypoactive bowel sounds. Extremities: No cyanosis, clubbing, or edema. Problems: Exam/Review of Systems Vital Signs Vitals Vital Signs Date Time Temp Pulse Resp B/P Pulse Ox O2 Delivery O2 Flow Rate FiO2 07/12/17 08:17 57 07/12/17 07:59 98.6 16 135/61 99 07/11/17 20:02 Room Air Results Result Diagram: 07/12/17 0738 07/12/17 0738 Results 24 hrs Laboratory Tests Test 07/11/17 11:30 07/11/17 12:14 07/11/17 17:45 07/11/17 20:45 White Blood Count 14.0 H Red Blood Count 3.27 #L Hemoglobin 10.1 #L Hematocrit 28.7 #L Mean Corpuscular Volume 87.8 Mean Corpuscular Hemoglobin 30.9 Mean Corpuscular Hemoglobin Concent 35.2 Red Cell Distribution Width 15.0 H Platelet Count 377 Mean Platelet Volume 10.4 Neutrophils % 87.0 H Lymphocytes % 6.5 L Monocytes % 5.4 Eosinophils % 0.1 Basophils % 0.3 Nucleated Red Blood Cells % 0.0 Neutrophils # 12.2 H Lymphocytes # 0.9 Monocytes # 0.8 Eosinophils # 0.0 Basophils # 0.0 Nucleated Red Blood Cells # 0.0 Sodium Level 129 L Potassium Level 4.3 Chloride Level 98 Carbon Dioxide Level 24 Anion Gap 11 Blood Urea Nitrogen 10 Creatinine 0.48 Glucose Level 86 Calcium Level 8.2 L Phosphorus Level 3.2 Magnesium Level 2.0 Total Bilirubin 1.9 H Direct Bilirubin 0.00 Indirect Bilirubin 1.9 H Aspartate Amino Transf (AST/SGOT) 70 H Alanine Aminotransferase (ALT/SGPT) 53 Alkaline Phosphatase 274 H Total Protein 6.6 # Albumin 2.6 L Globulin 4.00 H Albumin/Globulin Ratio 0.65 Bedside Glucose 112 71 133 Test 07/12/17 02:35 07/12/17 06:22 07/12/17 07:38 07/12/17 08:54 Bedside Glucose 113 118 Lab Scanned Report BLOOD TRANSFUSION White Blood Count 11.5 H Red Blood Count 3.03 L Hemoglobin 9.2 L Hematocrit 26.4 L Mean Corpuscular Volume 87.1 Mean Corpuscular Hemoglobin 30.4 Mean Corpuscular Hemoglobin Concent 34.8 Red Cell Distribution Width 15.0 H Platelet Count 387 Mean Platelet Volume 10.5 H Neutrophils % 84.9 H Lymphocytes % 7.7 L Monocytes % 6.4 Eosinophils % 0.3 Basophils % 0.3 Nucleated Red Blood Cells % 0.0 Neutrophils # 9.8 H Lymphocytes # 0.9 Monocytes # 0.7 Eosinophils # 0.0 Basophils # 0.0 Nucleated Red Blood Cells # 0.0 Sodium Level 130 L Potassium Level 3.7 Chloride Level 102 Carbon Dioxide Level 23 Anion Gap 9 Blood Urea Nitrogen 9 Creatinine 0.49 Glucose Level 96 Uric Acid 2.4 L Calcium Level 8.2 L Phosphorus Level 3.6 Magnesium Level 1.7 Total Bilirubin 0.8 Direct Bilirubin 0.00 Indirect Bilirubin 0.8 Aspartate Amino Transf (AST/SGOT) 40 Alanine Aminotransferase (ALT/SGPT) 47 Alkaline Phosphatase 230 H Total Protein 6.0 L Albumin 2.3 L Globulin 3.70 H Albumin/Globulin Ratio 0.62 Medications Medications Current Medications Ondansetron HCl (Zofran Inj) 4 mg Q6H PRN IV NAUSEA AND/OR VOMITING Last administered on 07/09/17 18:04; Admin Dose 4 MG; Start 07/01/17 at 15:30 Morphine Sulfate (morphine) 2 mg Q4H PRN IV SEVERE PAIN LEVEL 7-10 Last administered on 07/07/17 19:41; Admin Dose 2 MG; Start 07/01/17 at 15:30 Metoprolol Tartrate (Lopressor) 25 mg BID PO Last administered on 07/12/17 08 :57; Admin Dose 25 MG; Start 07/01/17 at 21:00 Diagnostic Test (Pha) (Accu-Chek) 1 ea 02 XX Last administered on 07/12/17 02 :00; Admin Dose 1 EA; Start 07/02/17 at 02:00 Insulin Glargine (Lantus) 6 unit DAILY@20 SC Last administered on 07/11/17 21 :04; Admin Dose 6 UNIT; Start 07/01/17 at 20:00 Miscellaneous Information 1 ea NOTE XX ; Start 07/01/17 at 23:30 Glucose (Glutose) 15 gm Q15M PRN PO DECREASED GLUCOSE; Start 07/01/17 at 23:30 Glucose (Glutose) 22.5 gm Q15M PRN PO DECREASED GLUCOSE; Start 07/01/17 at 23: 30 Dextrose (D50w Syringe) 25 ml Q15M PRN IV DECREASED GLUCOSE; Start 07/01/17 at 23:30 Dextrose (D50w Syringe) 50 ml Q15M PRN IV DECREASED GLUCOSE; Start 07/01/17 at 23:30 Glucagon (Glucagen) 1 mg Q15M PRN IM DECREASED GLUCOSE; Start 07/01/17 at 23: 30 Glucose (Glutose) 15 gm Q15M PRN BUCCAL DECREASED GLUCOSE Last administered on 07/03/17 14:52; Admin Dose 15 GM; Start 07/01/17 at 23:30 Aspirin (Aspirin) 81 mg DAILY PO Last administered on 07/12/17 08:56; Admin Dose 81 MG; Start 07/02/17 at 12:30 Hydralazine HCl (Apresoline) 10 mg Q4H PRN IV ELEVATED BLOOD PRESSURE Last administered on 07/11/17 01:36; Admin Dose 10 MG; Start 07/05/17 at 01:00 Enoxaparin Sodium (Lovenox) 40 mg DAILY SC Last administered on 07/12/17 08: 59; Admin Dose 40 MG; Start 07/06/17 at 09:00 Simethicone (Mylicon) 80 mg TID PRN GTB DISTENSION/GAS/BLOATING Last administered on 07/10/17 08:55; Admin Dose 80 MG; Start 07/06/17 at 12:30 Polyethylene Glycol 17 gm 17 gm BID PRN PO constipation Last administered on 18:39; Admin Dose 17 GM; Start 07/06/17 at 12:30 Sodium Chloride (NS) 1,000 ml @ 40 mls/hr Q24H IV Last administered on 13:08; Admin Dose 40 MLS/HR; Start 07/11/17 at 13:30; Stop 07/12/17 at 14 :29 CHALO PEREZ Jul 12, 2017 09:34
--- NOTE | 2017-07-12 09:56 | CONS ---
Date/Time of Note Date/Time of Note DATE: 07/12/17 TIME: 09:55 Assessment/Plan Assessment/Plan Chief Complaint/Hosp Course NSTEMI: Type II in setting of sepsis/ episodes of afib with RVR. Trops downtrended from 0.14. EF 45% with WMA consistent with CAD. Will treat medically for now with active likely metastatic cancer Paroxysmal afib with RVR: Currently in sinus. CHADSVASC is 5 and would benefit from anticoagulation retirement but will defer for now as she is being evaluated for a liver/pancreatic mass. Liver/pancreatic mass: path confirmed malignancy. Colonoscopy did not reveal a primary tumor Transaminitis: resolved. s/p biliary stent ILD: seen on CT Acute renal failure: resolved with IVF DM HTN -add lisinopril 5mg -metoprolol 25mg BID -ASA -hold statin for now Problems: Consultation Date/Type/Reason Admit Date/Time Jul 01, 2017 at 14:33 Initial Consult Date 07/02/17 Type of Consultation: Cardiology Referring Provider: MAK NOVAK PROCEDURAL NURSE 24 HR Interval Summary Free Text/Dictation [place] showed a small polyp but no mass. Otherwise no events. No further abdominal pain. Exam/Review of Systems Vital Signs Vitals Vital Signs Date Time Temp Pulse Resp B/P Pulse Ox O2 Delivery O2 Flow Rate FiO2 07/12/17 08:17 57 07/12/17 07:59 98.6 16 135/61 99 07/11/17 20:02 Room Air Exam Constitutional: alert, oriented Psych: nl mood/affect, no complaints Head: atraumatic, normocephalic Neck: supple, No jvd Respiratory: clear to auscultation, No crackles/rales Cardiovascular: regular rate and rhythm, No edema Gastrointestinal: non-tender, soft Neurological: nl mental status, nl speech Results Result Diagram: 07/12/17 0738 07/12/17 0738 Results 24 hrs Laboratory Tests Test 07/11/17 11:30 07/11/17 12:14 07/11/17 17:45 07/11/17 20:45 White Blood Count 14.0 H Red Blood Count 3.27 #L Hemoglobin 10.1 #L Hematocrit 28.7 #L Mean Corpuscular Volume 87.8 Mean Corpuscular Hemoglobin 30.9 Mean Corpuscular Hemoglobin Concent 35.2 Red Cell Distribution Width 15.0 H Platelet Count 377 Mean Platelet Volume 10.4 Neutrophils % 87.0 H Lymphocytes % 6.5 L Monocytes % 5.4 Eosinophils % 0.1 Basophils % 0.3 Nucleated Red Blood Cells % 0.0 Neutrophils # 12.2 H Lymphocytes # 0.9 Monocytes # 0.8 Eosinophils # 0.0 Basophils # 0.0 Nucleated Red Blood Cells # 0.0 Sodium Level 129 L Potassium Level 4.3 Chloride Level 98 Carbon Dioxide Level 24 Anion Gap 11 Blood Urea Nitrogen 10 Creatinine 0.48 Glucose Level 86 Calcium Level 8.2 L Phosphorus Level 3.2 Magnesium Level 2.0 Total Bilirubin 1.9 H Direct Bilirubin 0.00 Indirect Bilirubin 1.9 H Aspartate Amino Transf (AST/SGOT) 70 H Alanine Aminotransferase (ALT/SGPT) 53 Alkaline Phosphatase 274 H Total Protein 6.6 # Albumin 2.6 L Globulin 4.00 H Albumin/Globulin Ratio 0.65 Bedside Glucose 112 71 133 Test 07/12/17 02:35 07/12/17 06:22 07/12/17 07:38 07/12/17 08:54 Bedside Glucose 113 118 Lab Scanned Report BLOOD TRANSFUSION White Blood Count 11.5 H Red Blood Count 3.03 L Hemoglobin 9.2 L Hematocrit 26.4 L Mean Corpuscular Volume 87.1 Mean Corpuscular Hemoglobin 30.4 Mean Corpuscular Hemoglobin Concent 34.8 Red Cell Distribution Width 15.0 H Platelet Count 387 Mean Platelet Volume 10.5 H Neutrophils % 84.9 H Lymphocytes % 7.7 L Monocytes % 6.4 Eosinophils % 0.3 Basophils % 0.3 Nucleated Red Blood Cells % 0.0 Neutrophils # 9.8 H Lymphocytes # 0.9 Monocytes # 0.7 Eosinophils # 0.0 Basophils # 0.0 Nucleated Red Blood Cells # 0.0 Sodium Level 130 L Potassium Level 3.7 Chloride Level 102 Carbon Dioxide Level 23 Anion Gap 9 Blood Urea Nitrogen 9 Creatinine 0.49 Glucose Level 96 Osmolality 269 L Uric Acid 2.4 L Calcium Level 8.2 L Phosphorus Level 3.6 Magnesium Level 1.7 Total Bilirubin 0.8 Direct Bilirubin 0.00 Indirect Bilirubin 0.8 Aspartate Amino Transf (AST/SGOT) 40 Alanine Aminotransferase (ALT/SGPT) 47 Alkaline Phosphatase 230 H Total Protein 6.0 L Albumin 2.3 L Globulin 3.70 H Albumin/Globulin Ratio 0.62 Medications Medications Current Medications Ondansetron HCl (Zofran Inj) 4 mg Q6H PRN IV NAUSEA AND/OR VOMITING Last administered on 07/09/17 18:04; Admin Dose 4 MG; Start 07/01/17 at 15:30 Morphine Sulfate (morphine) 2 mg Q4H PRN IV SEVERE PAIN LEVEL 7-10 Last administered on 07/07/17 19:41; Admin Dose 2 MG; Start 07/01/17 at 15:30 Metoprolol Tartrate (Lopressor) 25 mg BID PO Last administered on 07/12/17 08 :57; Admin Dose 25 MG; Start 07/01/17 at 21:00 Diagnostic Test (Pha) (Accu-Chek) 1 ea 02 XX Last administered on 07/12/17 02 :00; Admin Dose 1 EA; Start 07/02/17 at 02:00 Insulin Glargine (Lantus) 6 unit DAILY@20 SC Last administered on 07/11/17 21 :04; Admin Dose 6 UNIT; Start 07/01/17 at 20:00 Miscellaneous Information 1 ea NOTE XX ; Start 07/01/17 at 23:30 Glucose (Glutose) 15 gm Q15M PRN PO DECREASED GLUCOSE; Start 07/01/17 at 23:30 Glucose (Glutose) 22.5 gm Q15M PRN PO DECREASED GLUCOSE; Start 07/01/17 at 23: 30 Dextrose (D50w Syringe) 25 ml Q15M PRN IV DECREASED GLUCOSE; Start 07/01/17 at 23:30 Dextrose (D50w Syringe) 50 ml Q15M PRN IV DECREASED GLUCOSE; Start 07/01/17 at 23:30 Glucagon (Glucagen) 1 mg Q15M PRN IM DECREASED GLUCOSE; Start 07/01/17 at 23: 30 Glucose (Glutose) 15 gm Q15M PRN BUCCAL DECREASED GLUCOSE Last administered on 07/03/17 14:52; Admin Dose 15 GM; Start 07/01/17 at 23:30 Aspirin (Aspirin) 81 mg DAILY PO Last administered on 07/12/17 08:56; Admin Dose 81 MG; Start 07/02/17 at 12:30 Hydralazine HCl (Apresoline) 10 mg Q4H PRN IV ELEVATED BLOOD PRESSURE Last administered on 11/29/17at 01:36; Admin Dose 10 MG; Start 07/05/17 at 01:00 Enoxaparin Sodium (Lovenox) 40 mg DAILY SC Last administered on 07/12/17 08: 59; Admin Dose 40 MG; Start 07/06/17 at 09:00 Simethicone (Mylicon) 80 mg TID PRN GTB DISTENSION/GAS/BLOATING Last administered on 07/10/17 08:55; Admin Dose 80 MG; Start 07/06/17 at 12:30 Polyethylene Glycol 17 gm 17 gm BID PRN PO constipation Last administered on 18:39; Admin Dose 17 GM; Start 07/06/17 at 12:30 Sodium Chloride (NS) 1,000 ml @ 40 mls/hr Q24H IV Last administered on 13:08; Admin Dose 40 MLS/HR; Start 07/11/17 at 13:30; Stop 07/12/17 at 14 :29 TONIA CIFUENTES Jul 12, 2017 09:56
[2017-07-12] MEDS ORDERED: LISINOPRIL 5 MG TAB PO SCH (10:00)
--- NOTE | 2017-07-12 13:50 | PDOCDIS ---
Discharge Instructions DIAGNOSIS Discharge Diagnosis Pancreatic mass. CONDITION Patient Condition: Stable HOME CARE INSTRUCTIONS: Special Diet: 1800 AUGIE 2 GRAM SODIUM DIET FOLLOW UP/APPOINTMENTS Follow-up Plan 1. Giovani Sheehan MD Specialty Oncology, Hematology Office Address [address] [facility] [place] [address] Office 2. Shaka Metz MD Specialty Gastroenterology Office Address [address] [facility] [place] [address] Office OTHER ORDERS: Other Orders: 1. Take a low-cholesterol, carbohydrate controlled diet. 2. Activities as tolerated. 3. Please follow-up with Dr. Sheehan (oncology) at the earliest. 4. Please follow-up with Dr. Metz (gastroenterology) in the next 4 weeks regarding the stent placed in the abdomen. 5. Take medications as per medication list. Avoid taking atorvastatin (because of abnormal liver function). Avoid taking metformin with Januvia because of abnormal liver function. Continue taking Januvia only. Start taking Eliquis for stroke prophylaxis. Caution with bleeding because of the blood thinning effect of Eliquis. 6. Please go to the nearest emergency room if you have significant abdominal pain, persistent nausea and vomiting, worsening of jaundice, persistent fevers, or any other unusual signs/symptoms. 1. [place] rhina dieta baja en colesterol y controlada con carbohidratos. 2. Actividades segn la tolerancia. 3. Por favor, bartolo un seguimiento con el Dr. Sheehan (oncologa) lo antes posible. 4. Bartolo un seguimiento con el Dr. Metz (gastroenterologa) en las prximas 4 semanas sobre el stent colocado en el abdomen. 5. [place] los medicamentos segn la lista de medicamentos. Evite slime atorvastatin (debido a la funcin anormal del hgado). Evite slime metformina con Januvia debido a rhina funcin heptica anormal. Contina tomando Januvia solamente. Comience a slime Eliquis para la profilaxis del accidente cerebrovascular. [place] con sangrado debido al efecto adelgazador de tere de Eliquis. 6. Vaya a la rehana de emergencias ms cercana si tiene dolor abdominal significativo, nuseas y vmitos persistentes, empeoramiento de la ictericia, fiebres persistentes o cualquier otro signo / sntoma inusual. MAK NOVAK NP Jul 12, 2017 13:50
--- NOTE | 2017-07-12 13:52 | PN ---
Date/Time of Note Date/Time of Note DATE: 07/12/17 TIME: 13:48 Assessment/Plan VTE Prophylaxis VTE Prophylaxis Intervention: LMWH Lines/Catheters IV [facility]ter [facility]from [facility] Saline Lock Urinary Cath still in place: No Assessment/Plan Assessment/Plan Pt did not have tumor found at colonoscopy. One polyp was removed. She appears stable and can likely be discharged soon. I would plan PET scan as outpatient to try to find the primary site or origin of the cancer. If nothing is found, it can be treated as presumed pancreatic tumor. Single agent gemcitabine may be a good starting point since her performance status is suboptimal. Subjective 24 Hr Interval Summary Free Text/Dictation Pt is comfortable. No new complaints. Exam/Review of Systems Vital Signs Vitals Vital Signs Date Time Temp Pulse Resp B/P Pulse Ox O2 Delivery O2 Flow Rate FiO2 07/12/17 12:21 56 07/12/17 11:26 97.5 18 138/62 98 07/11/17 20:02 Room Air Exam Constitutional: alert Psych: no complaints Head: normocephalic Eyes: nl conjunctiva, other (pallor) ENMT: nl external ears & nose Neck: supple Respiratory: clear to auscultation Cardiovascular: irregular rhythm (controlled rate) Gastrointestinal: non-tender, soft Musculoskeletal: nl extremities to inspection Results Result Diagram: 07/12/17 0738 07/12/17 0738 Results 24 hrs Laboratory Tests Test 07/11/17 17:45 07/11/17 20:45 07/12/17 02:35 07/12/17 06:22 Bedside Glucose 71 133 113 Lab Scanned Report BLOOD TRANSFUSION Test 07/12/17 07:38 07/12/17 08:54 07/12/17 12:24 White Blood Count 11.5 H Red Blood Count 3.03 L Hemoglobin 9.2 L Hematocrit 26.4 L Mean Corpuscular Volume 87.1 Mean Corpuscular Hemoglobin 30.4 Mean Corpuscular Hemoglobin Concent 34.8 Red Cell Distribution Width 15.0 H Platelet Count 387 Mean Platelet Volume 10.5 H Neutrophils % 84.9 H Lymphocytes % 7.7 L Monocytes % 6.4 Eosinophils % 0.3 Basophils % 0.3 Nucleated Red Blood Cells % 0.0 Neutrophils # 9.8 H Lymphocytes # 0.9 Monocytes # 0.7 Eosinophils # 0.0 Basophils # 0.0 Nucleated Red Blood Cells # 0.0 Sodium Level 130 L Potassium Level 3.7 Chloride Level 102 Carbon Dioxide Level 23 Anion Gap 9 Blood Urea Nitrogen 9 Creatinine 0.49 Glucose Level 96 Osmolality 269 L Uric Acid 2.4 L Calcium Level 8.2 L Phosphorus Level 3.6 Magnesium Level 1.7 Total Bilirubin 0.8 Direct Bilirubin 0.00 Indirect Bilirubin 0.8 Aspartate Amino Transf (AST/SGOT) 40 Alanine Aminotransferase (ALT/SGPT) 47 Alkaline Phosphatase 230 H Total Protein 6.0 L Albumin 2.3 L Globulin 3.70 H Albumin/Globulin Ratio 0.62 Bedside Glucose 118 90 Medications Medications Current Medications Ondansetron HCl (Zofran Inj) 4 mg Q6H PRN IV NAUSEA AND/OR VOMITING Last administered on 07/09/17 18:04; Admin Dose 4 MG; Start 07/01/17 at 15:30 Morphine Sulfate (morphine) 2 mg Q4H PRN IV SEVERE PAIN LEVEL 7-10 Last administered on 07/07/17 19:41; Admin Dose 2 MG; Start 07/01/17 at 15:30 Metoprolol Tartrate (Lopressor) 25 mg BID PO Last administered on 07/12/17 08 :57; Admin Dose 25 MG; Start 07/01/17 at 21:00 Diagnostic Test (Pha) (Accu-Chek) 1 ea 02 XX Last administered on 07/12/17 02 :00; Admin Dose 1 EA; Start 07/02/17 at 02:00 Insulin Glargine (Lantus) 6 unit DAILY@20 SC Last administered on 07/11/17 21 :04; Admin Dose 6 UNIT; Start 07/01/17 at 20:00 Miscellaneous Information 1 ea NOTE XX ; Start 07/01/17 at 23:30 Glucose (Glutose) 15 gm Q15M PRN PO DECREASED GLUCOSE; Start 07/01/17 at 23:30 Glucose (Glutose) 22.5 gm Q15M PRN PO DECREASED GLUCOSE; Start 07/01/17 at 23: 30 Dextrose (D50w Syringe) 25 ml Q15M PRN IV DECREASED GLUCOSE; Start 07/01/17 at 23:30 Dextrose (D50w Syringe) 50 ml Q15M PRN IV DECREASED GLUCOSE; Start 07/01/17 at 23:30 Glucagon (Glucagen) 1 mg Q15M PRN IM DECREASED GLUCOSE; Start 07/01/17 at 23: 30 Glucose (Glutose) 15 gm Q15M PRN BUCCAL DECREASED GLUCOSE Last administered on 07/03/17 14:52; Admin Dose 15 GM; Start 07/01/17 at 23:30 Aspirin (Aspirin) 81 mg DAILY PO Last administered on 07/12/17 08:56; Admin Dose 81 MG; Start 07/02/17 at 12:30 Hydralazine HCl (Apresoline) 10 mg Q4H PRN IV ELEVATED BLOOD PRESSURE Last administered on 07/11/17 01:36; Admin Dose 10 MG; Start 07/05/17 at 01:00 Enoxaparin Sodium (Lovenox) 40 mg DAILY SC Last administered on 07/12/17 08: 59; Admin Dose 40 MG; Start 07/06/17 at 09:00 Simethicone (Mylicon) 80 mg TID PRN GTB DISTENSION/GAS/BLOATING Last administered on 07/10/17 08:55; Admin Dose 80 MG; Start 07/06/17 at 12:30 Polyethylene Glycol 17 gm 17 gm BID PRN PO constipation Last administered on 18:39; Admin Dose 17 GM; Start 07/06/17 at 12:30 Sodium Chloride (NS) 1,000 ml @ 40 mls/hr Q24H IV Last administered on 13:08; Admin Dose 40 MLS/HR; Start 07/11/17 at 13:30; Stop 07/12/17 at 14 :29 Lisinopril (Zestril) 5 mg DAILY PO Last administered on 07/12/17 12:27; Admin Dose 5 MG; Start 07/12/17 at 10:00 DIEGO BHATT MD Jul 12, 2017 13:52
[2017-07-12] MEDS ORDERED: SITA100T8 PO (14:07)
[2017-07-12] MEDS ORDERED: APIX2.5T PO (14:07)
[2017-07-12] MEDS ORDERED: LISI-313 PO (14:07)
--- NOTE | 2017-07-12 16:12 | DS ---
Date/Time of Note Date/Time of Note DATE: 07/12/17 TIME: 16:03 Discharge Summary Admission/Discharge Info Admit Date/Time Jul 01, 2017 at 14:33 Discharge Date/Time Discharge Diagnosis 1. Malignant liver mass. Unknown primary. 2. Status post sepsis. 3. Atrial fibrillation. 4. Cardiomyopathy. 5. Acute kidney injury. 6. Transaminitis with hyperbilirubinemia. 7. Type 2 diabetes mellitus. 8. Dyslipidemia. 9. NSTEMI. 10. Essential hypertension. 11. Pulmonary hypertension. 12. Normocytic, normochromic anemia. 13. Hyponatremia. Patient Condition: Stable Consults 1. Ken Dumont MD, Cardiology. 2. Shaka Metz MD, Gastroenterology. 3. Angel Bryant MD, Infectious Diseases. 4. Neil Dockery MD, Nephrology. 5. Ke Henry MD, Palliative Care. 6. Jeremy Campbell MD, Nephrology. 7. Enmaneul Alanis MD, Hepatobiliary Surgery. Procedures Procedure Date 07/05/17 Procedure Performed: ERCP (Plus sphincterotomy plus cytology brushing plus metal stent placement) Indication: other (Biliary obstruction) Pre-procedure Diagnosis Biliary obstruction Post-procedure Diagnosis Impression: Normal pancreatogram High-grade narrowing 3 cm segment approximately 2 cm from ampulla, smooth most consistent with extrinsic compression i.e. pancreatic mass Post brush cytology of the biliary tree area of narrowing Post standard sphincterotomy Post fully covered 10 x 80 mm Wallstent placement MICROSCOPIC DIAGNOSIS: Tip of cytology brush, brushings from biliary tract for cytology: -- Negative for malignant cells. -- The specimen is limited due to marked hypocellularity. Procedure Date 07/11/17 Procedure Performed: Colonoscopy (With snare polypectomy) Indication: other (Rule out colon cancer) Pre-procedure Diagnosis Rule out colon cancer Post-procedure Diagnosis Impression: 1 cm pedunculated polyp rectosigmoid area. Snared and retrieved (fragments) Severe diverticulosis with angulation in the sigmoid colon Required use of upper endoscope to negotiate Small internal hemorrhoids Otherwise normal colonoscopy to cecum No evidence of colon cancer CT Abdomen and Pelvis IMPRESSION: Multiple hepatic metastases with multiple low-density rim enhancing masses in the periportal region and surrounding and / or arising from the pancreas. Biliary ductal dilatation with cutoff of the common bile duct in the area of peripancreatic masses. Gallbladder distension. Pancreatic adenocarcinoma with hepatic metastatic disease and necrotic oli disease remains a likely consideration. The lesion does not have the typical appearance for hepatocellular carcinoma or cholangiocarcinoma although this and disease cannot be completely excluded. Metastatic colon cancer is less likely given lack of definite colon mass. Colonoscopy may still be considered, however. Other neoplastic etiology is also possible. CT-Guided Liver Biopsy IMPRESSION: 1. Successful CT guided liver biopsy. MICROSCOPIC DIAGNOSIS: A-Liver mass, core needle biopsies: -- Metastatic poorly-differentiated adenocarcinoma. -- Uninvolved liver shows moderate sinusoidal dilation and mild portal chronic inflammation and fibrosis. B-Liver core needle biopsies: -- Metastatic poorly-differentiated adenocarcinoma. -- Uninvolved liver shows mild portal fibrosis, mild chronic inflammation and moderate sinusoidal dilation. -- There is no evidence of hepatitis or cirrhosis. B/L LE Venous Doppler Study IMPRESSION: 1. No evidence of deep vein thrombosis involving either lower extremity 2. Left popliteal small cyst. 2D Echocardiogram Conclusions 1. Normal left ventricular systolic function. Normal left ventricular cavity size. Normal left ventricular wall thickness. Mild global left ventricular systolic dysfunction. Ejection fraction is visually estimated at 45 %. Tissue Doppler/Mitral Doppler indices are consistent with impaired relaxation (Stage I diastolic dysfunction). Hypokinesis of the distal septum and apex. 2. Moderate mitral valve regurgitation. 3. Estimated peak PA systolic pressure 52 mmHg based on RA pressure of 3 mmHg. Hx of Present Illness Reason for admission: Dizziness, abdominal pain, vomiting, diarrhea for 1 week. This is a 77-year-old female with past medical history essential hypertension, dyslipidemia, and type 2 diabetes mellitus who came to the emergency room with chief complaint of dizziness, abdominal pain, vomiting and diarrhea that has been going on for the past 1 week. The patient verbalized that this has been going on and off for the past 1 week. The patient denied eating anything unusual. She denied any recent travels outside the country. There was no reported chest pain. She did not report any headache, fevers, chills, or dysuria. In the emergency room, the patient was noticed to be in acute kidney injury with a BUN and creatinine of 65 and 1.61 respectively. The patient also had evidence of hyperbilirubinemia with transaminitis. The patient's troponins were 0.142. The patient was treated with a single dose of aspirin along with IV fluids and 1 dose of Keflex in the emergency room. Hospital Course The patient had evidence of underlying sepsis. The patient had no evidence of any septic shock. The patient's source of sepsis was probably her underlying urinary tract infection. The patient was maintained on antimicrobials as per infectious diseases. The patient's other cultures remained negative. The patient was evaluated by cardiology because of her elevated cardiac enzymes. Cardiology concluded that this could be most probably a type II event in the setting of underlying sepsis and acute kidney injury that the patient had during the day of admission. The patient was maintained on aspirin. The patient's 2D echocardiogram showed an ejection fraction of 45%. The patient was continued on beta-blockers. Once the patient's renal function stabilized, she was started on jerod inhibitors. The patient had underlying transaminitis with hyperbilirubinemia upon presentation. Hence gastroenterology was following the patient. The patient underwent a CT scan of the abdomen and pelvis that showed a large poorly defined infiltrating hypodense lesion within the anterior lobe of the liver. The patient's liver ultrasound showed a liver mass measuring 10.1 cm with maximal dimension consistent with a neoplasm. The patient underwent an MRCP that showed biliary ductal dilatation and an abrupt cutoff of the common bile duct. The patient underwent an ERCP that showed high-grade narrowing 3 cm segment approximately 2 cm from ampulla, consistent with extrinsic compression. The patient underwent a standard sphincterotomy and placement of a Wallstent. The patient's transaminitis and hyperbilirubinemia improved with placement of a biliary stent. The patient's ERCP brushings were nondiagnostic. Hence the patient underwent a CT-guided liver biopsy. Liver biopsy showed metastatic poorly differentiated adenocarcinoma. However, the patient's primary lesion was clear. Oncology recommended a colonoscopy since the pathologist revealed that the primary lesion could be in the lower GI tract versus appendix. The patient underwent a colonoscopy on 07/11/2017 that did not reveal any colonic mass. Hence a decision was to discharge the patient home to be followed up with outpatient oncology for a PET CT scan to find the primary lesion. The patient was also evaluated by hepatobiliary surgery during this hospitalization. The patient did not have any significant abdominal pain and did not need any strong opioids for during the hospital course. The patient had acute kidney injury upon admission. This was resolved with IV hydration. Nephrology was following the patient. Towards the end of the patient's hospital stay , the patient had some hyponatremia that remained stable. The patient had atrial fibrillation with rapid ventricular response during this hospitalization. The patient was being followed by cardiology. The patient's heart rate was controlled with beta-yael therapy. The patient had a CHADSVASC score of 5 and the patient would benefit from long-term anticoagulation. However anticoagulation was withheld because of evaluation for underlying malignancy including multiple procedures. On the day of discharge, the need for anticoagulation was confirmed with the oncologist and the oncologist cleared the patient for anticoagulation. Therefore, the patient was started on Eliquis and the patient's aspirin that was started earlier was discontinued. The patient was taking statins at home. This was put on hold because of underlying transaminitis and hyperbilirubinemia. The patient's statins will be held as of now as per cardiology because of underlying liver mass. The patient's 2D echo showed cardiomyopathy. The patient was maintained on beta -blockers and the patient was later started on jerod inhibitors once the patient' s renal function improved. The patient also had evidence of pulmonary hypertension with a PA systolic pressure 52 mmHg. The patient had underlying moderate mitral valve regurgitation. She has underlying type 2 diabetes mellitus. Hemoglobin A1c was found to be 6.7. She was maintained on sliding scale insulin with well-controlled blood sugars throughout the hospital course. The patient had a prolonged, but stable hospital course because of the new finding of a liver mass that required multiple procedures for confirmation of the diagnosis as well as inputs from multiple consultants. The patient is stable to be discharged home to be followed up by outpatient oncology and gastroenterology. Discharge Disposition/Plan 1. Take a low-cholesterol, carbohydrate controlled diet. 2. Activities as tolerated. 3. Please follow-up with Dr. Sheehan (oncology) at the earliest. 4. Please follow-up with Dr. Metz (gastroenterology) in the next 4 weeks regarding the stent placed in the abdomen. 5. Take medications as per medication list. Avoid taking atorvastatin (because of abnormal liver function). Avoid taking metformin with Januvia because of abnormal liver function. Continue taking Januvia only. Start taking Eliquis for stroke prophylaxis. Caution with bleeding because of the blood thinning effect of Eliquis. 6. Please go to the nearest emergency room if you have significant abdominal pain, persistent nausea and vomiting, worsening of jaundice, persistent fevers, or any other unusual signs/symptoms. Patient's son Julius was called at [phone] and was provided with all the discharge instructions. The patient's son verbalized understanding of the discharge instructions. All questions answered. Case discussed with Dr. Butler. Home Meds Active Scripts Apixaban* (Eliquis*) 2.5 Mg Tablet, 2.5 MG PO BID, #60 TAB Prov:MAK NOVAK [employer] 07/12/17 Lisinopril* (Lisinopril*) 5 Mg Tablet, 5 MG PO DAILY, #30 TAB Prov:MAK NOVAK [employer] 07/12/17 Sitagliptin* (Januvia*) 100 Mg Tablet, 100 MG PO DAILY, #30 TAB Prov:MAK NOVAK [employer] 07/12/17 Reported Medications Metoprolol Tartrate* (Lopressor*) 25 Mg Tab, 25 MG PO BID, #60 TAB 07/01/17 Ranitidine Hcl* (Zantac*) 150 Mg Tablet, 150 MG PO BID, #60 TAB 07/01/17 Cholecalciferol* (Vitamin D*) 400 Unit Tablet, 400 UNIT PO DAILY, TAB 07/01/17 Discontinued Reported Medications Atorvastatin* (Atorvastatin*) 40 Mg Tablet, 40 MG PO QHS, #30 TAB 07/01/17 Sitagliptin Phos/Metformin HCl (Janumet 50-1,000 mg Tablet) 1 Each Tablet, 1 EACH PO BID, TAB 07/01/17 Follow-up Plan 1. Giovani Sheehan MD Specialty Oncology, Hematology Office Address [address] [facility], [address] [place] [address] Office 2. Shaka Metz MD Specialty Gastroenterology Office Address [address] [address] Office Primary Care Provider Larisa Ellison, Time spent on discharge: 45 mins Pending Labs Name: EL SUTTON Age/Sex: 77/F Attend Dr: FLAKITO LOWE MD Acct: [id number] MR# : [id number] : 1940 Location: [facility] 5559-A Admit: 07/01/17 Specimen: [id number] Status: Complete Daniel: 07/01/17 Rcvd: 07/01 Source: CLEAN CATC Sp Descrip: Procedure Result Microbiology URINE CULTURE Final Organism 1 GABO ALBICANS COLONY COUNT 50,000 - 60,000 CFU/ml Organism 2 MIXED GRAM NEG & POS ORGANISMS COLONY COUNT >100,000 CFU/ml ................................................................................ ............ Flags: Critical Hi = *H Critical Lo = *L Microbiology Abnormal = * Abnormal Hi = H Abnormal Lo = L Blood Bank Abnormal = * Susceptability Flags: S = Sensitive R = Resistant I = Intermediate END OF REPORT Name: EL SUTTON Age/Sex: 77/F Attend Dr: FLAKITO LOWE MD Acct: [id number] MR# : [id number] : 1940 Location: [facility] 5[facility]-A Admit: 07/01/17 Specimen: [id number] Status: Complete Daniel: 07/01/17 Rcvd: 07/02 Source: BE Sp Descrip: Procedure Result Microbiology FECES CULTURE Final Organism 1 COLIFORM QUANTITY 1+ No Salmonella, Shigella, Staph aureus, Aeromonas, Vibrio species and other enteric pathogen isolated. No Campylobacter species isolated ................................................................................ ............ Flags: Critical Hi = *H Critical Lo = *L Microbiology Abnormal = * Abnormal Hi = H Abnormal Lo = L Blood Bank Abnormal = * Susceptability Flags: S = Sensitive R = Resistant I = Intermediate END OF REPORT Laboratory Tests Test 07/11/17 17:45 07/11/17 20:45 07/12/17 02:35 07/12/17 06:22 Bedside Glucose 71mg/dL (70-220) 133mg/dL (70-220) 113mg/dL (70-220) Lab Scanned Report BLOOD [id number] Test 07/12/17 07:38 07/12/17 08:54 07/12/17 12:24 White Blood Count 11.510^3/ul (4.8-10.8) Red Blood Count 3.0310^6/ul (4.20-5.40) Hemoglobin 9.2g/dl (12.0-16.0) Hematocrit 26.4% (37.0-47.0) Mean Corpuscular Volume 87.1fl (82.0-101.0) Mean Corpuscular Hemoglobin 30.4pg (29.0-33.0) Mean Corpuscular Hemoglobin Concent 34.8g/dl (32.0-37.0) Red Cell Distribution Width 15.0% (11.5-14.5) Platelet Count 46683^3/UL (140-415) Mean Platelet Volume 10.5fl (7.4-10.4) Neutrophils % 84.9% (39.0-77.0) Lymphocytes % 7.7% (15.0-51.0) Monocytes % 6.4% (0.0-11.0) Eosinophils % 0.3% (0.0-7.0) Basophils % 0.3% (0.0-2.0) Nucleated Red Blood Cells % 0.0/100WBC (0.0-0.0) Neutrophils # 9.810^3/ul (1.6-7.5) Lymphocytes # 0.910^3/ul (0.8-2.9) Monocytes # 0.710^3/ul (0.3-0.9) Eosinophils # 0.010^3/ul (0.0-0.5) Basophils # 0.010^3/ul (0.0-0.1) Nucleated Red Blood Cells # 0.010^3/ul (0.0-0.0) Sodium Level 130mmol/L (135-144) Potassium Level 3.7mmol/L (3.5-5.1) Chloride Level 102mmol/L (97-110) Carbon Dioxide Level 23mmol/L (21-31) Anion Gap 9 (8-16) Blood Urea Nitrogen 9mg/dl (7-20) Creatinine 0.49mg/dl (0.44-1.00) Glucose Level 96mg/dl (70-220) Osmolality 269mOsm/kg (280-295) Uric Acid 2.4mg/dl (3.1-7.9) Calcium Level 8.2mg/dl (8.4-10.2) Phosphorus Level 3.6mg/dl (2.5-4.9) Magnesium Level 1.7mg/dl (1.7-2.5) Total Bilirubin 0.8mg/dl (0.2-1.3) Direct Bilirubin 0.00mg/dl (0.00-0.20) Indirect Bilirubin 0.8mg/dl (0-1.1) Aspartate Amino Transf (AST/SGOT) 40IU/L (15-46) Alanine Aminotransferase (ALT/SGPT) 47IU/L (13-69) Alkaline Phosphatase 230IU/L (42-121) Total Protein 6.0g/dl (6.1-8.1) Albumin 2.3g/dl (3.3-4.9) Globulin 3.70g/dl (1.3-3.2) Albumin/Globulin Ratio 0.62 Bedside Glucose 118mg/dL (70-220) 90mg/dL (70-220) MAK NOVAK NP Jul 12, 2017 16:12 MAK NOVAK NP Jul 12, 2017 16:12
--- NOTE | 2017-07-12 16:13 | CONS ---
Date/Time of Note Date/Time of Note DATE: 07/12/17 TIME: 16:11 Assessment/Plan Assessment/Plan Chief Complaint/Hosp Course 77-year-old female with past medical history essential hypertension, dyslipidemia, and type 2 diabetes mellitus who came to the emergency room with chief complaint of dizziness, abdominal pain, vomiting and diarrhea that has been going on for the past 1 week. pt was admitted for sepsis, NSTEMI, also has acute kidney injury with Cr bumped to 1.6 on admission which is now improved to normal, pt had a very highly elevated D dimer . pt is noted to have Liver US now s/p CT guided bx of mass. His Na on admission 132-130 which improved to 138 but again it dropped down to 129 and persistently remained low with pt c/o dizziness, Renal has been consulted for Hyponatremia.pt has KIRAN positive with speckled pattern. Problems: Additional Assessment/Plan 1. 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 S/p Acute kidney injury 3. SIRS due to UTI 4. UTI with south 5. Metastatic Liver CA- unknown primary at this point, Bx showed poorly different carcinoma 6. HTN 6. H/o DM II with diabetic Foot neuropathy Plan : continue NS at 40 cc/hr x 1 liter- Na 130 today, expecting Na to improve No evidence of IZZY at this point, no need for renal US Work up of Metastatic liver CA as per oncology IV abx as per ID, pt is on Fluconazole for fungal UTI BP stable Continue current care will follow up Consultation Date/Type/Reason Admit Date/Time Jul 01, 2017 at 14:33 Initial Consult Date 07/11/17 Type of Consultation: NEPHROLOGY Referring Provider: MAK NOVAK GEM TECHNICIAN 24 HR Interval Summary Free Text/Dictation Na 130 today pt c/o leg cramps, back pain and Nausea, Exam/Review of Systems Vital Signs Vitals Vital Signs Date Time Temp Pulse Resp B/P Pulse Ox O2 Delivery O2 Flow Rate FiO2 07/12/17 12:21 56 07/12/17 11:26 97.5 18 138/62 98 07/11/17 20:02 Room Air Exam Constitutional: alert Respiratory: clear to auscultation, crackles/rales, diminished breath sounds, wheezing Cardiovascular: nl pulses, regular rate and rhythm Gastrointestinal: non-tender, soft Musculoskeletal: nl extremities to inspection Extremities: normal pulses Neurological: MANAGER BEVERAGE II-XII intact, nl mental status, nl speech, nl strength Results Result Diagram: 07/12/17 0738 07/12/17 0738 Results 24 hrs Laboratory Tests Test 07/11/17 17:45 07/11/17 20:45 07/12/17 02:35 07/12/17 06:22 Bedside Glucose 71 133 113 Lab Scanned Report BLOOD TRANSFUSION Test 07/12/17 07:38 07/12/17 08:54 07/12/17 12:24 White Blood Count 11.5 H Red Blood Count 3.03 L Hemoglobin 9.2 L Hematocrit 26.4 L Mean Corpuscular Volume 87.1 Mean Corpuscular Hemoglobin 30.4 Mean Corpuscular Hemoglobin Concent 34.8 Red Cell Distribution Width 15.0 H Platelet Count 387 Mean Platelet Volume 10.5 H Neutrophils % 84.9 H Lymphocytes % 7.7 L Monocytes % 6.4 Eosinophils % 0.3 Basophils % 0.3 Nucleated Red Blood Cells % 0.0 Neutrophils # 9.8 H Lymphocytes # 0.9 Monocytes # 0.7 Eosinophils # 0.0 Basophils # 0.0 Nucleated Red Blood Cells # 0.0 Sodium Level 130 L Potassium Level 3.7 Chloride Level 102 Carbon Dioxide Level 23 Anion Gap 9 Blood Urea Nitrogen 9 Creatinine 0.49 Glucose Level 96 Osmolality 269 L Uric Acid 2.4 L Calcium Level 8.2 L Phosphorus Level 3.6 Magnesium Level 1.7 Total Bilirubin 0.8 Direct Bilirubin 0.00 Indirect Bilirubin 0.8 Aspartate Amino Transf (AST/SGOT) 40 Alanine Aminotransferase (ALT/SGPT) 47 Alkaline Phosphatase 230 H Total Protein 6.0 L Albumin 2.3 L Globulin 3.70 H Albumin/Globulin Ratio 0.62 Bedside Glucose 118 90 Medications Medications Current Medications Ondansetron HCl (Zofran Inj) 4 mg Q6H PRN IV NAUSEA AND/OR VOMITING Last administered on 07/09/17 18:04; Admin Dose 4 MG; Start 07/01/17 at 15:30 Morphine Sulfate (morphine) 2 mg Q4H PRN IV SEVERE PAIN LEVEL 7-10 Last administered on 07/07/17 19:41; Admin Dose 2 MG; Start 07/01/17 at 15:30 Metoprolol Tartrate (Lopressor) 25 mg BID PO Last administered on 07/12/17 08 :57; Admin Dose 25 MG; Start 07/01/17 at 21:00 Diagnostic Test (Pha) (Accu-Chek) 1 ea 02 XX Last administered on 07/12/17 02 :00; Admin Dose 1 EA; Start 07/02/17 at 02:00 Insulin Glargine (Lantus) 6 unit DAILY@20 SC Last administered on 07/11/17 21 :04; Admin Dose 6 UNIT; Start 07/01/17 at 20:00 Miscellaneous Information 1 ea NOTE XX ; Start 07/01/17 at 23:30 Glucose (Glutose) 15 gm Q15M PRN PO DECREASED GLUCOSE; Start 07/01/17 at 23:30 Glucose (Glutose) 22.5 gm Q15M PRN PO DECREASED GLUCOSE; Start 07/01/17 at 23: 30 Dextrose (D50w Syringe) 25 ml Q15M PRN IV DECREASED GLUCOSE; Start 07/01/17 at 23:30 Dextrose (D50w Syringe) 50 ml Q15M PRN IV DECREASED GLUCOSE; Start 07/01/17 at 23:30 Glucagon (Glucagen) 1 mg Q15M PRN IM DECREASED GLUCOSE; Start 07/01/17 at 23: 30 Glucose (Glutose) 15 gm Q15M PRN BUCCAL DECREASED GLUCOSE Last administered on 07/03/17 14:52; Admin Dose 15 GM; Start 07/01/17 at 23:30 Aspirin (Aspirin) 81 mg DAILY PO Last administered on 07/12/17 08:56; Admin Dose 81 MG; Start 07/02/17 at 12:30 Hydralazine HCl (Apresoline) 10 mg Q4H PRN IV ELEVATED BLOOD PRESSURE Last administered on 07/11/17 01:36; Admin Dose 10 MG; Start 07/05/17 at 01:00 Enoxaparin Sodium (Lovenox) 40 mg DAILY SC Last administered on 07/12/17 08: 59; Admin Dose 40 MG; Start 07/06/17 at 09:00 Simethicone (Mylicon) 80 mg TID PRN GTB DISTENSION/GAS/BLOATING Last administered on 07/10/17 08:55; Admin Dose 80 MG; Start 07/06/17 at 12:30 Polyethylene Glycol (Miralax) 17 gm BID PRN PO constipation Last administered on 07/08/17 18:39; Admin Dose 17 GM; Start 07/06/17 at 12:30 Lisinopril (Zestril) 5 mg DAILY PO Last administered on 07/12/17 12:27; Admin Dose 5 MG; Start 07/12/17 at 10:00 LUANA GODFREY MD Jul 12, 2017 16:13
--- NOTE | 2017-07-13 06:46 | CONS ---
Date/Time of Note Date/Time of Note DATE: 07/13/17 TIME: 06:44 Consultation Date/Type/Reason Admit Date/Time Jul 01, 2017 at 14:33 Initial Consult Date 07/11/17 Type of Consultation: Palliative care Referring Provider: MAK NOVAK NP 24 HR Interval Summary Free Text/Dictation Colonoscopy shows no evidence of mass. I have attempted to speak to son on 2 occasions and have been unsuccessful. Hopefully will schedule a follow-up with oncology have a PET scan per Dr. Sheehan's recommendation. I will be available in the event that patient requires readmission at any later date Exam/Review of Systems Vital Signs Vitals Vital Signs Date Time Temp Pulse Resp B/P Pulse Ox O2 Delivery O2 Flow Rate FiO2 07/12/17 16:19 67 07/12/17 16:16 98.1 16 149/58 98 07/11/17 20:02 Room Air Intake and Output 07/12/17 07/12/17 07/13/17 14:59 22:59 06:59 Intake Total 720 ml Balance 720 ml Results Result Diagram: 07/12/17 0738 07/12/17 0738 Results 24 hrs Laboratory Tests Test 07/12/17 07:38 07/12/17 08:54 07/12/17 12:24 White Blood Count 11.5 H Red Blood Count 3.03 L Hemoglobin 9.2 L Hematocrit 26.4 L Mean Corpuscular Volume 87.1 Mean Corpuscular Hemoglobin 30.4 Mean Corpuscular Hemoglobin Concent 34.8 Red Cell Distribution Width 15.0 H Platelet Count 387 Mean Platelet Volume 10.5 H Neutrophils % 84.9 H Lymphocytes % 7.7 L Monocytes % 6.4 Eosinophils % 0.3 Basophils % 0.3 Nucleated Red Blood Cells % 0.0 Neutrophils # 9.8 H Lymphocytes # 0.9 Monocytes # 0.7 Eosinophils # 0.0 Basophils # 0.0 Nucleated Red Blood Cells # 0.0 Sodium Level 130 L Potassium Level 3.7 Chloride Level 102 Carbon Dioxide Level 23 Anion Gap 9 Blood Urea Nitrogen 9 Creatinine 0.49 Glucose Level 96 Osmolality 269 L Uric Acid 2.4 L Calcium Level 8.2 L Phosphorus Level 3.6 Magnesium Level 1.7 Total Bilirubin 0.8 Direct Bilirubin 0.00 Indirect Bilirubin 0.8 Aspartate Amino Transf (AST/SGOT) 40 Alanine Aminotransferase (ALT/SGPT) 47 Alkaline Phosphatase 230 H Total Protein 6.0 L Albumin 2.3 L Globulin 3.70 H Albumin/Globulin Ratio 0.62 Bedside Glucose 118 90 RON BANGURA Jul 13, 2017 06:46
== END 2017-07-12 18:00 | disposition home or self-care (01) | DRG 871 ==
LOC: E/R 11:27 → MS4 14:33
PROVIDERS: ADMIT Internal Medicine; ATTEND Internal Medicine
PROC: 0FB03ZX Excision of Liver, Percutaneous Approach, Diagnostic (ICD-10-PCS; 2017-07-03)
PROC: 0FB98ZX Excision of Common Bile Duct, Via Natural or Artificial Opening Endoscopic, Diagnostic (ICD-10-PCS; 2017-07-05)
PROC: BF11YZZ Fluoroscopy of Biliary and Pancreatic Ducts using Other Contrast (ICD-10-PCS; 2017-07-05)
PROC: 0F798DZ Dilation of Common Bile Duct with Intraluminal Device, Via Natural or Artificial Opening Endoscopic (ICD-10-PCS; principal; 2017-07-05 08:00)
PROC: 30233N1 Transfusion of Nonautologous Red Blood Cells into Peripheral Vein, Percutaneous Approach (ICD-10-PCS; 2017-07-10)
PROC: 0DBN8ZX Excision of Sigmoid Colon, Via Natural or Artificial Opening Endoscopic, Diagnostic (ICD-10-PCS; 2017-07-11)
DX: A41.9 Sepsis, unspecified organism (principal); K83.1 Obstruction of bile duct; I21.A1 Myocardial infarction type 2; N17.9 Acute kidney failure, unspecified; C78.7 Secondary malignant neoplasm of liver and intrahepatic bile duct; I42.9 Cardiomyopathy, unspecified; D69.6 Thrombocytopenia, unspecified; C25.9 Malignant neoplasm of pancreas, unspecified; E22.2 Syndrome of inappropriate secretion of antidiuretic hormone; E11.21 Type 2 diabetes mellitus with diabetic nephropathy; J21.9 Acute bronchiolitis, unspecified; B37.49 Other urogenital candidiasis; I48.0 Paroxysmal atrial fibrillation; D64.9 Anemia, unspecified; K57.30 Diverticulosis of large intestine without perforation or abscess without bleeding; E11.22 Type 2 diabetes mellitus with diabetic chronic kidney disease; E78.5 Hyperlipidemia, unspecified; I12.9 Hypertensive chronic kidney disease with stage 1 through stage 4 chronic kidney disease, or unspecified chronic kidney disease; N18.9 Chronic kidney disease, unspecified; E11.319 Type 2 diabetes mellitus with unspecified diabetic retinopathy without macular edema; E11.42 Type 2 diabetes mellitus with diabetic polyneuropathy; K63.5 Polyp of colon; K64.8 Other hemorrhoids; D12.7 Benign neoplasm of rectosigmoid junction; E80.6 Other disorders of bilirubin metabolism; Z79.84 Long term (current) use of oral hypoglycemic drugs
CPT/HCPCS: 36415; 36430; 71010; 71250; 74176; 74177; 74181; 74330; 76705; 77012; 80053; 80061; 81001; 81003; 82105; 82150; 82378; 82550; 82553; 82570; 82728; 82962; 83036; 83540; 83605; 83615; 83690; 83735; 83880; 83930; 84100; 84300; 84439; 84443; 84484; 84560; 85025; 85378; 85384; 85610; 85730; 86022; 86038; 86301; 86304; 86704; 86706; 86709; 86803; 86850; 86900; 86901; 86920; 87040; 87045; 87075; 87086; 87177; 87205; 87340; 88104; 88305; 88307; 88313; 89190; 93005; 93306; 93970; 96374; C2617; J0360; J0690; J0696; J0744; J1100; J1450; J1650; J1815; J2185; J2250; J2270; J2370; J2405; J2765; J3010; J3475; J7030; J7040; P9016; P9047; Q9967

== ENCOUNTER 2017-07-23 11:55 | Inpatient (IN) | payer OTHER, MEDICAID ==
[~2017-07-23] VITALS: Ht 149.9 cm; Wt 44.9 kg
[~2017-07-23 11:55] MED LIST: APIX2.5T PO; CHOL400T10 PO; LISI-313 PO; METO-448 PO; RANI150T9 PO; SITA100T8 PO
--- NOTE | 2017-07-23 14:50 | ERD ---
ER Documentation Chief Complaint Chief Complaint right foot diabetic wound sent by pmd for iv antibiotics HPI 77-year-old woman referred by PMD for worsening right big toe ulceration and surrounding right foot erythema concerning for cellulitis. Patient does have a history of diabetes mellitus as well as liver mass. Family member states she has had redness over the foot for about a week and worsening black discoloration to the tip of the right big toe. She was also recently had bilateral lower extremity edema which is new for her. Patient denies chest pain or shortness of breath, no fevers or chills, no headache or blurry vision, no vomiting or diarrhea. ROS All systems reviewed and are negative except as per history of present illness. Medications Home Meds Active Scripts Apixaban* (Eliquis*) 2.5 Mg Tablet, 2.5 MG PO BID, #60 TAB Prov:MAK NOVAK IT HELP DESK ASSOCIATE 07/12/17 Lisinopril* (Lisinopril*) 5 Mg Tablet, 5 MG PO DAILY, #30 TAB Prov:MAK NOVAK IT HELP DESK ASSOCIATE 07/12/17 Sitagliptin* (Januvia*) 100 Mg Tablet, 100 MG PO DAILY, #30 TAB Prov:MAK NOVAK IT HELP DESK ASSOCIATE 07/12/17 Reported Medications Metoprolol Tartrate* (Lopressor*) 25 Mg Tab, 25 MG PO BID, #60 TAB 07/01/17 Ranitidine Hcl* (Zantac*) 150 Mg Tablet, 150 MG PO BID, #60 TAB 07/01/17 Cholecalciferol* (Vitamin D*) 400 Unit Tablet, 400 UNIT PO DAILY, TAB 07/01/17 Allergies Allergies: Coded Allergies: No Known Allergy (Unverified , 07/01/17) PMhx/Soc Malignant liver mass, atrial fibrillation, cardiomyopathy, kidney injury, dyslipidemia, previous non-STEMI, pulmonary hypertension, anemia History of Surgery: Yes Anesthesia Reaction: No Hx Neurological Disorder: No Hx Respiratory Disorders: No Hx Cardiac Disorders: Yes (HTN) Hx Psychiatric Problems: No Hx Miscellaneous Medical Probl: No Hx Alcohol Use: No Hx Substance Use: No Hx Tobacco Use: No FmHx Family History: No diabetes Physical Exam Vitals Vital Signs Date Time Temp Pulse Resp B/P Pulse Ox O2 Delivery O2 Flow Rate FiO2 07/23/17 16:22 98.2 69 18 129/58 99 Room Air 07/23/17 12:04 98.0 72 18 155/67 100 Physical Exam GENERAL: Well-developed, well-nourished, well-hydrated, in no apparent distress , looks nontoxic in appearance HEENT: Moist mucous membranes, pink conjunctiva, no cervical spine tenderness or step-off deformities, no goiter, no jaundice or icterus, extraocular movements intact without pain. No submandibular induration, and no pharyngeal erythema NEURO: Alert and oriented 3, cranial nerves II through XII intact bilaterally, pupils equal round reactive to light, no focal deficits or facial asymmetry, sensation intact distally Strength 5/5 in upper and lower extremities bilaterally CARDIAC: Regular rate and rhythm, no murmurs rubs or gallops LUNGS: Clear bilaterally no wheezing crackles or stridor ABDOMEN: Soft nontender, no guarding, no rigidity, no rebound, no psoas sign no obturator sign. Normoactive bowel sounds SKIN: Warm and dry to touch, skin erythema to the right foot and surrounding toes. Gangrenous tip of the right big toe EXTREMITIES: Necrotic eschar/ulceration to the distal aspect of the right big toe with surrounding forefoot cellulitis and erythema of the skin. There is 3+ pitting edema in the lower extremities bilaterally as well. Calves bilaterally symmetrical PSYCH: Normal affect without agitation or irritability Result Diagram: 07/23/17 1525 07/23/17 1525 Results 24 hrs Laboratory Tests Test 07/23/17 15:25 07/23/17 15:35 White Blood Count 10.210^3/ul Red Blood Count 3.2810^6/ul Hemoglobin 10.2g/dl Hematocrit 29.8% Mean Corpuscular Volume 90.9fl Mean Corpuscular Hemoglobin 31.1pg Mean Corpuscular Hemoglobin Concent 34.2g/dl Red Cell Distribution Width 14.4% Platelet Count 92705^3/UL Mean Platelet Volume 9.5fl Neutrophils % 77.9% Lymphocytes % 13.2% Monocytes % 6.7% Eosinophils % 1.0% Basophils % 0.8% Nucleated Red Blood Cells % 0.0/100WBC Neutrophils # 8.010^3/ul Lymphocytes # 1.410^3/ul Monocytes # 0.710^3/ul Eosinophils # 0.110^3/ul Basophils # 0.110^3/ul Nucleated Red Blood Cells # 0.010^3/ul Prothrombin Time 12.5Sec Prothrombin Time Ratio 1.0 INR International Normalized Ratio 0.93 Sodium Level 135mmol/L Potassium Level 4.5mmol/L Chloride Level 99mmol/L Carbon Dioxide Level 26mmol/L Anion Gap 15 Blood Urea Nitrogen 12mg/dl Creatinine 0.54mg/dl Glucose Level 167mg/dl Calcium Level 9.4mg/dl Total Bilirubin 0.2mg/dl Direct Bilirubin 0.00mg/dl Indirect Bilirubin 0.2mg/dl Aspartate Amino Transf (AST/SGOT) 31IU/L Alanine Aminotransferase (ALT/SGPT) 33IU/L Alkaline Phosphatase 166IU/L Troponin I 0.016ng/ml B-Type Natriuretic Peptide 1980PG/ML Total Protein 6.7g/dl Albumin 2.9g/dl Globulin 3.80g/dl Albumin/Globulin Ratio 0.76 Lipase 243U/L Urine Color YELLOW Urine Clarity SLIGHTLY CLOUDY Urine pH 6.0 Urine Specific [place] 1.016 Urine Ketones NEGATIVEmg/dL Urine Nitrite NEGATIVEmg/dL Urine Bilirubin NEGATIVEmg/dL Urine Urobilinogen 2+mg/dL Urine Leukocyte Esterase TRACELeu/ul Urine Microscopic RBC 2/HPF Urine Microscopic WBC 5/HPF Urine Squamous Epithelial Cells FEW/HPF Urine Mucus FEW/HPF Urine Hemoglobin NEGATIVEmg/dL Urine Glucose NEGATIVEmg/dL Urine Total Protein 1+mg/dl Current Medications Medications (Trade) Dose Ordered Sig/Martell Route PRN Reason Start Time Stop Time Status Last Admin Dose Admin Morphine Sulfate 2 mg 2 mg ONCE STAT IV 07/23/17 14:51 07/23/17 14:55 DC 07/23/17 15:41 Cefepime HCl 50 ml @ 100 mls/hr ONCE ONCE IVPB 07/23/17 15:00 07/23/17 15:29 DC 07/23/17 15:41 Vancomycin HCl (Vancocin) 250 ml @ 125 mls/hr ONCE IVPB 07/23/17 15:00 07/23/17 16:59 DC 07/23/17 16:15 Clotrimazole (Clotrimazole) 1 applic BID TOP 07/23/17 21:00 Acetaminophen/ Hydrocodone Bitart ([place] (5/325)) 1 tab Q6H PRN PO MODERATE PAIN LEVEL 4-6 07/23/17 16:30 UNV Enoxaparin Sodium (Lovenox) 40 mg DAILY SC 07/24/17 09:00 UNV Miscellaneous Information (* Miscellaneous Pharmacy Order) Discontinue current oral sulfonylur... ONCE ONCE XX 07/23/17 17:00 07/23/17 17:01 UNV Diagnostic Test (Pha) (Accu-Chek) 1 ea 02 XX 07/24/17 02:00 UNV Insulin Glargine (Lantus) 10 unit DAILY@08 SC 07/24/17 08:00 UNV Insulin Aspart (Novolog Insulin Pen) 3 unit WITH MEALS SC 07/23/17 18:00 UNV Insulin Aspart (Novolog Insulin Pen) 5 unit WITH MEALS SC 07/23/17 18:00 UNV Miscellaneous Information (* Miscellaneous Pharmacy Order) HYPOGLYCEMIA PROTOCOL w... ONCE ONCE XX 07/23/17 17:00 07/23/17 17:01 UNV Insulin Aspart (Novolog Insulin Pen) NOVOLOG *MILD* ALGORITHM WITH MEALS BEDTIME SC 07/23/17 18:00 UNV Metoprolol Tartrate (Lopressor) 25 mg BID PO 07/23/17 21:00 UNV Vancomycin HCl VANCOMYCIN PER PHARMACY PER PROTOCOL XX 07/23/17 17:00 UNV Piperacillin Sod/ Tazobactam Sod (Zosyn 3.375gm/ 50 ml (Pmx)) 50 ml @ 12.5 mls/hr TID@02,10,18 IVPB 07/23/17 18:00 UNV Procedures/MDM IV line was established patient was placed on monitoring manager rhythm strip revealed a sinus rhythm at about 80 bpm with upright P and T waves. Patient was afebrile EKG performed, read by me: 76 bpm, normal sinus rhythm, normal axis, no acute ST segment changes, narrow QRS complex, with good R-wave progression in precordial leads. X-ray right foot 3V Interpreted by me: Bones: No fracture Joints: No dislocation Foreign body: None One AP view of the chest performed, read by me reveals no acute infiltrates, normal mediastinum, sharp costophrenic and cardiac borders, no air under the diaphragm. Otherwise unremarkable chest x-ray. CBC was normal, electrolytes normal, liver function tests normal, BNP elevated, troponin negative. Urine analysis was equivocal. Patient will be admitted to [facility] for IV antibiotics and further workup of her right foot ulcer and cellulitis. Departure Diagnosis: Primary Impression: Cellulitis of foot Additional Impressions: Diabetic ulcer of toe Diabetes mellitus type: type 2 Laterality: right Non-pressure ulcer stage: unspecified non-pressure ulcer stage Qualified Code: E11.621 - Diabetic ulcer of toe of right foot associated with type 2 diabetes mellitus, unspecified ulcer stage Gangrene Liver mass Peripheral edema Condition: MIGEL Louise MD Jul 23, 2017 14:50
[2017-07-23] MEDS ORDERED: morphine 2 MG INJ IV STA (14:51)
[2017-07-23] MEDS ORDERED: CEFEPIME 1GM/50 ML (PMX) 50 ML IVPB ONE (15:00)
[2017-07-23] MEDS ORDERED: VANCOMYCIN 1 GM (PMX) 250 ML IVPB SCH (15:00)
[2017-07-23 15:31] LABS: BASOPHIL # 0.1 10^3/ul (0.0-0.1); BASOPHILS % 0.8 % (0.0-2.0); EOSINOPHILS # 0.1 10^3/ul (0.0-0.5); HEMATOCRIT 29.8 % (37.0-47.0); HEMOGLOBIN 10.2 g/dl (12.0-16.0); LYMPHOCYTES # 1.4 10^3/ul (0.8-2.9); LYMPHOCYTES % 13.2 % (15.0-51.0); MEAN CORPUSCULAR HEMOGLOBIN 31.1 pg (29.0-33.0); MEAN CORPUSCULAR HGB CONC 34.2 g/dl (32.0-37.0); MEAN CORPUSCULAR VOLUME 90.9 fl (82.0-101.0); MEAN PLATELET VOLUME 9.5 fl (7.4-10.4); MONOCYTE # 0.7 10^3/ul (0.3-0.9); MONOCYTES % 6.7 % (0.0-11.0); NEUTROPHILS % 77.9 % (39.0-77.0); PLATELET COUNT 228 10^3/UL (140-415); RED BLOOD COUNT 3.28 10^6/ul (4.20-5.40); RED CELL DISTRIBUTION WIDTH 14.4 % (11.5-14.5); WHITE BLOOD COUNT 10.2 10^3/ul (4.8-10.8)
--- NOTE | 2017-07-23 15:41 | RADRPT ---
PROCEDURE: XR Chest. CLINICAL INDICATION: Abdominal pain. TECHNIQUE: Single frontal view of the chest was obtained. COMPARISON: None FINDINGS: The cardiomediastinal silhouette is normal in size. There are aortic calcifications. No focal consolidation is seen. There is a calcified right upper lobe pulmonary nodule. No pleural effusion is seen. No definite pneumothorax. No acute osseous abnormality. There is osteopenia. Advanced degenerative changes of the left glenohu meral joint. CBD stent is noted. IMPRESSION: 1. No radiographic evidence of an acute cardiopulmonary process. 2. Aortic atherosclerotic disease. RPTAT: AAEE Sarah Correa Physician Date Time Electronically viewed and signed by Sarah Correa Physician on 07/23/2017 15:41 PH/
--- NOTE | 2017-07-23 15:45 | RADRPT ---
PROCEDURE: XR Foot. CLINICAL INDICATION: Osteomyelitis of the great toe. The TECHNIQUE: AP, lateral and oblique views of the right foot was obtained. COMPARISON: None. FINDINGS: Moderate osteopenia. Plantar soft tissue prominence of the anterior medial foot and bunion formation at the first metatarsal phalangeal joint. No evidence of cortical destruction or periosteal elevati on to suggest osteomyelitis. MRI may be considered for further evaluation. No fracture or dislocatio n. IMPRESSION: 1. No fracture or dislocation. No periosteal elevation to suggest osteomyelitis. MRI may be conside red for further evaluation. 2. Moderate osteopenia. RPTAT:AAJJ Physician Maria M Date Time Electronically viewed and signed by Physician Maria M on 07/23/2017 15:45 ADELE/
[2017-07-23 15:50] LABS: INR 0.93; PROTIME 12.5 Sec (11.9-14.9)
[2017-07-23 15:56] LABS: ALBUMIN 2.9 g/dl (3.3-4.9); ALBUMIN/GLOBULIN RATIO 0.76; BILIRUBIN,INDIRECT 0.2 mg/dl (0-1.1); BILIRUBIN,TOTAL 0.2 mg/dl (0.2-1.3); CALCIUM 9.4 mg/dl (8.4-10.2); CREATININE 0.54 mg/dl (0.44-1.00); POTASSIUM 4.5 mmol/L (3.5-5.1); TOTAL PROTEIN 6.7 g/dl (6.1-8.1)
[2017-07-23 15:59] LABS: ADD UMIC YES; UR ASCORBIC ACID NEGATIVE (NEGATIVE); UR BILIRUBIN (Dip) NEGATIVE (NEGATIVE); UR BLOOD (Dip) NEGATIVE (NEGATIVE); UR CLARITY SLIGHTLY CLOUDY (CLEAR); UR COLOR YELLOW (YELLOW); UR GLUCOSE (Dip) NEGATIVE (NEGATIVE); UR KETONES (Dip) NEGATIVE (NEGATIVE); UR LEUKOCYTE ESTERASE (Dip) TRACE Leu/ul (NEGATIVE); UR MUCUS FEW /HPF (NONE SEEN); UR NITRITE (Dip) NEGATIVE (NEGATIVE); UR RBC 2 /HPF (0-5); UR SPECIFIC GRAVITY (Dip) 1.016 (1.003-1.030); UR SQUAMOUS EPITHELIAL CELL FEW /HPF (FEW); UR TOTAL PROTEIN (Dip) 1+ mg/dl (NEGATIVE); UR UROBILINOGEN (Dip) 2+ mg/dL (NEGATIVE)
[2017-07-23 16:07] LABS: TROPONIN-I 0.016 ng/ml (0.00-0.12)
[2017-07-23 16:22] VITALS: TEMP 98.2
--- NOTE | 2017-07-23 16:38 | HP ---
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 It is not clear to me that there is infection of the wound itself, though there does appear to be some cellulitis of the forefoot/toes related to skin breakdown of tinea pedis as port of entry. Will thus give abx for cellulitis that is seemingly unrelated to the ulceration - Clotrimin for tinea pedis - MRI foot to asssess for osteomyelitis - Duplex venous U/S to assess for DVT - Artrerial duplex to assess for PAD - Dr Alanis consulted Liver metastases of undifferentiated adenocarcinoma: - Patient was unaware of biopsy results - Will consult Dr Sheehan who she was due to see in clinic DMII: - Continue basal/bolus insulin A Fib: - Cont home meds Discharge plan pending management of ulcer Problems: HPI/ROS Admit Date/Time Admit Date/Time Hx of Present Illness 77 yo female with recent history of metastatic cancer to the liver (patient was unaware of this), atrial fibrillation, DMII who was referred from clinic by PMD for evaluation of toe ulcer The patient has a ~ 2 cm necrotic ulcer on the lateral side of her big toe. She says it has been there for probably about a month. Denies any drainage/ pus. No systemic symptoms of fever etc. Has noted b/l mild edema to calves. She has never had a toe ulceration before or any diabetic foot disease. She was recently admitted here and found to have malignant liver mets which were biopseid and now resulted as undifferentiated adenocarcinoma. She was to follow up in clinic apparently for results. I broke the news to her in the ED. PMH/Family/Social Past Medical History Medical History: cancer, diabetes Past Surgical History Past Surgical Hx: no surgical history, other Social History Alcohol Use: none Smoking Status: Never smoker Drug Use: none Exam/Review of Systems Vital Signs Vitals Vital Signs Date Time Temp Pulse Resp B/P Pulse Ox O2 Delivery O2 Flow Rate FiO2 07/23/17 16:22 98.2 69 18 129/58 99 Room Air Exam Exam Resting comfortably, no distress Irreg, irreg, no m/r/g, neck veins flat Clear lungs Abdomen soft nt nd Ext with pitting edema to shins b/l R great toe with necrotic eschar, closed. No drainage Tinea of intertriginous areas of toes with soem erythema of toes, some swellign of foot Unable to palpate DP/AT pulses Foot is warm and well perfused Labs Result Diagram: 07/23/17 1525 07/23/17 1525 Medications Medications Current Medications Vancomycin HCl (Vancocin) 250 ml @ 125 mls/hr ONCE IVPB Last administered on 07/23/17t 16:15; Admin Dose 125 MLS/HR; Start 07/23/17 at 15:00; Stop at 16:59 Clotrimazole (Clotrimazole) 1 applic BID TOP ; Start 07/23/17 at 21:00 FLAKITO LOWE MD Jul 23, 2017 16:38
[2017-07-23] MEDS ORDERED: VANCOMYCIN IV PER PHARMACY XX SCH (17:00)
[2017-07-23] MEDS: INSULIN ASPART [NOVOLOG] 3 ML PEN SC SCH ×3 (17:42→21:00)
[2017-07-23] MEDS ORDERED: INSULIN ASPART [NOVOLOG] 3 ML PEN SC SCH (17:42)
--- NOTE | 2017-07-23 17:58 | RADRPT ---
PROCEDURE: Ultrasound lower extremity arterial duplex CLINICAL INDICATION: Peripheral vascular disease TECHNIQUE: Multiple sonographic images of the lower extremity arterial system was obtained utilizi ng young scale, duplex, and color flow imaging. Images reviewed on PACS workstation COMPARISON: FINDINGS: Evaluation of the right lower extremity reveals moderate calcified atherosclerotic disease. Evaluation of the left lower extremity reveals moderate calcified atherosclerotic disease. Right lower extremity measurements (cm/s): Common femoral bsteyk04.6 triphasic Superficial femoral artery - quqltces87.1 biphasic Superficial femoral artery - mid36.7 biphasic Superficial femoral artery - zvwejt75.7 triphasic Popliteal alroyp18.6 monophasic Anterior tibial artery8.7 monophasic Posterior tibial qkerew01.7 monophasic Ankle/brachial indexnot obtained Left lower extremity measurements (cm/s): Common femoral dcypel56.3 biphasic Superficial femoral artery - quncnpve73.3 biphasic Superficial femoral artery - mid44.7 biphasic Superficial femoral artery - mpoehs562.3 biphasic Popliteal xpxewy32.2 monophasic Anterior tibial emdrmj22.4 monophasic Posterior tibial aaklgw74.3 monophasic Ankle/brachial indexnot obtained IMPRESSION: 1. Right leg: Calcified plaque with significant dampening of the wave form at the level of the pop liteal artery suggest a hemodynamically significant distal SFA disease. Diffuse disease is noted thr ough the calf vessels with monophasic wave form 2. Left leg: Calcified plaque with mild to moderate dampening of the wave form at the level of the popliteal artery suggesting a hemodynamically significant distal SFA stenosis. Dampened monophasic wave form of the calf vessels. 3. Given the above findings, CTA is recommended for further evaluation RPTAT: HH .Bubba Rodriguez MD, Date Time Electronically viewed and signed by .Bubba Rodriguez MD, MD on 07/23/2017 17:58 .W/
--- NOTE | 2017-07-23 17:59 | RADRPT ---
PROCEDURE: US Lower extremity Venous. CLINICAL INDICATION: Pain and swelling TECHNIQUE: Multiple sonographic images of the bilateral lower extremity deep venous system was obt ained utilizing grayscale, color-flow, compressive sonography and doppler imaging with augmentation. The images were reviewed on a PACS workstation. COMPARISON: None. FINDINGS: There is normal compressibility and flow within the bilateral common femoral, deep femoral, superfic ial femoral and popliteal veins. Normal respiratory variation and augmentation is seen. There is normal color flow and compressibility of bilateral posterior tibial and peroneal veins IMPRESSION: No sonographic evidence for bilateral lower extremity deep venous thrombosis. RPTAT: HH .Bubba Rodriguez MD, MD Date Time Electronically viewed and signed by .Bubba Rodriguez MD, on 07/23/2017 17:59 .W/
[2017-07-23] MEDS ORDERED: GLUCOSE GEL 15 GRAM TUBE PO PRN ×2 (18:00)
[2017-07-23] MEDS ORDERED: DEXTROSE 50% 50 ML SYRINGE IV PRN ×2 (18:00)
[2017-07-23] MEDS ORDERED: GLUCOSE GEL 15 GRAM TUBE BUCCAL PRN (18:00)
[2017-07-23] MEDS ORDERED: GLUCAGON 1 MG INJ IM PRN (18:00)
[2017-07-23] MEDS: HYDROCODONE/APAP (5/325) TAB PO PRN (18:25)
[2017-07-23 18:30] VITALS: BP 160/77; PULSE 71; RESP 16
[2017-07-23 20:12] VITALS: BP 136/63; RESP 18
[2017-07-23] MEDS ORDERED: CLOTRIMAZOLE 1% 30 ML TOPICAL SOLN TOP SCH (21:00)
[2017-07-23] MEDS: METOPROLOL 25 MG TAB PO SCH (21:03)
[2017-07-23] MEDS: PIPER-TAZO 3.375 GM IV (PMX) 50 ML IVPB SCH (21:38)
[2017-07-23 22:13] VITALS: Ht 149.9 cm; Wt 44.9 kg
[2017-07-24] MEDS: CLOTRIMAZOLE 1% 30 GM CR TOP SCH ×3 (00:32→21:00)
[2017-07-24] MEDS: ACCU-CHEK XX SCH (02:00)
[2017-07-24 02:11] VITALS: BP 147/63; RESP 18
[2017-07-24] MEDS: PIPER-TAZO 3.375 GM IV (PMX) 50 ML IVPB SCH ×3 (06:08→22:14)
[2017-07-24 07:01] LABS: BASOPHIL # 0.1 10^3/ul (0.0-0.1); BASOPHILS % 0.6 % (0.0-2.0); EOSINOPHILS # 0.2 10^3/ul (0.0-0.5); EOSINOPHILS % 1.7 % (0.0-7.0); HEMATOCRIT 29.1 % (37.0-47.0); HEMOGLOBIN 9.6 g/dl (12.0-16.0); LYMPHOCYTES # 1.4 10^3/ul (0.8-2.9); LYMPHOCYTES % 12.1 % (15.0-51.0); MEAN CORPUSCULAR HEMOGLOBIN 30.2 pg (29.0-33.0); MEAN CORPUSCULAR VOLUME 91.5 fl (82.0-101.0); MEAN PLATELET VOLUME 9.8 fl (7.4-10.4); MONOCYTE # 0.9 10^3/ul (0.3-0.9); MONOCYTES % 8.1 % (0.0-11.0); NEUTROPHIL # 8.6 10^3/ul (1.6-7.5); NEUTROPHILS % 77.1 % (39.0-77.0); PLATELET COUNT 239 10^3/UL (140-415); RED BLOOD COUNT 3.18 10^6/ul (4.20-5.40); RED CELL DISTRIBUTION WIDTH 14.5 % (11.5-14.5); WHITE BLOOD COUNT 11.2 10^3/ul (4.8-10.8)
[2017-07-24 07:39] LABS: ALBUMIN 2.7 g/dl (3.3-4.9); ALBUMIN/GLOBULIN RATIO 0.65; BILIRUBIN,INDIRECT 0.4 mg/dl (0-1.1); BILIRUBIN,TOTAL 0.4 mg/dl (0.2-1.3); CALCIUM 9.6 mg/dl (8.4-10.2); CREATININE 0.58 mg/dl (0.44-1.00); POTASSIUM 4.5 mmol/L (3.5-5.1); TOTAL PROTEIN 6.8 g/dl (6.1-8.1)
[2017-07-24] MEDS: INSULIN ASPART [NOVOLOG] 3 ML PEN SC SCH ×7 (07:50→21:00)
[2017-07-24] MEDS: INSULIN GLARGINE [LANtus] 3 ML PEN SC SCH (07:53)
[2017-07-24 07:59] VITALS: BP 180/73; RESP 18
[2017-07-24] MEDS: ENOXAPARIN 40 MG/0.4 ML SYG SC SCH (08:40)
[2017-07-24] MEDS: METOPROLOL 25 MG TAB PO SCH ×2 (08:41→20:56)
[2017-07-24] MEDS: HYDROCODONE/APAP (5/325) TAB PO PRN ×2 (08:42→20:59)
[2017-07-24] MEDS ORDERED: IODIXANOL LOCM 50 ML BTL ONE (10:48)
[2017-07-24] MEDS ORDERED: SOD CHLORIDE 0.9% 100 ML ONE (10:48)
[2017-07-24] MEDS ORDERED: IODIXANOL LOCM 100 ML BTL ONE (10:48)
--- NOTE | 2017-07-24 12:10 | RADRPT ---
PROCEDURE: CT angiography of the abdomen and pelvis bilateral lower extremities with contrast. CLINICAL INDICATION: Peripheral artery disease, nonhealing wound of the right foot. Metastatic [place] cancer. TECHNIQUE: CT angiography of the abdomen, pelvis, and bilateral lower extremities was performed on a high resolution multidetector scanner with intravenous contrast. Multiplanar reconstructions, thr ee-dimensional reconstructions, as well as maximal intensity projection images are produced and revi ewed. One or more of the following dose reduction techniques were used: Automated exposure control; Adjustment of the mA and/or kV according to patient size; Use of iterative reconstruction technique. CTDI = 5, 41 mGy. DLP = 667 mGy-cm. DICOM images are available. CONTRAST: 120 ml Visipaque 320 administered without adverse event. COMPARISON: US LOWER EXTREMITY 07/23/2017; CT 07/03/2017 FINDINGS: Abdominal Aorta: Mild atherosclerotic changes without stenosis Celiac axis: Minimal irregularities SMA: Minimal irregularities GUILLE: Severe stenosis of the origin. Right Renal artery: 50% post ostial stenosis Left Renal artery: 25% post ostial stenosis Right Common Iliac: Minimal irregularities Right Internal Iliac: Mild irregularities Right External Iliac: Minimal irregularities Left Common Iliac: Minimal irregularities Left Internal Iliac: Mild irregularities Left External Iliac: Minimal irregularities RIGHT LOWER EXTREMITY RUN-OFF: Right CREDIT AUTHORIZER: Patent Right SFA: 20 - 40% stenoses within the mid segment of the vessel. 50% stenoses within the distal s egment of the vessel. Right Profunda Femoris: Minimal irregularities Right Popliteal: Multiple greater than 90% stenosis. Right Anterior Tibial: Near occlusion/occlusion throughout the vessel with minimal reconstitution d istally Right Tibioperoneal Trunk: Greater than 90% stenoses Right Peroneal: Multiple stenoses proximally ranging from minimal - severe Right Posterior Tibial: Appears occluded without reconstitution in the single arterial phase obtain ed Right Dorsalis Pedis: Large plaques focally obscure visualization of the vessel Right Plantar Arch: Not visualized in the single arterial phase obtained LEFT LOWER EXTREMITY RUN-OFF: Left CREDIT AUTHORIZER: Minimal irregularities Left SFA: 40 - 60% stenoses within the distal segment of the vessel Left Profunda Femoris: Minimal irregularities Left Popliteal: Several stenoses up to 75% with a single stenosis of greater than 90% Left Anterior Tibial: Near occlusion/occlusion throughout the vessel with minimal reconstitution di stally Left Tibioperoneal Trunk: Moderate stenoses Left Peroneal: Mild - moderate irregularities with branches supplying the plantar arch Left Posterior Tibial: Occluded throughout on the single arterial phase obtained Left Dorsalis Pedis: At least moderate stenoses proximally not well visualized due to plaque burden Left Plantar Arch: Minimal enhancement in the single arterial phase obtained ADDITIONAL FINDINGS: Partial visualization of enhancing mass centered within the quadrate lobe of the liver, better visua lized on the patient's prior examination. Biliary stent is present with out intrahepatic biliary jose theo dilatation. Moderate colonic diverticulosis. Trace free fluid in the pelvis. Grade 1 anterolisth esis L5-S1 due to facet degeneration. Subcutaneous edema involving the bilateral lower extremities, left greater than right. IMPRESSION: No evidence of significant arterial stenosis within the abdomen or pelvis. RIGHT LOWER EXTREMITY RUN-OFF: Right SFA: 20 - 40% stenoses within the mid segment of the vessel. 50% stenoses within the distal s egment of the vessel. Right Popliteal: Multiple greater than 90% stenosis. Right Anterior Tibial: Near occlusion/occlusion throughout the vessel with minimal reconstitution d istally Right Tibioperoneal Trunk: Greater than 90% stenoses Right Peroneal: Multiple stenoses proximally ranging from minimal - severe Right Posterior Tibial: Appears occluded without reconstitution in the single arterial phase obtain ed Right Dorsalis Pedis: Large plaques focally obscure visualization of the vessel Right Plantar Arch: Not visualized in the single arterial phase obtained LEFT LOWER EXTREMITY RUN-OFF: Left SFA: 40 - 60% stenoses within the distal segment of the vessel Left Popliteal: Several stenoses up to 75% with a single stenosis of greater than 90% Left Anterior Tibial: Near occlusion/occlusion throughout the vessel with minimal reconstitution di stally Left Tibioperoneal Trunk: Moderate stenoses Left Peroneal: Mild - moderate irregularities with branches supplying the plantar arch Left Posterior Tibial: Occluded throughout on the single arterial phase obtained Left Dorsalis Pedis: At least moderate stenoses proximally not well visualized due to plaque burden Left Plantar Arch: Minimal enhancement in the single arterial phase obtained RPTAT: AADD .Jerzy Duke MD, MD Date Time Electronically viewed and signed by .Jerzy Duke MD, on 07/24/2017 12:10 .B/
[2017-07-24 14:10] VITALS: BP 144/65; RESP 18
[2017-07-24] MEDS ORDERED: VANCOMYCIN 500MG/NS (PMX) 100 ML IVPB SCH (16:00)
[2017-07-24] MEDS: VANCOMYCIN 750 MG in DEXTROSE 5% 150 ML IVPB SCH (16:33)
--- NOTE | 2017-07-24 17:50 | PN ---
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 It is not clear to me that there is infection of the wound itself, though there does appear to be some cellulitis of the forefoot/toes related to skin breakdown of tinea pedis as port of entry. Will thus give abx for cellulitis that is seemingly unrelated to the ulceration - Clotrimin for tinea pedis - MRI foot to asssess for osteomyelitis - Duplex venous U/S is negative - Artrerial duplex to assess for PAD positive, CT-A shows 90% stenosis in calf, have consulted Dr Grant - Dr Alanis consulted from podiatry Liver metastases of undifferentiated adenocarcinoma: - Patient was unaware of biopsy results - Will consult Dr Sheehan who she was due to see in clinic DMII: - Continue basal/bolus insulin A Fib: - Cont home meds Discharge plan pending management of ulcer Problems: Subjective 24 Hr Interval Summary Free Text/Dictation No comlaints, foot feels slightly better today Exam/Review of Systems Vital Signs Vitals Vital Signs Date Time Temp Pulse Resp B/P Pulse Ox O2 Delivery O2 Flow Rate FiO2 07/24/17 14:10 98.0 56 18 144/65 99 07/23/17 18:30 Room Air Intake and Output 07/23/17 07/23/17 07/24/17 14:59 22:59 06:59 Intake Total 50 ml 1000 ml Balance 50 ml 1000 ml Exam Appear well Ulcer of great toe unchanged Slightly less erythema to forefoot Results Result Diagram: 07/24/17 0531 07/24/1731 Results 24 hrs Laboratory Tests Test 07/23/17 18:12 07/23/17 21:04 07/24/17 05:31 07/24/17 07:48 Bedside Glucose 116 130 88 White Blood Count 11.2 H Red Blood Count 3.18 L Hemoglobin 9.6 L Hematocrit 29.1 L Mean Corpuscular Volume 91.5 Mean Corpuscular Hemoglobin 30.2 Mean Corpuscular Hemoglobin Concent 33.0 Red Cell Distribution Width 14.5 Platelet Count 239 Mean Platelet Volume 9.8 Neutrophils % 77.1 H Lymphocytes % 12.1 L Monocytes % 8.1 Eosinophils % 1.7 Basophils % 0.6 Nucleated Red Blood Cells % 0.0 Neutrophils # 8.6 H Lymphocytes # 1.4 Monocytes # 0.9 Eosinophils # 0.2 Basophils # 0.1 Nucleated Red Blood Cells # 0.0 Erythrocyte Sedimentation Rate 44 H Sodium Level 134 L Potassium Level 4.5 Chloride Level 98 Carbon Dioxide Level 31 Anion Gap 10 # Blood Urea Nitrogen 11 Creatinine 0.58 Glucose Level 95 # Calcium Level 9.6 Total Bilirubin 0.4 Direct Bilirubin 0.00 Indirect Bilirubin 0.4 Aspartate Amino Transf (AST/SGOT) 35 Alanine Aminotransferase (ALT/SGPT) 38 Alkaline Phosphatase 142 H C-Reactive Protein 2.7 H Total Protein 6.8 Albumin 2.7 L Globulin 4.10 H Albumin/Globulin Ratio 0.65 Test 07/24/17 12:36 07/24/17 17:34 Bedside Glucose 93 134 Medications Medications Current Medications Acetaminophen/ Hydrocodone Bitart ([place] (5/325)) 1 tab Q6H PRN PO MODERATE PAIN LEVEL 4-6 Last administered on 07/24/17 08:42; Admin Dose 1 TAB; Start 07/23/17 at 16:30 Enoxaparin Sodium (Lovenox) 40 mg DAILY SC Last administered on 07/24/17 08: 40; Admin Dose 40 MG; Start 07/24/17 at 09:00 Diagnostic Test (Pha) (Accu-Chek) 1 ea 02 XX ; Start 07/24/17 at 02:00 Insulin Glargine (Lantus) 10 unit DAILY@08 SC Last administered on 07/24/17 07:53; Admin Dose 10 UNIT; Start 07/24/17 at 08:00 Metoprolol Tartrate 25 mg 25 mg BID PO Last administered on 07/24/17 08:41; Admin Dose 25 MG; Start 07/23/17 at 21:00 Piperacillin Sod/ Tazobactam Sod (Zosyn 3.375gm/ 50 ml (Pmx)) 50 ml @ 100 mls/ hr Q8 IVPB Last administered on 07/24/17 14:57; Admin Dose 100 MLS/HR; Start 07/23/17 at 22:00 Miscellaneous Information 1 ea NOTE XX ; Start 07/23/17 at 18:00 Glucose (Glutose) 15 gm Q15M PRN PO DECREASED GLUCOSE; Start 07/23/17 at 18:00 Glucose (Glutose) 22.5 gm Q15M PRN PO DECREASED GLUCOSE; Start 07/23/17 at 18: 00 Dextrose (D50w Syringe) 25 ml Q15M PRN IV DECREASED GLUCOSE; Start 07/23/17 at 18:00 Dextrose (D50w Syringe) 50 ml Q15M PRN IV DECREASED GLUCOSE; Start 07/23/17 at 18:00 Glucagon (Glucagen) 1 mg Q15M PRN IM DECREASED GLUCOSE; Start 07/23/17 at 18: 00 Glucose (Glutose) 15 gm Q15M PRN BUCCAL DECREASED GLUCOSE; Start 07/23/17 at 18:00 Clotrimazole 1 applic 1 applic BID TOP Last administered on 07/24/17 08:40; Admin Dose 1 APPLIC; Start 07/23/17 at 22:00 Vancomycin HCl/ Dextrose/Water (Vancocin/D5W) 150 ml @ 75 mls/hr Q24H IVPB Last administered on 07/24/17 16:33; Admin Dose 75 MLS/HR; Start 07/24/17 at 16:00 FLAKITO LOWE MD Jul 24, 2017 17:50
[2017-07-24 20:37] VITALS: BP 155/57; RESP 21
[2017-07-24] MEDS: COLLAGENASE 30 GM TUBE TOP SCH (22:33)
--- NOTE | 2017-07-24 23:49 | CONS ---
Date/Time of Note Date/Time of Note DATE: 07/24/17 TIME: 23:48 Assessment/Plan Assessment/Plan Problems: (1) Diabetic ulcer of toe Status: Acute Comment: There is a dressing change to continue. Monitor condition. I do not recommend surgery at this time. Qualifiers: Qualified Code: E11.621 - Diabetic ulcer of toe of right foot associated with type 2 diabetes mellitus, unspecified ulcer stage (2) Liver mass Status: Acute (3) Cellulitis of foot Status: Acute Comment: Continue IV antibiotics. Continue to monitor for changes. (4) Peripheral edema Status: Acute (5) Gangrene Status: Acute Additional Assessment/Plan Highly recommend vascular surgery evaluation; Santyl to right big toe with daily dressing changes; may need surgical management. Will follow. Thank you again for involving me in the care of this patient. If you have any questions regarding this case, please feel free to contact me at pager: [phone] or reach me at mobile: [phone]. Consultation Date/Type/Reason Admit Date/Time Date of Consultation: Jul 24, 2017 Type of Consultation: Foot and ankle surgery Reason for Consultation Evaluation of right big toe DM foot infection Hx of Present Illness Thank you very much for your kind consultation. As you know this is a 77-year- old female who presents to the hospital with a nonhealing wound on the right great toe. 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 I was consulted for evaluation of the nonhealing wound diabetic wound of the right foot. Negative for fevers, chills, nausea, vomiting, diarrhea, constipation, headache , visual disturbance, neck pain, chest pain, shortness of breath. All other systems are negative, except as noted in the HPI. Constitutional: no complaints ENT: no complaints Respiratory: no complaints Past Medical History As per history of present illness. Medical History: cancer, diabetes Past Surgical History As per history of present illness. Past Surgical Hx: no surgical history, other Social History As per history of present illness. Alcohol Use: none Smoking Status: Never smoker Drug Use: none Exam/Review of Systems Vital Signs Vitals Vital Signs Date Time Temp Pulse Resp B/P Pulse Ox O2 Delivery O2 Flow Rate FiO2 07/24/17 20:37 98.0 59 21 155/57 99 07/23/17 18:30 Room Air Intake and Output 07/23/17 07/23/17 07/24/17 15:00 23:00 07:00 Intake Total 50 ml 1000 ml Balance 50 ml 1000 ml Exam Right foot: ulcer (+) medial right hallux; dry gangrenous tissue noted; no pus and no bleeding; (+) malodor; (+) mild erythema. Nonpalpable pedal pulses with edema of the lower extremity noted. Decreased sensation noted to sharp dull vibratory temperature stimuli. Contracted toes present. Left foot: ulcer (+) medial plantar left hallux; no pus and no bleeding noted; nontender to exam; no erythema. Nonpalpable pedal pulses with edema of the lower extremity noted. Decreased sensation to sharp, dull, vibratory temperature stimuli. Contracted toes present. Labs reviewed. Results Result Diagram: 07/24/17 0531 07/24/17 0531 Results 24 hrs Laboratory Tests Test 07/24/17 05:31 07/24/17 07:48 07/24/17 12:36 07/24/17 17:34 White Blood Count 11.2 H Red Blood Count 3.18 L Hemoglobin 9.6 L Hematocrit 29.1 L Mean Corpuscular Volume 91.5 Mean Corpuscular Hemoglobin 30.2 Mean Corpuscular Hemoglobin Concent 33.0 Red Cell Distribution Width 14.5 Platelet Count 239 Mean Platelet Volume 9.8 Neutrophils % 77.1 H Lymphocytes % 12.1 L Monocytes % 8.1 Eosinophils % 1.7 Basophils % 0.6 Nucleated Red Blood Cells % 0.0 Neutrophils # 8.6 H Lymphocytes # 1.4 Monocytes # 0.9 Eosinophils # 0.2 Basophils # 0.1 Nucleated Red Blood Cells # 0.0 Erythrocyte Sedimentation Rate 44 H Sodium Level 134 L Potassium Level 4.5 Chloride Level 98 Carbon Dioxide Level 31 Anion Gap 10 # Blood Urea Nitrogen 11 Creatinine 0.58 Glucose Level 95 # Calcium Level 9.6 Total Bilirubin 0.4 Direct Bilirubin 0.00 Indirect Bilirubin 0.4 Aspartate Amino Transf (AST/SGOT) 35 Alanine Aminotransferase (ALT/SGPT) 38 Alkaline Phosphatase 142 H C-Reactive Protein 2.7 H Total Protein 6.8 Albumin 2.7 L Globulin 4.10 H Albumin/Globulin Ratio 0.65 Bedside Glucose 88 93 134 Test 07/24/17 21:02 Bedside Glucose 92 Medications Medications Current Medications Acetaminophen/ Hydrocodone Bitart ([place] (5/325)) 1 tab Q6H PRN PO MODERATE PAIN LEVEL 4-6 Last administered on 07/24/17 20:59; Admin Dose 1 TAB; Start 07/23/17 at 16:30 Enoxaparin Sodium (Lovenox) 40 mg DAILY SC Last administered on 07/24/17 08: 40; Admin Dose 40 MG; Start 07/24/17 at 09:00 Diagnostic Test (Pha) (Accu-Chek) 1 ea 02 XX ; Start 07/24/17 at 02:00 Insulin Glargine (Lantus) 10 unit DAILY@08 SC Last administered on 07/24/17 07:53; Admin Dose 10 UNIT; Start 07/24/17 at 08:00 Metoprolol Tartrate 25 mg 25 mg BID PO Last administered on 07/24/17 20:56; Admin Dose 25 MG; Start 07/23/17 at 21:00 Piperacillin Sod/ Tazobactam Sod (Zosyn 3.375gm/ 50 ml (Pmx)) 50 ml @ 100 mls/ hr Q8 IVPB Last administered on 07/24/17 22:14; Admin Dose 100 MLS/HR; Start 07/23/17 at 22:00 Miscellaneous Information 1 ea NOTE XX ; Start 07/23/17 at 18:00 Glucose (Glutose) 15 gm Q15M PRN PO DECREASED GLUCOSE; Start 07/23/17 at 18:00 Glucose (Glutose) 22.5 gm Q15M PRN PO DECREASED GLUCOSE; Start 07/23/17 at 18: 00 Dextrose (D50w Syringe) 25 ml Q15M PRN IV DECREASED GLUCOSE; Start 07/23/17 at 18:00 Dextrose (D50w Syringe) 50 ml Q15M PRN IV DECREASED GLUCOSE; Start 07/23/17 at 18:00 Glucagon (Glucagen) 1 mg Q15M PRN IM DECREASED GLUCOSE; Start 07/23/17 at 18: 00 Glucose (Glutose) 15 gm Q15M PRN BUCCAL DECREASED GLUCOSE; Start 07/23/17 at 18:00 Clotrimazole 1 applic 1 applic BID TOP Last administered on 07/24/17 21:00; Admin Dose 1 APPLIC; Start 07/23/17 at 22:00 Vancomycin HCl/ Dextrose/Water (Vancocin/D5W) 150 ml @ 75 mls/hr Q24H IVPB Last administered on 07/24/17 16:33; Admin Dose 75 MLS/HR; Start 07/24/17 at 16:00 Collagenase (Santyl) 1 applic DAILY TOP Last administered on 07/24/17 22:33; Admin Dose 1 APPLIC; Start 07/25/17 at 09:00 TIERRA DIGGS DPM Jul 24, 2017 23:49
[2017-07-25] MEDS: ACCU-CHEK XX SCH (02:00)
[2017-07-25 02:29] VITALS: BP 157/66; RESP 21
[2017-07-25] MEDS: PIPER-TAZO 3.375 GM IV (PMX) 50 ML IVPB SCH ×3 (05:46→21:30)
[2017-07-25] MEDS: INSULIN ASPART [NOVOLOG] 3 ML PEN SC SCH ×7 (08:00→21:00)
[2017-07-25 08:03] VITALS: BP 157/66; RESP 18
[2017-07-25] MEDS: INSULIN GLARGINE [LANtus] 3 ML PEN SC SCH (08:07)
[2017-07-25] MEDS: METOPROLOL 25 MG TAB PO SCH ×2 (08:17→21:07)
[2017-07-25] MEDS: ENOXAPARIN 40 MG/0.4 ML SYG SC SCH (08:18)
[2017-07-25] MEDS: CLOTRIMAZOLE 1% 30 GM CR TOP SCH ×2 (08:20→21:09)
[2017-07-25] MEDS: COLLAGENASE 30 GM TUBE TOP SCH (08:20)
[2017-07-25] MEDS: HYDROCODONE/APAP (5/325) TAB PO PRN ×3 (08:24→22:11)
--- NOTE | 2017-07-25 11:23 | RADRPT ---
PROCEDURE: US Lower extremity Venous. CLINICAL INDICATION: Vein mapping , right foot ulcer, preoperative TECHNIQUE: Multiple sonographic images of the bilateral lower extremity superficial venous system was obtained utilizing grayscale, color-flow, compressive sonography and doppler imaging with augmen tation. The images were reviewed on a PACS workstation. COMPARISON: None. FINDINGS: Measurements from the great saphenous veins were obtained. Right great saphenous vein was divided into 8 segments with the first segment being more proximal in the 9th segment more distal. Measurements were obtained as below in mm. 1. 5.7 mm 2. 3.5 mm 3. 4.4 mm 4. 3.1 mm 5. 2.3 mm 6. 1.8 mm 7. 3.7 mm 8. 1.9 mm Left great saphenous vein was divided into 8 segments with the first segment being more proximal in the 9th segment more distal. Measurements were obtained as below in mm. 1. 4.9 mm 2. 2.9 mm 3. 1.9 mm 4. 2.3 mm 5. 1.6 mm 6. 1.4 mm 7. 2.8 mm 8. 1.9 mm There is soft tissue swelling in the left lower extremity. . IMPRESSION: Bilateral greater saphenous vein mapping as described. Left lower extremity soft tissue swelling. RPTAT: AA Physician Jakob Date Time Electronically viewed and signed by Physician Jakob on 07/25/2017 11:23 /
[2017-07-25 15:00] VITALS: BP 138/67; RESP 18
--- NOTE | 2017-07-25 15:45 | CONS ---
Date/Time of Note Date/Time of Note DATE: 07/25/17 TIME: 15:34 Assessment/Plan Assessment/Plan Additional Assessment/Plan 77 yo woman with poorly differentiated carcinoma who could be offered palliative chemotherapy. However, she has poor performance status and now has acute needs for care of the ischemic distal foot. We could consider mild chemotherapy with single agent Gemzar, for example, but not until the foot treatments are completed. Given her poor overall condition, a palliative approach would also be reasonable. Note that she does not recall being told that she had a cancer from the admission last month. I would not treat her unless there is responsible family also involved. The risk of treating her would be creating a neutropenia in the setting of an untreated and uncontrolled infection. I will talk to family after the ischemic foot area is treated. I left message with both patient and nurse to have family call me. Consultation Date/Type/Reason Admit Date/Time Date of Consultation: Jul 25, 2017 Type of Consultation: oncology Reason for Consultation carcinoma Referring Provider: FLAKITO LOWE MD Hx of Present Illness 77 yo woman seen last month for liver lesions that turned out to be a poorly differentiated adenocarcinoma of unclear primary site. Colonoscopy was negative for tumor and she was felt to have either pancreatic or biliary primary most likely. She was discharged with plans to be seen in the office and have PET scan before starting palliative chemotherapy. She did not show up for the outpatient appointment. She is currently admitted for gangrenous tow and concern about osteomyelitis. MRI of the foot is to be done tomorrow. Past Medical History Medical History: cancer, diabetes Past Surgical History Past Surgical Hx: no surgical history, other Social History Alcohol Use: none Smoking Status: Never smoker Drug Use: none Exam/Review of Systems Vital Signs Vitals Vital Signs Date Time Temp Pulse Resp B/P Pulse Ox O2 Delivery O2 Flow Rate FiO2 07/25/17 08:03 97.6 55 18 157/66 100 07/23/17 18:30 Room Air Intake and Output 07/24/17 07/24/17 07/25/17 15:00 23:00 07:00 Intake Total 850 ml 900 ml Balance 850 ml 900 ml Exam Constitutional: alert Head: normocephalic Eyes: other (mild pallor) ENMT: nl external ears & nose Neck: supple Respiratory: clear to auscultation Cardiovascular: regular rate and rhythm Gastrointestinal: nl liver, spleen, soft Extremities: other (gangrenous toe as previously described) Lymph: nl lymph nodes Results Result Diagram: 07/24/17 0531 07/24/17 0531 Results 24 hrs Laboratory Tests Test 07/24/17 17:34 07/24/17 21:02 07/25/17 08:04 07/25/17 12:37 Bedside Glucose 134 92 84 76 Medications Medications Current Medications Acetaminophen/ Hydrocodone Bitart ([place] (5/325)) 1 tab Q6H PRN PO MODERATE PAIN LEVEL 4-6 Last administered on 07/25/17 14:55; Admin Dose 1 TAB; Start 07/23/17 at 16:30 Enoxaparin Sodium (Lovenox) 40 mg DAILY SC Last administered on 07/25/17 08: 18; Admin Dose 40 MG; Start 07/24/17 at 09:00 Diagnostic Test (Pha) (Accu-Chek) 1 ea 02 XX ; Start 07/24/17 at 02:00 Insulin Glargine (Lantus) 10 unit DAILY@08 SC Last administered on 07/25/17 08:07; Admin Dose 10 UNIT; Start 07/24/17 at 08:00 Metoprolol Tartrate 25 mg 25 mg BID PO Last administered on 07/25/17 08:17; Admin Dose 25 MG; Start 07/23/17 at 21:00 Piperacillin Sod/ Tazobactam Sod (Zosyn 3.375gm/ 50 ml (Pmx)) 50 ml @ 100 mls/ hr Q8 IVPB Last administered on 07/25/17 14:53; Admin Dose 100 MLS/HR; Start 07/23/17 at 22:00 Miscellaneous Information 1 ea NOTE XX ; Start 07/23/17 at 18:00 Glucose (Glutose) 15 gm Q15M PRN PO DECREASED GLUCOSE; Start 07/23/17 at 18:00 Glucose (Glutose) 22.5 gm Q15M PRN PO DECREASED GLUCOSE; Start 07/23/17 at 18: 00 Dextrose (D50w Syringe) 25 ml Q15M PRN IV DECREASED GLUCOSE; Start 07/23/17 at 18:00 Dextrose (D50w Syringe) 50 ml Q15M PRN IV DECREASED GLUCOSE; Start 07/23/17 at 18:00 Glucagon (Glucagen) 1 mg Q15M PRN IM DECREASED GLUCOSE; Start 07/23/17 at 18: 00 Glucose (Glutose) 15 gm Q15M PRN BUCCAL DECREASED GLUCOSE; Start 07/23/17 at 18:00 Clotrimazole 1 applic 1 applic BID TOP Last administered on 07/25/17 08:20; Admin Dose 1 APPLIC; Start 07/23/17 at 22:00 Vancomycin HCl/ Dextrose/Water (Vancocin/D5W) 150 ml @ 75 mls/hr Q24H IVPB Last administered on 07/24/17 16:33; Admin Dose 75 MLS/HR; Start 07/24/17 at 16:00 Collagenase (Santyl) 1 applic DAILY TOP Last administered on 07/25/17 08:20; Admin Dose 1 APPLIC; Start 07/25/17 at 09:00 Miscellaneous Information (*Rx Drug Level Order Reminder*) VANCO TROUGH @ 1, 500 ON ... ONCE ONCE XX ; Start 07/26/17 at 15:00; Stop 07/26/17 at 15:01 DIEGO BHATT MD Jul 25, 2017 15:45
--- NOTE | 2017-07-25 16:55 | PN ---
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 It is not clear to me that there is infection of the wound itself, though there does appear to be some cellulitis of the forefoot/toes related to skin breakdown of tinea pedis as port of entry. Will thus give abx for cellulitis that is seemingly unrelated to the ulceration - Clotrimin for tinea pedis - MRI foot to asssess for osteomyelitis - Duplex venous U/S is negative - Artrerial duplex to assess for PAD positive, CT-A shows 90% stenosis in calf, have consulted Dr Grant - Dr Alanis consulted from podiatry Liver metastases of undifferentiated adenocarcinoma: - Patient was unaware of biopsy results, seems to have very poor health literacy as she has been informed by numerous providers - No plans for chemo per Dr Feliz given foot wound. Likely palliative, though can consider mild chemo regimen pending foot improvement DMII: - Continue basal/bolus insulin A Fib: - Cont home meds Discharge plan pending management of ulcer Problems: Subjective 24 Hr Interval Summary Free Text/Dictation Seen by Dr Escalera from oncology, no plan for chemo given advanced stage and active foot wound MRI is pendign No complaints Exam/Review of Systems Vital Signs Vitals Vital Signs Date Time Temp Pulse Resp B/P Pulse Ox O2 Delivery O2 Flow Rate FiO2 07/25/17 15:00 98.1 60 18 138/67 98 07/23/17 18:30 Room Air Intake and Output 07/24/17 07/24/17 07/25/17 15:00 23:00 07:00 Intake Total 850 ml 900 ml Balance 850 ml 900 ml Results Result Diagram: 07/24/17 0531 07/24/17 0531 Results 24 hrs Laboratory Tests Test 07/24/17 17:34 07/24/17 21:02 07/25/17 08:04 07/25/17 12:37 Bedside Glucose 134 92 84 76 Medications Medications Current Medications Acetaminophen/ Hydrocodone Bitart ([place] (5/325)) 1 tab Q6H PRN PO MODERATE PAIN LEVEL 4-6 Last administered on 07/25/17 14:55; Admin Dose 1 TAB; Start 07/23/17 at 16:30 Enoxaparin Sodium (Lovenox) 40 mg DAILY SC Last administered on 07/25/17 08: 18; Admin Dose 40 MG; Start 07/24/17 at 09:00 Diagnostic Test (Pha) (Accu-Chek) 1 ea 02 XX ; Start 07/24/17 at 02:00 Insulin Glargine (Lantus) 10 unit DAILY@08 SC Last administered on 07/25/17 08:07; Admin Dose 10 UNIT; Start 07/24/17 at 08:00 Metoprolol Tartrate 25 mg 25 mg BID PO Last administered on 07/25/17 08:17; Admin Dose 25 MG; Start 07/23/17 at 21:00 Piperacillin Sod/ Tazobactam Sod (Zosyn 3.375gm/ 50 ml (Pmx)) 50 ml @ 100 mls/ hr Q8 IVPB Last administered on 07/25/17 14:53; Admin Dose 100 MLS/HR; Start 07/23/17 at 22:00 Miscellaneous Information 1 ea NOTE XX ; Start 07/23/17 at 18:00 Glucose (Glutose) 15 gm Q15M PRN PO DECREASED GLUCOSE; Start 07/23/17 at 18:00 Glucose (Glutose) 22.5 gm Q15M PRN PO DECREASED GLUCOSE; Start 07/23/17 at 18: 00 Dextrose (D50w Syringe) 25 ml Q15M PRN IV DECREASED GLUCOSE; Start 07/23/17 at 18:00 Dextrose (D50w Syringe) 50 ml Q15M PRN IV DECREASED GLUCOSE; Start 07/23/17 at 18:00 Glucagon (Glucagen) 1 mg Q15M PRN IM DECREASED GLUCOSE; Start 07/23/17 at 18: 00 Glucose (Glutose) 15 gm Q15M PRN BUCCAL DECREASED GLUCOSE; Start 07/23/17 at 18:00 Clotrimazole 1 applic 1 applic BID TOP Last administered on 07/25/17 08:20; Admin Dose 1 APPLIC; Start 07/23/17 at 22:00 Vancomycin HCl/ Dextrose/Water (Vancocin/D5W) 150 ml @ 75 mls/hr Q24H IVPB Last administered on 07/24/17 16:33; Admin Dose 75 MLS/HR; Start 07/24/17 at 16:00 Collagenase (Santyl) 1 applic DAILY TOP Last administered on 07/25/17 08:20; Admin Dose 1 APPLIC; Start 07/25/17 at 09:00 Miscellaneous Information (*Rx Drug Level Order Reminder*) VANCO TROUGH @ 1, 500 ON ... ONCE ONCE XX ; Start 07/26/17 at 15:00; Stop 07/26/17 at 15:01 FLAKITO LOWE MD Jul 25, 2017 16:55
[2017-07-25] MEDS: VANCOMYCIN 750 MG in DEXTROSE 5% 150 ML IVPB SCH (17:00)
--- NOTE | 2017-07-25 20:04 | RADRPT ---
PROCEDURE: MRI OF THE RIGHT FOOT. CLINICAL INDICATION: Right foot cellulitis. Osteomyelitis. Big toe open wound.. TECHNIQUE: Multiple MRI images of the right foot were obtained in multiple planes utilizing multip le pulse sequences. Images were interpreted on the high-resolution PACS system. COMPARISON: X-ray dated 07/23/2017. FINDINGS: 1st ray: There is ulceration of the medial aspect of the great toe at the level of the IP joint. The re is very subtle bone destructive change and there is adjacent bone marrow edema of the medial base of the distal phalanx seen on axial T1 image number 10 with the ulceration seen on image number 13. Findings are consistent with focal osteomyelitis. There is cellulitis. There is bone marrow edema a nd irregularity of the tibial sesamoid away from the ulceration. Findings are most consistent with d egenerative changes between the sesamoid and first metatarsal head as well as superimposed upon a bi partite sesamoid. There is no evidence for abscess. 2nd ray: No evidence for osteochondral defect. No evidence for plantar plate defect. No evidence for subluxation. No mass lesion identified. No evidence for tendon tear. Ligaments are intact. No evidence for metatarsal fracture. 3rd ray through 5th ray: No evidence for osteochondral defect. No evidence for plantar plate defec t. No evidence for subluxation. No mass lesion identified. No evidence for tendon tear. Ligament s are intact. No evidence for metatarsal fracture. Other findings: There is no evidence for neuroma. No evidence for plantar fibroma. No solid mass l esion identified. IMPRESSION: 1. Focal osteomyelitis of the medial base of the distal phalanx of the great toe adjacent to the ul ceration. 2. There is adjacent cellulitis. No evidence for abscess. 3. Degenerative changes of the tibial sesamoid superimposed upon a bipartite sesamoid. RPTAT: XX .Alex Hung MD, MD Date Time Electronically viewed and signed by .Alex Hung MD, on 07/25/2017 20:04 .T/
[2017-07-25 20:28] VITALS: BP 157/67; RESP 21
--- NOTE | 2017-07-25 20:49 | CONS ---
DATE OF ADMISSION: 07/23/2017 DATE OF CONSULTATION: 07/24/2017 VASCULAR SURGERY CONSULTATION Dear Doctors: Ms. Paul is a 77-year-old female with recent history of metastatic liver cancer that it seems the p atient was unaware of who presented to [facility] secondary to developing bilatera l lower extremity toe gangrene and ulcers. It seems that the patient had developed these necrotic u lcers on the lateral side of her big toes over the past month and have been gradually getting worse and developing discoloration and gangrene. At the moment, the patient is resting comfortably. REVIEW OF SYSTEMS: A 14-point review performed, negative except what is mentioned in the HPI. The patient is Irish speaking and certified interpreter and translator was present. PAST MEDICAL HISTORY: Entails diabetes, metastatic cancer, atrial fibrillation, coronary artery dis ease, hypertension. PAST SURGICAL HISTORY: None is reported. SOCIAL HISTORY: Denies current tobacco, alcohol or illicit drug use. FAMILY HISTORY: Positive for coronary artery disease and hypertension. PHYSICAL EXAMINATION: GENERAL: She is alert, can answer some questions. HEENT: Normocephalic, atraumatic. Mucosa moist. NECK: Supple. No carotid bruit. PULMONARY: Clear to auscultation bilaterally. No crackles. CARDIOVASCULAR: S1, S2 present. Irregularly irregular. ABDOMEN: Soft, nontender, nondistended. Bowel sounds positive. LOWER EXTREMITIES: Right lower extremity: Palpable femoral pulse, nonpalpable pedal pulse. Motor and sensory intact. Capillary refill 3 to 4 seconds. First toe gangrene with some surrounding eryt mauri. Left lower extremity: Palpable femoral pulse, nonpalpable pedal pulse. Motor and sensory in tact. Capillary refill 3 to 4 seconds. First toe lateral ulcer with tissue loss. ASSESSMENT AND PLAN: Bilateral lower extremity atherosclerosis with gangrene: It seems the patient has developed first toe ulcers and on the right has developed gangrene. Upon her current workup, i t seems that her noninvasive vascular studies have identified the patient having severe infrapoplite al disease bilaterally in addition to bilateral infrainguinal disease. The patient has also undergo ne CT angiography of the lower extremities which has identified the patient having significant infra popliteal disease. Unfortunately, as the patient has had a recent finding of metastatic poorly-diff erentiated carcinoma, no vascular intervention would be recommended as the patient has likelihood of being in a hypercoagulable state. Further risks of intervention would outweigh the benefits for th e patient. Would recommend for the patient to be optimized from a vascular surgery standpoint (BP meds, diet, n utrition, exercise, sugar control, antiplatelets). Would recommend applying Betadine paint to the gangrene of bilateral first toes. Would recommend obtaining a delinquency prevention social worker discussion with the patient and family for making sure adis t she understands her current status of her cancer and her current prognosis. Discussed findings, plan and management with the patient with a certified interpreter and translator and she underst ands. Thank you for allowing us to partake in the care of your patient. Please call with any questions. Dictated By: TRAVIS ENCARNACION/ALEC Conf#: [id number] DID#: [id number] CC: FLAKITO LOWE MD;*EndCC*
[2017-07-26] MEDS: ACCU-CHEK XX SCH (01:57)
[2017-07-26 02:47] VITALS: BP 153/69; RESP 20
[2017-07-26] MEDS: PIPER-TAZO 3.375 GM IV (PMX) 50 ML IVPB SCH ×2 (05:17→14:11)
[2017-07-26 06:38] LABS: BASOPHIL # 0.1 10^3/ul (0.0-0.1); BASOPHILS % 0.7 % (0.0-2.0); EOSINOPHILS # 0.1 10^3/ul (0.0-0.5); EOSINOPHILS % 1.6 % (0.0-7.0); HEMOGLOBIN 8.8 g/dl (12.0-16.0); LYMPHOCYTES # 1.3 10^3/ul (0.8-2.9); LYMPHOCYTES % 14.8 % (15.0-51.0); MEAN CORPUSCULAR HEMOGLOBIN 30.6 pg (29.0-33.0); MEAN CORPUSCULAR HGB CONC 33.8 g/dl (32.0-37.0); MEAN CORPUSCULAR VOLUME 90.3 fl (82.0-101.0); MEAN PLATELET VOLUME 9.8 fl (7.4-10.4); MONOCYTE # 0.7 10^3/ul (0.3-0.9); MONOCYTES % 8.3 % (0.0-11.0); NEUTROPHIL # 6.5 10^3/ul (1.6-7.5); NEUTROPHILS % 74.1 % (39.0-77.0); PLATELET COUNT 197 10^3/UL (140-415); RED BLOOD COUNT 2.88 10^6/ul (4.20-5.40); RED CELL DISTRIBUTION WIDTH 14.6 % (11.5-14.5); WHITE BLOOD COUNT 8.7 10^3/ul (4.8-10.8)
[2017-07-26] MEDS: INSULIN ASPART [NOVOLOG] 3 ML PEN SC SCH ×7 (07:35→20:28)
[2017-07-26 07:51] LABS: CALCIUM 8.8 mg/dl (8.4-10.2); CREATININE 0.55 mg/dl (0.44-1.00); POTASSIUM 3.1 mmol/L (3.5-5.1)
[2017-07-26 07:52] LABS: ALBUMIN 2.4 g/dl (3.3-4.9); ALBUMIN/GLOBULIN RATIO 0.64; BILIRUBIN,INDIRECT 0.2 mg/dl (0-1.1); BILIRUBIN,TOTAL 0.2 mg/dl (0.2-1.3); TOTAL PROTEIN 6.1 g/dl (6.1-8.1)
[2017-07-26 07:58] VITALS: BP 157/71; RESP 18
[2017-07-26] MEDS: HYDROCODONE/APAP (5/325) TAB PO PRN ×2 (08:35→20:16)
[2017-07-26] MEDS: METOPROLOL 25 MG TAB PO SCH ×2 (08:36→20:20)
[2017-07-26] MEDS: CLOTRIMAZOLE 1% 30 GM CR TOP SCH ×2 (08:36→20:16)
[2017-07-26] MEDS: COLLAGENASE 30 GM TUBE TOP SCH (08:36)
[2017-07-26] MEDS: INSULIN GLARGINE [LANtus] 3 ML PEN SC SCH (08:53)
[2017-07-26] MEDS: ENOXAPARIN 40 MG/0.4 ML SYG SC SCH (08:53)
--- NOTE | 2017-07-26 12:28 | PN ---
Date/Time of Note Date/Time of Note DATE: 07/26/17 TIME: 12:23 Assessment/Plan VTE Prophylaxis VTE Prophylaxis Intervention: LMWH Lines/Catheters IV [facility]from [facility] Saline Lock Urinary Cath still in place: No Assessment/Plan Chief Complaint/Hosp Course 77 yo woman seen last month for liver lesions that turned out to be a poorly differentiated adenocarcinoma of unclear primary site. Colonoscopy was negative for tumor and she was felt to have either pancreatic or biliary primary most likely. She was discharged with plans to be seen in the office and have PET scan before starting palliative chemotherapy. She did not show up for the outpatient appointment. She is currently admitted for gangrenous tow and concern about osteomyelitis. MRI of the foot is to be done tomorrow. Problems: Assessment/Plan Vascular surgery note reviewed and appreciated. I agree that she is a poor surgical candidate and that medical treatment is the best available option. Julius was not presently available. I will try to reach her son later today or tomorrow. I feel pt has such a poor performance status that aggressive palliative chemotherapy is inappropriate. Perhaps a mild program could be tolerated once the gangrene is dealt with. Hospice level of care would also be appropriate. Subjective 24 Hr Interval Summary Free Text/Dictation Pt remains in bed almost all the time. No new issues. Exam/Review of Systems Vital Signs Vitals Vital Signs Date Time Temp Pulse Resp B/P Pulse Ox O2 Delivery O2 Flow Rate FiO2 07/26/17 07:58 98.2 53 18 157/71 99 07/23/17 18:30 Room Air Intake and Output 07/25/17 07/25/17 07/26/17 14:59 22:59 06:59 Intake Total 50 ml 1050 ml 1000 ml Balance 50 ml 1050 ml 1000 ml Exam Constitutional: alert, oriented Head: normocephalic Eyes: nl conjunctiva ENMT: nl external ears & nose Neck: supple Respiratory: clear to auscultation Cardiovascular: regular rate and rhythm Extremities: other (distal gangrene) Lymph: nl lymph nodes Results Result Diagram: 07/26/17 0547 07/26/17 0547 Results 24 hrs Laboratory Tests Test 07/25/17 12:37 07/25/17 17:01 07/25/17 21:22 07/26/17 05:47 Bedside Glucose 76 89 109 White Blood Count 8.7 # Red Blood Count 2.88 L Hemoglobin 8.8 L Hematocrit 26.0 L Mean Corpuscular Volume 90.3 Mean Corpuscular Hemoglobin 30.6 Mean Corpuscular Hemoglobin Concent 33.8 Red Cell Distribution Width 14.6 H Platelet Count 197 Mean Platelet Volume 9.8 Neutrophils % 74.1 Lymphocytes % 14.8 L Monocytes % 8.3 Eosinophils % 1.6 Basophils % 0.7 Nucleated Red Blood Cells % 0.0 Neutrophils # 6.5 Lymphocytes # 1.3 Monocytes # 0.7 Eosinophils # 0.1 Basophils # 0.1 Nucleated Red Blood Cells # 0.0 Sodium Level 135 Potassium Level 3.1 L Chloride Level 100 Carbon Dioxide Level 28 Anion Gap 10 Blood Urea Nitrogen 7 Creatinine 0.55 Glucose Level 76 Calcium Level 8.8 Total Bilirubin 0.2 Direct Bilirubin 0.00 Indirect Bilirubin 0.2 Aspartate Amino Transf (AST/SGOT) 29 Alanine Aminotransferase (ALT/SGPT) 32 Alkaline Phosphatase 111 Total Protein 6.1 Albumin 2.4 L Globulin 3.70 H Albumin/Globulin Ratio 0.64 Test 07/26/17 08:25 Bedside Glucose 70 Medications Medications Current Medications Acetaminophen/ Hydrocodone Bitart ([place] (5/325)) 1 tab Q6H PRN PO MODERATE PAIN LEVEL 4-6 Last administered on 07/26/17 08:35; Admin Dose 1 TAB; Start 07/23/17 at 16:30 Enoxaparin Sodium (Lovenox) 40 mg DAILY SC Last administered on 07/26/17 08: 53; Admin Dose 40 MG; Start 07/24/17 at 09:00 Diagnostic Test (Pha) (Accu-Chek) 1 ea 02 XX ; Start 07/24/17 at 02:00 Metoprolol Tartrate 25 mg 25 mg BID PO Last administered on 07/26/17 08:36; Admin Dose 25 MG; Start 07/23/17 at 21:00 Piperacillin Sod/ Tazobactam Sod (Zosyn 3.375gm/ 50 ml (Pmx)) 50 ml @ 100 mls/ hr Q8 IVPB Last administered on 07/26/17 05:17; Admin Dose 100 MLS/HR; Start 07/23/17 at 22:00 Miscellaneous Information 1 ea NOTE XX ; Start 07/23/17 at 18:00 Glucose (Glutose) 15 gm Q15M PRN PO DECREASED GLUCOSE; Start 07/23/17 at 18:00 Glucose (Glutose) 22.5 gm Q15M PRN PO DECREASED GLUCOSE; Start 07/23/17 at 18: 00 Dextrose (D50w Syringe) 25 ml Q15M PRN IV DECREASED GLUCOSE; Start 07/23/17 at 18:00 Dextrose (D50w Syringe) 50 ml Q15M PRN IV DECREASED GLUCOSE; Start 07/23/17 at 18:00 Glucagon (Glucagen) 1 mg Q15M PRN IM DECREASED GLUCOSE; Start 07/23/17 at 18: 00 Glucose (Glutose) 15 gm Q15M PRN BUCCAL DECREASED GLUCOSE; Start 07/23/17 at 18:00 Clotrimazole 1 applic 1 applic BID TOP Last administered on 07/26/17 08:36; Admin Dose 1 APPLIC; Start 07/23/17 at 22:00 Vancomycin HCl/ Dextrose/Water (Vancocin/D5W) 150 ml @ 75 mls/hr Q24H IVPB Last administered on 07/25/17 17:00; Admin Dose 75 MLS/HR; Start 07/24/17 at 16:00 Collagenase (Santyl) 1 applic DAILY TOP Last administered on 07/26/17 08:36; Admin Dose 1 APPLIC; Start 07/25/17 at 09:00 Miscellaneous Information (*Rx Drug Level Order Reminder*) VANCO TROUGH @ 1, 500 ON ... ONCE ONCE XX ; Start 07/26/17 at 15:00; Stop 07/26/17 at 15:01 Insulin Glargine (Lantus) 6 unit DAILY@08 SC Last administered on 07/26/17 08 :53; Admin Dose 6 UNIT; Start 07/26/17 at 08:00 DIEGO BHATT MD Jul 26, 2017 12:28
[2017-07-26 14:37] VITALS: BP 163/70; RESP 18
--- NOTE | 2017-07-26 15:25 | PN ---
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 Advanced, incurable regardless. Refer to palliative care as outpatient. Family is in agreement DMII: - Continue basal/bolus insulin A Fib: - Cont home meds Discharge to home tomorrow once hospice services are arranged Problems: Subjective 24 Hr Interval Summary Free Text/Dictation MRI confirms osteomyelitis of R great toe Discussed case at length with family and patient. They understand that cancer in liver is very dire diagnosis which is not curable. Discussed that chemo is not possible now given her foot wound. We all agreed for DNR/DNI and for hospice referral. Have asked [facility] to see the patient. Exam/Review of Systems Vital Signs Vitals Vital Signs Date Time Temp Pulse Resp B/P Pulse Ox O2 Delivery O2 Flow Rate FiO2 07/26/17 14:37 99.0 63 18 163/70 99 07/23/17 18:30 Room Air Intake and Output 07/25/17 07/25/17 07/26/17 15:00 23:00 07:00 Intake Total 1050 ml 1000 ml Balance 1050 ml 1000 ml Results Result Diagram: 07/26/17 0547 07/26/17 0547 Results 24 hrs Laboratory Tests Test 07/25/17 17:01 07/25/17 21:22 07/26/17 05:47 07/26/17 08:25 Bedside Glucose 89 109 70 White Blood Count 8.7 # Red Blood Count 2.88 L Hemoglobin 8.8 L Hematocrit 26.0 L Mean Corpuscular Volume 90.3 Mean Corpuscular Hemoglobin 30.6 Mean Corpuscular Hemoglobin Concent 33.8 Red Cell Distribution Width 14.6 H Platelet Count 197 Mean Platelet Volume 9.8 Neutrophils % 74.1 Lymphocytes % 14.8 L Monocytes % 8.3 Eosinophils % 1.6 Basophils % 0.7 Nucleated Red Blood Cells % 0.0 Neutrophils # 6.5 Lymphocytes # 1.3 Monocytes # 0.7 Eosinophils # 0.1 Basophils # 0.1 Nucleated Red Blood Cells # 0.0 Sodium Level 135 Potassium Level 3.1 L Chloride Level 100 Carbon Dioxide Level 28 Anion Gap 10 Blood Urea Nitrogen 7 Creatinine 0.55 Glucose Level 76 Calcium Level 8.8 Total Bilirubin 0.2 Direct Bilirubin 0.00 Indirect Bilirubin 0.2 Aspartate Amino Transf (AST/SGOT) 29 Alanine Aminotransferase (ALT/SGPT) 32 Alkaline Phosphatase 111 Total Protein 6.1 Albumin 2.4 L Globulin 3.70 H Albumin/Globulin Ratio 0.64 Test 07/26/17 12:14 Bedside Glucose 131 Medications Medications Current Medications Acetaminophen/ Hydrocodone Bitart ([place] (5/325)) 1 tab Q6H PRN PO MODERATE PAIN LEVEL 4-6 Last administered on 07/26/17 08:35; Admin Dose 1 TAB; Start 07/23/17 at 16:30 Enoxaparin Sodium (Lovenox) 40 mg DAILY SC Last administered on 07/26/17 08: 53; Admin Dose 40 MG; Start 07/24/17 at 09:00 Diagnostic Test (Pha) (Accu-Chek) 1 ea 02 XX ; Start 07/24/17 at 02:00 Metoprolol Tartrate 25 mg 25 mg BID PO Last administered on 07/26/17 08:36; Admin Dose 25 MG; Start 07/23/17 at 21:00 Piperacillin Sod/ Tazobactam Sod (Zosyn 3.375gm/ 50 ml (Pmx)) 50 ml @ 100 mls/ hr Q8 IVPB Last administered on 07/26/17 14:11; Admin Dose 100 MLS/HR; Start 07/23/17 at 22:00 Miscellaneous Information 1 ea NOTE XX ; Start 07/23/17 at 18:00 Glucose (Glutose) 15 gm Q15M PRN PO DECREASED GLUCOSE; Start 07/23/17 at 18:00 Glucose (Glutose) 22.5 gm Q15M PRN PO DECREASED GLUCOSE; Start 07/23/17 at 18: 00 Dextrose (D50w Syringe) 25 ml Q15M PRN IV DECREASED GLUCOSE; Start 07/23/17 at 18:00 Dextrose (D50w Syringe) 50 ml Q15M PRN IV DECREASED GLUCOSE; Start 07/23/17 at 18:00 Glucagon (Glucagen) 1 mg Q15M PRN IM DECREASED GLUCOSE; Start 07/23/17 at 18: 00 Glucose (Glutose) 15 gm Q15M PRN BUCCAL DECREASED GLUCOSE; Start 07/23/17 at 18:00 Clotrimazole 1 applic 1 applic BID TOP Last administered on 07/26/17 08:36; Admin Dose 1 APPLIC; Start 07/23/17 at 22:00 Vancomycin HCl/ Dextrose/Water (Vancocin/D5W) 150 ml @ 75 mls/hr Q24H IVPB Last administered on 07/25/17 17:00; Admin Dose 75 MLS/HR; Start 07/24/17 at 16:00 Collagenase (Santyl) 1 applic DAILY TOP Last administered on 07/26/17 08:36; Admin Dose 1 APPLIC; Start 07/25/17 at 09:00 Insulin Glargine (Lantus) 6 unit DAILY@08 SC Last administered on 07/26/17 08 :53; Admin Dose 6 UNIT; Start 07/26/17 at 08:00 FLAKITO LOWE MD Jul 26, 2017 15:25
[2017-07-26] MEDS: VANCOMYCIN 750 MG in DEXTROSE 5% 150 ML IVPB SCH (16:00)
[2017-07-26] MEDS ORDERED: VANCOMYCIN 1.25 GM in SOD CHLORIDE 0.9% 250 ML IVPB SCH (18:00)
[2017-07-26 20:00] VITALS: BP 156/86; RESP 20
[2017-07-27 02:00] VITALS: BP 167/81; RESP 20
[2017-07-27] MEDS: ACCU-CHEK XX SCH (02:00)
[2017-07-27] MEDS: HYDROCODONE/APAP (5/325) TAB PO PRN ×3 (02:39→21:40)
[2017-07-27 03:28] VITALS: BP 152/74; PULSE 66
[2017-07-27] MEDS ORDERED: LEVOFLOXACIN 500 MG TAB PO SCH (08:00)
[2017-07-27] MEDS: INSULIN ASPART [NOVOLOG] 3 ML PEN SC SCH ×7 (08:00→22:17)
[2017-07-27 08:20] VITALS: BP 183/70; RESP 17
[2017-07-27] MEDS: METOPROLOL 25 MG TAB PO SCH ×2 (09:00→22:20)
[2017-07-27] MEDS: INSULIN GLARGINE [LANtus] 3 ML PEN SC SCH (09:03)
[2017-07-27] MEDS: ENOXAPARIN 40 MG/0.4 ML SYG SC SCH (09:03)
[2017-07-27] MEDS: CLOTRIMAZOLE 1% 30 GM CR TOP SCH ×2 (09:10→22:32)
[2017-07-27] MEDS: COLLAGENASE 30 GM TUBE TOP SCH (09:10)
--- NOTE | 2017-07-27 10:24 | QN ---
Documentation Comment Discussed with son Julius by phone. He had already talked to Dr. Mathews and is aware that the patient';s prognosis is very poor. Palliative care is a good choice here. None of this is curable and her comfort will be the main focus. DIEGO BHATT MD Jul 27, 2017 10:24
--- NOTE | 2017-07-27 15:13 | PN ---
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 Advanced, incurable regardless. Refer to palliative care as outpatient. Family is in agreement DMII: - Continue basal/bolus insulin A Fib: - Cont home meds Discharge to home tomorrow once hospice services are arranged Problems: Subjective 24 Hr Interval Summary Free Text/Dictation Hosipce being arranged Patient comfortable, no compalitns Exam/Review of Systems Vital Signs Vitals Vital Signs Date Time Temp Pulse Resp B/P Pulse Ox O2 Delivery O2 Flow Rate FiO2 07/27/17 08:20 98.5 61 17 183/70 98 07/23/17 18:30 Room Air Intake and Output 07/26/17 07/26/17 07/27/17 15:00 23:00 07:00 Intake Total 50 ml 1180 ml 500 ml Balance 50 ml 1180 ml 500 ml Results Result Diagram: 07/26/17 0547 07/26/17 0547 Results 24 hrs Laboratory Tests Test 07/26/17 15:24 07/26/17 17:43 07/26/17 20:23 07/27/17 08:58 Vancomycin Level Trough 6.2 L Bedside Glucose 79 85 105 Test 07/27/17 12:02 Bedside Glucose 151 Medications Medications Current Medications Acetaminophen/ Hydrocodone Bitart ([place] (5/325)) 1 tab Q6H PRN PO MODERATE PAIN LEVEL 4-6 Last administered on 07/27/17 09:18; Admin Dose 1 TAB; Start 07/23/17 at 16:30 Enoxaparin Sodium (Lovenox) 40 mg DAILY SC Last administered on 07/27/17 09: 03; Admin Dose 40 MG; Start 07/24/17 at 09:00 Diagnostic Test (Pha) (Accu-Chek) 1 ea 02 XX ; Start 07/24/17 at 02:00 Metoprolol Tartrate (Lopressor) 25 mg BID PO Last administered on 07/27/17 09 :00; Admin Dose 25 MG; Start 07/23/17 at 21:00 Miscellaneous Information 1 ea NOTE XX ; Start 07/23/17 at 18:00 Glucose (Glutose) 15 gm Q15M PRN PO DECREASED GLUCOSE; Start 07/23/17 at 18:00 Glucose (Glutose) 22.5 gm Q15M PRN PO DECREASED GLUCOSE; Start 07/23/17 at 18: 00 Dextrose (D50w Syringe) 25 ml Q15M PRN IV DECREASED GLUCOSE; Start 07/23/17 at 18:00 Dextrose (D50w Syringe) 50 ml Q15M PRN IV DECREASED GLUCOSE; Start 07/23/17 at 18:00 Glucagon (Glucagen) 1 mg Q15M PRN IM DECREASED GLUCOSE; Start 07/23/17 at 18: 00 Glucose (Glutose) 15 gm Q15M PRN BUCCAL DECREASED GLUCOSE; Start 07/23/17 at 18:00 Clotrimazole (Lotrimin Cr) 1 applic BID TOP Last administered on 07/27/17 09: 10; Admin Dose 1 APPLIC; Start 07/23/17 at 22:00 Collagenase (Santyl) 1 applic DAILY TOP Last administered on 07/27/17 09:10; Admin Dose 1 APPLIC; Start 07/25/17 at 09:00 Insulin Glargine (Lantus) 6 unit DAILY@08 SC Last administered on 07/27/17 09 :03; Admin Dose 6 UNIT; Start 07/26/17 at 08:00 Levofloxacin (Levaquin) 500 mg ONCE PO Last administered on 07/27/17 08:59; Admin Dose 500 MG; Start 07/27/17 at 08:00; Stop 07/27/17 at 23:00 Levofloxacin (Levaquin) 250 mg DAILY@06 PO ; Start 07/28/17 at 06:00 FLAKITO LOWE MD Jul 27, 2017 15:13
[2017-07-27 19:49] VITALS: BP 184/76; RESP 16
[2017-07-27 23:00] VITALS: BP 156/72; PULSE 61
[2017-07-28] MEDS: ACCU-CHEK XX SCH (02:13)
[2017-07-28 02:14] VITALS: BP 163/92; RESP 16
[2017-07-28] MEDS: HYDROCODONE/APAP (5/325) TAB PO PRN (03:48)
[2017-07-28] MEDS ORDERED: LEVOFLOXACIN 250 MG TAB PO SCH (06:00)
[2017-07-28] MEDS: INSULIN ASPART [NOVOLOG] 3 ML PEN SC SCH ×2 (08:00→08:34)
--- NOTE | 2017-07-28 08:03 | CONS ---
Date/Time of Note Date/Time of Note DATE: 07/28/17 TIME: 07:59 Consult Date/Type/Reason Admit Date/Time Jul 23, 2017 at 15:55 Initial Consult Date 07/25/17 Type of Consultation: Foot and ankle surgery Ordering Provider: FLAKITO LOWE MD Subjective Saw pt with nurse this am. Denies pain in the right foot. Controlled with tramadol. Pt may go home later today under hospice care. BP slightly up over the night. Objective Vital Signs Date Time Temp Pulse Resp B/P Pulse Ox O2 Delivery O2 Flow Rate FiO2 07/28/17 02:14 98.8 53 16 163/92 94 Intake and Output 07/27/17 07/27/17 07/28/17 15:00 23:00 07:00 Intake Total 450 ml Balance 450 ml Exam Thin but pleasant female in no apparent distress OP clear Cachectic RRR no m/g/r CTA B Mild distension Decreased sensation in both feet Black eschar over right big toe Results/Medications Result Diagram: 07/26/17 0547 07/26/17 0547 Results 24 hrs Laboratory Tests Test 07/27/17 08:58 07/27/17 12:02 07/27/17 18:05 07/27/17 22:14 Bedside Glucose 105 151 159 202 Test 07/28/17 02:12 Bedside Glucose 125 Medications Current Medications Acetaminophen/ Hydrocodone Bitart ([place] (5/325)) 1 tab Q6H PRN PO MODERATE PAIN LEVEL 4-6 Last administered on 07/28/17 03:48; Admin Dose 1 TAB; Start 07/23/17 at 16:30 Enoxaparin Sodium (Lovenox) 40 mg DAILY SC Last administered on 07/27/17 09: 03; Admin Dose 40 MG; Start 07/24/17 at 09:00 Diagnostic Test (Pha) (Accu-Chek) 1 ea 02 XX Last administered on 07/28/17 02 :13; Admin Dose 1 EA; Start 07/24/17 at 02:00 Metoprolol Tartrate (Lopressor) 25 mg BID PO Last administered on 07/27/17 22 :20; Admin Dose 25 MG; Start 07/23/17 at 21:00 Miscellaneous Information 1 ea NOTE XX ; Start 07/23/17 at 18:00 Glucose (Glutose) 15 gm Q15M PRN PO DECREASED GLUCOSE; Start 07/23/17 at 18:00 Glucose (Glutose) 22.5 gm Q15M PRN PO DECREASED GLUCOSE; Start 07/23/17 at 18: 00 Dextrose (D50w Syringe) 25 ml Q15M PRN IV DECREASED GLUCOSE; Start 07/23/17 at 18:00 Dextrose (D50w Syringe) 50 ml Q15M PRN IV DECREASED GLUCOSE; Start 07/23/17 at 18:00 Glucagon (Glucagen) 1 mg Q15M PRN IM DECREASED GLUCOSE; Start 07/23/17 at 18: 00 Glucose (Glutose) 15 gm Q15M PRN BUCCAL DECREASED GLUCOSE; Start 07/23/17 at 18:00 Clotrimazole (Lotrimin Cr) 1 applic BID TOP Last administered on 07/27/17 22: 32; Admin Dose 1 APPLIC; Start 07/23/17 at 22:00 Collagenase (Santyl) 1 applic DAILY TOP Last administered on 07/27/17 09:10; Admin Dose 1 APPLIC; Start 07/25/17 at 09:00 Insulin Glargine (Lantus) 6 unit DAILY@08 SC Last administered on 07/27/17 09 :03; Admin Dose 6 UNIT; Start 07/26/17 at 08:00 Levofloxacin (Levaquin) 250 mg DAILY@06 PO Last administered on 07/28/17 05: 09; Admin Dose 250 MG; Start 07/28/17 at 06:00 Docusate Sodium (Colace) 100 mg BID PO ; Start 07/28/17 at 09:00 Polyethylene Glycol (Miralax) 17 gm DAILY PO ; Start 07/28/17 at 09:00 Assessment/Plan Chief Complaint/Hosp Course 77yo female with h/o met carcinoma of unknown primary who was admitted with gangrene of the right big toe. C/w osteomyelitis growing assortment of bugs. On Abx. Comfortable. To transition to hospice shortly. There is no intention to initiate chemotherapy. DVT ppx Pain control Abx for osteo Will f/u PRN. Ezequiel Mendez MD Hematology/Oncology On behalf of Dr. Feliz Problems: EZEQUIEL MENDEZ Jul 28, 2017 08:03
[2017-07-28 08:04] VITALS: BP 158/80; RESP 18
[2017-07-28] MEDS: METOPROLOL 25 MG TAB PO SCH (08:33)
[2017-07-28] MEDS: ENOXAPARIN 40 MG/0.4 ML SYG SC SCH (08:35)
[2017-07-28] MEDS: INSULIN GLARGINE [LANtus] 3 ML PEN SC SCH (08:35)
[2017-07-28] MEDS: CLOTRIMAZOLE 1% 30 GM CR TOP SCH (08:36)
[2017-07-28] MEDS: COLLAGENASE 30 GM TUBE TOP SCH (08:36)
[2017-07-28] MEDS ORDERED: POLYETHYLENE GLYCOL 17 GM PACKET PO SCH (09:00)
[2017-07-28] MEDS ORDERED: DOCUSATE SODIUM 100 MG CAP PO SCH (09:00)
[2017-07-28] MEDS ORDERED: SAN30GM TOP (10:42)
[2017-07-28] MEDS ORDERED: LEVO250T35 PO (10:42)
--- NOTE | 2017-07-28 10:43 | PDOCDIS ---
Discharge Instructions DIAGNOSIS Discharge Diagnosis Osteomyelitis CONDITION Patient Condition: Fair HOME CARE INSTRUCTIONS: Special Diet: Carb controlled FOLLOW UP/APPOINTMENTS Follow-up Plan Take antibiotics as prescribed Apply ointment to the wound on your foot Make an appointment with Dr Dre Alanis for further care of your foot wound FLAKITO LOWE MD Jul 28, 2017 10:43
--- NOTE | 2017-07-28 14:35 | DS ---
Date/Time of Note Date/Time of Note DATE: 07/28/17 TIME: 14:32 Discharge Summary Admission/Discharge Info Admit Date/Time Jul 23, 2017 at 15:55 Discharge Date/Time Discharge Diagnosis Osteomyelitis Patient Condition: Stable Hx of Present Illness 77 yo female with recent history of metastatic cancer to the liver (patient was unaware of this), atrial fibrillation, DMII who was referred from clinic by PMD for evaluation of toe ulcer The patient has a ~ 2 cm necrotic ulcer on the lateral side of her big toe. She says it has been there for probably about a month. Denies any drainage/ pus. No systemic symptoms of fever etc. Has noted b/l mild edema to calves. She has never had a toe ulceration before or any diabetic foot disease. She was recently admitted here and found to have malignant liver mets which were biopseid and now resulted as undifferentiated adenocarcinoma. She was to follow up in clinic apparently for results. I broke the news to her in the ED. 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 Workup showed flow limiting arterial disease in the affected leg. It also showed osteomyelitis. Dr Grant was consulted from vascular as well as Annabelle from podiatry. Local wound care was recommended. No vascular intervention was pursued given her active cancer Dr Feliz was consulted from oncology who also recommended against intervention for her advanced cancer given her active foot wound and infection Dire situation was explained to pateint and family who agreed to hospice services. This was set up for home She will be discharged wt 30 days of levaquin for osteomyelitis and santyl for her foot wound. Home Meds Active Scripts Collagenase* (Santyl*) 30 Gm Oint..gm., 1 APPLIC TOP DAILY for 30 Days, #2 TUB 3 Refills Prov:FLAKITO LOWE MD 07/28/17 Levofloxacin* (Levaquin*) 250 Mg Tablet, 250 MG PO DAILY@06 for 30 Days, #30 TAB Prov:FLAKITO LOWE MD 07/28/17 Apixaban* (Eliquis*) 2.5 Mg Tablet, 2.5 MG PO BID, #60 TAB Prov:MAK NOVAK NP 07/12/17 Sitagliptin* (Januvia*) 100 Mg Tablet, 100 MG PO DAILY, #30 TAB Prov:MAK NOVAK [employer]IRING WORKER 07/12/17 Reported Medications Ranitidine Hcl* (Zantac*) 150 Mg Tablet, 150 MG PO BID, #60 TAB 07/01/17 Discontinued Reported Medications Metoprolol Tartrate* (Lopressor*) 25 Mg Tab, 25 MG PO BID, #60 TAB 07/01/17 Cholecalciferol* (Vitamin D*) 400 Unit Tablet, 400 UNIT PO DAILY, TAB 07/01/17 Discontinued Scripts Lisinopril* (Lisinopril*) 5 Mg Tablet, 5 MG PO DAILY, #30 TAB Prov:MAK NOVAK FAIRING WORKER 07/12/17 Follow-up Plan Take antibiotics as prescribed Apply ointment to the wound on your foot Make an appointment with Dr Dre Alanis for further care of your foot wound Primary Care Provider Larisa Ellison DO Pending Labs Laboratory Tests Test 07/27/17 18:05 07/27/17 22:14 07/28/17 02:12 07/28/17 08:06 Bedside Glucose 159mg/dL (70-220) 202mg/dL (70-220) 125mg/dL (70-220) 124mg/dL (70-220) FLAKITO LOWE MD Jul 28, 2017 14:35
== END 2017-07-28 14:44 | disposition home or self-care (01) | DRG 300 ==
LOC: E/R 11:55 → PP2 15:55
PROVIDERS: ADMIT Internal Medicine; ATTEND Internal Medicine
DX: E11.52 Type 2 diabetes mellitus with diabetic peripheral angiopathy with gangrene (principal); E11.621 Type 2 diabetes mellitus with foot ulcer; C78.7 Secondary malignant neoplasm of liver and intrahepatic bile duct; M86.8X7 Other osteomyelitis, ankle and foot; I48.91 Unspecified atrial fibrillation; L97.519 Non-pressure chronic ulcer of other part of right foot with unspecified severity; C80.1 Malignant (primary) neoplasm, unspecified; L03.031 Cellulitis of right toe; E11.69 Type 2 diabetes mellitus with other specified complication
CPT/HCPCS: 36415; 71010; 73630; 73706; 73718; 80053; 80202; 81001; 82962; 83690; 83880; 84484; 85025; 85610; 85651; 86140; 87070; 93005; 93922; 93970; 96374; 96375; J0692; J1650; J1815; J2270; J2543; J3370; J7050; Q9967